=== PATIENT | female | born 1985 | race Caucasian/White ===

== ENCOUNTER 2022-03-12 09:47 | Outpatient (CLI) | payer BC, SELFPAY ==
[2022-03-12 13:24] LABS: Hemoglobin A1C 5.3 % (<5.7)
[2022-03-12 13:25] LABS: Calculated LDL 113 mg/dL (<100); Cholesterol 195 mg/dL (<200); HDL Cholesterol 71 mg/dL (40-60); Triglyceride 57 mg/dL (<150)
== END 2022-03-12 09:48 | disposition home or self-care (01) ==
LOC: LOS 09:47
PROVIDERS: PCP Nurse Practitioner Family; Referring Provider Nurse Practitioner Family; Visit Provider Nurse Practitioner Family
DX: Z13.220 Encounter for screening for lipoid disorders (principal); Z13.1 Encounter for screening for diabetes mellitus
CPT/HCPCS: 36415; 80061; 83036

== ENCOUNTER 2024-04-18 00:08 | Outpatient (CLI) | payer BC, SELFPAY ==
--- OUTSIDE RECORDS SUMMARY | 2024-04-16 14:07 | XMS_ITS | Encounter Summary ---
Author Organization [facility] [place] [address] Care Team Providers Care Event Operations Manager Name Role Phone None Primary Care Provider Unavailabl e Encounter Details Date Type Department Care Team (Latest Contact Info) Description 06/08/2013 5:13 PM EDT - 06/21/2013 1:30 PM EDT [place] [address] Marlen Saleh MD [facility] [address] OBST[place] [address] Narcisa Carcamo MD [facility] [address] OBSTET[place] [address] Dichorionic diamniotic twin gestation (Primary Dx); High-risk supervision, third trimester; Gestational HTN, third trimester; Premature cervical dilation, third trimester Discharge Disposition: Home Social History Tobacco Use Types Packs/Day Years Used Date Smoking Tobacco: Never Smokeless Tobacco: Never Alcohol Use Standard Drinks/Week Comments No 0 (1 standard drink = 0.6 oz pur e alcohol) Sex and Gender Information Value Date Recorded Sex Assigned at Not on file Gender Identity Not on file Sexual Orientation Not on file documented as of this encounter Last Filed Vital Signs Vital Sign Reading Time Taken Comments Blood Pressure 126/61 06/21/2013 7:51 AM EDT Pulse 81 06/21/2013 7:51 AM EDT Temperature 36.6 ??C (97.9 ??F) 06/21/2013 7:51 AM ED T Respiratory Rate 18 06/21/2013 7:51 AM EDT Oxygen Saturation 99% 06/20/2013 9:30 PM EDT Inhaled Oxygen Concentration - - Weight 82.3 kg (181 lb 7 oz) 06/18/2013 12:16 PM EDT Height 162.6 cm (5' 4) 06/08/2013 5:29 PM EDT Body Mass Index 31.14 06/08/2013 5:29 PM EDT documented in this encounter Discharge Instructions * Discharge Instructions* Nicho Childers - 06/21/2013 11:06 AM EDT .Nurse Inpatient Note - Vaginal Delivery Follow-ups: Immunizations Received: [ ] MMR [ ] Tdap [ ] Inactivated Influenza Vaccine [ ] Other: Medications Received: [ ] Rhogam Given: (time/date) [ ] Depoprovera Given: (time/date) [ ] Other: Additional Instructions: Maternal Discharge Instructions Rest: Although it may seem impossible to get enough rest, simple planning will help. Try to get at least one four hour block of uninterrupted sleep in 24 hours; then plan to rest, and/or sleep when your baby does. Limiting visitors also helps. Fathers and other family members can help by doing housework, caring for other children and/or helping limit visitors. Nutrition: Your diet following the of your baby is as important as it was before the baby wasborn. Drink a minimum of 6-8 glasses a day. Do not attempt to lose weight during the first six weeks. Continue taking your vitamins until they are gone. Lochia: (Flow) Your flow should be no heavier than a normal period. It will be bright red for 2-3 days and then pinkish and finally colorless. If your flow becomes bright red again, decrease your activity. Do not use tampons until your care provider advises you it is OK. Perineum: For about a week continue to rinse yourself with warm water when you use the toilet. A sitz bath with Epsom salts taken 3-4 times a day may help relieve soreness. Kegel exercise, done regularly throughout the day, will help tighten the perineal muscles and speed recovery. Breast Care for Formula feeding mothers: Wear a well fitting bra to support your breasts. Ice packsto your breasts and Tylenol or Ibuprofen may be used to relieve discomfort from engorgement. Avoid stimulating your breasts: Do not let warm water from the shower fall on them; avoid holding your baby near your breasts until your milk begins to decrease and engorgement is relieved. Breast feeding mothers: Practice careful positioning and frequent feeding as demonstrated in the hospital. The printed information in your packet covers this in detail. Call your doctor or certified professional midwife for: Fever more than 100.5 Heavy bleeding that saturates a pad an hour Clots larger than a plum Increased abdominal pain, nausea, shaking chills Breast with hot, hard, tender areas on the breast plus flu-like symptoms depression occurs in a large percentage of women. We encourage you to contact your provider or a member of the nursing staff if you are feeling so overwhelmed that you are unable to care for yourself or your baby. Keep your follow up appointment. You may call the [facility] at any time for guidance or for answers to questions that come up prior to you follow up appointment. Your [facility] Provider can be reached during office hours at [facility] Follow-up [facility] AFTER OFFICE HOURS for the sheet metal assembler or certified professional midwife outside residential sales professional Provider electronic signature confirms that discharge instructions were reviewed with the patient. A copy was printed and given to the patient. documented in this encounter Medications at Time of Discharge Medication Sig Dispensed Refills Start Date End Date norethindrone (ORTHO MICRONOR) 0.35 mg tablet Take 1 tablet by mouth daily. 28 tablet 12 06/21/2013 multivitamin (THERAGRAN) tablet Take 1 tablet by mouth daily. ibuprofen (ADVIL;MOTRIN) 600 mg tablet Take 1 tablet by mouth every 6 hours as needed for Pain (mild to moderate pain). 60 tablet 2 06/21/2013 08/02/2013 lansoprazole (PREVACID) 15 mg capsule Take 1 capsule by mouth daily. 30 capsule 12 04/25/2013 08/02/2013 documented as of this encounter Progress Notes * Guerline Schilling RN - 06/21/2013 11:59 AM EDT Care Management Assessment (Clinical English As A Second Language Instructor) Patient Information has been reviewed in multi-disciplinary rounds with OB and pediatric providers,in medical record, and through patient interview. Introduced self and CRC role to patient and services accepted. Living Situation: Clement is a 28 y.o delivered vaginally at 34 0/7 wks gestation on 06/19/13 Her was complicated by: Gestational hypertension, di-di twins (IVF ) With Whom: Aydin Where: [place], [place] Approx time in community: Year(s) Social Resources: Intact couple with first babies. Much desired . Both parents areemployed. 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 They are currently on his employer's [employer], but likely changing now to her [employer] plan to add the babies. Extended family in area for support: Yes, lots Cognitive Resources: Intact Childbirth Education: Yes/No Educational Level: College Functional Status: Ambulatory, Independent, Without limitations. Complications requiring follow-up: Financial Resources: Adequate Health Insurance Coverage: [facility] Commercial Announcer Chosen: Fernando Corey MD Baby's Names: Twin Boys Parish and Que Eubanks Anticipated Continuing Care Needs: Physical: Recovery from vaginal . Initiation of . Emotional: Adjustment to period Psychological: No known hx of anxiety/depression. Educational: Parenting twins/ ICN care- Continuing Care Plan Development: At home resources/Discharge supports suggested. Printed materials and suggested community resourcesprovided to patient: Visiting Nurse visits: Offered services of VNA post discharge. Patient accepted for when babies aredischarged home. Does not desire for herself as she will be commuting to [facility] daily from [facility].Does not desire to stay at [facility] at this time (have dog/home to resume care of) but has info if she changes her mind. Does not desire VNA for herself, but will accept if recommended when the t wins are discharged. Does not think she will want to consider having the babies returned to Home Hospital ([facility]) as she is pleased with the care they are getting here. [facility] (not available) 4th Trimester New mom support/[facility] [place] [facility]: [facility] DME ordered : Hospital Grade Double Electric Breast Pump x 3 months Breast Pump: Paying out of pocket, rented through [facility] as insurance covers only a single sided [employer] pump. Other: Have infant car seats, Own transportation, and adequate family support. No direct referrals made at this time. ICN FISCAL ACCOUNTING CLERK will follow through babies' discharges. CRC: Crystal GATES/ Mundo Blount. Beeper [phone] * Isaiah Clement RN - 06/21/2013 8:08 AM EDT Patient Name: Clement Eubanks Patient Age: 28 y.o. Birthdate: 1985 Admit date: 06/08/2013 Attending Physician: Narcisa Carcamo MD Office of Care Management (OCM) / Clinical English As A Second Language Instructor (CRC)/ Initial Assessment Discussed patient with Provider Team and in multidisciplinary discharge-planning rounds. Reviewed record and interviewed parents. Introduced/reviewed CRC role and services accepted. REASON for HOSPITALIZATION: Delivery of 34 week premature twins PMH/PSH: Past Medical History Diagnosis Date ??? Infertility IVF ??? Varicella ??? 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 Hydrosalpinx 07/28/2011 ??? Gestational HTN 06/12/2013 SOCIAL / FAMILY SUPPORTS: Hai are a couple who live in [facility] and these twins are their first children. They have good family support near them. CURRENT FUNCTIONAL STATUS:Parents are ambulatory, independent, without limitations. INSURANCE COVERAGE / FINANCIAL ISSUES: Aydin works for a [employer] [facility] [employer] medical insurance, which the twins will be added to. 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 PRIMARY CARE PHYSICIAN: none POTENTIAL DISCHARGE NEEDS:Insurance pays for a manual pump only, so parents will rent a symphony pump form the [facility]. Pump will be delivered to them today. PATIENT/FAMILY EDUCATION NEEDS: All aspects of care. Discussed transfer to [facility] when twins are stable, will readdress next week when twins are on full feedings. ANTICIPATED BARRIERS TO DISCHARGE: None identified TRANSPORTATION @ D/C: No issues identified PLAN: Will continue to monitor progress, follow for continuity of care and assist with discharge planning while hospitalized ISAIAH CLEMENT RN Pager [phone] * Fela Stephens MD - 06/21/2013 6:15 AM EDT Vaginal Delivery Note Information for the patient's : Lindsey Eubanks Twa [[id number]] Delivery Date and Time:06/19/2013 8:41 PM Delivery Type: Vaginal, Spontaneous Delivery Information for the patient's : Lindsey Eubanks Twb [[id number]] Delivery Date and Time:06/19/2013 9:04 PM Delivery Type: Vaginal, Vacuum (Extractor) Subjective: Clement has no complaints this morning. Her pain is well controlled. She denies sob, cp,n/v, leg pain. Denies ROTHMAN, vision changes, scotomas, RUQ/epigastric pain. Ambulating and walking well. Babies are doing well in the [facility]. Planning on commuting to the [facility]. Unsure of contraceptive choice, declines an IUD. Interested in using progesterone only pills. Review of Systems as above Last Set of Vitals: Filed Vitals: 06/20/13 2130 BP: 123/70 Pulse: 83 Temp: 36.5 ??C (97.7 ??F) Resp: 18 Weight - Scale: 82.3 kg (181 lb 7 oz) Physical Exam Gen: NAD, conversant, ambulating in the hallway CVS: RRR, no m/r/g Resp: cta b/l, no wheezing/rales/rhonchi Abd: soft, ndnt, fundus firm and 1 cm below umbilicus : moderate lochia Ext: +1 edema to knee, no calf tenderness Assessment & Plan Clement Eubanks is a 28 y.o. s/p an uncomplicated vaginal delivery of di-di twins at 34wks. Admitted for cervical insufficiency in setting of gHTN, though has been normotensive and asymptomatic. PPD#2. Doing well, d/c to home today. 1. care - Patient is doing well without problems. - Infant nutrition: and pumping - Contraception: progestin only pills - care: routine 6 week visit This patient was seen and discussed on rounds. GIA ESPARZA MD PGY1 06/21/2013 The patient is day 2 s/p of twin gestation. I personally saw and evaluated the patient during morning report and rounds with the resident physicians and nursing staff. The patient is making good progress. I agree with Dr. Esparza's assessment and plan as documented above. We anticipate discharge on day #2. Fela STEPHENS MD * Fela Stephens MD - 06/20/2013 6:45 AM EDT Vaginal Delivery Note Information for the patient's : Lindsey Eubanks Twa [[id number]] Delivery Date and Time:06/19/2013 8:41 PM Delivery Type: Vaginal, Spontaneous Delivery Information for the patient's : Lindsey Eubanks Twb [[id number]] Delivery Date and Time:06/19/2013 9:04 PM Delivery Type: Vaginal, Vacuum (Extractor) Subjective: Clement has no complaints this morning. Her pain is well controlled. She denies sob, cp,n/v, leg pain. Denies ROTHMAN, vision changes, scotomas, RUQ/epigastric pain. She had an epidural for delivery, but has been moving her legs better. Knott is still in place. Review of Systems as above Last Set of Vitals: Filed Vitals: 06/20/13 0447 BP: 121/68 Pulse: 73 Temp: 36.6 ??C (97.9 ??F) Resp: 18 Weight - Scale: 82.3 kg (181 lb 7 oz) Physical Exam Gen: NAD, conversant, appears fatigued CVS: RRR, no m/r/g Resp: cta b/l, no wheezing/rales/rhonchi Abd: soft, ndnt, fundus firm and below umbilicus : moderate lochia, knott in place draining clear yellow urine Ext: +1 edema to knee, no calf tenderness Assessment & Plan Clement Eubanks is a 28 y.o. s/p an uncomplicated vaginal delivery of di-di twins at 34wks. Admitted for cervical insufficiency in setting of gHTN, though has been normotensive and asymptomatic. PPD#1. Doing well. 1. care - Patient is doing well without problems. - Infant nutrition: and pumping - Contraception: undecided - care: routine 6 week visit - dc knott this am This patient was seen and discussed on rounds. MELLISSA ATWOOD MD PGY3 06/20/2013 The patient is day 1 s/p of twin gestation. I personally saw and evaluated the patient during morning report and rounds with the resident physicians and nursing staff. The patient is making good progress. I agree with Dr. Atwood's assessment and plan as documented above. Weanticipate discharge on day #2. Fela STEPHENS MD * Yessi Galvez RN - 06/19/2013 7:32 PM EDT 1919-Patient moved back to OR 2 in preparation for vaginal delivery. 2001-Complete dilation. 2018-Knott removed. 2020-O2 placed on patient between contractions. 2052-AROM for baby B clear fluid. 2101-Vacuum applied 2102-First pull started, lasting 20 sec before removal 2104-Pitocin bolus initiated * Марина Vela MD - 06/19/2013 7:17 PM EDT Patient Name: Clement Eubanks Patient Age: 28 y.o. Birthdate: 1985 Admit date: 06/08/2013 Attending Physician: Narcisa Carcamo MD Labor Progress Note Subjective: The patient is tolerating labor well. The patient is using epidural.for pain management. She is very comfortable and was able to take a nap. Objective: Temp: 36.9 ??C (98.4 ??F) 24 hr Temp: [36.8 ??C (98.2 ??F)-37 ??C (98.6 ??F)] Heart Rate: 88 24 hr Heart Rate: [75-105] BP: 140/83 mmHg 24 hr BP: (128-146)/(52-85) Cervix Exam: Dilation: 8 (06/19/13 1917) Effacement: 100 Station: 0 Position: Anterior Consistency: Soft Rodriguez Score: 12 OB Examiner: Farhana Heart Rate Interpretation: Mode: continuous external (06/19/13 1845) HR (beats/min): 145 Variability: moderate (amplitude range 6 to 25 bpm) Accelerations: present Decelerations: none Contraction Frequency (min): 2-4 min Nonstress Test Interpretation: Reactive, >32 weeks: two 15 bpm accelerations lasting 15 seconds Overall Impression: Reassuring for gestational age Nonstress Test, Fetus B HR B (beats/min): 150 Variability B: moderate (amplitude range 6 to 25 bpm) Accelerations B: present Decelerations B: absent Nonstress Test Interpretation B: Reactive, >32 weeks: two 15 bpm accelerations lasting 15 seconds Overall Impression B: Reassuring for gestational age GBS Lab Results Component Value Date GBSSCREEN Neg 06/08/2013 Assessment & Plan This is Clement Eubanks who is at 34w0d. Labor Assessment: Active phase labor., making cervical change ?? Labor Plans: AROM for clear fluid. Pitocin at 6. ?? GBS Management:: None Required ?? FHT: Category I x2 ?? Di/di twins. Will plan to move to the OR in anticipation of delivery now. LITTLE DELCID MD 06/19/2013 I have personally reviewed this patients progress in labor and agree with the documentation above. МАРИНА VELA MD * Marlen Saleh MD - 06/19/2013 4:36 PM EDT Labor Progress Note Subjective: Clement is feeling much more comfortable with the epidural in place. She reports her pain is now a 2/10. Objective: Temp: 37 ??C (98.6 ??F) 24 hr Temp: [36.8 ??C (98.2 ??F)-37 ??C (98.6 ??F)] Heart Rate: 86 24 hr Heart Rate: [76-105] BP: 130/69 mmHg 24 hr BP: (129-135)/(69-78) Cervix Exam: Dilation: 6 (06/19/13 1559) Effacement: 100 Station: 0 Position: Anterior Consistency: Soft Rodriguez Score: 12 OB Examiner: Pacis Heart Rate Interpretation: Twin A: Baseline 140, moderate variability, accelerations present to 160 Twin B: Baseline 150, moderate variability, accelerations present to 170 Tocometer: Contractions every 3-5 minutes Bedside Ultrasound: confirmed vertex/vertex, Twin A to maternal right, presenting twin, Twin B to maternal left Lab Results Component Value Date GBSSCREEN Neg 06/08/2013 Assessment & Plan Clement Eubanks is a 28 y.o. at 34w0d admitted for cervical insufficiency in the setting of di-di twin gestation and gestational HTN. Though Clement's cervical exam has remained unchanged, she is experiencing more pain with her ctx. She is much more comfortable with epidural in place. Planis to augment with pitocin and possible AROM after epidural. Anticipate vaginal delivery. She is GBS negative and no ppx is required at this time. DW Dr. Therese ESPARZA MD PGY1 06/19/2013 Attending note I have personally reviewed the patient's progress in labor and agree with Dr. Esparza's assessment and plan as documented. Marlen Saleh MD * Marlen Saleh MD - 06/19/2013 3:58 PM EDT Labor Progress Note Subjective: Clement is feeling more uncomfortable with contractions. She reports a 9/10 intensity during contractions and 7/10 at baseline. She is requesting pain management at this time. Objective: Temp: 37 ??C (98.6 ??F) 24 hr Temp: [36.8 ??C (98.2 ??F)-37 ??C (98.6 ??F)] Heart Rate: 86 24 hr Heart Rate: [76-105] BP: 130/69 mmHg 24 hr BP: (129-135)/(69-78) Cervix Exam: Dilation: 6 (06/19/13 1559) Effacement: 100 Station: 0 Position: Anterior Consistency: Soft Rodriguez Score: 12 OB Examiner: Batool Heart Rate Interpretation: Mode: continuous external (06/19/13 1500) HR (beats/min): 145 Variability: moderate (amplitude range 6 to 25 bpm) Accelerations: present Decelerations: none Contraction Frequency (min): 1-4 Nonstress Test Interpretation: Reactive, >32 weeks: two 15 bpm accelerations lasting 15 seconds Overall Impression: Reassuring for gestational age GBS Lab Results Component Value Date GBSSCREEN Neg 06/08/2013 Assessment & Plan Clement Eubanks is a 28 y.o. at 34w0d admitted for cervical insufficiency in the setting of di-di twin gestation and gestational HTN. Though Clement's cervical exam has remained unchanged, she is experiencing more pain with her ctx. She is requesting an epidural, and we will place one at this time. Plan is to augment with pitocin and possible AROM after epidural. Anticipate vaginal delivery. She is GBS negative and no ppx is required at this time. DW Dr. Saleh. MELLISSA ATWOOD MD PGY3 06/19/2013 She is entering active phase of labor. Will provide epidural analgesia, check position and give oxytocin. Marlen Saleh MD * Ophelia Mathews RN - 06/19/2013 2:44 PM EDT 1440-Pt reports contraction more intense and more frequent. Appears to be in greater discomfort andis breathing well through contractions.. EFM placed. No c/o of LOF. 1600-Pt reports pain 10/10. PE unchanged. Pt requesting epidural. Anesthesia notified. 1640-Epidural placed, pt tolerated procedure well, sitting at side of bed. Test dose given. Pt positioned in bed. Pain level reduced to 2-3. Sono done vtx/vtx. * Marlen Saleh MD - 06/19/2013 12:11 PM EDT NST Nonstress Test, Fetus A NST Start Time: 1035 (06/19/13 1208) HR (beats/min): 145 (06/19/13 1208) Variability: moderate (amplitude range 6 to 25 bpm) (06/19/13 1208) Accelerations: present (06/19/13 1208) Decelerations: none (06/19/13 120) Contraction Frequency (min): q5-8min (06/19/13 1208) Nonstress Test Interpretation: Reactive, >32 weeks: two 15 bpm accelerations lasting 15 seconds (06/19/13 1208) Overall Impression: Reassuring for gestational age (06/19/13 1208) Nonstress Test, Fetus B HR B (beats/min): 140 Variability B: moderate (amplitude range 6 to 25 bpm) Accelerations B: present Decelerations B: absent Nonstress Test Interpretation B: Reactive, >32 weeks: two 15 bpm accelerations lasting 15 seconds Overall Impression B: Reassuring for gestational age MELLISSA ATWOOD MD PGY3 06/19/2013 I personally reviewed the FHR Tracing and agree with the Resident???s interpretation. * Marlen Saleh MD - 06/19/2013 7:22 AM EDT ANTEPARTUM PROGRESS NOTE ID: Clement Eubanks is a 28 y.o. female at 34w0d, HD#13 with di/di twin gestation with continued dilation to 6 cm and bulging membranes without painful contractions. She has been admitted for continued monitoring, and is s/p tocolysis and betamethasone administration. Interval Events: - CTX requiring nifedipine for tocolysis - Has made cervical change from 4-6cm, s/p fentanyl and morphine/phenergan Subjective: Patient feels comfortable after receiving morphine/phenergan, though she still feels ctx. Denies lof and vb. +FM. Denies sob, cp, n/v, leg pain. Denies ROTHMAN, vision changes, scotomas, RUQ/epigastric pain. Voiding and moving her bowels well. Objective: Last value Range last 24 hrs Temperature Temp: 36.8 ??C (98.2 ??F) Temp: [36.3 ??C (97.3 ??F)-36.8 ??C (98.2 ??F)] Heart Rate Heart Rate: 98 Heart Rate: [85-105] Blood Pressure BP: 132/74 mmHg BP: (129-133)/(62-78) Respiratory Rate Resp: 18 Resp: [16-18] SpO2 SpO2: 98 % SpO2: [98 %] Art BP BP (Arterial Line): -- General: NAD, appears comfortable CVS: RRR, no m/r/g Resp: cta b/l, no wheezing/rales/rhonchi Abdomen: Soft, not tender, gravid : 6/90/0 Ext: non-tender Monitor Evaluation NST: reactive yesterday, pending today Last ultrasound: 32w6d Fetus A: cephalic, anterior placenta, normal VISHAL, EFW 2310g 85% Fetus B: cephalic, anterior placenta, normal VISHAL, EFW 2211g 80% Vtx/vtx presentation confirmed on bedside u/s 06/18/13 Assessment: Clement Eubanks is a 28 y.o. at 34w0d, HD#13 with di/di twin gestation with progressive cervical dilation to 4cm without painful contractions, now to 6cm with uncomfortable ctx since yesterday. She was admitted for continued monitoring, now s/p tocolysis, and betamethasone admi nistration. Developed gestational hypertension in this hospitalization with concern for developing preeclampsia given 24 hour urine protein of 270mg. Asymptomatic other then mild ROTHMAN controlled with acetaminophen HD8, none since. No severe range blood pressures. PIH labs significant for mild thrombocytopenia and anemia which have both been stable on last check HD7. Obstetrics: Progressing cervical dilation with bulging membranes. Bedside u/s demonstrates vtx/vtx on 06/18/13. Will reexamine for cervical change once pt is more awake from morphine/phenergan therapeutic rest. - s/p 48 hour course of Nifedipine for tocolysis during betamethasone administration. - Delivery indications: progressive labor, non-reassuring status, severe preeclampsia - NST daily - GBS negative, no ppx required - pt desires vaginal delivery - Beta complete (06/09) Gestational HTN: as in assessment above - IV antihypertensives to treat severe-range BPs and symptoms - continue to monitor BPs as for signs of preeclampsia PSHx includes laparoscopic adhesiolysis of omental adhesions, dense periadnexal adhesions and thin tubal adhesions with right salpingectomy and left tuboplasty. This is an IVF . Disposition: Requires continued admission for monitoring for advanced cervical dilation, bulging membranes in the setting of painless contractions. Will reexamine for cervical change. MELLISSA ATWOOD MD PGY3 06/19/2013 MFM attending note I saw and evaluated the patient. I agree with the findings and the plan of care as documented in Dr. Atwood' note. The patient reports having gotten some sleep and feels better. She is still having intermittent contractions but no leaking of fluid or bleeding. She reports good activity. My physical exam confirms and/or revises Dr. Atwood' exam. Temp: [36.8 ??C (98.2 ??F)-37 ??C (98.6 ??F)] Heart Rate: [76-105] Resp: [16-18] BP: (129-135)/(69-78) SpO2: [97 %-98 %] Nonstress test: Documented elsewhere Abdomen: gravid, soft, nontender Ext: no edema Impression: Dichorionic twin gestation, concordant weight, vrx/vtx Arrested premature labor with advanced cervical dilation Gestational hypertension, no evidence for severe preeclampsia The testing has been reassuring Plan: Continue expectant management until she develops regular painful contractions requiring analgesia then will consider augmenting the contractions. Marlen Saleh MD * Марина Vela MD - 06/19/2013 4:23 AM EDT Patient Name: Clement Eubanks Patient Age: 28 y.o. Birthdate: 1985 Admit date: 06/08/2013 Attending Physician: Narcisa Carcamo MD Labor Progress Note Subjective: The patient is tolerating labor well. The patient is using fentanyl.for pain management. She feels the contractions have been consistent overnight. She was able to get 45 minutes of sleep with fentanyl. Objective: Temp: 36.8 ??C (98.2 ??F) 24 hr Temp: [36.3 ??C (97.3 ??F)-36.8 ??C (98.2 ??F)] Heart Rate: 98 24 hr Heart Rate: [85-105] BP: 132/74 mmHg 24 hr BP: (129-133)/(62-78) Cervix Exam: Dilation: 6 (06/19/13 0422) Effacement: 100 Station: -1 Position: Mid-Position Consistency: Soft Rodriguez Score: 8 OB Examiner: Farhana Heart Rate Interpretation: Mode: continuous external (06/19/13 0300) HR (beats/min): 145 Variability: moderate (amplitude range 6 to 25 bpm) Accelerations: present Decelerations: none Contraction Frequency (min): 2-6 Nonstress Test Interpretation: Reactive, >32 weeks: two 15 bpm accelerations lasting 15 seconds Overall Impression: Reassuring for gestational age Nonstress Test, Fetus B HR B (beats/min): 155 Variability B: moderate (amplitude range 6 to 25 bpm) Accelerations B: present Decelerations B: absent Nonstress Test Interpretation B: Reactive, >32 weeks: two 15 bpm accelerations lasting 15 seconds Overall Impression B: Reassuring for gestational age GBS Lab Results Component Value Date GBSSCREEN Neg 06/08/2013 Assessment & Plan This is Clement Eubanks who is at 34w0d. Labor Assessment: Prolonged latent labor. ?? Labor Plans: Expectant management. Morphine and phenergan for pain relief and sleep. ?? GBS Management:: None Required ?? FHT: Category 1 LITTLE DELCID MD 06/19/2013 I have personally reviewed this patients progress in labor and agree with the documentation above. МАРИНА VELA MD * Маирна Vela MD - 06/19/2013 12:15 AM EDT Patient Name: Clement Eubanks Patient Age: 28 y.o. Birthdate: 1985 Admit date: 06/08/2013 Attending Physician: Narcisa Carcamo MD Labor Progress Note Subjective: The patient is tolerating labor well. The patient is using nothing for pain management. She is feeling more intense contractions over the course of tonight. Objective: Temp: 36.8 ??C (98.2 ??F) 24 hr Temp: [36.3 ??C (97.3 ??F)-36.8 ??C (98.2 ??F)] Heart Rate: 105 24 hr Heart Rate: [85-105] BP: 129/78 mmHg 24 hr BP: (129-133)/(62-78) Cervix Exam: Dilation: 6 (06/19/13 0012) Effacement: 100 Station: -3 Position: Mid-Position Consistency: Soft Rodriguez Score: 8 OB Examiner: Farhana Heart Rate Interpretation: Mode: continuous external (06/18/13 2100) HR (beats/min): 145 Variability: moderate (amplitude range 6 to 25 bpm) Accelerations: present Decelerations: none Contraction Frequency (min): q3-5min Nonstress Test Interpretation: Reactive, >32 weeks: two 15 bpm accelerations lasting 15 seconds Overall Impression: Reassuring for gestational age GBS Lab Results Component Value Date GBSSCREEN Neg 06/08/2013 Assessment & Plan This is Clement Eubanks who is at 34w0d. Labor Assessment: Active phase labor., making cervical change. ?? Labor Plans: Expectant management. ?? GBS Management:: None Required ?? FHT: Category I Additional Issues ?? Di/di twins: Plan to deliver in the OR. LITTLE DELCID MD 06/19/2013 Twins in labor at 34 weeks, vertex/vertex presentation would like to attempt vaginal delivery. Planis to allow to labor and deliver in the OR. МАРИНА VELA MD * Scotty Tovar RN - 06/18/2013 10:06 PM EDT States continues to have contractions, but decreased since Nifedipine dose. * Scotty Tovar RN - 06/18/2013 7:30 PM EDT Called to room with c/o increased intensity contractions. [place] vaginal discharge. No bright red bleeding. Contractions palpate mod with soft nontender resting tone. EFM and TOCO placed, Dr. Manning,Dr. Vela made aware. Order for Nifediphine received and given. Pt planning an epidural, but deniesneed for pain medication at this time. POC discussed. Pt refused the Nifedipine 20mg, but took Nifedipine 10mg PO, Dr. Delcid notified. at side and supportive. 2049: Dr. Delcid to bedside. Order received for Tylenol for lower back discomfort. VO Dr. Bravo DC monitoring. 0: Medicated with Tylenol. 0005: Called to room by patient. Dr. Delcid to bedside, SVE. EFM and TOCO placed. Requesting pain med. 0020: Medicated with Fentanyl. Enc to call for assistance OOB. 0130: States mild-mod relief with previous med. Denies need for med at this time. 0230: Resting well between contractions. 0300: Up to void, requesting pain med. VO: Dr. Delcid, Fentanyl 50mcg IV given. 0430: Pt states slept x45 minutes, requesting meds. States contractions not as strong as earlier. Dr. Delcid notified and to bedside, SVE. Orders received, medication given. 0530: Sleeping. Easily aroused. States still feels contractions but is able to rest. * Raymond Rainey MD - 06/18/2013 12:21 PM EDT NST Nonstress Test, Fetus A NST Start Time: 0924 (06/18/131215) HR (beats/min): 140 (06/18/131215) Variability: moderate (amplitude range 6 to 25 bpm) (06/18/131215) Accelerations: present (06/18/131215) Decelerations: none (06/18/131215) Contraction Frequency (min): q3-5min (06/18/131215) Nonstress Test Interpretation: Reactive, >32 weeks: two 15 bpm accelerations lasting 15 seconds (06/18/131215) Overall Impression: Reassuring for gestational age (06/18/131215) Nonstress Test, Fetus B HR B (beats/min): 150 Variability B: moderate (amplitude range 6 to 25 bpm) Accelerations B: present Decelerations B: absent Nonstress Test Interpretation B: Reactive, >32 weeks: two 15 bpm accelerations lasting 15 seconds Overall Impression B: Reassuring for gestational age MELLISSA ATWOOD MD PGY3 06/18/2013 I personally reviewed and interpreted this NST. RAYMOND RAINEY MD * Marlen Saleh MD - 06/18/2013 7:45 AM EDT ANTEPARTUM PROGRESS NOTE ID: Clement Eubanks is a 28 y.o. female at 33w6d, HD#12 with di/di twin gestation with continued dilation to 4 cm and bulging membranes without painful contractions. She has been admitted for continued monitoring, and is s/p tocolysis and betamethasone administration. Interval Events: - CTX requiring nifedipine for tocolysis - cervix unchanged and bedside u/s confirmed vtx/vtx Subjective: Patient reports stronger ctx since yesterday despite nifedipine. Denies LOF and vaginalbleeding, though reports passing her mucous plug. Good FM. Denies sob, cp, n/v, leg pain. No headache, vision changes, scotomas, RUQ/epigastric pain. Pt is eating, voiding, and having bowel movementswithout issue. Objective: Last value Range last 24 hrs Temperature Temp: 36.6 ??C (97.9 ??F) Temp: [36.6 ??C (97.9 ??F)-36.8 ??C (98.2 ??F)] Heart Rate Heart Rate: 72 Heart Rate: [72-83] Blood Pressure BP: 117/73 mmHg BP: (117-127)/(70-79) Respiratory Rate Resp: 19 Resp: [18-20] SpO2 SpO2: 99 % SpO2: [97 %-99 %] Art BP BP (Arterial Line): -- General: NAD Abdomen: Soft, not tender, gravid Ext: non-tender Cervical exam (06/18/13): 4/100/-3, continued bulging membranes Monitor Evaluation NST: reactive yesterday, pending today Last ultrasound: 32w6d Fetus A: cephalic, anterior placenta, normal VISHAL, EFW 2310g 85% Fetus B: cephalic, anterior placenta, normal VISHAL, EFW 2211g 80% Assessment: Clement Eubanks is a 28 y.o. at 33w6d, HD#12 with di/di twin gestation with progressive cervical dilation to 4 cm (HD5) without painful contractions. She was admitted for continued monitoring, now s/p tocolysis, and betamethasone administration. Developed gestational hypertension in this hospitalization with concern for developing preeclampsia given 24 hour urine protein of 270mg. Asymptomatic other then mild ROTHMAN controlled with acetaminophen HD8, none since. No severe range blood pressures. PIH labs significant for mild thrombocytopenia and anemia which have both been stable on last check HD7. Obstetrics: Advanced cervical dilation with bulging membranes. Will limit exams to prevent infection due to exposure of membranes. Pt reexamined today as she clinically feels more ctx. Cervix remainsunchanged. Bedside u/s demonstrates vtx/vtx. - s/p 48 hour course of Nifedipine for tocolysis during betamethasone administration. Pt feels moreuncomfortable this morning. Will give nifedipine for tocolysis now. - Delivery indications: progressive labor, non-reassuring status, severe preeclampsia - NST daily - GBS negative, no ppx required - Vertex/vertex presentation (06/11) - pt desires vaginal delivery - Beta complete (06/09) Gestational HTN: as in assessment above - IV antihypertensives to treat severe-range BPs and symptoms - continue to monitor BPs as for signs of preeclampsia PSHx includes laparoscopic adhesiolysis of omental adhesions, dense periadnexal adhesions and thin tubal adhesions with right salpingectomy and left tuboplasty. This is an IVF . Disposition: Requires continued admission for monitoring for advanced cervical dilation, bulging membranes in the setting of painless contractions. Will re- scan if the patient begins to contract uncomfortably - the preference for vaginal delivery of cephalic twins has been discussed with the patient. MELLISSA ATWOOD MD PGY3 06/18/2013 MFM attending note I saw and evaluated the patient. I agree with the findings and the plan of care as documented in Dr. Atwood' note. The patient reports feeling uncomfortable. She has regular contractions but denies leaking of fluid or bleeding. She reports good activity. My physical exam confirms and/or revises Dr. Atwood' exam. afebrile, vital signs stable. Nonstress test: Documented elsewhere Abdomen: gravid, soft, nontender Ext: no edema Impression: Dichorionic twins at 33 6/7 weeks with advanced cervical dilation. No current evidence for labor or PROM. Gestational hypertension No evidence for preeclampsia Plan: Continue hospitalization for and maternal safety and ongoing assessment regarding need for delivery. Try nifedipine for symptomatic relief. Nonstress test Marlen Saleh MD * Марина Vela MD - 06/18/2013 6:28 AM EDT Progress Note Subjective: The patient is feeling stronger contractions that she is unable to sleep through. She has been up pacing her room for the last several hours and feeling more back pain. Objective: Temp: 36.6 ??C (97.9 ??F) 24 hr Temp: [36.6 ??C (97.9 ??F)-36.8 ??C (98.2 ??F)] Heart Rate: 72 24 hr Heart Rate: [72-83] BP: 117/73 mmHg 24 hr BP: (117-127)/(70-79) Cervix Exam: Dilation: 4.5 (06/18/13 0627) Effacement: 100 Station: -3 Position: Mid-Position Consistency: Soft Rodriguez Score: 8 OB Examiner: Farhana MONDRAGON Heart Rate Interpretation: Mode: continuous external (06/18/13 0555) HR (beats/min): 135 Variability: moderate (amplitude range 6 to 25 bpm) Accelerations: present Decelerations: none Contraction Frequency (min): 2-4 Nonstress Test Interpretation: Reactive, >32 weeks: two 15 bpm accelerations lasting 15 seconds Overall Impression: Reassuring for gestational age Nonstress Test, Fetus B HR B (beats/min): 140 Variability B: moderate (amplitude range 6 to 25 bpm) Accelerations B: present Decelerations B: absent Nonstress Test Interpretation B: Reactive, >32 weeks: two 15 bpm accelerations lasting 15 seconds Overall Impression B: Reassuring for gestational age GBS Lab Results Component Value Date GBSSCREEN Neg 06/08/2013 Assessment & Plan This is Clement Eubanks who is at 33w6d. Labor Assessment: Not in labor., similar cervical exam to 1 week ago. Expectant management. LITTLE DELCID MD 06/18/2013 I have personally reviewed this patients progress in labor and agree with the documentation above. МАРИНА VELA MD * Kit Carrillo RN - 06/18/2013 6:16 AM EDT Okay to take pt off monitor per MD Maria Elena * Fela Stephens MD - 06/17/2013 10:59 AM EDT Nonstress Test, Fetus A NST Start Time: 0839 (06/17/13 1055) HR (beats/min): 145 (06/17/13 1055) Variability: moderate (amplitude range 6 to 25 bpm) (06/17/13 1055) Accelerations: present (06/17/13 105) Decelerations: none (06/17/13 1055) Contraction Frequency (min): q5m (06/17/13 1055) Nonstress Test Interpretation: Reactive, >32 weeks: two 15 bpm accelerations lasting 15 seconds (06/17/13 1055) Overall Impression: Reassuring for gestational age (06/17/13 1055) Nonstress Test, Fetus B HR B (beats/min): 150 Variability B: moderate (amplitude range 6 to 25 bpm) Accelerations B: present Decelerations B: absent Nonstress Test Interpretation B: Reactive, >32 weeks: two 15 bpm accelerations lasting 15 seconds Overall Impression B: Reassuring for gestational age I personally reviewed and interpreted this NST. Fela STEPHENS MD * Scar Arredondo - 06/17/2013 10:47 AM EDT S: Patient feeling her CTX this morning. They are not 'taking her breath away.' Nurse states they palpate mild. O: Appears comfortable with contractions Uterus non-tender FHT A 145/moderate/(+)accels/(-)decels B 150/moderate/(+)accels/(-)decels TOCO CTX q5m A/P Di-di twins @33w5d ceph/ceph last scan now urszula status reassuring with reactive NST for both fetuses this morning (and category 1 continuous tracing) Will trial tocolysis with nifedipine now Cervical exam and confirm presentation with ultrasound if starts to appear more uncomfortable and/or contractions progress SCAR ARREDONDO MD PGY4 * Fela Stephens MD - 06/17/2013 6:51 AM EDT ANTEPARTUM PROGRESS NOTE ID: Clement Eubanks is a 28 y.o. female at 33w5d, HD#11 with di/di twin gestation with continued dilation to 4 cm and bulging membranes without painful contractions. She has been admitted for continued monitoring, and is s/p tocolysis and betamethasone administration. Interval Events: - None Subjective: Patient denies contractions. Denies LOF and vaginal bleeding. Good FM. Denies sob, cp, n/v, leg pain. No headache, vision changes, scotomas, RUQ/epigastric pain. Pt is eating, voiding, and having bowel movements without issue. Objective: Last value Range last 24 hrs Temperature Temp: 36.7 ??C (98.1 ??F) Temp: [36.5 ??C (97.7 ??F)-36.9 ??C (98.4 ??F)] Heart Rate Heart Rate: 77 Heart Rate: [72-88] Blood Pressure BP: 130/71 mmHg BP: (129-137)/(71-76) Respiratory Rate Resp: 18 Resp: [18] SpO2 SpO2: 97 % SpO2: [97 %-98 %] Art BP BP (Arterial Line): -- General: NAD Abdomen: Soft, not tender, gravid Ext: non-tender Cervical exam (06/12/13): 4/100/-3, continued bulging membranes Significant labs: Recent Labs Basename 06/14/13 0545 06/13/13 1125 WBC 7.8 8.1 HGB 9.1* 9.0* HCT 27.9* 27.7* PLATELET 120* 115* Recent Labs Basename 06/14/13 0545 06/13/13 1125 CREATININE 0.59* 0.57* Recent Labs Basename 06/14/13 0545 06/13/13 1125 AST 20 26 Monitor Evaluation NST: reactive yesterday, pending today Last ultrasound: 32w6d Fetus A: cephalic, anterior placenta, normal VISHAL, EFW 2310g 85% Fetus B: cephalic, anterior placenta, normal VISHAL, EFW 2211g 80% Assessment: Clement Eubanks is a 28 y.o. at 33w5d, HD#11 with di/di twin gestation with progressive cervical dilation to 4 cm (HD5) without painful contractions. She was admitted for continued monitoring, now s/p tocolysis, and betamethasone administration. Developed gestational hypertension in this hospitalization with concern for developing preeclampsia given 24 hour urine protein of 270mg. Asymptomatic other then mild ROTHMAN controlled with acetaminophen HD8, none since. No severe range blood pressures. PIH labs significant for mild thrombocytopenia and anemia which have both been stable on last check HD7. Obstetrics: Advanced cervical dilation with bulging membranes. Will limit exams to prevent infection due to exposure of membranes. - s/p 48 hour course of Nifedipine for tocolysis during betamethasone administration. - Delivery indications: progressive labor, non-reassuring status, severe preeclampsia - NST daily - GBS negative, no ppx required - Vertex/vertex presentation (06/11) - pt desires vaginal delivery - Beta complete (06/09) Gestational HTN: as in assessment above - IV antihypertensives to treat severe-range BPs and symptoms - continue to monitor BPs as for signs of preeclampsia PSHx includes laparoscopic adhesiolysis of omental adhesions, dense periadnexal adhesions and thin tubal adhesions with right salpingectomy and left tuboplasty. This is an IVF . Disposition: Requires continued admission for monitoring for advanced cervical dilation, bulging membranes in the setting of painless contractions. Will re- scan if the patient begins to contract uncomfortably - the preference for vaginal delivery of cephalic twins has been discussed with the patient. SCAR ARREDONDO MD PGY4 06/17/2013 Maternal- Medicine Attending Note Patient: Clement Eubanks Date: @t@ I performed a history and physical exam of the patient and discussed her management with Dr. Arredondo. I reviewed Dr. Arredondo's note and agree with the documented findings and plan of care. My evaluation is as below: 33w5d EGA; twins, contractions/advanced cervical dilation; hospital day: LOS: 9 days Subjective: No complaints. Good movement. No contractions. *Vitals: AVSS *Abdomen: Soft, non-tender, not distended *Uterus: Soft, Non-tender *Extremities: Non-tender; no edema NST: See separate report. Impression: Twin gestation, complicated by labor at 33w5d EGA. Steroids complete. GBS negative. Plan: Continued hospitalization for monitoring, for maternal and well being. Deliver for nonreassuring maternal or status. Romeo Stephens MD Maternal- Medicine * Ashley Lal - 06/16/2013 4:10 PM EDT Nutrition Services - Initial Note Clement Eubanks : 1985 AGE: 28 y.o. Patient Active Problem List Diagnosis Date Noted ??? Hospital-Gestational HTN 06/12/2013 ??? Hospital-Premature cervical dilation 06/11/2013 ??? Svybfxdr-Cizt-jgfs supervision 03/28/2013 ??? Hospital-Dichorionic diamniotic twin gestation 12/04/2012 ??? Ovarian endometriosis 07/17/2012 ??? Hydrosalpinx 07/28/2011 ??? Ovarian cystic mass 07/28/2011 Reason for Nutrition Intervention: Hospital Day 9 Diet Order: Gestational Appetite: good Food allergies: NKFA Height: 162.6 cm Patient Vitals for the past 168 hrs: Weight 06/16/13 0800 81.8 kg (180 lb 5.4 oz) 06/14/13 1117 82.5 kg (181 lb 14.1 oz) Vitamins/Minerals: vitamin noted Assessment: Patient denies need for scheduled snacks at this time, she knows she can call or get snacks from the kitchen. Offered patient cafeteria menu for additional options, patient appreciative. No further questions or concerns at this time. Nutrition Plan: Gestational diet. Cafeteria menu for additional choices Monitor weight. Encourage good po intake. Support and encouragement provided. Nutrition services to follow weekly thru hospital course unless consulted in the interim. ASHLEY LAL, DT * Fela Stephens MD - 06/16/2013 6:28 AM EDT ANTEPARTUM PROGRESS NOTE ID: Clement Eubanks is a 28 y.o. female at 33w4d, HD#10 with di/di twin gestation with continued dilation to 4 cm and bulging membranes without painful contractions. She has been admitted for continued monitoring, and is s/p tocolysis and betamethasone administration. Interval Events: - None Subjective: Patient reports intermittent ctx yesterday morning have resolved. None overnight and she slept well. Denies LOF and vaginal bleeding. Good FM. Denies sob, cp, n/v, leg pain. Had a mild ROTHMAN last relieved by acetaminophen. None at this time. Denies vision changes, scotomas, RUQ/epigastric pain. Pt is eating, voiding, and having bowel movements without issue. Objective: Last value Range last 24 hrs Temperature Temp: 36.9 ??C (98.4 ??F) Temp: [36.5 ??C (97.7 ??F)-37.1 ??C (98.8 ??F)] Heart Rate Heart Rate: 79 Heart Rate: [72-80] Blood Pressure BP: 130/72 mmHg BP: (104-133)/(55-78) Respiratory Rate Resp: 18 Resp: [18] SpO2 SpO2: 97 % SpO2: -- Art BP BP (Arterial Line): -- General: NAD Abdomen: Soft, not tender, gravid Ext: non-tender Cervical exam (06/12/13): 4/100/-3, continued bulging membranes Significant labs: Recent Labs Basename 06/14/13 0545 06/13/13 1125 WBC 7.8 8.1 HGB 9.1* 9.0* HCT 27.9* 27.7* PLATELET 120* 115* Recent Labs Basename 06/14/13 0545 06/13/13 1125 CREATININE 0.59* 0.57* Recent Labs Basename 06/14/13 0545 06/13/13 1125 AST 20 26 Monitor Evaluation NST: reactive yesterday, pending today Last ultrasound: 32w6d Fetus A: cephalic, anterior placenta, normal VISHAL, EFW 2310g 85% Fetus B: cephalic, anterior placenta, normal VISHAL, EFW 2211g 80% Assessment: Clement Eubanks is a 28 y.o. at 33w4d, HD#9 with di/di twin gestation with progressive cervical dilation to 4 cm (HD5) without painful contractions. She was admitted for continued monitoring, now s/p tocolysis, and betamethasone administration. Developed gestational hypertension in this hospitalization with concern for developing preeclampsia given 24 hour urine protein of 270mg. Asymptomatic other then mild ROTHMAN controlled with acetaminophen HD8. No severe range blood pressures. PIH labs significant for mild thrombocytopenia and anemia which have both been stable on last check HD7. Obstetrics: Advanced cervical dilation with bulging membranes. Will limit exams to prevent infection due to exposure of membranes. - s/p 48 hour course of Nifedipine for tocolysis during betamethasone administration. - Delivery indications: progressive labor, non-reassuring status, severe preeclampsia - NST daily - GBS negative, no ppx required - Vertex/vertex presentation (06/11) - pt desires vaginal delivery - Beta complete (06/09) Gestational HTN: as in assessment above - IV antihypertensives to treat severe-range BPs and symptoms - continue to monitor BPs as for signs of preeclampsia PSHx includes laparoscopic adhesiolysis of omental adhesions, dense periadnexal adhesions and thin tubal adhesions with right salpingectomy and left tuboplasty. This is an IVF . Disposition: Requires continued admission for monitoring for advanced cervical dilation, bulging membranes in the setting of painless contractions. Will re- scan if the patient begins to contract uncomfortably - the preference for vaginal delivery of cephalic twins has been discussed with the patient. SCAR ARREDONDO MD PGY4 06/16/2013 Maternal- Medicine Attending Note Patient: Clement Eubanks Date: @t@ I performed a history and physical exam of the patient and discussed her management with Dr. Arredondo. I reviewed Dr. Arredondo's note and agree with the documented findings and plan of care. My evaluation is as below: 33w4d EGA; twins, arrested labor; hospital day: LOS: 8 days Subjective: No complaints. Good movement. No contractions. *Vitals: AVSS *Abdomen: Soft, non-tender, not distended *Uterus: Soft, Non-tender *Extremities: Non-tender; no edema NST: See separate report. Impression: Twin gestation, complicated by arrested labor and advanced cervical dilation [id number] EGA. Steroids complete. GBS negative. Plan: Continued hospitalization for monitoring, for maternal and well being. Deliver for nonreassuring maternal or status. Romeo Stephens MD Maternal- Medicine * Oksana Chaudhary MD - 06/15/2013 12:19 PM EDT NST Nonstress Test, Fetus A NST Start Time: 0904 (06/15/131216) Baseline Rate: 145 bpm (06/15/131216) Variability: Moderate (06/15/131216) Accelerations: Present (06/15/131216) Decelerations: None (06/15/131216) Contraction Frequency: q1-2 min w/ irritability (06/15/131216) Nonstress Test Interpretation: Reactive, >32 weeks: two 15 bpm accelerations lasting 15 seconds (06/15/13 121) Overall Impression: Reassuring for gestational age (06/15/131216) Nonstress Test, Fetus B Baseline Rate: 135 BPM Variability: Moderate Accelerations: Present Decelerations: None Contraction Frequency: q1-2 min w/ irritability Nonstress Test Interpretation B: Reactive, >32 weeks: two 15 bpm accelerations lasting 15 seconds Overall Impression B: Reassuring for gestational age MELLISSA ATWOOD MD PGY3 06/15/2013 Addendum: I personally reviewed the FHR Tracing and agree with the Resident???s interpretation. Oksana Chaudhary MD * Fela Stephens MD - 06/15/2013 8:55 AM EDT ANTEPARTUM PROGRESS NOTE ID: Clement Eubanks is a 28 y.o. female at 33w3d, HD#8 with di/di twin gestation with continued dilation to 4 cm and bulging membranes without painful contractions. She has been admitted for continued monitoring, and is s/p tocolysis and betamethasone administration. Interval Events: - None Subjective: Patient reports intermittent ctx this morning, similar to what she has been experiencing over the past several days. Denies lof and vaginal bleeding. Good FM. Denies sob, cp, n/v, leg pain. Denies ROTHMAN, vision changes, scotomas, RUQ/epigastric pain. Pt is eating, voiding, and moving her bowels well. Objective: Filed Vitals: 06/15/13 0750 BP: 134/81 Pulse: 83 Temp: 36.5 ??C (97.7 ??F) Resp: 18 General: Well developed, well nourished gravid female Abdomen: Soft, not tender, gravid Ext: b/l 1+ foot/ankle edema, no clonus, +2 DTRs b/l Repeat exam (06/12/13): 4/100/-3, continued bulging membranes Significant labs: Recent Labs Basename 06/14/13 0545 06/13/13 1125 06/08/13 2108 WBC 7.8 8.1 8.4 HGB 9.1* 9.0* 9.5* HCT 27.9* 27.7* 29.4* PLATELET 120* 115* 132* Lab Results Component Value Date AST 20 06/14/2013 Lab Results Component Value Date CREATININE 0.59* 06/14/2013 Monitor Evaluation NST: reactive yesterday, pending today Assessment: Clement Eubanks is a 28 y.o. at 33w3d, HD#8 with di/di twin gestation with cervical dilation 4 cm without painful contractions. She also had bulging membranes on exam. She was admitted for continued monitoring, now s/p tocolysis, and betamethasone administration. We will continue to monitor her as her cervix has changed. Also has antepartum history significant for gHTN. Obstetrics: Advanced cervical dilation with bulging membranes. Will limit exams to prevent infection due to exposure of membranes. - s/p 48 hour course of Nifedipine for tocolysis during betamethasone administration. - Delivery indications: progressive labor and non-reassuring status - NST daily - GBS negative, no ppx required - Vertex/vertex presentation (06/11) - pt prefers vaginal delivery at this time - Beta complete (06/09) Gestational HTN: BPs mostly controlled during this hospitalization and pt asymptomatic. 24h urine protein 06/11/13 270mg - IV antihypertensives to treat severe-range BPs and symptoms - continue to monitor BPs as for signs of preeclampsia Disposition: Requires continued admission for monitoring for cervical dilation, bulging membranes in the setting of painless contractions. Will re-scan if the patient begins to contract uncomfortably- the preference for vaginal delivery of cephalic twins has been discussed with the patient. MELLISSA ATWOOD MD PGY3 06/15/2013 I performed a history and physical exam of the patient and discussed her management with Dr. Atwood.I reviewed Dr. Atwood's note and agree with the documented findings and plan of care. My evaluation is as below: 33w3d EGA; arrested labor; twin gestation; presentation vtx/vtx Subjective: No complaints. Good movement. No regular contractions. No leaking fluid. Vitals: Last value Range last 8 hrs Temperature Temp: 37.1 ??C (98.8 ??F) Temp: [37.1 ??C (98.8 ??F)] Heart Rate Heart Rate: 80 Heart Rate: [80] Blood Pressure BP: 129/78 mmHg BP: (129)/(78) Respiratory Rate Resp: 18 Resp: [18] SpO2 SpO2: 97 % SpO2: -- Abdomen: Soft, non-tender, not distended Uterus: Soft, Non-tender Extremities: Non-tender; no edema NST: See separate report. Impression: PTL at 33w3d with concordantly grown di/di twin gestation. Steroid complete GBS negative Presentation vtx/vtx Plan: Continue expectant management with close observation for labor. Close observation for signs/symptoms preeclampsia. Stable blood pressure, with proteinuria or othersigns of preeclampsia at this time. Romeo Stephens MD Maternal- Medicine * Susan Wade RN - 06/14/2013 11:38 PM EDT 2229 - pt. Complained of ctx change, more uncomfortable, placed on monitor and notified Dr. Delcid, pt. Also complained of fluid in underwear, pad placed 23:30 - Dr. Delcid in to speak with pt., pt. States ctx about the same duration and distance apartas previously noted, plan is to reassess pad the next time she goes to the rest room, okay to come off monitor per Dr. Delcid * Allison Gomez MD - 06/14/2013 1:06 PM EDT 06/14/13 1305 Nonstress Test, Fetus A Baseline Rate 140 bpm Variability 6-25 BPM Accelerations Present Decelerations None Contraction Frequency irregular Nonstress Test Interpretation Reactive, >32 weeks: two 15 bpm accelerations lasting 15 seconds Overall Impression Reassuring for gestational age Nonstress Test, Fetus B Baseline Rate 140 BPM Variability 6-25 BPM Accelerations Present Decelerations None Overall Impression B Reassuring for gestational age Nonstress Test Interpretation B Reactive, >32 weeks: two 15 bpm accelerations lasting 15 seconds NST Times NST Start Time 0857 * Viral Tran MD - 06/14/2013 7:19 AM EDT ANTEPARTUM PROGRESS NOTE ID: Clement Eubanks is a 28 y.o. female at 33w2d, HD#7 with di/di twin gestation with continued dilation to 4 cm and bulging membranes without painful contractions. She has been admitted for continued monitoring, and is s/p tocolysis and betamethasone administration. Interval Events: - None Subjective: Patient reports intermittent ctx this morning, similar to what she has been experiencing over the past several days. Denies lof and vaginal bleeding. Good FM. Denies sob, cp, n/v, leg pain. Denies ROTHMAN, vision changes, scotomas, RUQ/epigastric pain. Pt is eating, voiding, and moving her bowels well. Objective: Filed Vitals: 06/14/13 0539 BP: 132/87 Pulse: 69 Temp: Resp: 18 General: Well developed, well nourished gravid female Abdomen: Soft, not tender, gravid Ext: b/l 1+ foot/ankle edema, no clonus, +2 DTRs b/l Repeat exam (06/12/13): 4/100/-3, continued bulging membranes Significant labs: Recent Labs Basename 06/14/13 0545 06/13/13 1125 06/08/13 2108 WBC 7.8 8.1 8.4 HGB 9.1* 9.0* 9.5* HCT 27.9* 27.7* 29.4* PLATELET 120* 115* 132* Lab Results Component Value Date AST 20 06/14/2013 Lab Results Component Value Date CREATININE 0.59* 06/14/2013 Results for CLEMENT EUBANKS ( ) as of 06/14/2013 07:27 Ref. Range 06/12/2013 10:20 U24 Prot Calc Latest Range: <=0.15 gm/24hr 0.27 (H) Monitor Evaluation NST: reactive yesterday, pending today Assessment: Clement Eubanks is a 28 y.o. at 33w2d, HD#7 with di/di twin gestation with cervical dilation 4 cm without painful contractions. She also had bulging membranes on exam. She was admitted for continued monitoring, now s/p tocolysis, and betamethasone administration. We will continue to monitor her as her cervix has changed. Also has antepartum history significant for gHTN. Obstetrics: Advanced cervical dilation with bulging membranes. Will limit exams to prevent infection due to exposure of membranes. - s/p 48 hour course of Nifedipine for tocolysis during betamethasone administration. - Delivery indications: progressive labor and non-reassuring status - NST daily - GBS negative, no ppx required - Vertex/vertex presentation (06/11) - pt prefers vaginal delivery at this time - Beta complete (06/09) Gestational HTN: BPs mostly controlled during this hospitalization and pt asymptomatic. 24h urine protein 06/11/13 270mg - IV antihypertensives to treat severe-range BPs and symptoms - continue to monitor BPs as for signs of preeclampsia Disposition: Requires continued admission for monitoring for cervical dilation, bulging membranes in the setting of painless contractions. Will re-scan if the patient begins to contract uncomfortably- the preference for vaginal delivery of cephalic twins has been discussed with the patient. MELLISSA ATWOOD MD PGY3 06/14/2013 Attending Progress Note VIRAL TRAN MD I reviewed the above note and discussed the patient at rounds with the team. I agree with the documented findings and plan of care. My evaluation is as below: Subjective: No complaints, no contractions or ROTHMAN or RUQ pain, good FM. Objective: Temp: [36.6 ??C (97.9 ??F)-36.8 ??C (98.2 ??F)] Heart Rate: [64-81] Resp: [16-18] BP: (132-147)/(71-93) SpO2: [95 %-97 %] Abdomen: Soft, non-tender, not distended Uterus: Soft, Non-tender Extremities: trace edema NST: In process for today, please see separate documentation. Impression & Plan 33w2d IUP with an SHERRIE of 07/31/2013, Alternate SHERRIE Entry, admitted with cervical dilation that has progresed. She has now developed elevated BP but does not have urine protein, however she is at high risk for preeclampsia. She is currently stable. We again discussed limiting pelvic exams given her exposed membranes. We will continue to monitor closely. Delivery Indications: progressive labor, non reassuring status and maternal deterioration. VIRAL TRAN MD 06/14/2013 * So Castrejon RN - 06/14/2013 5:56 AM EDT Patient requesting not to be disturbed for rounding throughout the night and that she would use call sheppard if she needed something. * Shae Garcia RN - 06/13/2013 5:[address] Delcid notified of results * Narcisa Carcamo MD - 06/13/2013 2:20 PM EDT Nonstress Test, Fetus A NST Start Time: 0812 (06/13/13 1406) Baseline Rate: 140 bpm (06/13/13 1406) Variability: Moderate (06/13/13 1406) Accelerations: Present (06/13/13 1406) Decelerations: None (06/13/13 1406) Contraction Frequency: every 1.5 to 5 minutes (06/13/13 1406) Nonstress Test Interpretation: Reactive, >32 weeks: two 15 bpm accelerations lasting 15 seconds (06/13/13 1406) Overall Impression: Reassuring for gestational age (06/13/13 1406) Nonstress Test, Fetus B Baseline Rate: 145 BPM Variability: Moderate Accelerations: Present Decelerations: None Contraction Frequency: every 1.5 to 5 minutes Nonstress Test Interpretation B: Reactive, >32 weeks: two 15 bpm accelerations lasting 15 seconds Overall Impression B: Reassuring for gestational age I personally reviewed and interpreted this NST. * Viral Tran MD - 06/13/2013 9:37 AM EDT ANTEPARTUM PROGRESS NOTE ID: Clement Eubanks is a 28 y.o. female at 33w1d, HD#6 with di/di twin gestation with continued dilation to 4 cm without painful contractions. She also had bulging membranes on exam. She has been admitted for continued monitoring, and is s/p tocolysis and betamethasone administration. Interval Events: - stable, but continued ctx overnight Subjective: Patient reports intermittent ctx this morning, similar to what she was experiencing yesterday. Denies lof and vaginal bleeding. Good FM. Denies sob, cp, n/v, leg pain. Pt is eating, voiding, and moving her bowels well. Objective: Filed Vitals: 06/13/13 0815 BP: 131/86 Pulse: 64 Temp: 36.9 ??C (98.4 ??F) Resp: 16 General: Well developed, well nourished gravid female Abdomen: Soft, not tender, gravid Ext: b/l 1+ foot/ankle edema Repeat exam (06/12/13): 4/100/-3, continued bulging membranes Significant labs: Recent Labs Basename 06/08/13 2108 WBC 8.4 HGB 9.5* HCT 29.4* PLATELET 132* Monitor Evaluation NST: reactive yesterday, pending today Assessment: Clement Eubanks is a 28 y.o. at 33w1d, HD#6 with di/di twin gestation with cervical dilation 4 cm without painful contractions. She also had bulging membranes on exam. She was admitted for continued monitoring, now s/p tocolysis, and betamethasone administration. We will continue to monitor her as her cervix has changed. Also has antepartum history significant for gHTN. Obstetrics: Advanced cervical dilation with bulging membranes. - s/p 48 hour course of Nifedipine for tocolysis during betamethasone administration. - Delivery indications: progressive labor and non-reassuring status - NST daily - GBS negative, no ppx required - Vertex/vertex presentation (06/11) - pt prefers vaginal delivery at this time - Beta complete (06/09) Gestational HTN: BPs mostly controlled during this hospitalization and pt asymptomatic. 24h urine protein 06/11/13 270mg - IV antihypertensives to treat severe-range BPs and symptoms - continue to monitor BPs Disposition: Requires continued admission for monitoring for cervical dilation, bulging membranes in the setting of painless contractions. Will re-scan if the patient begins to contract uncomfortably- the preference for vaginal delivery of cephalic twins has been discussed with the patient. MELLISSA ATWOOD MD PGY3 06/13/2013 Attending Progress Note VIRLA TRAN MD I reviewed the above note and discussed the patient at rounds with the team. I agree with the documented findings and plan of care. My evaluation is as below: Subjective: No complaints, still not feeling contractions that are painful, good FM, no leaking or bleeding. Denies ROTHMAN or visual changes, no RUQ pain. Objective: Temp: [36.8 ??C (98.2 ??F)-36.9 ??C (98.4 ??F)] Heart Rate: [64-80] Resp: [16-18] BP: (131-147)/(75-93) SpO2: [97 %-98 %] Abdomen: Soft, non-tender, not distended Uterus: Soft, Non-tender Extremities: trace edema NST: Pending for today, but with regular contractions, please see separate documentation. Impression & Plan 33w1d IUP with an SHERRIE of 07/31/2013, Alternate SHERRIE Entry, admitted with cervical dilation that has progresed. She has now developed elevated BP but does not have urine protein, however she is at high risk for preeclampsia. She is currently stable. We discussed limiting pelvic exams given herexposed membranes. We will continue to monitor closely. Delivery Indications: progressive labor, non reassuring status and maternal deterioration VIRAL TRAN MD 06/13/2013 * Yaquelin Elmore MD - 06/12/2013 12:20 PM EDT NST Nonstress Test, Fetus A NST Start Time: 0805 (06/12/13 1010) Baseline Rate: 145 bpm (06/12/13 1010) Variability: Moderate (06/12/13 1010) Accelerations: Present (06/12/13 1010) Decelerations: None (06/12/13 1010) Contraction Frequency: 1.5-7 (06/12/13 1010) Nonstress Test Interpretation: Reactive, >32 weeks: two 15 bpm accelerations lasting 15 seconds (06/12/13 1010) Overall Impression: Reassuring for gestational age (06/12/13 1010) MELLISSA ATWOOD MD PGY3 06/12/2013 I personally reviewed and interpreted this NST. YAQUELIN ELMORE MD * Guerline Schilling RN - 06/12/2013 10:59 AM EDT Office of Care Management (OCM) / Clinical English As A Second Language Instructor (CRC)/ Initial Assessment Discussed patient with Provider Team and in multidisciplinary discharge-planning rounds. Reviewed record and interviewed patient. Introduced/reviewed CRC role and services accepted. REASON for HOSPITALIZATION: Clement is a 28 y.o currently at 33 0/7 weeks gestation with di-di twins admitted with advanced cervical dilitation (3 cms, bulging membranes) and gestational hypertension. PMH : History of infertility, hydrosalpinx, IVF and gestational hypertension. 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 CURRENT FUNCTIONAL STATUS: Hospitalized, bedrest BRP's with advanced cervical dilitation. Now Betamethasone complete. SOCIAL / FAMILY SUPPORTS: Aydin and Her parents primary supports. They live in [place], [place] and have [employer] [facility] insurance in place. Have local support group. First , so no other children at home. Have own vehicles/transportation. ADVANCE DIRECTIVES: None in place. HEALTH /PRESCRIPTION COVERAGE: [employer] [facility] CURRENT HOME/COMMUNITY SERVICES/EQUIPMENT: DME: None Home Health Agency: None Other: N/A FISCAL ACCOUNTING CLERK REFERRAL: Notified FISCAL ACCOUNTING CLERK (Kerry Goldman) - for Support/Financial/Medication Assistance; See FISCAL ACCOUNTING CLERK notes for furtherneeds. PRIMARY CARE PHYSICIAN: None None None POTENTIAL DISCHARGE NEEDS: VNA, referrals to local resources, twin support, -local lodging, Car seats for twins (family will get) PATIENT/FAMILY EDUCATION NEEDS: Care of twins, ICN care ANTICIPATED BARRIERS TO DISCHARGE: None TRANSPORTATION @ D/C: PLAN: CRC will continue to monitor progress, follow for continuity of care and assist with discharge planning while hospitalized. Social work following through 's stays as well. . * Mellissa Atwood MD - 06/12/2013 9:24 AM EDT ANTEPARTUM PROGRESS NOTE ID: Clement Eubanks is a 28 y.o. female at 33w0d, HD#5 with di/di twin gestation with continued dilation to 4 cm without painful contractions. She also had bulging membranes on exam. She has been admitted for continued monitoring, and is s/p tocolysis and betamethasone administration. Interval Events: - advanced cervical dilation to 4cm Subjective: Patient reports intermittent ctx this morning occuring every 10 minutes. Denies lof andvaginal bleeding. Good FM. Denies sob, cp, n/v, leg pain. Pt is eating, voiding, and moving her bowels well. Objective: Filed Vitals: 06/12/13 0808 BP: 156/93 Pulse: 62 Temp: 36.9 ??C (98.4 ??F) Resp: 16 General: Well developed, well nourished gravid female Abdomen: Soft, not tender, gravid Ext: b/l 1+ foot/ankle edema Repeat exam (06/12/13): 4/100/-3, continued bulging membranes Significant labs: Recent Labs Basename 06/08/13 2108 WBC 8.4 HGB 9.5* HCT 29.4* PLATELET 132* Monitor Evaluation NST: reactive yesterday, pending today Most Recent Ultrasound Date: 06/11/2013 GA at US: 33 weeks Twin A: EFW: 2310g, 85% Growth appropriate for gestational age Amniotic fluid volume normal Placenta anterior Presentation cephalic Twin B: EFW: 2211g, 80% Growth appropriate for gestational age Amniotic fluid volume: normal Placenta: anterior Presentation: cephalic Assessment: Clement Eubanks is a 28 y.o. female at 33w0d, HD#5 with di/di twin gestation with cervical dilation 4 cm without painful contractions. She also had bulging membranes on exam. Ronaldo admitted her for continued monitoring, now s/p tocolysis, and betamethasone administration. Ever continue to monitor her as her cervix has changed. -Advanced cervical dilation with bulging membranes: She is not having painful contractions but has changed over her admission, now at 4cm dilated and appears to have continued contractions on tocometry. She received a 48 hour course of Nifedipine for tocolysis during betamethasone administration. There is no role for further tocolysis as she is already steroid complete. -Delivery indications: progressive labor and non-reassuring status - Heart Rate Assessment: Reactive NSTs upon yesterday. surveillance: NST once daily -GBS Management: GBS negative. PCN discontinued due to stability but needs to be restarted if she begins feeling uncomfortable. -Vertex/vertex presentation (06/11) -Steroid status & Plan: Beta complete (06/09) Dispo: Requires continued admission for monitoring for cervical dilation, bulging membranes in the setting of painless contractions. Will re-scan if the patient begins to contract uncomfortably - thepreference for vaginal delivery of cephalic twins has been discussed with the patient. MELLISSA ATWOOD MD PGY3 06/12/2013 * Marlen Saleh MD - 06/12/2013 9:15 AM EDT Antepartum Progress Note Patient ID: Clement Eubanks is a 28 y.o. at 33w0d whose has been complicated bydi/di twin gestation, advanced cervical dilation, and now gestational hypertension who was admittedfor advanced cervical dilation. Subjective: The patient reports that she is feeling contractions more strongly now, but only feels them every 15 minutes or so. Objective: Patient Vitals for the past 24 hrs: BP Temp Temp src Pulse Resp 06/12/13 0808 156/93 mmHg 36.9 ??C (98.4 ??F) Oral 62 16 06/12/13 0415 126/74 mmHg 36.8 ??C (98.2 ??F) Oral 65 18 06/11/13 2130 138/66 mmHg 37 ??C (98.6 ??F) Oral 67 18 06/11/13 1621 147/87 mmHg - - 63 16 06/11/13 1044 140/80 mmHg - - 63 - Cervix Exam: Dilation: 4 (06/12/13 0912) Effacement: 100 Station: -3 Position: Mid-Position Consistency: Soft Rodriguez Score: 8 OB Examiner: Eliazar Monitor Evaluation: Twin A: Baseline 140, moderate variability, accelerations present to 155, no decelerations Twin B: Baseline 150, moderate variability, accelerations present to 170, no deceleraitons Lab Results Component Value Date GBSSCREEN Neg 06/08/2013 Assessment & Plan Clement Eubanks is a 28 y.o. at 33w0d whose has been complicated by di/di twin gestation, advanced cervical dilation, and now gestational hypertension who was admitted for advanced cervical dilation. Patient is feeling more painful contractions now so it is likely that she is in latent phase of labor. Since she has already received steroids we will no longer tocolyze her. heart tracings are category 1, reassuring NSTs at this time. Will continue with intermittent monitoring. ?? Labor Plans: Expectant management. ?? GBS Management:: None Required Additional Issues ?? Gestational Htn: continue to monitor BP, 24 hr urine protein pending GIA ESPARZA MD PGY1 06/12/2013 MFM attending note I saw and evaluated the patient. I agree with the findings and the plan of care as documented in Dr. Esparza's note. The patient reports feeling well. She reports sharp contractions 4/ hour. No leaking of fluid or bleeding. She reports good activity. My physical exam confirms and/or revises Dr. Esparza's exam. 24 hour Temp: [36.8 ??C (98.2 ??F)-37 ??C (98.6 ??F)] Heart Rate: [62-67] Resp: [16-18] BP: (126-156)/(66-93) SpO2: -- Nonstress test: Documented elsewhere Appears very comfortable Abdomen: gravid, soft, nontender Ext: no edema Impression: 33.0 weeks with dichorionic twins Admitted without active labor and with dilation Last examination was 3 cm/100%. She has progressed to 4/100 with very mild contractions. Possible latent labor Reassuring testing to date Gestational hypertension, urine pending Plan: Continue with hospitalization given high risk for delivery Follow up 24 hour urine May ambulate to kitchen Marlen Saleh MD * Marlen Saleh MD - 06/11/2013 7:10 AM EDT ANTEPARTUM PROGRESS NOTE ID: Clement Eubanks is a 28 y.o. female at 32w6d, HD#4 with di/di twin gestation with continued dilation to 3 cm without painful contractions. She also had bulging membranes on exam. She has been admitted her for continued monitoring, and is s/p tocolysis and betamethasone administration. Interval Events: -Bedside ultrasound confirmed cephalic/cephalic Subjective: Patient has no complaints today, overall feeling well . Denies contractions/vaginal bleeding. Has not noticed any further leakage. Good FM. She noticed some tightening contractions that are not painful, but noticeable during the night. Objective: Filed Vitals: 06/11/13 0238 BP: 123/73 Pulse: 76 Temp: 36.5 ??C (97.7 ??F) Resp: 16 General: Well developed, well nourished gravid female Abdomen: Soft, not tender, gravid Ext: b/l 1+ foot/ankle edema Sterile Speculum/Cervical Exam: not repeated upon admission. Clinic exam (per Dr. Tran's note): SSE: Bulging bag of water appears to be 2-3 cm dilated, normalvaginal discharge, nitrazine negative VE: 2-3 cm dilated, 100% efface, high, membranes prlopase about 1 cm past the internal cervical os. Repeat exam (06/10): 3/100/high, continued bulging membranes Presentation: cephalic/cephalic (06/10) Significant labs: Recent Labs Basename 06/08/13 2108 WBC 8.4 HGB 9.5* HCT 29.4* PLATELET 132* Monitor Evaluation NST: reactive yesterday, pending today Most Recent Ultrasound Date: 05/25/2013 GA at US: 30w3d Twin A: EFW: 1755g, 87%ile Growth appropriate for gestational age Amniotic fluid volumenormal Placenta anterior Presentation cephalic Twin B: EFW: 1803g, 90%ile Growth appropriate for gestational age Amniotic fluid volume: normal Placenta: anterior Presentation: breech Discordance: 3% Assessment: Clement Eubanks is a 28 y.o. female at 32w6d, HD#4 with di/di twin gestation with cervical dilation 3 cm without painful contractions. She also had bulging membranes on exam. Weve admitted her for continued monitoring, now s/p tocolysis, and betamethasone administration. She is doing well this morning. -Advanced cervical dilation with bulging membranes: She is not having painful contractions but has changed over her admission, now at 3cm dilated and appears to have continued contractions on tocometry. She received a 48 hour course of Nifedipine for tocolysis during betamethasone administration. -Delivery indications: progressive labor and non-reassuring status - Heart Rate Assessment: Reactive NSTs upon yesterday. surveillance: NST once daily -GBS Management: GBS pending here. PCN discontinued due to stability but needs to be restarted if she begins feeling uncomfortable. -Vertex/vertex presentation (06/10). Formal growth ultrasound ordered for today. -Steroid status & Plan: Beta complete (06/09) Dispo: Requires continued admission for monitoring for cervical dilation, bulging membranes in the setting of painless contractions. Will re-scan if the patient begins to contract uncomfortably - thepreference for vaginal delivery of cephalic twins has been discussed with the patient. YAQUELIN PURCELL MD 06/11/2013 M attending note I saw and evaluated the patient. I agree with the findings and the plan of care as documented in Dr. Purcell's note. The patient reports feeling well. She denies contractions, leaking of fluid or bleeding. She does have a head mclean intermittently. She denies headache, epigastric pain, RUQ pain, scotomata or change in edema. She reports good activity. My physical exam confirms and/or revises Dr. Purcell's exam. Filed Vitals: 06/11/13 1044 BP: 140/80 Pulse: 63 Temp: Resp: Nonstress test: Documented elsewhere Abdomen: gravid, soft, nontender Ext: no edema Impression: Dichorionic twins at 32 6/7 weeks admitted with advanced cervical dilation and likely asymptomatic labor Successful tocolysis. The cervical exam is too advanced to permit discharge Reassuring testing to date Given elevated blood pressure will evaluate for preeclampsia and persistence of hypertension Plan: Nonstress test 24 hour urine and spot urine p/c ratio Assess for cervical change for report of contractions. Marlen Saleh MD * Yaquelin Elmore MD - 06/10/2013 4:20 PM EDT 06/10/13 1619 Nonstress Test, Fetus A Baseline Rate 130 bpm Variability 6-25 BPM Accelerations Present Decelerations None Nonstress Test Interpretation Reactive, >32 weeks: two 15 bpm accelerations lasting 15 seconds Overall Impression Reassuring for gestational age Nonstress Test, Fetus B Baseline Rate 135 BPM Variability 6-25 BPM Accelerations Present Decelerations None Overall Impression B Reassuring for gestational age Nonstress Test Interpretation B Reactive, >32 weeks: two 15 bpm accelerations lasting 15 seconds NST Times NST Start Time 0808 I personally reviewed and interpreted this NST. YAQUELIN ELMORE MD * Viral Tran MD - 06/10/2013 7:02 AM EDT ANTEPARTUM PROGRESS NOTE ID: Clement Eubanks is a 28 y.o. female at 32w5d, HD#3 with di/di twin gestation with cervical dilation to 2-3 cm without painful contractions. She also had bulging membranes on exam. We have admitted her for continued monitoring, tocolysis, and betamethasone administration. Interval Events: -Betamethasone complete Subjective: Patient has no complaints today, overall feeling well . Denies contractions/vaginal bleeding. Has not noticed any further leakage. Good FM. She was on the monitor yesterday for her NST and noticed continued contractions - she notices tightening of her abdomen when she sees contractions on the tocometer but reports they are not painful. Objective: Filed Vitals: 06/10/13 0630 BP: 113/55 Pulse: 76 Temp: 37.1 ??C (98.8 ??F) Resp: 20 General: Well developed, well nourished gravid female Abdomen: Soft, not tender, gravid Ext: b/l 1+ foot/ankle edema Sterile Speculum/Cervical Exam: not repeated upon admission. Clinic exam (per Dr. Tran's note): SSE: Bulging bag of water appears to be 2-3 cm dilated, normalvaginal discharge, nitrazine negative VE: 2-3 cm dilated, 100% efface, high, membranes prlopase about 1 cm past the internal cervical os. Presentation: cephalic/cephalic (06/09) Significant labs: Recent Labs Basename 06/08/13 2108 WBC 8.4 HGB 9.5* HCT 29.4* PLATELET 132* Monitor Evaluation NST: reactive yesterday, pending today Most Recent Ultrasound Date: 05/25/2013 GA at US: 30w3d Twin A: EFW: 1755g, 87%ile Growth appropriate for gestational age Amniotic fluid volumenormal Placenta anterior Presentation cephalic Twin B: EFW: 1803g, 90%ile Growth appropriate for gestational age Amniotic fluid volume: normal Placenta: anterior Presentation: breech Discordance: 3% Assessment: Clement Eubanks is a 28 y.o. female at 32w5d, HD#3 with di/di twin gestation with cervical dilation to 2-3 cm without painful contractions. She also had bulging membranes on exam. We have admitted her for continued monitoring, tocolysis, and betamethasone administration. She is doing well this morning. -Advanced cervical dilation with bulging membranes: She is not having painful contractions but has been found to be 2-3cm dilated and appears to be urszula on tocometry. She will continue on a 48hour course of Nifedipine for tocolysis, which will finish today. Will continue to monitor today and repeat cervical examination. -Delivery indications: progressive labor and non-reassuring status - Heart Rate Assessment: Reactive NSTs upon yesterday. surveillance: NST once daily -GBS Management: GBS pending here. PCN running due to presence of contractions upon admission. Consider discontinuation if contractions have stopped today. -Vertex/vertex presentation (06/09). Formal ultrasound ordered for Tuesday. -Steroid status & Plan: Beta complete (06/09) Dispo: Requires continued admission for monitoring for cervical dilation, bulging membranes in the setting of painless contractions. Will repeat cervical exam today. YAQUELIN PURCELL MD 06/10/2013 Attending Progress Note VIRAL TRAN MD I reviewed the above note and discussed the patient at rounds with the team. I agree with the documented findings and plan of care. My evaluation is as below: Subjective: No complaints, can sometimes feel uterine tightening but denies painful contractions, good FM, no leaking or bleeding. Objective: 1. Temp: [36.6 ??C (97.9 ??F)-37.1 ??C (98.8 ??F)] 2. Heart Rate: [64-90] 3. Resp: [16-20] 4. BP: (109-130)/(55-84) 5. SpO2: [96 %-97 %] 6. Abdomen: Soft, non-tender, not distended 7. Uterus: Soft, Non-tender 8. Extremities: trace edema 9. NST: reactive for today, please see separate documentation. Cervical Exam: Dilation: 3 (06/10/13 0946) Effacement: 100 Station: Floating -5 Position: Mid-Position Consistency: Soft Rodriguez Score: 8 OB Examiner: Rich Impression & Plan 32w5d IUP with an SHERRIE of 07/31/2013, Alternate SHERRIE Entry, admitted with labor. She is now steroid complete and will have her nifedipine stopped this pm. She has made some subtle cervical change and continues to have bulging membranes. She remains at high risk for delivery, which willmost likely present as PPROM given the exposed membranes. Now that she is steroid complete, I wouldnot tocolyse again. I discussed this with the patient. We discussed delivery route, that there is a5-10% chance of a c/s after a vaginal delivery of the first twin, that large population studies show a very small but significant improvement in outcomes of second twins when the whole is delivered by c/s, but that it is small, and our philosopy of care is pro-vaginal delivery. Delivery Indications: progressive labor and non reassuring status VIRAL TRAN MD 06/10/2013 * Allison Gomez MD - 06/09/2013 7:13 PM EDT 06/09/13 1857 Nonstress Test, Fetus A Baseline Rate 130 bpm Variability 6-25 BPM Accelerations Present Decelerations None Contraction Frequency irregular Nonstress Test Interpretation Reactive, >32 weeks: two 15 bpm accelerations lasting 15 seconds Overall Impression Reassuring for gestational age Nonstress Test, Fetus B Baseline Rate 140 BPM Variability 6-25 BPM Accelerations Present Overall Impression B Reassuring for gestational age Nonstress Test Interpretation B Reactive, >32 weeks: two 15 bpm accelerations lasting 15 seconds NST Times NST Start Time 1133 NST Stop Time 1212 * Gia Esparza MD - 06/09/2013 8:23 AM EDT Antepartum Progress Note Patient ID: Clement Eubanks is a 28 y.o. at 32w4d whose has been complicated bydi/di twins with advanced cervical dilation. Subjective: The patient reports that she isn't feeling contractions Objective: Temp: 36.6 ??C (97.9 ??F) 24 hr Temp: [36.6 ??C (97.9 ??F)-37 ??C (98.6 ??F)] Heart Rate: 84 24 hr Heart Rate: [66-93] BP: 110/64 mmHg 24 hr BP: (110-137)/(63-82) Bedside Ultrasound: Fetus A: Cephalic to maternal right anterior placenta Fetus B: Cephalic to maternal left anterior placenta Assessment & Plan Clement Eubanks is a 28 y.o. at 32w4d whose has been complicated by di/di twinswith advanced cervical dilation. ?? contractions: Nifedipine Q6H ?? Advanced Cervical Dilation: Steroids, tocolysis ?? GBS Management: GBS unknown, pending Additional Issues ?? none GIA ESPARZA MD PGY1 06/09/2013 * Viral Tran MD - 06/09/2013 6:59 AM EDT ANTEPARTUM PROGRESS NOTE ID: Clement Eubanks is a 28 y.o. female at 32w4d with di/di twin gestation admitted with cervical dilation to 2-3 cm without painful contractions. She also had bulging membranes on exam. HD#2, we have admitted her for continued monitoring, tocolysis, and betamethasone administration. Subjective: Patient has no complaints today, overall feeling well . Denies contractions/vaginal bleeding. Has not noticed any further leakage. Good FM. Objective: Last value Range last 24 hrs Temperature Temp: 36.6 ??C (97.9 ??F) Temp: [36.6 ??C (97.9 ??F)-37 ??C (98.6 ??F)] Heart Rate Heart Rate: 84 Heart Rate: [66-93] Blood Pressure BP: 110/64 mmHg BP: (110-137)/(63-82) Respiratory Rate Resp: 18 Resp: [18-20] SpO2 SpO2: 95 % SpO2: [94 %-99 %] Art BP BP (Arterial Line): -- General: Well developed, well nourished gravid female Heart: RRR, no R/M/G Lungs: CTAB, no wheezes/crackles Abdomen: Soft, not tender, gravid Ext: no edema Sterile Speculum/Cervical Exam: not repeated upon admission. Clinic exam (per Dr. Tran's note): SSE: Bulging bag of water appears to be 2-3 cm dilated, normalvaginal discharge, nitrazine negative VE: 2-3 cm dilated, 100% efface, high, membranes prlopase about 1 cm past the internal cervical os. Presentation: will verify with bedside ultrasound today Significant labs: Recent Labs Basename 06/08/13 2108 WBC 8.4 HGB 9.5* HCT 29.4* PLATELET 132* Monitor Evaluation NST: reactive yesterday, pending today Most Recent Ultrasound Date: 05/25/2013 GA at US: 30w3d Twin A: EFW: 1755g, 87%ile Growth appropriate for gestational age Amniotic fluid volumenormal Placenta anterior Presentation cephalic Twin B: EFW: 1803g, 90%ile Growth appropriate for gestational age Amniotic fluid volume: normal Placenta: anterior Presentation: breech Discordance: 3% Assessment: She is doing well this morning. -Advanced cervical dilation with bulging membranes: She is not having painful contractions but has been found to be 2-3cm dilated. She was written for tocolysis with nifedipine. Will continue to monitor today and consider discontinuing nifedipine if not urszula -Delivery indications: progressive labor and non-reassuring status - Heart Rate Assessment: Reactive NSTs upon admission. surveillance: NST once daily -GBS Management: GBS pending here. PCN running due to presence of contractions upon admission. Consider discontinuation if contractions have stopped today. -Vertex/breech on 05/25 ultrasound. Confirm presentation via bedside ultrasound today -Steroid status & Plan: Beta #1 dose given at 2130. Second dose due tonight. Dispo: Requires continued admission for betamethasone and monitoring for advanced cervical dilation. YAQUELIN PURCELL MD, PGY-3 06/09/2013 Attending Progress Note VIRAL TRAN MD I reviewed the above note and discussed the patient at rounds with the team. I agree with the documented findings and plan of care. My evaluation is as below: Subjective: No complaints ,previous contreactions have improved, no leaking or bleeding Objective: Temp: [36.6 ??C (97.9 ??F)-37 ??C (98.6 ??F)] Heart Rate: [66-93] Resp: [18-20] BP: (110-137)/(63-82) SpO2: [94 %-99 %] Abdomen: Soft, non-tender, not distended Uterus: Soft, Non-tender Extremities: trace edema NST: pending for today, please see separate documentation. Impression & Plan 32w4d IUP with an SHERRIE of 07/31/2013, Alternate SHRERIE Entry, admitted with twins and labor, notyet steroid complete, understands contractions better. We will complete steroids, keep nifedipine for 48 hours, and then consider a repeat cervical check. 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 Delivery Indications: progressive labor and non reassuring status VIRAL TRAN MD 06/09/2013 * Yessi Tovar RN - 06/08/2013 6:16 PM EDT 1803- Patient sitting comfortable in bed. Significant other supportive at bedside. Patient denies feeling contractions. EFM explained to patient and placed. 1810- Dr Elmore at bedside. 1830- IV placed # 18 placed left hand. Patient ordering dinner prior to 1900 but educated not to eat until stable. documented in this encounter H&P Notes * Yaquelin Elmore MD - 06/09/2013 12:13 AM EDT Obstetrical Admission Note Care Provider (if early referral or co-managed by [facility]): [facility] [facility] Chief Complaint: Clement Eubanks was admitted today secondary to cervical dilation, bulging membranes. Clement Eubanks is a 28 y.o. female with an SHERRIE of 07/31/2013, Alternate SHERRIE Entry with di/di twin gestation who is at 32w4d weeks gestation. Her course was uncomplicated until shepresented to [facility] clinic today, reporting leakage of fluid. Since 5 days ago, she noticed leakage ofclear fluid that trickles 2-3 times per day. She denies gushes of fluid. On exam, she was found to have bulging membranes with cervical dilation 2-3cm/100%/high, with negative nitrazine. She reports excellent movement, and denies any bleeding or contractions. Review of Systems General: denies fevers/chills/ROTHMAN CV: denies CP or palpitations Pulm: denies SOB or wheezing GI: reports normal appetite, denies nausea/vomiting, reports regular bowel movements : denies dysuria or hematuria Ext: denies UE/LE swelling or calf tenderness Obstetric Review of Systems Total Weight Gain this 24.177 kg (53 lb 4.8 oz) Movement: normal Contractions: none Leakin-3 times per day, trickling clear fluid Bleeding; none now Preeclampsia signs and symptoms: None Active Hospital Problems Diagnosis ??? High-risk supervision ??? Dichorionic diamniotic twin gestation Resolved Hospital Problems Diagnosis Date Resolved No resolved problems to display. Active Non-Hospital Problems Diagnosis ??? Ovarian endometriosis ??? Hydrosalpinx ??? Ovarian cystic mass Past Medical History Diagnosis Date ??? Infertility IVF ??? Varicella ??? 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 Hydrosalpinx 07/28/2011 Past Surgical History Procedure Date ??? Dilation and curettage of uterus ??? Lap, fulgurate/excise lesions 10/26/2011 LAPAROSCOPY W/FULGURATION OR EXC LESION, OVARY, VISCERA OR PERITONEAL SURFACE performed by ORLANDO RODNEY at [facility] OR ??? Reopen fallopian tube, chromotubation 10/26/2011 CHROMOTUBATION, INCLUDING MATERIALS performed by ORLANDO RODNEY at [facility] OR ??? Lap, lysis of adhesions 10/26/2011 LAPAROSCOPY, LYSIS OF ADHESIONS, PELVIS performed by ORLANDO RODNEY at [facility] OR ??? Lap, oviduct/ovary, unlist proc 10/26/2011 HYSTEROSCOPY, GUIDEWIRE, FALLOPIAN,TUBAL CANNULATION performed by ORLANDO RODNEY at [facility] OR ??? Biopsy of ovary(s) 10/26/2011 BIOPSY OF OVARY, UNILATERAL OR BILATERAL performed by ORLANDO RODNEY at [facility] OR ??? Lap, fimbrioplasty 10/26/2011 LAPAROSCOPY W/ FIMBRIOPLASTY performed by ORLANDO RODNEY at [facility] OR ??? Follicle punc, retrieval of oocyte 08/26/2012 OOCYTE RETRIEVAL performed by Blayne Quiles MD at [facility] OB History Grav Para Term Abortions TAB SAB Ect Mult Living 2 1 1 # Outc Date GA Lbr Dada/2nd Wgt Sex Del Anes PTL Lv 1 TAB 2004 2 CUR Prior to Admission Medications Prescriptions prior to admission Medication Sig Dispense Refill ??? lansoprazole (PREVACID) 15 mg capsule Take 1 capsule by mouth daily. 30 capsule 12 ??? multivitamin (THERAGRAN) tablet Take 1 tablet by mouth daily. Allergies No Known Allergies Family History Problem Relation Age of Onset ??? Breast Cancer Mother ??? Substance Abuse Father ??? Mental Illness Father ??? Mental Illness Maternal Grandmother ??? Heart Disease Maternal Grandfather ??? Cancer Paternal Grandmother stomach cancer ??? Diabetes Paternal Grandmother Type II ??? Alcohol Abuse Paternal Grandfather ??? Asthma Neg Hx ??? Thrombophilia Neg Hx ??? Blood Disorder Neg Hx ??? Kidney Disease Neg Hx ??? Migraines Neg Hx ??? Osteoarthritis Neg Hx ??? Ovarian Cancer Neg Hx ??? Rheumatoid Arthritis Neg Hx ??? Seizure Disorder Neg Hx ??? Thyroid Disease Neg Hx ??? Loss Neg Hx ??? Neg Hx ??? Cystic Fibrosis Neg Hx ??? Intellectual Disability Neg Hx ??? Hypertension Neg Hx Social History Occupational History ??? Not on file. Social History Main Topics ??? Smoking status: Never Smoker ??? Smokeless tobacco: Never Used ??? Alcohol Use: No ??? Drug Use: No ??? Sexually Active: Yes -- Male partner(s) Immunization History Immunization History Administered Date(s) Administered ??? Influenza PF, Split 01/24/2013 ??? Rho (D) Immune Globulin, IV or IM 09/12/2012, 05/10/2013 Last Set of Vitals: Filed Vitals: 06/08/132009 BP: 118/63 Pulse: 93 Temp: 36.6 ??C (97.9 ??F) Resp: 18 Weight - Scale: 83.598 kg (184 lb 4.8 oz) Physical Exam General: well-developed, well-nourished, in no acute distress CV: RRR, normal S1 S2, no murmurs/rubs/gallops Pulm: CTAB, good aeration throughout, no wheezes/crackles Abd: soft, gravid, no tenderness to palpation throughout Ext: no UE/LE swelling Uterine Size: consistent with twins Sterile Speculum/Cervical Exam: not repeated upon admission. Clinic exam (per Dr. Tran's note): SSE: Bulging bag of water appears to be 2-3 cm dilated, normalvaginal discharge, nitrazine negative VE: 2-3 cm dilated, 100% efface, high, membranes prlopase about 1 cm past the internal cervical os. Presentations: Unsure, will perform bedside ultrasound Heart Rate Interpretation: FHR Fetus A: Baseline Rate: 145 bpm (06/08/13 1900) Variability: Moderate Accelerations: Present Mode: External US;Continuous Decelerations: None Contraction Frequency: 3-4 FHR Fetus B: Nonstress Test, Fetus B Baseline Rate: 150 BPM Variability: Moderate Accelerations: Present Decelerations: None Contraction Frequency: 3-4 Record Review Labs Lab Results Component Value Date ABORH O Neg 06/08/2013 HCT 29.4* 06/08/2013 HGB 9.5* 06/08/2013 MCV 85.0 06/08/2013 HEPBSAG Negative 12/22/2012 RUBLIGG Positive 12/22/2012 HIV12 Negative 12/22/2012 GCAMP Negative 12/22/2012 CHLMGENE Negative 12/22/2012 Lab Results Component Value Date GLUCDOSE 100 gm 06/01/2013 GLUCBASELINE 77 06/01/2013 ZMSWLBC1GL 179 06/01/2013 LABGLUC2 162 06/01/2013 LABGLUC3 138 06/01/2013 No results found for this basename: gbsscreen, Most Recent Ultrasound Date: 05/25/2013 GA at US: 30w3d Twin A: EFW: 1755g, 87%ile Growth appropriate for gestational age Amniotic fluid volumenormal Placenta anterior Presentation cephalic Twin B: EFW: 1803g, 90%ile Growth appropriate for gestational age Amniotic fluid volume: normal Placenta: anterior Presentation: breech Discordance: 3% Assessment & Plan Clement A Brittell is a 28 y.o. female with an SHERRIE of 07/31/2013, Alternate SHERRIE Entry with di/di twin gestation who is at 32w4d weeks gestation with cervical dilation to 2-3 cm without painful contractions. She also had bulging membranes on exam. We will admit her for continued monitoring, solange olysis, and betamethasone administration. ?? Labor State: She is not having painful contractions but has been found to be 2-3cm dilated. Given contractions on the monitor, will administer nifedipine for tocolysis. ?? Delivery indications: progressive labor and non-reassuring status ?? Heart Rate Assessment: Category 1 ?? surveillance: NST once daily ?? GBS/RH/HIV Management: ?? GBS Management: GBS unknown. Will collect GBS specimen, but then will start Penicillin now sincethe patient is urszula ?? Confirm presentation via bedside ultrasound tomorrow ?? Steroid status & Plan: Beta #1 dose given at 2130 YAQUELIN PURCELL MD 06/09/2013 I have seen the patient and reviewed the resident's above history and I agree with the details as written. The assessment and plan were formulated in discussion with me and I agree with them as documented. Pertinent History: 33+4 wks di-di twin gestation who was seen in clinic today. She complained of some watery discharge and was found to be dilated to 3 cm with bulging membranes. She denies painful contractions but has felt a lot of tightening this past week. History otherwise uncomplicated. Pertinent Exam: Reactive NST x 2, vitals reviewed Bedside ultrasound confirms vertex presentation Uterus nontender SROM negative in clinic Bedside ultrasound confirms vtx/breech presentation Major issues addressed: labor at 32+4 weeks, no evidence of chorioamnionitis Reassuring status Plan: Admit to for in-house surveillance Complete betamethasone ICN, anesthesiology consults documented in this encounter Procedure Notes * Provider, Scanning - 06/26/2013 9:16 AM EDTAssociated Order(s): SCAN DOC: LAB documented in this encounter Miscellaneous Notes * Brief Op Note - Provider, Carla - 06/22/2013 9:23 AM EDT * Miscellaneous - Provider, Carla - 06/22/2013 9:23 AM EDT * Plan of Care - iNcho Childers - 06/21/2013 11:15 AM EDT Problem: Following Vaginal Delivery (Adult, Obstetrics) Goal: Signs and symptoms of listed potential problems will be absent or manageable (reference ( Following Vaginal Delivery (Adult, Obstetrics)) CPG) Pt doing well and ready for discharge. Rhogam and tdap vaccine given to mom. Reviewed discharge instructions including sxs of infection, fever precautions, changes in bleeding, call for dizziness, headache, epigastric pain, visual changes. Reviewed care, pumping, IBCLC resources, PPD. F/u appt reviewed. Asked questions appropriately, verbalized understanding of answers. Mom discharged home. * Discharge Summary - Mellissa Atwood MD - 06/21/2013 2:44 AM EDT Discharge Summary Patient Name: Clement Eubanks Patient Age: 28 y.o. Language: [place] Race: White Ethnicity: Not nor Admit date: 06/08/2013 Discharge date and time: 06/22/2013 Attending Physician: Narcisa Carcamo MD Discharge Physician: Beatrice Stephens Follow-up Recommendations for Providers: None Inpatient Provider Contact Information: [facility] [place] [facility] Care Provider: [facility] Discharge Diagnoses (Hospital Problems) and Secondary Diagnoses (Chronic Problems): Active Hospital Problems Diagnosis ??? Gestational HTN ??? Premature cervical dilation ??? High-risk supervision ??? Dichorionic diamniotic twin gestation Resolved Hospital Problems Diagnosis Date Resolved No resolved problems to display. Active Non-Hospital Problems Diagnosis ??? Gestational HTN ??? Premature cervical dilation ??? High-risk supervision ??? Dichorionic diamniotic twin gestation ??? Ovarian endometriosis ??? Hydrosalpinx ??? Ovarian cystic mass Operations/Major Procedures: None Admission History: (per admit note cut and paste) Clement Eubanks was admitted today secondary tocervical dilation, bulging membranes. Clement Eubanks is a 28 y.o. female with an SHERRIE of 07/31/2013, Alternate SHERRIE Entry with di/di twin gestation who is at 32w4d weeks gestation. Her course was uncomplicated until shepresented to [facility] clinic today, reporting leakage of fluid. Since 5 days ago, she noticed leakage ofclear fluid that trickles 2-3 times per day. She denies gushes of fluid. On exam, she was found to have bulging membranes with cervical dilation 2-3cm/100%/high, with negative nitrazine. She reports excellent movement, and denies any bleeding or contractions. Hospital Course: The patient was admitted for management of advanced cervical dilation in the setting of di/di twin . On tocometer she was found to be urszula regularly, though the patient reported only feeling light uterine tightening. She completed a course of betamethasone for lung maturity. She was also given a 48 hour course of nifedipine for tocolysis. She had daily reactive NSTs during her admission. PCN was started due to GBS unknown, but was stopped on HD#3 due to lack of painful contractions. She was rechecked on HD#3 and was found to have progressed to 3cm/100%/high with continued bulging membranes. The decision was made to continue inpatient surveillance. On HD#6, Clement began feeling more contractions that had been stronger than previously felt. She was reexamined and found to have changed to 4cm/100%/high with bulging membranes. Her contractions haddiminished thereafter. On HD#11, she developed stronger contractions that were every 5 minutes on the tocometer. She was given a single dose of nifedipine, which resulted in the contractions spacing out. She was reexaminedand found to have made minimal change. She was again given nifedipine, which improved her pain. From HD#12-13, Clement reported more painful contractions. She was examined and found to have progressedto 6/100/-3 with bulging membranes. She was given fentanyl x2 for pain without relief. She was given morphine and phenergan for therapeutic rest after being reexamined without cervical change. Her contraction pain diminished. On HD#13, Clement again felt more intense contractions. She was reexaminedwithout cervical change. She was given an epidural for pain relief and pitocin was administered forlabor induction. No GBS prophylaxis was initiated as her GBS culture was negative. She continued tohave a category 1 tracing for both fetuses. She had an artifical rupture of membranes at 1913 for clear fluid. She was found to be complete at 2001 with the presenting part at +2 station. She pushed for 39 minutes and spontaneously delivered Baby A at 2041 hrs. There was a nuchal cord x1. A viable male infantwas placed on maternal chest and had APGARS of 9 and 9 at 1 and 5 minutes and had a weight of 2290g. The cord was clamped in 2 places and transected. Cord blood was taken. The was then evaluated by the ICN staff. A bedside ultrasound was used to confirm position of Baby B in the cephalic position. The membraneswere ruptured for Baby B with good decent of the head. Over several contractions FHT showed bradycardia. The decision was made to proceed with vacuum assisted delivery to expedite delivery. Thefetal head position was found to be +3. With one pull progressive descent was noted and the handle of the vacuum device was gradually elevated when the perineum began to bulge. There were no pop-offs. There was no nuchal cord. A viable male was placed on maternal chest and had APGARS of 3 and 8 at 1 and 5 minutes and had a weight of 2290g. The was evaluated by the ICN staff. Cord blood was taken. The fundus became firm with massage and pitocin. The placenta delivered spontaneously after 27 minutes and it was a 3-vessel cord. Inspection of the vagina and perineum revealed a first degree laceration which was repaired with a single figure of eight 3-0 vicryl suture. No complications. Blood loss estimated at <500ccs. She was in stable condition after delivery. The infants were taken to [facility] for prematurity. Throughout her hospitalization, Clement had normotensive blood pressures, with occasional elevationsto the 140s/90s. She remained asymptomatic. A 24 hour urine protein was collected and returned 270mg. She did not require antihypertensive medications during her stay. Her course was uneventful. By the time of discharge on post day number 2, her pain was well controlled with oral pain medications, she was tolerating a regular diet, ambulating, andvoiding without difficulty. Her fundal exam was as expected and her lochia was within normal limits. She is establishing and will be followed up in clinic in 6 weeks post . She isplanning on using Progestin only pills for contraception. Tocolytics Received if applicable: Nifedipine Date Steroid Complete: 06/09 GBS status: Lab Results Component Value Date GBSSCREEN Neg 06/08/2013 Vital signs at Discharge: BP: 126/61 mmHg, Heart Rate: 81 , Temp: 36.6 ??C (97.9 ??F), Resp: 18 , BMI (Calculated): 31.7 Height: 162.6 cm (5' 4) (06/08/13 1729) Weight - Scale: 82.3 kg (181 lb 7 oz) (06/18/13 1216) Functional and Cognitive status: Appropriate and intact Important Studies and Lab Data: Results for CLEMENT EUBANKS ( ) as of 06/12/2013 10:30 Ref. Range 06/11/2013 10:36 U Creatinine No range found 38 Prot/Cre Ratio No range found 0.2 U Protein Ran Latest Range: 0-12 mg/dL 9 Pending Studies and Lab Data: Final placenta pathology pending Discharge Conditions/Prognosis: Stable Discharge to: Home Updated Allergies/ADRs: No Known Allergies Immunizations Given this Hospitalization: Immunization History Administered Date(s) Administered ??? Influenza PF, Split 01/24/2013 ??? Rho (D) Immune Globulin, IV or IM 09/12/2012, 05/10/2013 ??? Tdap Vaccine 06/21/2013 Discharge Medications: Your Medications As of 06/22/2013 1:17 PM New Medications Dose Details ibuprofen 600 mg tablet Commonly known as: ADVIL;MOTRIN Take 1 tablet by mouth every 6 hours as needed for Pain (mild to moderate pain). 600 mg Quantity: 60 tablet Refills: 2 norethindrone 0.35 mg tablet Commonly known as: MICRONOR Take 1 tablet by mouth daily. 1 tablet Quantity: 28 tablet Refills: 12 Continued medications, unchanged Dose Details lansoprazole 15 mg capsule Commonly known as: PREVACID Take 1 capsule by mouth daily. 15 mg Quantity: 30 capsule Refills: 12 multivitamin tablet Commonly known as: THERAGRAN Take 1 tablet by mouth daily. 1 tablet Refills: 0 Smoking Status at Discharge: History Smoking status ??? Never Smoker Smokeless tobacco ??? Never Used Instructions Given to Patient at Discharge: Provider Instructions None General Instructions .Nurse Inpatient Note - Vaginal Delivery Follow-ups: Immunizations Received: [ ] MMR [ ] Tdap [ ] Inactivated Influenza Vaccine [ ] Other: Medications Received: [ ] Rhogam Given: (time/date) [ ] Depoprovera Given: (time/date) [ ] Other: Additional Instructions: Maternal Discharge Instructions Rest: Although it may seem impossible to get enough rest, simple planning will help. Try to get at least one four hour block of uninterrupted sleep in 24 hours; then plan to rest, and/or sleep when your baby does. Limiting visitors also helps. Fathers and other family members can help by doing housework, caring for other children and/or helping limit visitors. Nutrition: Your diet following the of your baby is as important as it was before the baby wasborn. Drink a minimum of 6-8 glasses a day. Do not attempt to lose weight during the first six weeks. Continue taking your vitamins until they are gone. Lochia: (Flow) Your flow should be no heavier than a normal period. It will be bright red for 2-3 days and then pinkish and finally colorless. If your flow becomes bright red again, decrease your activity. Do not use tampons until your care provider advises you it is OK. Perineum: For about a week continue to rinse yourself with warm water when you use the toilet. A sitz bath with Epsom salts taken 3-4 times a day may help relieve soreness. Kegel exercise, done regularly throughout the day, will help tighten the perineal muscles and speed recovery. Breast Care for Formula feeding mothers: Wear a well fitting bra to support your breasts. Ice packsto your breasts and Tylenol or Ibuprofen may be used to relieve discomfort from engorgement. Avoid stimulating your breasts: Do not let warm water from the shower fall on them; avoid holding your baby near your breasts until your milk begins to decrease and engorgement is relieved. Breast feeding mothers: Practice careful positioning and frequent feeding as demonstrated in the hospital. The printed information in your packet covers this in detail. Call your doctor or certified professional midwife for: Fever more than 100.5 Heavy bleeding that saturates a pad an hour Clots larger than a plum Increased abdominal pain, nausea, shaking chills Breast with hot, hard, tender areas on the breast plus flu-like symptoms depression occurs in a large percentage of women. We encourage you to contact your provider or a member of the nursing staff if you are feeling so overwhelmed that you are unable to care for yourself or your baby. Keep your follow up appointment. [facility] any time for guidance or for answers to questions that come up prior to you follow up appointment. Your [facility] Provider can be reached during office hours at [facility] AFTER OFFICE HOURS for the sheet metal assembler or certified professional midwife outside residential sales professional Provider electronic signature confirms that discharge instructions were reviewed with the patient. A copy was printed and given to the patient. Discharge References/Attachments None Cc: Narcisa Carcamo * Plan of Care - Shae Garcia RN - 06/20/2013 7:20 AM EDT Problem: Following Vaginal Delivery (Adult, Obstetrics) Goal: Signs and symptoms of listed potential problems will be absent or manageable (reference ( Following Vaginal Delivery (Adult, Obstetrics)) CPG) Plan of care for today reviewed with patient, including vital signs, medications, pain control, diet and activity. Patient verbalized understanding of plan of care. * L&D Delivery Note - Марина Vela MD - 06/20/2013 12:14 AM EDT Delivery Note Clement Eubanks is a 28 y.o. year old woman at 34w1d weeks gestational age with spontaneous labor, augmented with pitocin and AROM, epidural for analgesia. She was found to be complete at 2001 with the presenting part at +2 station. She pushed for 39 minutes and spontaneously delivered Baby A at 1 hrs. The infant's head was delivered in a controlled fashion. There was a nuchal cord x1. The body was delivered without incident over an intact perineum. A viable male was placed on maternal chest and had APGARS of 9 and 9 at 1 and 5 minutes andhad a weight of 2290g. The cord was clamped in 2 places and transected. Cord blood was taken. The infant was then evaluated by the ICN staff. A bedside ultrasound was used to confirm position of Baby B in the cephalic position. The membraneswere ruptured for Baby B with good decent of the head. Over several contractions FHT showed bradycardia. The decision was made to proceed with vacuum assisted delivery to expedite delivery. Thefetal head position was found to be +3. The Kiwi suction cup was applied over the sagittal suture about 3cm in front of the posterior fontenelle toward the face. Vacuum pressure was created with handpump and established at 500mm Hg. The edge of the vacuum cup was carefully examined, and no maternal tissue was entrapped under the cup. With the left hand applying counter pressure on the vacuum cupto prevent pop-off, right hand applied gentle downward traction in coordination with uterine contraction and maternal pushing. Progressive descent was noted and the handle of the vacuum device was gradually elevated when the perineum began to bulge. There were no pop-offs and one pull. The cup was removed after the head delivery. There was no nuchal cord. The body was delivered without incident over an intact perineum. A viable male infant was placed on maternal chest and had APGARS of 3 and 8 at 1 and 5 minutes and had a weight of 2290g. The cord was clamped in 2 places and transected. The infant was evaluated by the ICN staff. Cord blood was taken. The fundus became firm with massage and pitocin. The placenta delivered spontaneously after 27 minutes and it was a 3-vessel cord. Inspection of the vagina and perineum revealed a first degree laceration which was repaired with a single figure of eight 3-0 vicryl suture. The sulci were examined andfound to be intact. No complications. Blood loss estimated at <500ccs. She was in stable condition after delivery. The infants were taken to the ICN for prematurity. LITTLE DELCID MD Information for the patient's : Lindsey Eubanks [[id number]] DELIVERY SUMMARY FOR Lindsey Eubanks (please note there is a separate summary for each fetus) LABOR EVENTS Lindsey Eubanks Labor Onset Type: spontaneous onset of labor Labor Onset Date: 06/18/2013 Induction: Indications for Induction of Labor: Induction Methods: Augmentation: AROM;Oxytocin Complications: Rupture Date: 06/19/2013 Rupture Time: 7:13 PM Rupture Type: Fluid Color: clear DELIVERY EVENTS Lindsey Eubanks Delivery Type: Vaginal Delivery Type (Specific):Vaginal, Spontaneous Delivery [250] Presentation/Position Lindsey Eubanks : Vertex Failed Operative Delivery: Anesthesia Method :Epidural [254] Analgesic: Episiotomy: None Lacerations: 1st Comments: Repair Suture: Synthetic Delayed Absorbable Repair # of Packets: Blood Loss (ml): 450 Placenta: Delivered: 06/19/2013 9:31 PM Removal: Spontaneous Appearance: Intact Comment: Maternal Procedures with Delivery: Attempted ?: no INFORMATION Lindsey Eubanks 06/19/2013 8:41 PM by Vaginal, Spontaneous Delivery Sex: male Gestational Age: 34w0d Measurements: Weight: 5 lb 0.8 oz (2290 g) Height: 18.11 Head Circumference: 33.5 cm ChestCircumference: Observed Anomalies: none Delivery Clinician: Little Delcid Other Providers: Engagement Director Delivery Nurse Delivery Assist Manager Access Resident Medical Student León Villar ICN Staff Present: yes Delivery Location: OR Living?: Yes APGARS One Minute Five Minutes Ten Minutes Skin Color: 1 1 Heart Rate: 2 2 Grimace: 2 2 Muscle Tone: 2 2 Breathin 2 Totals: 9 9 INTERVENTIONS Lindsey Eubanks Resuscitation:None Suctioning Method: None [1] Vocal Cords Visualized: Meconium: Resuscitation Comment: [place] Medications: [place] Meds Given: vitamin K erythromycin Naloxone Given?: no Amount (mg): Injection Site: Cord Information: 3 Vessels Disposition of Cord Blood: Lab Blood Gases Sent? No Cord Insertion: normal Cord Complications: Nuchal x 1 [2] Cord Comment: Compound presentation (Right arm) LABOR LENGTH 1st Stage (hrs/min): 25.00 2.00 2nd Stage (hrs/min): 0.00 39.00 3rd Stage (hrs/min);0.00 50.00 ADDITIONAL DELIVERY DETAILS DELIVERY Major Indications-: Contributing Factors-: Delivery Comment: Uterine Scar Status if Prior Section: ADDITIONAL DELIVERY DETAILS VAGINAL DELIVERY Major Indications-Operative Delivery: Contributing Factors-Operative Vaginal: Rotation: Total Number of Pulls: Total Time Forceps Applied: Forceps: Forceps Type: Total Time Vacuum Applied: Number of Popoffs: Vacuum: Breech: Nuchal Arm: Information for the patient's : Lindsey Eubanks [[id number]] DELIVERY SUMMARY FOR Lindsey Eubanks (please note there is a separate summary for each fetus) LABOR EVENTS Lindsey Eubanks Labor Onset Type: spontaneous onset of labor Labor Onset Date: 06/18/2013 Induction: Indications for Induction of Labor: Induction Methods: Augmentation: Oxytocin;AROM Complications: Rupture Date: 06/19/2013 Rupture Time: 7:13 PM Rupture Type: Fluid Color: clear DELIVERY EVENTS Lindsey Eubansk Delivery Type: Operative Vaginal Delivery Type (Specific):Vaginal, Vacuum (Extractor) [254] Presentation/Position Lindsey Eubanks : Vertex Failed Operative Delivery: Anesthesia Method :Epidural [254] Analgesic: Episiotomy: None Lacerations: 1st Comments: Repair Suture: Synthetic Delayed Absorbable Repair # of Packets: Blood Loss (ml): 450 Placenta: Delivered: 06/19/2013 9:31 PM Removal: Spontaneous Appearance: Intact Comment: Maternal Procedures with Delivery: Attempted ?: no INFORMATION Lindsey Eubanks 06/19/2013 9:04 PM by Vaginal, Vacuum (Extractor) Sex: male Gestational Age: 34w0d Measurements: Weight: 5 lb 0.8 oz (2290 g) Height: 18.9 Head Circumference: 32.5 cm Chest Circumference: Observed Anomalies: Delivery Clinician: Little Delcid Other Providers: Delivery Assist Delivery Nurse Manager Access Resident Delivery Assist Medical Student León Villar ICN Staff Present: yes Delivery Location: OR Living?: Yes APGARS One Minute Five Minutes Ten Minutes Skin Color: 0 1 Heart Rate: 1 2 Grimace: 1 1 Muscle Tone: 0 2 Breathin 2 Totals: 3 8 INTERVENTIONS Baby Boy Twb Brittell Resuscitation:PPV Suctioning Suctioning Method: PPV [4];Suctioning [2] Vocal Cords Visualized: Meconium: Resuscitation Comment: Medications: Meds Given: vitamin K erythromycin Naloxone Given?: no Amount (mg): Injection Site: Cord Information: 3 Vessels Disposition of Cord Blood: Blood Gases Sent? No Cord Insertion: normal Cord Complications: None [1] Cord Comment: LABOR LENGTH 1st Stage (hrs/min): 25.00 2.00 2nd Stage (hrs/min): 1.00 2.00 3rd Stage (hrs/min);0.00 27.00 ADDITIONAL DELIVERY DETAILS DELIVERY Major Indications-: Contributing Factors-: Delivery Comment: Uterine Scar Status if Prior Section: ADDITIONAL DELIVERY DETAILS VAGINAL DELIVERY Major Indications-Operative Delivery: non-reassuring state Contributing Factors-Operative Vaginal: Rotation: Total Number of Pulls: 1 Total Time Forceps Applied: Forceps: Forceps Type: Total Time Vacuum Applied: 20 seconds Number of Popoffs: 0 Vacuum:Outlet Breech: Nuchal Arm: RUPTURE OF MEMBRANES FETUS B-E Rupture Date Fetus B: 06/19/13 Rupture Time Fetus B: 2052 Membranes Status Fetus B: Artificial Amniotic Fluid Color Fetus B: Clear I was present for the entire delivery and agree with documentation above. МАРИНА VELA MD * Plan of Care - Sofía Abdul RN - 06/19/2013 6:00 PM EDT Problem: Labor (Obstetric) Goal: Prevent/Manage Potential Problems Based on my scope of practice, I assessed for signs and symptoms of potential problems that could be present as documented. Outcome: Present (see interventions, notes) 1722: Oxytocin started at 2 ml/hr. Pt resting comfortably in bed with eyes closed, and at bedside holding pt's hand. * Plan of Care - Sofía Abdul RN - 06/19/2013 8:34 AM EDT Problem: Labor (Obstetric) Goal: Prevent/Manage Potential Problems Based on my scope of practice, I assessed for signs and symptoms of potential problems that could be present as documented. Outcome: Present (see interventions, notes) Discussed plan of care for the day pt with pt and SO. Education provided on laboring process- pushing, surveillance, pain management, positioning, etc. Pt/SO verbalize understanding. Questions addressed- specially regarding STS and BF of newborns, and pt/SO are in agreement with plan of care.Will continue to provide education and support. * Plan of Care - Estrella Hope RN - 06/18/2013 4:16 PM EDT Problem: Labor (Obstetric) Goal: Prevent/Manage Potential Problems Based on my scope of practice, I assessed for signs and symptoms of potential problems that could be present as documented. Pt is being monitored for advanced cervical dilatation (4-5/100/-3), 33 6/7 wks gestation, Di-Di twins, both vertex. She reported feeling her contractions more painful but tolerable, occurring every 2-5 min, mild to palpation. NST was reactive on both babies, although Baby A took a longer time to be reactive than Baby B. Pt was medicated with Nifedipine 20 mg po this morning x 1 dose & if this will not slow down or stop her contractions, then she can go into labor. VS has been stable. Pt's legs still swollen, the right one more so than the left. Pt claims she noted some bloody mucous whenshe wiped herself after voiding. Will continue to monitor maternal & well being. * Plan of Care - Chelsie Patricia RN - 06/17/2013 3:22 PM EDT Problem: Labor (Obstetric) Goal: Prevent/Manage Potential Problems Based on my scope of practice, I assessed for signs and symptoms of potential problems that could be present as documented. Outcome: Present (see interventions, notes) 0838-Patient reports feeling contractions during NST, contractions moderate to firm on palpation. Describes contractions as crampy, tight and pressure on lower abdomen 6/[address] Merrick Esparza aware. Patient encouraged to increase fluid intake. 1000- Nifedepine given.Dr. Esparza @ bedside, plan of care discussed.Patient and agree with treatment. .Patient drinking well. @ bedside supportive. 1040- Dr. Esparza @ bedside.Patient reports less crampy 4-5/10. 1111- Patient reports less uncomfortable 1/10, no more pressure with contractions but still feels crampy on lower abdomen. 1430- Patient reports feeling crampy again on lower abdomen 6/10 but describes as less intense compare this morning since she is not feeling pressure this time. Patient placed on toco. Dr. Eliazar Arredondo notified. 1536-Reports feeling more intense 6-7 still feeling crampy, denies vaginal or rectal pressure. But patient also reports needing to void. Patient instructed to report more pain and vaginal/rectal pressure. Dr. Esparza aware. 1600-Contractions 4-5/10. 1700- Crampy 2-3 on lower abdomen and feels spaced out. Mild to palpation. 1735- Noted 2 ctx in the last 30 minutes, still feels 2-3/10. Appears comfortable. Patient off monitor. Patient instructed to call if contractions feels more frequent and intense. Dr. Rubi aware. * Plan of Care - Jazmyne Mims RN - 06/16/2013 11:18 PM EDT Problem: Labor (Obstetric) Intervention: Restricted Activity Management (Obstetric) Clement states that she is doing well. She describes frustration with being stuck at the hospital,but is doing well tonight as her partner is here and she has found the kit of activities. She reports that these have helped her. We discussed other strategies for management of boredom. * Plan of Care - Yaneli Kessler RN - 06/16/2013 5:34 PM EDT Problem: Labor (Obstetric) Goal: Prevent/Manage Potential Problems Based on my scope of practice, I assessed for signs and symptoms of potential problems that could be present as documented. Outcome: Absent and monitoring Pt continues to have irreg mild contractions, abd remains soft and non tender, pt reports good movement with reactive NST this am, pt drinking plenty of fluids and voiding qs, blood pressures remain stable with systolic in 130's and diastolic in 70's, continue strict I&O, family at [facility] supportive, continue plan of care * Plan of Care - Mouna Pizarro RN - 06/16/2013 1:41 AM EDT Problem: High-Risk/Critically Ill OB (Adult, Obstetric) Goal: Prevent/Manage Potential Problems Based on my scope of practice, I assessed for signs and symptoms of potential problems that could be present as documented. Outcome: Absent and monitoring Doing well with hospitalization for advanced cervical dilation. She has a headache this evening that she rates a 5/10, but is relieved by Tylenol, denies visual changes or epigastric pain. * Plan of Care - Mandi Keller RN - 06/15/2013 7:54 PM EDT Problem: High-Risk/Critically Ill OB (Adult, Obstetric) Goal: Prevent/Manage Potential Problems Based on my scope of practice, I assessed for signs and symptoms of potential problems that could be present as documented. Outcome: Therapy, goal partially met Pt denies ROTHMAN, visual change, epigastric pain, change in edema, LOF, or bleeding. Pt reports ctx with range from 2-6/10 and noted in lower abd. Daily NST completed and ctx noted. MD aware. Pt to notify RN of any change. +FM. Assessment and VS per flowsheet. Problem: Labor (Obstetric) Goal: Prevent/Manage Potential Problems Based on my scope of practice, I assessed for signs and symptoms of potential problems that could be present as documented. Outcome: Therapy, goal partially met Pt reports ctx to be intermittent and noted on EFM. MDs aware. Pt will notify RN of any change. * Plan of Care - Mandi Keller RN - 06/14/2013 12:03 PM EDT Problem: High-Risk/Critically Ill OB (Adult, Obstetric) Goal: Prevent/Manage Potential Problems Based on my scope of practice, I assessed for signs and symptoms of potential problems that could be present as documented. Outcome: Therapy, goal partially met Pt resting in room. No complaints. Assessment and VS per flowsheet. Pt denies ROTHMAN, visual change, epigastric pain, edema, LOF, or bleeding. +FM. Reports some mild ctx with no change from pt's baseline. MD's aware. Daily NST completed. Problem: Labor (Obstetric) Goal: Prevent/Manage Potential Problems Based on my scope of practice, I assessed for signs and symptoms of potential problems that could be present as documented. Outcome: Therapy, goal partially met Pt reports no change in ctx. Visible on EFM. MD's aware. Pt to notify RN of change. * Plan of Care - So Castrejon RN - 06/13/2013 10:35 PM EDT Problem: High-Risk/Critically Ill OB (Adult, Obstetric) Goal: Prevent/Manage Potential Problems Based on my scope of practice, I assessed for signs and symptoms of potential problems that could be present as documented. Denies vaginal bleeding or leaking of fluid. Resting in bed. * Plan of Care - Shae Garcia RN - 06/13/2013 7:19 AM EDT Problem: Labor (Obstetric) Goal: Prevent/Manage Potential Problems Based on my scope of practice, I assessed for signs and symptoms of potential problems that could be present as documented. Plan of care for today reviewed with patient, including vital signs, medications, monitoring,diet, activity, and indications for delivery. Patient verbalized understanding of plan of care. Pt reports this morning that she does not feel any change in her contractions since yesterday; she does not feel any painful contractions but is aware that her abdomen is tightening sometimes. She denies LOF, bleeding, headache, visual changes, or epigastric pain, and no increased edema noted. * Plan of Care - Estrella Hope RN - 06/13/2013 4:44 AM EDT Problem: High-Risk/Critically Ill OB (Adult, Obstetric) Goal: Prevent/Manage Potential Problems Based on my scope of practice, I assessed for signs and symptoms of potential problems that could be present as documented. Pt is being closely monitored for any signs of progress in labor because of her advanced cervical dilatation (4/100/-3) at 33 1/7 wks gestation with Di-Di twins, both in vertex position from the lastultrasound. Pt denies vaginal bleeding, LOF, headache, visual changes, epigastric pain. Pt claimed movements felt as usual. VS have been stable with systolic BP in the 130s & diastolic in the 70s to 80s. Bilateral 1+ to 2+ pedal edema still noted. Pt is aware of when to call for any signsof increased uterine contractions, pain, vaginal bleeding, loss of fluid. Will continue to monitor maternal & well being. * Plan of Care - Shae Garcia RN - 06/12/2013 7:22 AM EDT Problem: High-Risk/Critically Ill OB (Adult, Obstetric) Goal: Prevent/Manage Potential Problems Based on my scope of practice, I assessed for signs and symptoms of potential problems that could be present as documented. Plan of care for today reviewed with patient, including vital signs, medications, monitoring,diet, activity, and indications for delivery. Patient verbalized understanding of plan of care. Pt reports that her contractions feel unchanged from yesterday, and she denies back pain. No increased edema from yesterday seen or reported by patient. She denies LOF, bleeding, headache, visual changes, epigastric pain, or decreased movement. Contractions are irregular and palpate mild. Pt does report feeling as though her abdomen looks like it has dropped but denies feeling vaginal or rectal pressure. Pt instructed to notify staff if any signs of increasing labor are present. * Plan of Care - Aga Daly RN - 06/11/2013 10:50 PM EDT Problem: High-Risk/Critically Ill OB (Adult, Obstetric) Intervention: Hemodynamic Stabilization (Obstetric) Pt expressing no c/o headache, blurred vision, nausea/vomiting, epigastric pain, visual disturbances. Denies vaginal bleeding or loss of fluid. BP WNL. Encouraged to rest/sleep on left side to betterperfuse uterus. Problem: Labor (Obstetric) Intervention: Venous Thromboembolism Prevention Pt really does not like having SCDs on. Educated on the rationale for use. Reports that they make her legs more edematous. When they were on the other day, her thighs were swollen, once removed, theyfelt much better and the swelling improved. Pt frequently gets up to use the bathroom and was encouraged to perform leg exercises when in bed. Intervention: Restricted Activity Management (Obstetric) Pt resting in bed, in room with her. Had requested earlier in shift to meet with physician who could explain what is the plan for this hospitalization/. Not upset but would just liketo have a better idea of the plan of care. Dr Lakisha Lugo in to talk with pt and . Questions ans wered. Thorough explanation of labor, hospitalization, level of activity, pre-eclampsia, and sonogram discussed. Couple feels better and have a better understanding. Will discuss things further with the [facility] doctor tomorrow. Pt reports having irregular, mild contractions which are not painful. Babies are active. * Plan of Care - Shae Garcia RN - 06/11/2013 7:48 AM EDT Problem: Labor (Obstetric) Goal: Prevent/Manage Potential Problems Based on my scope of practice, I assessed for signs and symptoms of potential problems that could be present as documented. Plan of care for today reviewed with patient, including vital signs, medications, monitoring,diet, activity, and indications for delivery. Patient verbalized understanding of plan of care. 24 hour urine started at 1045. * Plan of Care - Shae Garcia RN - 06/10/2013 7:38 AM EDT Problem: High-Risk/Critically Ill OB (Adult, Obstetric) Goal: Prevent/Manage Potential Problems Based on my scope of practice, I assessed for signs and symptoms of potential problems that could be present as documented. Plan of care for today reviewed with patient, including vital signs, medications, monitoring, diet, activity, and indications for delivery. Patient verbalized understanding of plan of care. * Plan of Care - So Valencia RN - 06/10/2013 2:59 AM EDT Problem: High-Risk/Critically Ill OB (Adult, Obstetric) Goal: Prevent/Manage Potential Problems Based on my scope of practice, I assessed for signs and symptoms of potential problems that could be present as documented. Vital signs stable,afebrile. Denies contractions, leaking of fluid or bleeding 0330 Scheduled Nifedipine given, patient states rare contraction, no bleeding ,no leaking of fluid * Consult Note - Ryan Yost MD - 06/09/2013 3:30 PM EDT Neonatology Attending Consult Note I was asked by the obstetrical service, Dr. Carcamo to provide consultation on Clement Eubanks , a 28 y.o. old patient on the birthing pavilion with the following problems: Dichorionic, diamniotic twin gestation at 32 4/7 weeks Risk of labor History: IVF conceived twin gestation followed for care at [facility]. has generally been uncomplicated. Received RhoGam for O neg blood type. SHERRIE 07/31/13. She was seen in clinic 06/08/13 for question of ROM. This was unconfirmed, but she was 2-3 cm dilated and 100% effaced with bulging membranes. She was admitted for risk of labor. Inpatient Course: She is receiving tocolysis with nifedipine, and receiving betamethasone for fetallung maturity. Also given Uziel. Recommendations and advice discussed: We discussed general issues of intensive care, including team composition, philosophy of parents as collaborators and active participants in care as well as policies regarding rounds, visitation by family members and friends. Babies' names will be Parish and Que. We discussed specific management likely for the anticipated problems of 32 week premature infants. We discussed transition from in utero to ex utero life with risk of respiratory distress. At this gestation and with betamethasone, unlikely to have serious lung immaturity (surfactant deficiency), but still at risk for retained lung fluid, apnea. We discussed temperature control, feeding issues and need to pump and gavage feed initially. Survival in the absence of unanticipated complications is > 98% for this gestation, and risk for major complications (ICH, NEC, BPD, ROP) is quite low. Time in consultation: 40 minutes were spent in consultation, with 30 minutes spent directly counseling patient. Aydin was present for the consult as well. Thank you for requesting consultation by the neonatology service. We will continue to follow coursealong with you. * Plan of Care - So Valencia RN - 06/09/2013 6:59 AM EDT Problem: High-Risk/Critically Ill OB (Adult, Obstetric) Goal: Prevent/Manage Potential Problems Based on my scope of practice, I assessed for signs and symptoms of potential problems that could be present as documented. Vital signs stable ,denies contractions, denies bleeding * Miscellaneous - Provider, Scanning - 06/08/2013 8:22 PM EDT documented in this encounter Plan of Treatment Not on file documented as of this encounter Procedures Procedure Name Priority Date/Time Associated Diagnosis Comments LAB SCAN 06/26/2013 9:16 AM EDT PREPARE RH IMMUNE GLOBULIN Routine 06/21/2013 11:00 AM EDT CELL SCREEN Routine 06/21/2013 8:3 0 AM EDT SPECIMEN TO PATHOLOGY (NON-OR) Routine 06/19/2013 9:53 PM EDT SURGICAL PATHOLOGY REPORT Routine 06/19/2013 9:53 PM EDT ABORH TYPE MANUAL STAT 06/18/2013 7:5 0 PM EDT SELECTED CELL SCREEN STAT 06/18/2013 7:50 PM EDT ABORH TYPE MANUAL Routine 06/15/2013 10: 30 AM EDT SELECTED CELL SCREEN Routine 06/15/2013 10:30 AM EDT DIFFERENTIAL, AUTOMATED Routine 06/15/19 5:45 AM EDT CREATININE Routine 06/14/2013 5:45 AM EDT CBC (WITH DIFF) Routine 06/14/2013 5:45 AM EDT ASPARTATE AMINOTRANSFERASE Routine 06/14/2013 5:45 AM EDT DIFFERENTIAL, AUTOMATED Routine 06/14/19 14 11:25 AM EDT CREATININE Routine 06/13/2013 11:25 AM EDT CBC (WITH DIFF) Routine 06/13/2013 11:25 AM EDT ASPARTATE AMINOTRANSFERASE Routine 06/13/2013 11:25 AM EDT POCT URINE DIPSTICK Routine 06/13/2013 9 :00 AM EDT U24 HRS AND VOLUME Routine 06/12/2013 10 :20 AM EDT PROTEIN, URINE, 24 HOUR Routine 06/13/19 14 10:20 AM EDT US OB FOLLOW UP MULTIPLE Routine 014 11:36 AM EDT PROTEIN/CREATININE RATIO, URINE Routine 06/11/2013 10:36 AM EDT POCT URINE DIPSTICK Routine 06/11/2013 9 :45 AM EDT GROUP B STREPTOCOCCUS SCREEN Routine 06/08/2013 9:28 PM EDT GROUP B STREP CULTURE SCREEN Routine 06/08/2013 9:28 PM EDT AB COMMENT Routine 06/08/2013 9:08 PM EDT SCAN, PERIPHERAL BLOOD Routine 4 9:08 PM EDT DIFFERENTIAL, AUTOMATED Routine 06/09/19 14 9:08 PM EDT ANTIBODY IDENTIFICATION Routine 06/09/19 14 9:08 PM EDT ABO/RH TYPING Routine 06/08/2013 9:08 PM EDT CBC (WITH DIFF) Routine 06/08/2013 9:08 PM EDT ANTIBODY SCREEN Routine 06/08/2013 9:08 PM EDT TYPE AND SCREEN ([facility]/CGP/TOBI) Routine 06/08/2013 9:08 PM EDT documented in this encounter Results * SCAN DOC: LAB (06/26/2013 9:16 AM EDT) Narrative 06/26/2013 9:16 AM EDT Procedure Note Provider, Scanning - 06/26/2013 9:16 AM EDT Scanning Provider MEDIA MGR SCAN EXT O RDR/RSLT * Prepare Rh Immune Globulin (06/21/2013 11:00 AM EDT) Dispensed? Yes [facility] Blood specimen (specimen) 06/21/2013 11:00 AM EDT 06/21/2013 10:59 AM EDT Allison Terrell MD BLOOD BANK PRODUCT ORDERABLES Performing Organization Address City/[facility] Co de Phone Number [facility] * Cell Screen (06/21/2013 8:30 AM EDT) Hgb Screen Negative [facility] Blood specimen (specimen) 06/21/2013 8:30 AM EDT 06/21/2013 8:30 AM EDT Narrative Resulting Agency Comment Spec In Lab Kamille Mckeon MD BLOOD BANK LAB ORDER RUPA [facility] * Surgical Pathology Report (06/19/2013 9:53 PM EDT) Final Diagnosis ? [facility] ? Provider: ?? LITTLE DELCID Pt. Name: ?? CLEMENT EUBANKS ? Acc #: ?[id number] ?Pt. ? Col Date: ?? 06/19/2013 ?/Sex: ?1985,(28 years),Female ? Rec Date: ?? 06/20/2013 ?LOC: ?BP ? SURGICAL PATHOLOGY ? ---Pathologic Diagnosis--- ? Third trimester twin placenta, cords and membranes: ? Positive for early chorioamnionitis (twin A). Negative for funisitis. ? Diamnionic-dichorio oneal membranes. ? CR-0 ? 06/22/13 ? KO ? 06/22/13 Verified by: ? Rhonda Van MD ? Pathologist ? (Electronic Signature) ? The attending pathologist whose signature appears on this report has ? reviewed all diagnostic slides and has edited the gross and/or ? microscopic portion of the report in rendering the final pathologic ? diagnosis. ? ---Gross Description--- ? A - Labeled/Fixative: Placenta, fresh. ? Qty/Size/Weight: Single, 24.0 x 20.0 x 1.3 cm, 536 grams. ? Specimen Description: Two fused discs connected by membranes, baby A ? represents 40 percent of the surface and baby B represents 60 percent of ? the surface. ? BABY A: ? Membranes: Circummarginate, clear. ? Cord: 77.0 x 1.0 cm, eccentric insertion, three vessels. ? Surface: Blue dense larios, clear, no evidence of surface anastomoses. ? Maternal Surface: Intact, with adherent clot. ? Parenchyma: Red, spongy, no gross lesions. ? BABY B: ? Membranes: Circummarginate, clear. ? Cord: 51.0 x 1.2 cm, eccentric insertion, three vessels. ? Surface: Blue dense larios, clear, no evidence of surface anastomosis. ? Maternal Surface: Intact, with adherent clot. ? Parenchyma: Red, spongy, no gross lesions. ? Intervening Membranes: Midline insertion, clear. ? SECTIONS/PROCESSING : Sections are submitted as follows: (1) baby A ? membrane roll; (2) baby A proximal and distal cord; (3) ? [facility] ? Provider: ?? LITTLE DELCID Pt. Name: ?? CLEMENT EUBANKS ? Acc #: ?[id number] ?Pt. ? Col Date: ?? 06/19/2013 ?/Sex: ?1985,(28 years),Female ? Rec Date: ?? 06/20/2013 ?LOC: ?BP ? SURGICAL PATHOLOGY ? baby A surface; (4) baby A maternal surface; (5) baby B membrane ? roll; (6) baby B proximal and distal cord; (7) baby B surface; (8) ? baby B maternal surface; (9) intervening membrane roll. (R 9) ??rr ? ---Clinical Information--- ? Specimen Submitted: ? A - Placenta ? Clinical History: ? 34 week dichorionic diamniotic twins, advanced cervical dilation. ? Clinical Diagnosis: ? Status post spontaneous vaginal delivery x2. 06/22/2013 1:32 PM EDT [facility] PLACENTAL STRUCTURE / Unknown 06/19/2013 9:53 PM EDT 06/19/2013 9:53 PM EDT Little Chen MD PATHOLOGY/CYTOLO GY ORDERABLES Performing Organization Address [facility]/ZIP Co de Phone Number [facility] [address] * Specimen to Pathology (NON-OR) (06/19/2013 9:53 PM EDT) AP Specimen 06/19/2013 9:53 PM EDT 06/19/2013 9:53 PM EDT Narrative [facility] - 06/19/2013 9:53 PM EDT Specimen requisition ordered. ??Separate Pathology report to follow Narcisa Carcamo MD PATHOLOGY/CYTOLOGY O RDERABLES Performing Organization Address [facility] Co de Phone Number [facility] * Selected Cell Screen (06/18/2013 7:50 PM EDT) Ab Screen Interp Previously identified Anti-D (PASSIVE). No additional alloantibodies detected.* See initial antibody identification report for additional information. BENI NUNESS[facility]A [facility] Blood specimen (specimen) 06/18/2013 7:50 PM EDT 06/18/2013 7:53 PM EDT Narrative Resulting Agency Comment Spec In Lab Марина Vela MD BLOOD BANK LAB ORDER RUPA Performing Organization Address City/[facility] Co de Phone Number [facility] * ABORh Type Manual (06/18/2013 7:50 PM EDT) Expires at [id number] on: [id number] [facility] ABORH Type O Neg [facility] Blood specimen (specimen) 06/18/2013 7:50 PM EDT 06/18/2013 7:53 PM EDT Narrative Resulting Agency Comment Spec In Lab Марина Vela MD BLOOD BANK LAB ORDER RUPA Performing Organization Address [facility] Co de Phone Number [facility] * Selected Cell Screen (06/15/2013 10:30 AM EDT) Ab Screen Interp Previously identified [id number]. No additional alloantibodies detected.* *Due to the presence of alloantibody(ies) additional time is required for preparation of Red Cell Products. See initial antibody identification report for additional information. BENI NUNESENNIUM Blood specimen (specimen) 06/15/2013 10:30 AM EDT 06/15/2013 10:42 AM EDT Narrative Resulting Agency Comment Spec In Lab Oksana Chaudhary MD BLOOD BANK LAB ORDER RUPA Performing Organization Address [facility] Co de Phone Number [facility] * ABORh Type Manual (06/15/2013 10:30 AM EDT) Pathologist [facility] Expires at [id number] on: [id number] [facility] NUNESENNIUM ABORH Type O Neg [facility] VALDIVIAIUM Blood specimen (specimen) 06/15/2013 10:30 AM EDT 06/15/2013 10:42 AM EDT Narrative Resulting Agency Comment Spec In Lab Oksana Chaudhary MD BLOOD BANK LAB ORDER RUPA Performing Organization Address [facility] Co de Phone Number [facility] VALDIVIAI[facility] * (ABNORMAL) Differential, Automated (06/14/2013 5:45 AM EDT) Pathologist [facility] Neutrophil % 75.3(H) 34.0 - 71.0 % CERNER MILLENNIUM Neutrophil Absolute 5.86 1.50 - 6.30 x10(3)/mc L [facility]ERNER MILLENNIUM Lymph % 14.5(L) 19.0 - 53.0 % CERNER MILLENNIUM Lymphocytes Abs 1.1 1.0 - 3.6 x10(3)/mc L CERNER MILLENNIUM Monocyte % 7.6 4.0 - 13.0 % CERNER MILLENNIUM Monocyte Abs 0.6 0.2 - 1.0 x10(3)/mc L CERNER MILLENNIUM Eos % 0.4 0.0 - 7.0 % CERNER MILLENNIUM Eosinophils Abs 0.0 0.0 - 0.5 x10(3)/mc L CERNER MILLENNIUM Basophil % 0.3 0.0 - 2.0 % CERNER MILLENNIUM Baso Absolute 0.0 0.0 - 0.2 x10(3)/mc L CERNER MILLENNIUM Immature Gran % 1.90(H) 0.00 - 0.66 % CERNER MILLENNIUM Comment: Immature granulocytes(IG's)percentage and absolute count will include metamyelocytes, myelocytes, and promyelocytes. Blood smears from CBCs yielding IG's will be scanned manually for concordance. If this scan disagrees with the automated IG or if promyelocytes are noted, a manual differential will be performed. Immature Gran Absolute 0.15(H) 0.00 - 0.05 x10(3)/mc L [facility]ERN[facility] MILLENNIUM Blood specimen (specimen) 06/14/2013 5:45 AM EDT 06/14/2013 5:55 AM EDT Narcisa Carcamo MD HEMATOLOGY ORDERABLE S Performing Organization Address [facility] Co de Phone Number [facility] * Aspartate Aminotransferase (06/14/2013 5:45 AM EDT) Aspartate Aminotransferase 20 0 - 30 unit/L [facility] Blood specimen (specimen) 06/14/2013 5:45 AM EDT 06/14/2013 5:55 AM EDT Narrative Resulting Agency Comment Spec In Lab Narcisa Carcamo MD CHEMISTRY ORDERABLES Performing Organization Address [facility] Co de Phone Number [facility] * (ABNORMAL) Creatinine (06/14/2013 5:45 AM EDT) Creatinine 0.59(L) 0.70 - 1.20 mg/dL [facility]ERNER MILLENNIUM Comment: Please note that the pediatric reference intervals supplied above were not validated at [facility]. Results from pediatric patients should be interpreted in conjunction to the patient's age, height and muscle mass. Est Glomerular Filtration Rate >60 >=60 [facility]ERN[facility] MILLENNIUM Comment: This estimated GFR (eGFR) value was calculated using the MDRD equation which has been validated on patients between the ages of 18 and 70. The MDRD should not be used to assess kidney function in patients < 18 years of age or in patients with extremes of body mass, or in patients with acute kidney failure. This value should be multiplied by 1.2 for patients. For further information please copy and paste the following links into your internet browser. http://www.nkdep.nih.gov/lab-evaluation.shtml http://www.kidney.org/professionals/ Blood specimen (specimen) 06/14/2013 5:45 AM EDT 06/14/2013 5:55 AM EDT Narrative Resulting Agency Comment Spec In Lab Narcisa Carcamo MD CHEMISTRY ORDERABLES [facility] * (ABNORMAL) CBC (with Diff) (06/14/2013 5:45 AM EDT) White Blood Cell 7.8 4.0 - 10.0 x10(3)/mc L CERNER MILLENNIUM Red Blood Cell 3.33(L) 3.93 - 5.22 x10(6)/mc L CERNER MILLENNIUM Hemoglobin 9.1(L) 11.2 - 15.7 gm/dL CERNER MILLENNIUM Hematocrit 27.9(L) 34.0 - 45.0 % CERNER MILLENNIUM Mean Cell Volume 83.8 79.0 - 94.0 fL CERNER MILLENNIUM Mean Cell Hemoglobin 27.3 26.6 - 32.2 pg CERNER MILLENNIUM Mean Cell Hemoglobin Concentration 32.6 32.0 - 36.5 gm/dL CERNER MILLENNIUM Platelet 120(L) 145 - 370 x10(3)/mc L CERNER MILLENNIUM RDW Standard Deviation 41.8 35.0 - 46.0 fL CERNER MILLENNIUM RDW coefficient of variation 13.7 10.9 - 14.4 % CERNER MILLENNIUM Mean Platelet Volume 12.4(H) 9.0 - 12.0 fL CERNER MILLENNIUM Blood specimen (specimen) 06/14/2013 5:45 AM EDT 06/14/2013 5:55 AM EDT Narrative Resulting Agency Comment Spec In Lab Narcisa Carcamo MD HEMATOLOGY ORDERABLE S [facility] * (ABNORMAL) Differential, Automated (06/13/2013 11:25 AM EDT) Neutrophil % 78.6(H) 34.0 - 71.0 % CERNER MILLENNIUM Neutrophil Absolute 6.36(H) 1.50 - 6.30 x10(3)/mc L CERNER MILLENNIUM Lymph % 12.3(L) 19.0 - 53.0 % CERNER MILLENNIUM Lymphocytes Abs 1.0 1.0 - 3.6 x10(3)/mc L CERNER MILLENNIUM Monocyte % 6.9 4.0 - 13.0 % CERNER MILLENNIUM Monocyte Abs 0.6 0.2 - 1.0 x10(3)/mc L CERNER MILLENNIUM Eos % 0.4 0.0 - 7.0 % CERNER MILLENNIUM Eosinophils Abs 0.0 0.0 - 0.5 x10(3)/mc L CERNER MILLENNIUM Basophil % 0.1 0.0 - 2.0 % CERNER MILLENNIUM Baso Absolute 0.0 0.0 - 0.2 x10(3)/mc L CERNER MILLENNIUM Immature Gran % 1.70(H) 0.00 - 0.66 % CERNER MILLENNIUM Comment: Immature granulocytes(IG's)percentage and absolute count will include metamyelocytes, myelocytes, and promyelocytes. Blood smears from CBCs yielding IG's will be scanned manually for concordance. If this scan disagrees with the automated IG or if promyelocytes are noted, a manual differential will be performed. Immature Gran Absolute 0.14(H) 0.00 - 0.05 x10(3)/mc L [facility] MILLENNIUM Blood specimen (specimen) 06/13/2013 11:25 AM EDT 06/13/2013 11:30 AM EDT Narcisa Carcamo MD HEMATOLOGY ORDERABLE S Performing Organization Address [facility] Co de Phone Number [facility] * Aspartate Aminotransferase (06/13/2013 11:25 AM EDT) Aspartate Aminotransferase 26 0 - 30 unit/L [facility] Blood specimen (specimen) 06/13/2013 11:25 AM EDT 06/13/2013 11:30 AM EDT Narrative Resulting Agency Comment Spec In Lab Narcisa Carcamo MD CHEMISTRY ORDERABLES Performing Organization Address [facility] Phone Number [facility] PAUL[facility] * (ABNORMAL) Creatinine (06/13/2013 11:25 AM EDT) Creatinine 0.57(L) 0.70 - 1.20 mg/dL [facility] Comment: Please note that the pediatric reference intervals supplied above were not validated at [facility]. Results from pediatric patients should be interpreted in conjunction to the patient's age, height and muscle mass. Est Glomerular Filtration Rate >60 >=60 [facility] Comment: This estimated GFR (eGFR) value was calculated using the MDRD equation which has been validated on patients between the ages of 18 and 70. The MDRD should not be used to assess kidney function in patients < 18 years of age or in patients with extremes of body mass, or in patients with acute kidney failure. This value should be multiplied by 1.2 for patients. For further information please copy and paste the following links into your internet browser. http://www.nkdep.nih.gov/lab-evaluation.shtml http://www.kidney.org/professionals/ Blood specimen (specimen) 06/13/2013 11:25 AM EDT 06/13/2013 11:30 AM EDT Narrative Resulting Agency Comment Spec In Lab Narcisa Carcamo MD CHEMISTRY ORDERABLES Performing Organization Address [facility] [facility] Co de Phone Number BENI PAULINO * (ABNORMAL) CBC (with Diff) (06/13/2013 11:25 AM EDT) [facility] White Blood Cell 8.1 4.0 - 10.0 x10(3)/mc L [facility] Red Blood Cell 3.30(L) 3.93 - 5.22 x10(6)/mc L [facility] MILLENNIUM Hemoglobin 9.0(L) 11.2 - 15.7 gm/dL CERNER MILLENNIUM Hematocrit 27.7(L) 34.0 - 45.0 % CERNER MILLENNIUM Mean Cell Volume 83.9 79.0 - 94.0 fL CERNER MILLENNIUM Mean Cell Hemoglobin 27.3 26.6 - 32.2 pg [facility] M[facility] Mean Cell Hemoglobin Concentration 32.5 32.0 - 36.5 gm/dL [facility] MILL[facility]UM Platelet 115(L) 145 - 370 x10(3)/mc L CERNER MILLENNIUM RDW Standard Deviation 41.3 35.0 - 46.0 fL CERNER MILLENNIUM RDW coefficient of variation 13.6 10.9 - 14.4 % CERNER MILLENNIUM Mean Platelet Volume 12.5(H) 9.0 - 12.0 fL CERNER MILLENNIUM Blood specimen (specimen) 06/13/2013 11:25 AM EDT 06/13/2013 11:30 AM EDT Narrative Resulting Agency Comment Spec In Lab Narcisa Carcamo MD HEMATOLOGY ORDERABLE S [facility] * POCT urine dipstick (06/13/2013 9:00 AM EDT) Pathologist [facility] POC Sp [place] 1.01 1.002 - 1.030 POC pH, UA 6 5.0 - 8.5 POC Leuk, UA neg Negative - Negative POC Nitrite, UA neg Negative - Negative POC Protein, UA trace Negative - Negative mg/dL POC Glucose, UA normal Normal - Normal mg/dL POC Ketone, UA neg Negative - Negative POC Urobil, UA 0.2 0.2 - 1.0 mg/dL POC Bili, UA neg Negative - Negative POC Blood, UA neg Negative - Negative vamsi/uL 06/13/2013 9:00 AM EDT Narcisa Carcamo MD POINT OF CARE TEST O RDERABLES * U24 Hrs and Volume (06/12/2013 10:20 AM EDT) Hours Collected 24 hour(s) CERNER MILLENNIUM Total Volume 3900 mL CERNER MILLENNIUM Urine specimen (specimen) 06/12/2013 10:20 AM EDT 06/12/2013 12:04 PM EDT Narrative Resulting Agency Comment Spec In Lab Narcisa Carcamo MD CHEMISTRY ORDERABLES [facility] * (ABNORMAL) Protein, urine, 24 hour (06/12/2013 10:20 AM EDT) Protein Concentration, U24 7 <=80 mg/dL CERNER MILLENNIUM Protein, 24 Hour Urine 0.27(H) <=0.15 gm/24hr CERNER MILLENNIUM Urine specimen (specimen) 06/12/2013 10:20 AM EDT 06/12/2013 12:04 PM EDT Narrative Resulting Agency Comment Spec In Lab Narcisa Carcamo MD URINE ORDERABLES Performing Organization Address City/[facility]/ZIP Co de Phone Number BENI PAULINO * US OB follow up multiple (06/11/2013 11:36 AM EDT) Anatomical Region Laterality Modality Pelvis, Abdomen Ultrasound 06/11/2013 11:3 6 AM EDT Narrative 06/11/2013 12:20 PM EDT ?OBSTETRICS REPORT ? (Signed Final 06/11/2013 12:19 pm) Patient Info ID: ? [id number] ? : ??[birth year] (28 yrs) Name: ? CLEMENT EUBANKS ? Visit Date: 06/11/2013 11:23 am Performed By Performed By: ?Beulah Rbuio RDMS Attending: ? Therese DAVID, Marlen Medel Referred By: ? YAQUELIN PURCELL MD Service(s) Provided UOBFOLMULT - Efw - Growth - Multiple Gestation - ?[id number], [id number] Indications 28yo at 32w5d with di/di twin admitted for cervical dilation, bulging membranes Evaluation (Fetus A) Num Of Fetuses: ?2 Heart Rate: ??149 ?bpm Cardiac Activity: ??Observed, normal rhythm Lie: ? Right Presenting Twin Presentation: ?Cephalic Placenta: ?Anterior Membrane Desc: ?Dichoronic, Diamniotic Membrane Size: ?Normal Amniotic Fluid VISHAL FV: ?MVP - Within Normal Limits ? Dimas Balbuenakt: ? 4.5 ??cm Biometry (Fetus A) BPD: ?88.3 ??mm ?G. Age: ?? 35w 5d ? > 97 ??% HC: ? 319 ?? mm ?G. Age: ?? 35w 6d ? 87 ??% AC: ? 283 ?? mm ?G. Age: ?? 32w 2d ? 35 ??% FL: ? 69.1 ??mm ?G. Age: ?? 35w 3d ? 93 ??% HUM: ?60.5 ??mm ?G. Age: ?? 35w 1d ? > 95 ??% CI: ? 76.86 ??% ? 70 - 86 FL/HC: ? 21.7 ??% ? 19.9 - 21.5 HC/AC: ? 1.13 ?0.96 - 1.11 FL/BPD: ?78.3 ??% ? 71 - 87 FL/AC: ? 24.4 ??% ? 20 - 24 Est. FW: ?2310 ?? gm ? 5 lb 1 oz ? 85 ??% FW Discordancy: ?0 \ 4 ?? % Gestational Age (Fetus A) U/S Today: ? 34w 6d ?SHERRIE: ?? 07/17/13 Best: ?32w 6d ?? Det. By: ??Embryo ? SHERRIE: ?? 07/31/13 ? Transfer ? (11/10/12) Anatomy (Fetus A) Cranium: ?Limited Views Cavum: ?Visualized Ventricles: ? Not visualized due to late gestational age Choroid Plexus: ? Not visualized due to late gestational age Cerebellum: ? Not visualized due to late gestational age Posterior Fossa: ?Not visualized due to late gestational age Nuchal Fold: ?Not evaluated at this gestational age Face: ? Limited Views Heart: ?4 -chamber view appears normal RVOT: ? Not visualized due to late gestational age LVOT: ? Not visualized due to late gestational age Diaphragm: ?Visualized Stomach: ?Visualized Abdomen: ?Limited Views Abdominal Wall: ? Not visualized due to late gestational age Cord Vessels: ? 3- vessels- WNL Kidneys: ?Visualized Bladder: ?Visualized Spine: ?Limited views Lower ? Limited views Extremities: Upper ? Limited views Extremities: Evaluation (Fetus B) Num Of Fetuses: ?2 Heart Rate: ??160 ?bpm Cardiac Activity: ??Observed, normal rhythm Lie: ? Left Upper Twin Presentation: ?Cephalic Placenta: ?Anterior Membrane Desc: ?Dichoronic, Diamniotic Membrane Size: ?Normal Amniotic Fluid VISHAL FV: ?MVP - Within Normal Limits ? Dimas Larkin: ? 6.6 ??cm Biometry (Fetus B) BPD: ?82.7 ??mm ?G. Age: ?? 33w 2d ? 55 ??% HC: ? 300 ?? mm ?G. Age: ?? 33w 2d ? 23 ??% AC: ? 298 ?? mm ?G. Age: ?? 33w 6d ? 76 ??% FL: ? 64.3 ??mm ?G. Age: ?? 33w 2d ? 47 ??% HUM: ?56.5 ??mm ?G. Age: ?? 32w 6d ? 57 ??% CI: ?76.3 ??% ? 70 - 86 FL/HC: ? 21.4 ??% ? 19.9 - 21.5 HC/AC: ? 1.01 ?0.96 - 1.11 FL/BPD: ?77.8 ??% ? 71 - 87 FL/AC: ? 21.6 ??% ? 20 - 24 Est. FW: ?2211 ?? gm ?? 4 lb 14 oz ?80 ??% FW Discordancy: ?4 ? % Gestational Age (Fetus B) U/S Today: ? 33w 3d ?SHERRIE: ?? 07/27/13 Best: ?32w 6d ?? Det. By: ??Embryo ? SHERRIE: ?? 07/31/13 ? Transfer ? (11/10/12) Anatomy (Fetus B) Cranium: ?Limited Views Cavum: ?Visualized Ventricles: ? Not visualized due to late gestational age Choroid Plexus: ? Not visualized due to late gestational age Cerebellum: ? Not visualized due to late gestational age Posterior Fossa: ?Not visualized due to late gestational age Nuchal Fold: ?Not evaluated at this gestational age Face: ? Limited Views Heart: ?Not visualized due to late gestational age RVOT: ? Not visualized due to late gestational age LVOT: ? Not visualized due to late gestational age Diaphragm: ?Visualized Stomach: ?Visualized Abdomen: ?Limited Views Abdominal Wall: ? Not visualized due to late gestational age Cord Vessels: ? 3- vessels- WNL Kidneys: ?Visualized Bladder: ?Visualized Spine: ?Limited views Lower ? Limited views Extremities: Upper ? Limited views Extremities: Cervix Uterus Adnexa Left Ovary: ?Not visualized Right Ovary: ?? Not visualized Impression 3rd Trimester Twins Summary Twin intrauterine with a gestational age of 32w 6d based on embryo transfer. Composite age based on the current ultrasound alone is A: 34w 6d, B: 33w 3d. Estimated weight corresponds to the A: 85, B: 80th percentile for 32w 6d. Current growth parameters are consistent indicating normal growth for each fetus. Amniotic fluid volume is A: MVP - Within Normal Limits, B: MVP - Within Normal Limits Largest pocket = A: 4.5, B: 6.6 cm Anatomical survey is limited due to the late gestational age. I ??viewed the images and agree with the above interpretation. Thank you for allowing us to participate in the care of CLEMENT EUBANKS. Please do not hesitate to call if you have any questions. ? Marlen Saleh MD Electronically Signed Final Report ?? 06/11/2013 12:19 pm Procedure Note Marlen Saleh MD - 06/11/2013 OBSTETRICS REPORT (Signed Final 06/11/2013 12:19 pm) Patient Info ID: [id number] : [birth year] (28 yrs) Name: CLEMENT EUBANKS Visit Date: 06/11/2013 11:23 am Performed By Performed By: Beulah Rubio RDMS Attending: Marlen Saleh MD Referred By: YAQUELIN PURCELL MD Service(s) Provided [facility] - Growth - Multiple Gestation - [id number] Indications 28yo at 32w5d with di/di twin admitted for cervical dilation, bulging membranes Evaluation (Fetus A) Num Of Fetuses: 2 Heart Rate: 149 bpm Cardiac Activity: Observed, normal rhythm Lie: Right Presenting Twin Presentation: Cephalic Placenta: Anterior Membrane Desc: Dichoronic, Diamniotic Membrane Size: Normal Amniotic Fluid VISHAL FV: MVP - Within Normal Limits Larg Pckt: 4.5 cm Biometry (Fetus A) BPD: 88.3 mm G. Age: 35w 5d > 97 % HC: 319 mm G. Age: 35w 6d 87 % AC: 283 mm G. Age: 32w 2d 35 % FL: 69.1 mm G. Age: 35w 3d 93 % HUM: 60.5 mm G. Age: 35w 1d > 95 % CI: 76.86 % 70 - 86 FL/HC: 21.7 % 19.9 - 21.5 HC/AC: 1.13 0.96 - 1.11 FL/BPD: 78.3 % 71 - 87 FL/AC: 24.4 % 20 - 24 Est. FW: 2310 gm 5 lb 1 oz 85 % FW Discordancy: 0 \ 4 % Gestational Age (Fetus A) U/S Today: 34w 6d SHERRIE: 07/17/13 Best: 32w 6d Det. By: Embryo SHERRIE: 07/31/13 Transfer (11/10/12) Anatomy (Fetus A) Cranium: Limited Views Cavum: Visualized Ventricles: Not visualized due to late gestational age Choroid Plexus: Not visualized due to late gestational age Cerebellum: Not visualized due to late gestational age Posterior Fossa: Not visualized due to late gestational age Nuchal Fold: Not evaluated at this gestational age Face: Limited Views Heart: 4 -chamber view appears normal RVOT: Not visualized due to late gestational age LVOT: Not visualized due to late gestational age Diaphragm: Visualized Stomach: Visualized Abdomen: Limited Views Abdominal Wall: Not visualized due to late gestational age Cord Vessels: 3- vessels- WNL Kidneys: Visualized Bladder: Visualized Spine: Limited views Lower Limited views Extremities: Upper Limited views Extremities: Evaluation (Fetus B) Num Of Fetuses: 2 Heart Rate: 160 bpm Cardiac Activity: Observed, normal rhythm Lie: Left Upper Twin Presentation: Cephalic Placenta: Anterior Membrane Desc: Dichoronic, Diamniotic Membrane Size: Normal Amniotic Fluid VISHAL FV: MVP - Within Normal Limits Larg Pckt: 6.6 cm Biometry (Fetus B) BPD: 82.7 mm G. Age: 33w 2d 55 % HC: 300 mm G. Age: 33w 2d 23 % AC: 298 mm G. Age: 33w 6d 76 % FL: 64.3 mm G. Age: 33w 2d 47 % HUM: 56.5 mm G. Age: 32w 6d 57 % CI: 76.3 % 70 - 86 FL/HC: 21.4 % 19.9 - 21.5 HC/AC: 1.01 0.96 - 1.11 FL/BPD: 77.8 % 71 - 87 FL/AC: 21.6 % 20 - 24 Est. FW: 2211 gm 4 lb 14 oz 80 % FW Discordancy: 4 % Gestational Age (Fetus B) U/S Today: 33w 3d SHERRIE: 07/27/13 Best: 32w 6d Det. By: Embryo SHERRIE: 07/31/13 Transfer (11/10/12) Anatomy (Fetus B) Cranium: Limited Views Cavum: Visualized Ventricles: Not visualized due to late gestational age Choroid Plexus: Not visualized due to late gestational age Cerebellum: Not visualized due to late gestational age Posterior Fossa: Not visualized due to late gestational age Nuchal Fold: Not evaluated at this gestational age Face: Limited Views Heart: Not visualized due to late gestational age RVOT: Not visualized due to late gestational age LVOT: Not visualized due to late gestational age Diaphragm: Visualized Stomach: Visualized Abdomen: Limited Views Abdominal Wall: Not visualized due to late gestational age Cord Vessels: 3- vessels- WNL Kidneys: Visualized Bladder: Visualized Spine: Limited views Lower Limited views Extremities: Upper Limited views Extremities: Cervix Uterus Adnexa Left Ovary: Not visualized Right Ovary: Not visualized Impression 3rd Trimester Twins Summary Twin intrauterine with a gestational age of 32w 6d based on embryo transfer. Composite age based on the current ultrasound alone is A: 34w 6d, B: 33w 3d. Estimated weight corresponds to the A: 85, B: 80th percentile for 32w 6d. Current growth parameters are consistent indicating normal growth for each fetus. Amniotic fluid volume is A: MVP - Within Normal Limits, B: MVP - Within Normal Limits Largest pocket = A: 4.5, B: 6.6 cm Anatomical survey is limited due to the late gestational age. I viewed the images and agree with the above interpretation. Thank you for allowing us to participate in the care of CLEMENT EUBANKS. Please do not hesitate to call if you have any questions. Marlen Saleh MD Electronically Signed Final Report 06/11/2013 12:19 pm Narcisa Carcamo MD [facility] * Protein/Creatinine Ratio, urine (06/11/2013 10:36 AM EDT) Creatinine, Urine 38 mg/dL CERNER MILLENNIUM Protein, Urine 9 0 - 12 mg/dL CERNER MILLENNIUM Protein / Creatinine Ratio, Urine 0.2 ratio CERNER MILLENNIUM Urine specimen (specimen) 06/11/2013 10:36 AM EDT 06/11/2013 10:58 AM EDT Narrative Resulting Agency Comment Spec In Lab Narcisa Carcamo MD URINE ORDERABLES [employer] * POCT urine dipstick (06/11/2013 9:45 AM EDT) POC Sp [place] 1.01 1.002 - 1.030 POC pH, UA 6 5.0 - 8.5 POC Leuk, UA neg Negative - Negative POC Nitrite, UA neg Negative - Negative POC Protein, UA trace Negative - Negative mg/dL POC Glucose, UA normal Normal - Normal mg/dL POC Ketone, UA neg Negative - Negative POC Urobil, UA 0.2 0.2 - 1.0 mg/dL POC Bili, UA neg Negative - Negative POC Blood, UA neg Negative - Negative vamsi/uL 06/11/2013 9:45 AM EDT Marlen Saleh MD POINT OF CARE TEST O RDERABLES * Group B Streptococcus Screen (06/08/2013 9:28 PM EDT) GBS Screen Neg [facility] MANJUENCOM[facility] HOSPITALIUM Pooled specimen from vaginal introitus and rectal swab (specimen) 06/08/2013 9:28 PM EDT 06/08/2013 10:41 PM EDT Comment:Penicillin Allergy?- >No Narrative Resulting Agency Comment Spec In Lab Narcisa Carcamo MD MICROBIOLOGY - GENER AL ORDERABLES [facility] * Group B Strep Culture Screen (06/08/2013 9:28 PM EDT) Pathologist [facility] Group B Streptococcus Culture ? Patient Name: CLEMENT EUBANKS ? Ordered By: NARCISA CARCAMO ? MR#: [id number] ?LOC: ??BP ? /Sex: ??1985 (28 years), ? Female ? PROCEDURE: Group B Streptococcus Culture ?SOURCE: Vag/Rectal ? COLLECTED: 06/08/2013 21:28 ?FREE TEXT SOURCE: Penicillin Allergy?->No ? STARTED: 06/08/2013 22:41 ? FINAL REPORT ? Final Report ? Verified: 11:33 ? No Group B Streptococci isolated ? PRELIMINARY REPORT ? Preliminary Report ? Verified: 10:16 ? Culture in progress ? [facility] Pooled specimen from vaginal introitus and rectal swab (specimen) 06/08/2013 9:28 PM EDT 06/08/2013 10:41 PM EDT Comment:PENICILLIN ALLERGY?- >NO Narrative Resulting Agency Comment Spec In Lab Narcisa Carcamo MD MICROBIOLOGY - GENER AL ORDERABLES Performing Organization Address City/State/[facility] Co de Phone Number [facility] * Ab Comment (06/08/2013 9:08 PM EDT) Ab Information INTERPRETATION : The patient's specimen shows the presence of the antibody anti-D. ??The patient is negative for the RhD antigen. The patient recently received RhIg; the reactivity in the specimen almost certainly represents passive anti-D. ??Unit selection is per routine. Ronald Mir MD, PhD Transfusion Medicine Service 06/18/13 17:33 [facility] Comment: Ronald Mir, Transfusion ??Medicine Verified:06/18/13 Blood specimen (specimen) 06/08/2013 9:08 PM EDT 06/08/2013 9:39 PM EDT Narrative Resulting Agency Comment Spec In Lab Narcisa Carcamo MD BLOOD BANK LAB ORDER RUPA BENI VALDIVIAIUM * Antibody identification (06/08/2013 9:08 PM EDT) Ab Identified Anti-D passive CERNER MILLENNIUM Blood specimen (specimen) 06/08/2013 9:08 PM EDT 06/08/2013 9:39 PM EDT Narrative Resulting Agency Comment Spec In Lab Narcisa Carcamo MD BLOOD BANK LAB ORDER RUPA BENI NUNESENNIUM * (ABNORMAL) Differential, Automated (06/08/2013 9:08 PM EDT) Neutrophil % 74.9(H) 34.0 - 71.0 % CERNER MILLENNIUM Neutrophil Absolute 6.31(H) 1.50 - 6.30 x10(3)/mc L CERNER MILLENNIUM Lymph % 14.3(L) 19.0 - 53.0 % CERNER MILLENNIUM Lymphocytes Abs 1.2 1.0 - 3.6 x10(3)/mc L CERNER MILLENNIUM Monocyte % 9.6 4.0 - 13.0 % CERNER MILLENNIUM Monocyte Abs 0.8 0.2 - 1.0 x10(3)/mc L CERNER MILLENNIUM Eos % 0.4 0.0 - 7.0 % CERNER MILLENNIUM Eosinophils Abs 0.0 0.0 - 0.5 x10(3)/mc L CERNER MILLENNIUM Basophil % 0.2 0.0 - 2.0 % CERNER MILLENNIUM Baso Absolute 0.0 0.0 - 0.2 x10(3)/mc L CERNER MILLENNIUM Immature Gran % 0.60 0.00 - 0.66 % CERNER MILLENNIUM Comment: Immature granulocytes(IG's)percentage and absolute count will include metamyelocytes, myelocytes, and promyelocytes. Blood smears from CBCs yielding IG's will be scanned manually for concordance. If this scan disagrees with the automated IG or if promyelocytes are noted, a manual differential will be performed. Immature Gran Absolute 0.05 0.00 - 0.05 x10(3)/mc L BENI NUNESENNIUM Blood specimen (specimen) 06/08/2013 9:08 PM EDT 06/08/2013 9:41 PM EDT Narcisa Carcamo MD HEMATOLOGY ORDERABLE S BENI VALDIVIAIUM * Scan, Peripheral Blood (06/08/2013 9:08 PM EDT) Plat estimate Decreased CERAMANDA NUNESENNIUM RBC Morphology Abnormal CERNE R MILLENNIUM Tear Cell 1-5 /HPF CERNER MILLENNIUM [place] Cells 1-5 /HPF CERNER MILLENNIUM Plat, Giant Greater than 1 /HPF BENI NUNESENNIUM Blood specimen (specimen) 06/08/2013 9:08 PM EDT 06/08/2013 9:41 PM EDT Narrative Resulting Agency Comment Spec In Lab Narcisa Carcamo MD HEMATOLOGY ORDERABLE S Performing Organization Address [facility]/ZIP Co de Phone Number BENI VALDIVIAIUM * Antibody screen (06/08/2013 9:08 PM EDT) Ab Screen Interp Positive BENI VALDIVIAIUM Expires at [id number] on: [id number] BENI VALDIVIAIUM Blood specimen (specimen) 06/08/2013 9:08 PM EDT 06/08/2013 9:39 PM EDT Narrative Resulting Agency Comment Spec In Lab Narcisa Carcamo MD BLOOD BANK LAB ORDER RUPA BENI VALDIVIAIUM * ABO/Rh Typing (06/08/2013 9:08 PM EDT) ABORH Type O Neg BENI NUNESENNIUM Blood specimen (specimen) 06/08/2013 9:08 PM EDT 06/08/2013 9:39 PM EDT Narrative Resulting Agency Comment Spec In Lab Narcisa Carcamo MD BLOOD BANK LAB ORDER RUPA Performing Organization Address City/State/[facility] [[email or web address]] de Phone Number BENI PAULINO * (ABNORMAL) CBC (with Diff) (06/08/2013 9:08 PM EDT) White Blood Cell 8.4 4.0 - 10.0 x10(3)/mc L CERNER MILLENNIUM Red Blood Cell 3.46(L) 3.93 - 5.22 x10(6)/mc L CERNER MILLENNIUM Hemoglobin 9.5(L) 11.2 - 15.7 gm/dL CERNER MILLENNIUM Hematocrit 29.4(L) 34.0 - 45.0 % CERNER MILLENNIUM Mean Cell Volume 85.0 79.0 - 94.0 fL CERNER MILLENNIUM Mean Cell Hemoglobin 27.5 26.6 - 32.2 pg CERNER MILLENNIUM Mean Cell Hemoglobin Concentration 32.3 32.0 - 36.5 gm/dL CERNER MILLENNIUM Platelet 132(L) 145 - 370 x10(3)/mc L CERNER MILLENNIUM RDW Standard Deviation 42.3 35.0 - 46.0 fL CERNER MILLENNIUM RDW coefficient of variation 13.6 10.9 - 14.4 % CERNER MILLENNIUM Mean Platelet Volume 13.0(H) 9.0 - 12.0 fL CERNER MILLENNIUM Blood specimen (specimen) 06/08/2013 9:08 PM EDT 06/08/2013 9:41 PM EDT Narrative Resulting Agency Comment Spec In Lab Narcisa Carcamo MD HEMATOLOGY ORDERABLE S Performing Organization Address [facility] [[email or web address]] de Phone Number BENI PAULINO documented in this encounter Visit Diagnoses Diagnosis Dichorionic diamniotic twin gestation- Primary Twin gestation, dichorionic/diamniotic (two placentae, two amniotic sacs) Dichorionic diamniotic twin gestation Twin gestation, dichorionic/diamniotic (two placentae, two amniotic sacs) High-risk supervision, third trimester Gestational HTN, third trimester Premature cervical dilation, third trimester High-risk supervision Unspecified high-risk Premature cervical dilation Cervical incompetence, antepartum condition or complication Gestational HTN Unspecified hypertension complicating , childbirth, or the puerperium, unspecified as to episode of care documented in this encounter Administered Medications Inactive Administered Medications - up to 3 most recent administrations Medication Order MAR Action Action Date Dose Rate Site acetaminophen (TYLENOL) tablet 650 mg 650 mg, Oral, ONCE, 1 dose, On Tue06/15/13 at 2030, Maximum dose of acetaminophen is 4000 mg from all sources in 24 hours., Routine Given 06/15/2013 8:18 PM EDT 650 mg acetaminophen (TYLENOL) tablet 650 mg 650 mg, Oral, ONCE, 1 dose, On Tue06/18/13 at 2115, Maximum dose of acetaminophen is 4000 mg from all sources in 24 hours., Routine Given 06/18/2013 10:00 PM EDT 650 mg acetaminophen (TYLENOL) tablet 650 mg 650 mg, Oral, EVERY 4 HOURS PRN, Starting on Tue06/19/13 at 2153, Until Tue06/21/13 at 1530, Pain, mild pain, Maximum dose of acetaminophen is 4000 mg from all sources in 24 hours., Routine Given 06/21/2013 9:00 AM EDT 650 mg Given 06/20/2013 9:30 PM EDT 650 mg Given 06/20/2013 2:35 PM EDT 650 mg betamethasone acetate-betamethasone sodium phosphate (CELESTONE) injection 12 mg 12 mg, Intramuscular, EVERY 24 HOURS, 2 doses, First dose on Tue06/08/13 at 2130, Last dose on Tue06/09/13 at 2130, Routine Given 06/09/2013 9:30 PM EDT 12 mg Given 06/08/2013 9:30 PM EDT 12 mg calcium carbonate (TUMS) chewable tablet 1,000 mg 1,000 mg, Oral, EVERY 6 HOURS PRN, Starting on Tue06/19/13 at 2006, Until Tue06/21/13 at 1530, Heartburn, Routine Given 06/19/2013 8:14 PM EDT 1,000 mg docusate sodium (COLACE) capsule 100 mg 100 mg, Oral, 2 TIMES DAILY, First dose on Tue06/20/13 at 2100, Until Discontinued, Routine Given 06/21/2013 9:00 AM EDT 100 mg Given 06/20/2013 9:30 PM EDT 100 mg fentaNYL 2 mcg/mL with BUpivacaine 0.125% (1.25 mg/mL) (1/8%) in NS(PF) 2-0.125 mcg/mL-% neuraxial OPHELIA MATHEWS: cabinet override fentaNYL 2 mcg/mL, BUpivacaine (MARCAINE) 0.125% (1.25 mg/mL)(1/8%) in sodium chloride 0.9% 250 mL epidural Epidural, Maximum rate for continuous infusion 14 mL per hour Patient Controlled Epidural Analgesia (PCEA):5 Maintain continuous infusion plus: PCEA bolus volume of 5 mL Maximum total epidural rate (continuous and PCEA bolus) is 25 mL per hour Bolus lockout of 20 minutes, Recovery (Recovery-Hospital Unit) New Bag 06/19/2013 4:15 PM EDT 10 mL/h r 10 mL/hr fentaNYL 50mcg/mL injection 50 mcg, Intravenous, ONCE, 1 dose, On Tue06/19/13 at 0030, Routine Given 06/19/2013 12:20 AM EDT 50 mcg fentaNYL 50mcg/mL injection 50 mcg, Intravenous, ONCE, 1 dose, On Tue06/19/13 at 0330, Routine Given 06/19/2013 3:00 AM EDT 50 mcg ibuprofen (ADVIL;MOTRIN) tablet 600 mg 600 mg, Oral, EVERY 6 HOURS PRN, Starting on Tue06/19/13 at 2153, Until Harriet 06/21/13 at 1530, Pain, mild to moderate pain, Do not give if receiving ketorolac. Maximum dose of 3,200 mg from all sources in 24 hours., Routine Given 06/21/2013 9:00 AM EDT 600 mg Given 06/20/2013 11:00 PM EDT 600 mg Given 06/20/2013 5:01 PM EDT 600 mg morphine 10 mg/mL carpuject 10 mg 10 mg, Intramuscular, ONCE, 1 dose, On Tue06/19/13 at 0445, Routine Given 06/19/2013 4:30 AM EDT 10 mg morphine 10 mg/mL carpuject 5 mg 5 mg, Intravenous, ONCE, 1 dose, On Tue06/19/13 at 0445, Routine Given 06/19/2013 4:30 AM EDT 5 mg morphine 10 mg/mL carpuject 1 dose, Starting on Tue06/19/13 at 0420, Until Tue06/19/13 at 0430, SCOTTY DIDOMINIC: cabinet override NIFEdipine (PROCARDIA) capsule 20 mg 20 mg, Oral, EVERY 8 HOURS SCHEDULED, 6 doses, First dose (after last modification) on Tue06/08/13 at 1915, Last dose on Tue06/10/13 at 1130, Routine Given 06/10/2013 11:30 AM EDT 20 mg Given 06/10/2013 3:30 AM EDT 20 mg Given 06/09/2013 7:30 PM EDT 20 mg NIFEdipine (PROCARDIA) capsule 20 mg 20 mg, Oral, ONCE, 1 dose, On Tue06/17/13 at 1000, May repeat in 30 minutes if still urszula, Routine Given 06/17/2013 10:01 AM EDT 20 mg NIFEdipine (PROCARDIA) capsule 20 mg 20 mg, Oral, ONCE, 1 dose, On Tue06/18/13 at 0830, May repeat in 30 minutes if still urszula, STAT Given 06/18/2013 9:15 AM EDT 20 mg NIFEdipine (PROCARDIA) capsule 20 mg 20 mg, Oral, ONCE, 1 dose, On Tue06/18/13 at 1800, May repeat in 30 minutes if still urszula, Routine Given 06/18/2013 7:35 PM EDT 10 mg oxytocin (PITOCIN) 30 units in sodium chloride 0.9% 500 mL infusion 1-40 alf-units/min (rounded to 1-40 mL/hr), Intravenous, CONTINUOUS, Starting on Tue06/19/13 at 1700, Until Tue06/19/13 at 2153, Piggyback into Lactated Ringers; Start at 1-2 milliunits/minute and increase by 1-2 milliunits/minutes every 30 minutes to achieve contractions that are every 2-3 minutes, lasting 60-90 seconds with 1 minute resting tone between contractions palpating strong. Oxytocin may not be initiated until: - 1 hour after Cervidil is removed - 4 hours after last minute misoprostol dose is given , Routine Rate/Dose Change 06/19/2013 7:00 PM EDT 6 alf-units/min 6 mL/hr Rate/Dose Change 06/19/2013 6:00 PM EDT 4 alf-units/min 4 mL/hr New Bag 06/19/2013 5:22 PM EDT 2 alf-units/min 2 mL/h r oxytocin (PITOCIN) 30 units in sodium chloride 0.9% 500 mL infusion 30 Units (500 mL), Intravenous, at 500 mL/hr, Administer over 1 Hours, ONCE, 1 dose, On Tue06/19/13 at 2215, ., Routine New Bag 06/19/2013 9:05 PM EDT 30 Units 500 mL/hr penicillin G potassium 3 million units in dextrose 5% 50 mL 3 Million Units, Intravenous, EVERY 4 HOURS, First dose on Tue06/09/13 at 0115, Until Discontinued, Administer over 60 Minutes, Until delivery for GBS prophylaxis, Indication for (Active or Suspected): Prophylaxis New Bag 06/10/2013 5:15 AM EDT 3 Million Units 50 mL/hr New Bag 06/10/2013 1:15 AM EDT 3 Million Units 50 mL/hr New Bag 06/09/2013 9:15 PM EDT 3 Million Units 50 mL/hr penicillin G potassium 5 million unit vial attach to sodium chloride 0.9% 100 mL Mini-Bag Plus 5 Million Units, Intravenous, ONCE, 1 dose, On Tue06/08/13 at 2130, Administer over 60 Minutes, Attach to 100 mL sodium chloride 0.9% Mini-Bag Plus, Indication for (Active or Suspected): Prophylaxis Given 06/08/2013 9:30 PM EDT 5 Million Units 110 mL/hr vitamin 27 & fowyffi-totf-PN 60 mg iron-1 mg tablet Tab 1 tablet 1 tablet, Oral, DAILY, First dose on Tue06/12/13 at 0900, Until Discontinued, Routine Given 06/18/2013 9:15 AM EDT 1 tablet Given 06/17/2013 2:56 PM EDT 1 tablet Given 06/16/2013 9:00 AM EDT 1 tablet promethazine (PHENERGAN) injection 25 mg 25 mg, Intramuscular, ONCE, On Tue06/19/13 at 0500, 1 dose, PETRICE DIDOMINIC: cabinet override Given 06/19/2013 4:30 AM EDT 25 mg rho D Immune Globulin (HYPERHO S/D) injection 300 mcg 300 mcg, Intramuscular, ONCE, 1 dose, On Tue06/21/13 at 1115, Routine Given 06/21/2013 12:26 PM EDT 300 mcg Righ t Gluteal sodium chloride 0.9 % flush 5 mL 5 mL, Intravenous, 2 TIMES DAILY, First dose on Tue06/08/13 at 2130, Until Discontinued, Routine Given 06/19/2013 10:05 PM EDT 5 mLs Given 06/19/2013 9:37 AM EDT 5 mLs Given 06/18/2013 9:00 PM EDT 5 mLs documented in this encounter Active and Recently Administered Medications Times are shown in EDT. Scheduled Medication Order 06/19/2013 06/20/2013 06/21/2013 docusate sodium (COLACE) capsule 100 mg (CANCELED) 100 mg, Oral, 2 TIMES DAILY, First dose on Tue06/20/13 at 2100, Until Discontinued, Routine 213 (Given - Provider: Viral Streeter, RN) 0900 (Given - Provider: Nicho Childers) fentaNYL 50mcg/mL injection (COMPLETED) 50 mcg, Intravenous, ONCE, 1 dose, On Tue06/19/13 at 0030, Routine 0020 (Given - Provider: Scotty Tovar RN)0030 (Due) fentaNYL 50mcg/mL injection (COMPLETED) 50 mcg, Intravenous, ONCE, 1 dose, On Tue06/19/13 at 0330, Routine 0300 (Given - Provider: Scotty Tovar, EUGENE) morphine 10 mg/mL carpuject 10 mg (COMPLETED) 10 mg, Intramuscular, ONCE, 1 dose, On Tue06/19/13 at 0445, Routine 0430 (Given - Provider: Scotty Tovar, EUGENE) morphine 10 mg/mL carpuject 5 mg (COMPLETED) 5 mg, Intravenous, ONCE, 1 dose, On Tue06/19/13 at 0445, Routine 0430 (Given - Provider: Scotty Tovar RN) oxytocin (PITOCIN) 30 units in sodium chloride 0.9% 500 mL infusion (COMPLETED) 30 Units (500 mL), Intravenous, at 500 mL/hr, Administer over 1 Hours, ONCE, 1 dose, On Tue06/19/13 at 2215, ., Routine 2105 (New Bag - Provider: Yessi Galvez RN) promethazine (PHENERGAN) injection 25 mg (COMPLETED) 25 mg, Intramuscular, ONCE, On Tue06/19/13 at 0500, 1 dose, SCOTTY TOVAR: davidinet override 0430 (Given - Provider: Scotty Tovar RN) rho D Immune Globulin (HYPERHO S/D) injection 300 mcg (COMPLETED) 300 mcg, Intramuscular, ONCE, 1 dose, On Ahrriet 06/21/13 at 1115, Routine 1226 (Given - Provider: Nicho Childers) sodium chloride 0.9 % flush 5 mL (CANCELED) 5 mL, Intravenous, 2 TIMES DAILY, First dose on Tue06/08/13 at 2130, Until Discontinued, Routine 0937 (Given - Provider: Sofía Abdul, EUGENE)2205 (Given - Provider: Yessi Galvez RN) Continuous Medication Order 06/19/2013 06/20/2013 06/21/2013 fentaNYL 2 mcg/mL, BUpivacaine (MARCAINE) 0.125% (1.25 mg/mL)(1/8%) in sodium chloride 0.9% 250 mL epidural (CANCELED) Epidural, Maximum rate for continuous infusion 14 mL per hour Patient Controlled Epidural Analgesia (PCEA):5 Maintain continuous infusion plus: PCEA bolus volume of 5 mL Maximum total epidural rate (continuous and PCEA bolus) is 25 mL per hour Bolus lockout of 20 minutes, Recovery (Recovery-Hospital Unit) 1615 (New Bag - Provider: Ophelia Mathews RN)1635 (Canceled Entry - Provider: Ophelia Mathews RN) oxytocin (PITOCIN) 30 units in sodium chloride 0.9% 500 mL infusion (CANCELED) 1-40 alf-units/min (rounded to 1-40 mL/hr), Intravenous, CONTINUOUS, Starting on Tue06/19/13 at 1700, Until Tue06/19/13 at 2153, Piggyback into Lactated Ringers; Start at 1-2 milliunits/minute and increase by 1-2 milliunits/minutes every 30 minutes to achieve contractions that are every 2-3 minutes, lasting 60-90 seconds with 1 minute resting tone between contractions palpating strong. Oxytocin may not be initiated until: - 1 hour after Cervidil is removed - 4 hours after last minute misoprostol dose is given , Routine 1722 (New Bag - Provider: Ophelia Mathews RN)1800 (Rate/Dose Change - Provider: Sofía Abdul RN)1900 (Rate/Dose Change - Provider: Sofía Abdul RN) PRN Medication Order 06/19/2013 06/20/2013 06/21/2013 acetaminophen (TYLENOL) tablet 650 mg (CANCELED)(Linked Group 1) 650 mg, Oral, EVERY 4 HOURS PRN, Starting on Tue06/19/13 at 2153, Until Harriet 06/21/13 at 1530, Pain, mild pain, Maximum dose of acetaminophen is 4000 mg from all sources in 24 hours., Routine 0902 (Given - Provider: Rama Sampson RN)1435 (Given - Provider: Rama Sampson RN)2130 (Given - Provider: Viral Streeter RN) 0900 (Given - Provider: Nicho Childers) calcium carbonate (TUMS) chewable tablet 1,000 mg (CANCELED) 1,000 mg, Oral, EVERY 6 HOURS PRN, Starting on Tue06/19/13 at 2006, Until Harriet 06/21/13 at 1530, Heartburn, Routine 2013 (Given - Provider: Yessi Galvez RN) ibuprofen (ADVIL;MOTRIN) tablet 600 mg(Linked Group 2) 600 mg, Oral, EVERY 6 HOURS PRN, Starting on Tue06/19/13 at 2153, Until Harriet 06/21/13 at 1530, Pain, mild to moderate pain, Do not give if receiving ketorolac. Maximum dose of 3,200 mg from all sources in 24 hours., Routine 2350 (Given - Provider: Yessi Galvez RN) 0902 (Given - Provider: Rama Sampson RN)1701 (Given - Provider: Rama Sampson RN)2300 (Given - Provider: Viral Streeter RN) 0900 (Given - Provider: Nicho Childers) Linked Groups Order Group 1: acetaminophen (TYLENOL) tablet 650 mg (CANCELED)Jump to med 650 mg, Oral, EVERY 4 HOURS PRN, Starting on Tue06/19/13 at 2153, Until Harriet 06/21/13 at 1530, Pain, mild pain, Maximum dose of acetaminophen is 4000 mg from all sources in 24 hours., Routine Or acetaminophen (TYLENOL) tablet 1,000 mg (CANCELED) 1,000 mg, Oral, EVERY 6 HOURS PRN, Starting on Tue06/19/13 at 2153, Until Harriet 06/21/13 at 1530, Pain, moderate pain, Maximum dose of acetaminophen is 4000 mg from all sources in 24 hours., Routine Group 2: ibuprofen (ADVIL;MOTRIN) tablet 600 mgJump to med 600 mg, Oral, EVERY 6 HOURS PRN, Starting on e 06/19/13 at 2153, Until Harriet 06/21/13 at 1530, Pain, mild to moderate pain, Do not give if receiving ketorolac. Maximum dose of 3,200 mg from all sources in 24 hours., Routine Or ibuprofen (ADVIL;MOTRIN) tablet 800 mg (CANCELED) 800 mg, Oral, EVERY 8 HOURS PRN, Starting on Tue06/19/13 at 2153, Until Harriet 06/21/13 at 1530, Pain, severe pain, Do not give if receiving ketorolac. Maximum dose of 3,200 mg from all sources in 24 hours., Routine documented in this encounter Care Teams Event Operations Manager Relationship Specialty Start Date End Date None None PCP - General 07/23/11 documented as of this encounter
--- OUTSIDE RECORDS SUMMARY | 2024-04-16 14:07 | XMS_ITS | Encounter Summary ---
Author Organization [facility] [place] [address] Care Team Providers Care Beer Maker Name Role Phone None Primary Care Provider Unavailabl e Reason for Visit * Reason Comments Routine Visit Encounter Details Date Type Department Care Team (Latest Contact Info) Description 05/25/2013 3:30 PM EDT Routine Obstetrics [place] [phone] CLINIC, Viral Purvis MD Discharge Disposition: Home Social History Tobacco Use Types Packs/Day Years Used Date Smoking Tobacco: Never Smokeless Tobacco: Never Alcohol Use Standard Drinks/Week Comments No 0 (1 standard drink = 0.6 oz pur e alcohol) Comments Yes Sex and Gender Information Value Date Recorded Sex Assigned at Not on file Gender Identity Not on file Sexual Orientation Not on file documented as of this encounter Last Filed Vital Signs Vital Sign Reading Time Taken Comments Blood Pressure 136/78 05/25/2013 3:49 PM EDT Pulse - - Temperature - - Respiratory Rate - - Oxygen Saturation - - Inhaled Oxygen Concentration - - Weight 78.8 kg (173 lb 12.8 oz) 05/25/2013 3:49 PM EDT Height - - Body Mass Index 29.83 12/22/2012 2:07 PM EDT documented in this encounter Progress Notes * Yessi Virgen LPN - 05/25/2013 4:51 PM EDT 50 glucose in urine * Viral Villanueva MD - 05/25/2013 4:17 PM EDT Good FM, B moves more than A. US shows normal interval gorwth that is concordant. Prevacid is working well. She c/o swelling in her right ankle area, but no swelling in the left. We discussed delivery planning and delivery in the OR. We also discussed an epidural for delivery. WE discussed c/s vs vaginal delivery. RTC 2 and 4 weeks. documented in this encounter Plan of Treatment Not on file documented as of this encounter Visit Diagnoses Diagnosis High-risk supervision, third trimester Dichorionic diamniotic twin gestation Twin gestation, dichorionic/diamniotic (two placentae, two amniotic sacs) documented in this encounter Care Teams Beer Maker Relationship Specialty Start Date End Date None None PCP - General 07/23/11 documented as of this encounter
--- OUTSIDE RECORDS SUMMARY | 2024-04-16 14:07 | XMS_ITS | Encounter Summary ---
Author Organization [facility] [place] [address] Care Team Providers Care Milled Rice Broker Name Role Phone None Primary Care Provider Unavailabl e Reason for Visit * Reason Onset Date Comments Results 06/07/2013 Encounter Details Date Type Department Care Team (Late st Contact Info) Description 06/07/2013 Telephone Obstetrics [place] [phone] Jazmyne Mims, RN Results Social History Tobacco Use Types Packs/Day Years Used Date Smoking Tobacco: Never Smokeless Tobacco: Never Alcohol Use Standard Drinks/Week Comments No 0 (1 standard drink = 0.6 oz pur e alcohol) Comments Yes Sex and Gender Information Value Date Recorded Sex Assigned at Not on file Gender Identity Not on file Sexual Orientation Not on file documented as of this encounter Miscellaneous Notes * Telephone Encounter - Jazmyne Mims RN - 06/07/2013 1:43 PM EDT I have called Clement to discuss the results of her three hour glucose. Results for CLEMENT EUBANKS ( ) as of 06/07/2013 13:43 Ref. Range 06/01/2013 07:29 06/01/2013 08:24 06/01/2013 09:26 06/01/2013 10:24 Oral Glucose Dose No range found 100 gm Gluc Baseline No range found 77 Glucose 1 hour No range found 179 Glucose 2 hour No range found 162 Glucose 3 hour No range found 138 Clement is aware this puts her in the glucose intolerant category, and will speak to Marlen Gandhi RD, regarding making changes to her diet. documented in this encounter Plan of Treatment Not on file documented as of this encounter Visit Diagnoses Not on filedocumented in this encounter Care Teams Milled Rice Broker Relationship Specialty Start Date End Date None None PCP - General 07/23/11 documented as of this encounter
--- OUTSIDE RECORDS SUMMARY | 2024-04-16 14:07 | XMS_ITS | Encounter Summary ---
Author Organization [facility] [place] [address] Care Team Providers Care Porcelain Buildup Assistant Name Role Phone None Primary Care Provider Unavailabl e Reason for Visit * Reason Onset Date Comments Fall 05/30/2013 Encounter Details Date Type Department Care Team (Late st Contact Info) Description 05/30/2013 Telephone Obstetrics [place] [phone] Valarie Mims RN Fall Social History Tobacco Use Types Packs/Day Years [...] encounter Miscellaneous Notes * Telephone Encounter - Valarie Mims RN - 05/30/2013 12:14 PM EDT Flaca calls today because she fell flat on her back at about 6PM yesterday. She states that she has had good movement of both fetuses since. She also denies leaking, bleeding, and contractions. She states that she did not call earlier because she felt fine and did not fall on her stomach, and has called at her 's insistence. She will come for an NST today at 2:45. She is encouraged in the future to call at the time of the incident for prompt care. * Telephone Encounter - Valarie Mims RN - 05/30/2013 12:13 PM EDT Message copied by VALARIE MIMS on TueMay 30, 2013 12:13 PM ------ Message from: LUIS MARTINS Created: TueMay 30, 2013 10:58 AM Please call [phone], she is 31 week and took a fall last night, she did not fall on her belly documented in this encounter Plan of Treatment Not on file documented as of this encounter Visit Diagnoses Not on filedocumented in this encounter Care Teams Porcelain Buildup Assistant Relationship Specialty Start Date End Date None None PCP - General 07/23/11 documented as of this encounter
--- OUTSIDE RECORDS SUMMARY | 2024-04-16 14:07 | XMS_ITS | Encounter Summary ---
Author Organization [facility] [place] [address] Care Team Providers Care Retail Office Manager Name Role Phone None Primary Care Provider Unavailabl e Reason for Visit * Reason Comments Routine Visit Encounter Details Date Type Department Care Team (Latest Contact Info) Description 06/08/2013 3:30 PM EDT Routine Obstetrics [place] [phone] Viral Villanueva MD Discharge Disposition: Home Social History Tobacco [...] Sign Reading Time Taken Comments Blood Pressure 114/72 06/08/2013 3:26 PM EDT Pulse - - Temperature - - Respiratory Rate - - Oxygen Saturation - - Inhaled Oxygen Concentration - - Weight 83.6 kg (184 lb 4.8 oz) 06/08/2013 3:26 P M EDT Height - - Body Mass Index 31.64 12/22/2012 2:07 PM EDT documented in this encounter Progress Notes * Viral Villanueva MD - 06/08/2013 4:33 PM EDT Has been feeling wet since 05/30, no water runs down her leg, but her underclothes are wet. This Mostly started on Tuesday. It is clear, and it soaks everything. They are bothmoving well, no contractons or bleeding. SSE: Bulging bag of water appears to be 2-3 cm dilated, normal vaginal discharge, nitrazene negative VE: 2-3 cm dilated, 100% efface, high, membranes prlopase about 1 cm past the internal cervical os. documented in this encounter Plan of Treatment Not on file documented as of this encounter Visit Diagnoses Diagnosis High-risk supervision, third trimester Dichorionic diamniotic twin gestation Twin gestation, dichorionic/diamniotic (two placentae, two amniotic sacs) documented in this encounter Care Teams Retail Office Manager Relationship Specialty Start Date End Date None None PCP - General 07/23/11 documented as of this encounter
--- OUTSIDE RECORDS SUMMARY | 2024-04-16 14:07 | XMS_ITS | Encounter Summary ---
Author Organization [facility] [place] [address] Care Team Providers Care Director Educational Radio Name Role Phone None Primary Care Provider Unavailabl e Reason for Visit * Reason Comments Routine Visit Encounter Details Date Type Department Care Team (Late st Contact Info) Description 04/25/2013 2:45 PM EST Routine Obstetrics [place] [phone] CLINIC, Dayana Sun MD [facility] [address] OBSTETRICS [place] [address] Discharge Disposition: Home Social History Tobacco Use [...] Sign Reading Time Taken Comments Blood Pressure 108/72 04/25/2013 1:45 PM EST Pulse - - Temperature - - Respiratory Rate - - Oxygen Saturation - - Inhaled Oxygen Concentration - - Weight 73.8 kg (162 lb 9.6 oz) 04/25/2013 1:45 P M EST Height - - Body Mass Index 27.91 12/22/2012 2:07 PM EDT documented in this encounter Progress Notes * Dayana Ann MD - 04/25/2013 2:33 PM EST FM felt, no LOF, no bleeding or urszula. C/o persistent heart burn. US today EFW >95% A, 94%ile B cephalic, cephalic. Plan GCT, T+S, CBC, Rhogam next visit. * Yessi Virgen LPN - 04/25/2013 1:45 PM EST The OB identification card, Glucose screening directions (if applicable) along with the Guide to [place] was given to the patient. documented in this encounter Miscellaneous Notes * Miscellaneous - Provider, Scanning - 05/09/2013 9:42 AM EST documented in this encounter Plan of Treatment Not on file documented as of this encounter Results * (ABNORMAL) CBC (with Diff) (05/10/2013 7:59 AM EST) White Blood Cell 7.9 4.0 - 10.0 x10(3)/mc L CERNER MILLENNIUM Red Blood Cell 3.69(L) 3.93 - 5.22 x10(6)/mc L CERNER MILLENNIUM Hemoglobin 11.0(L) 11.2 - 15.7 gm/dL CERNER MILLENNIUM Hematocrit 32.9(L) 34.0 - 45.0 % CERNER MILLENNIUM Mean Cell Volume 89.2 79.0 - 94.0 fL CERNER MILLENNIUM Mean Cell Hemoglobin 29.8 26.6 - 32.2 pg CERNER MILLENNIUM Mean Cell Hemoglobin Concentration 33.4 32.0 - 36.5 gm/dL CERNER MILLENNIUM Platelet 158 145 - 370 x10(3)/mc L CERNER MILLENNIUM RDW Standard Deviation 43.0 35.0 - 46.0 fL CERNER MILLENNIUM RDW coefficient of variation 13.3 10.9 - 14.4 % CERNER MILLENNIUM Mean Platelet Volume 11.6 9.0 - 12.0 fL CERNER MILLENNIUM Blood specimen (specimen) 05/10/2013 7:59 AM EST 05/10/2013 8:12 AM EST Narrative Resulting Agency Comment Spec In Lab Dayana Ann MD HEMATOLOGY ORDERAB LES Performing Organization Address [facility] Phone Number [facility] * Glucose 1 Hour Post Prandial (05/10/2013 7:59 AM EST) Glucose Post Prandial, 1 Hour 137 mg/dL [facility] Blood specimen (specimen) 05/10/2013 7:59 AM EST 05/10/2013 8:11 AM EST Narrative Resulting Agency Comment Spec In Lab Dayana Ann MD CHEMISTRY ORDERABL ES Performing Organization Address [facility] Phone Number [facility] documented in this encounter Visit Diagnoses Diagnosis Twin gestation, dichorionic diamniotic- Primary Twin gestation, dichorionic/diamniotic (two placentae, two amniotic sacs) documented in this encounter Care Teams Director Educational Radio Relationship Specialty Start Date End Date None None PCP - General 07/23/11 documented as of this encounter
--- OUTSIDE RECORDS SUMMARY | 2024-04-16 14:07 | XMS_ITS | Encounter Summary ---
Author Organization [facility] [place] [address] Care Team Providers Care Hunting Sales Associate Name Role Phone None Primary Care Provider Unavailabl e Reason for Visit * Reason Comments Routine Visit Encounter Details Date Type Department Care Team (Late st Contact Info) Description 05/10/2013 8:15 AM EST Routine Obstetrics [place] [address] Mellissa Pulido MD [facility] [address] [place] [address] Discharge Disposition: Home Social History Tobacco Use [...] Sign Reading Time Taken Comments Blood Pressure 132/72 05/10/2013 8:05 AM EST Pulse - - Temperature - - Respiratory Rate - - Oxygen Saturation - - Inhaled Oxygen Concentration - - Weight 74.7 kg (164 lb 11.2 oz) 05/10/2013 8:05 AM EST Height - - Body Mass Index 28.27 12/22/2012 2:07 PM EDT documented in this encounter Progress Notes * Mellissa Pulido MD - 05/10/2013 8:28 AM EST FM felt, no LOF, no bleeding or urszula. Rhogan today. Hgb normal. C/o ROTHMAN's. Dip urine. Heart burn better. US in 2 weeks growth. documented in this encounter Procedure Notes * Provider, Scanning - 05/17/2013 1:35 PM ESTAssociated Order(s): SCAN DOC: LAB documented in this encounter Plan of Treatment Not on file documented as of this encounter Procedures Procedure Name Priority Date/Time Associated Diagnosis Comments LAB SCAN 05/17/2013 1:35 PM EST DIFFERENTIAL, AUTOMATED Routine 05/10/2013 7:59 AM EST GLUCOSE 1 HOUR POST PRANDIAL Routine 05/10/2013 7:59 AM EST Twin gestation, dichorionic diamniotic ABO/RH TYPING Routine 05/10/2013 7:59 AM EST Twin gestation, dichorionic diamniotic CBC (WITH DIFF) Routine 05/10/2013 7:59 AM EST Twin gestation, dichorionic diamniotic ANTIBODY SCREEN Routine 05/10/2013 7:59 AM EST Twin gestation, dichorionic diamniotic TYPE AND SCREEN ([facility]/CGP/TOBI) Routine 05/10/2013 7:59 AM EST Twin gestation, dichorionic diamniotic PREPARE RH IMMUNE GLOBULIN Routine 05/10/2013 12:00 AM EST Twin gestation, dichorionic diamniotic documented in this encounter Results * US OB follow up multiple (05/25/2013 3:14 PM EDT) Anatomical Region Laterality Modality Pelvis, Abdomen Ultrasound 05/25/2013 3:14 PM EDT Narrative 05/25/2013 3:42 PM EDT ?OBSTETRICS REPORT ? (Signed Final 05/25/2013 03:41 pm) Patient Info ID: ? [id number] ? : ??[birth year] (28 yrs) Name: ? CLEMENT SANDOVALRAFAEL ? Visit Date: 05/25/2013 03:06 pm Performed By Performed By: ?Mayuri Domingo RDMS Attending: ? Rich DAVID, Viral Medel Referred By: ? MELLISSA PULIDO MD Service(s) [facility]ided [facility] - Growth - Multiple Gestation - ?[id number], [id number] Indications Growth twins Evaluation (Fetus A) Num Of Fetuses: ?2 Heart Rate: ??152 ?bpm Cardiac Activity: ??Observed, normal rhythm Lie: ? Right Presenting Twin Presentation: ?Cephalic Placenta: ?Anterior Membrane Desc: ?Dichoronic, Diamniotic Membrane Size: ?Normal Amniotic Fluid VISHAL FV: ?MVP - Within Normal Limits ? Dimas Larkin: ? 7.7 ??cm Biometry (Fetus A) BPD: ?83.5 ??mm ?G. Age: ?? 33w 4d ? > 97 ??% OFD: ? 104.2 ??mm HC: ?304.9 ??mm ?G. Age: ?? 33w 6d ? 95 ??% AC: ?260.5 ??mm ?G. Age: ?? 30w 1d ? 39 ??% FL: ? 61.6 ??mm ?G. Age: ?? 32w 0d ? 77 ??% HUM: ?56.3 ??mm ?G. Age: ?? 32w 5d ? 94 ??% CI: ?80.1 ??% ? 70 - 86 FL/HC: ? 20.2 ??% ? 19.2 - 21.4 HC/AC: ? 1.17 ?0.99 - 1.21 FL/BPD: ?73.8 ??% ? 71 - 87 FL/AC: ? 23.6 ??% ? 20 - 24 Est. FW: ?1755 ?? gm ?? 3 lb 14 oz ?87 ??% FW Discordancy: ?3 ? % Gestational Age (Fetus A) U/S Today: ? 32w 3d ?SHERRIE: ?? 07/17/13 Best: ?30w 3d ?? Det. By: ??Embryo ? SHERRIE: ?? [...] ?4 -chamber view appears normal RVOT: ? Visualized LVOT: ? Visualized Diaphragm: ?Visualized Stomach: ?Visualized Abdomen: ?Limited Views Abdominal Wall: ? Not visualized due to late gestational age Cord Vessels: ? 3- vessels- WNL Kidneys: ?Visualized Bladder: ?Visualized Spine: ?Limited views Lower ? Limited views Extremities: Upper ? Limited views Extremities: Evaluation (Fetus B) Num Of Fetuses: ?2 Heart Rate: ??146 ?bpm Cardiac Activity: ??Observed, normal rhythm Lie: ? Left Upper Twin Presentation: ?Breech Placenta: ?Anterior Membrane Desc: ?Dichoronic, Diamniotic Membrane Size: ?Normal Amniotic Fluid VISHAL FV: ?MVP - Within Normal Limits ? Dimas Larkin: ? 4.6 ??cm Biometry (Fetus B) BPD: ?79.1 ??mm ?G. Age: ?? 31w 5d ? 77 ??% OFD: ? 106.7 ??mm HC: ?296.6 ??mm ?G. Age: ?? 32w 6d ? 80 ??% AC: ?274.2 ??mm ?G. Age: ?? 31w 4d ? 76 ??% FL: ? 60.4 ??mm ?G. Age: ?? 31w 3d ? 63 ??% HUM: ?53.2 ??mm ?G. Age: ?? 31w 0d ? 63 ??% CI: ?74.1 ??% ? 70 - 86 FL/HC: ? 20.4 ??% ? 19.2 - 21.4 HC/AC: ? 1.08 ?0.99 - 1.21 FL/BPD: ?76.4 ??% ? 71 - 87 FL/AC: ? 22.0 ??% ? - 24 Est. FW: ?1803 ?? gm ?4 lb ? 90 ??% FW Discordancy: ?0 \ 3 ?? % Gestational Age (Fetus B) U/S Today: ? 31w 6d ?SHERRIE: ?? 07/21/13 Best: ?30w 3d ?? Det. By: ??Embryo ? SHERRIE: ?? [...] ?4 -chamber view appears normal RVOT: ? Visualized LVOT: ? Visualized Diaphragm: ?Visualized Stomach: ?Visualized Abdomen: ?Limited Views [...] Twin intrauterine with a gestational age of 30w 3d based on embryo transfer. Composite age based on the current ultrasound alone is A: 32w 3d, B: 31w 6d. Estimated weight corresponds to the A: 87, B: 90th percentile for 30w 3d. Current growth parameters are consistent indicating normal growth for each fetus. Amniotic fluid volume is A: MVP - Within Normal Limits, B: MVP - Within Normal Limits Largest pocket = A: 7.7, B: 4.6 cm Anatomical survey is limited due to the late gestational age, however no structural abnormalities are noted. I ??viewed the images and agree with the above interpretation. Thank you for allowing us to participate in the care of CLEMENT EUBANKS. Please do not hesitate to call if you have any questions. ? Viral Villanueva MD Electronically Signed Final Report ?? 05/25/2013 03:41 pm Procedure Note Viral Villanueva MD - 05/25/2013 OBSTETRICS REPORT (Signed Final 05/25/2013 03:41 pm) Patient Info ID: [id number] : [birth year] (28 yrs) Name: CLEMENT EUBANKS Visit Date: 05/25/2013 03:06 pm Performed By Performed By: Mayuri Domingo RDMS Attending: Viral Villanueva MD Referred By: MELLISSA PULIDO MD Service(s) [facility]ided [facility] - Growth - Multiple Gestation - [id number] [phone], [id number] Indications Growth twins Evaluation (Fetus A) Num Of Fetuses: 2 Heart Rate: 152 bpm Cardiac Activity: Observed, normal rhythm Lie: Right Presenting Twin Presentation: Cephalic Placenta: Anterior Membrane Desc: Dichoronic, Diamniotic Membrane Size: Normal Amniotic Fluid VISHAL FV: MVP - Within Normal Limits Larg Pckt: 7.7 cm Biometry (Fetus A) BPD: 83.5 mm G. Age: 33w 4d > 97 % OFD: 104.2 mm HC: 304.9 mm G. Age: 33w 6d 95 % AC: 260.5 mm G. Age: 30w 1d 39 % FL: 61.6 mm G. Age: 32w 0d 77 % HUM: 56.3 mm G. Age: 32w 5d 94 % CI: 80.1 % 70 - 86 FL/HC: 20.2 % 19.2 - 21.4 HC/AC: 1.17 0.99 - 1.21 FL/BPD: 73.8 % 71 - 87 FL/AC: 23.6 % 20 - 24 Est. FW: 1755 gm 3 lb 14 oz 87 % FW Discordancy: 3 % Gestational Age (Fetus A) U/S Today: 32w 3d SHERRIE: 07/17/13 Best: 30w 3d Det. By: Embryo SHERRIE: 07/31/13 Transfer (11/10/12) [...] Heart: 4 -chamber view appears normal RVOT: Visualized LVOT: Visualized Diaphragm: Visualized Stomach: Visualized Abdomen: Limited Views Abdominal Wall: Not visualized due to late gestational age Cord Vessels: 3- vessels- WNL Kidneys: Visualized Bladder: Visualized Spine: Limited views Lower Limited views Extremities: Upper Limited views Extremities: Evaluation (Fetus B) Num Of Fetuses: 2 Heart Rate: 146 bpm Cardiac Activity: Observed, normal rhythm Lie: Left Upper Twin Presentation: Breech Placenta: Anterior Membrane Desc: Dichoronic, Diamniotic Membrane Size: Normal Amniotic Fluid VISHAL FV: MVP - Within Normal Limits Larg Pckt: 4.6 cm Biometry (Fetus B) BPD: 79.1 mm G. Age: 31w 5d 77 % OFD: 106.7 mm HC: 296.6 mm G. Age: 32w 6d 80 % AC: 274.2 mm G. Age: 31w 4d 76 % FL: 60.4 mm G. Age: 31w 3d 63 % HUM: 53.2 mm G. Age: 31w 0d 63 % CI: 74.1 % 70 - 86 FL/HC: 20.4 % 19.2 - 21.4 HC/AC: 1.08 0.99 - 1.21 FL/BPD: 76.4 % 71 - 87 FL/AC: 22.0 % 20 - 24 Est. FW: 1803 gm 4 lb 90 % FW Discordancy: 0 \ 3 % Gestational Age (Fetus B) U/S Today: 31w 6d SHERRIE: 07/21/13 Best: 30w 3d Det. By: Embryo SHERRIE: 07/31/13 Transfer (11/10/12) [...] Heart: 4 -chamber view appears normal RVOT: Visualized LVOT: Visualized Diaphragm: Visualized Stomach: Visualized Abdomen: Limited Views Abdominal Wall: Not visualized due to late gestational age Cord Vessels: 3- vessels- WNL Kidneys: Visualized Bladder: Visualized Spine: Limited views Lower Limited views Extremities: Upper Limited views Extremities: Cervix Uterus Adnexa Left Ovary: Not visualized Right Ovary: Not visualized Impression 3rd Trimester Twins Summary Twin intrauterine with a gestational age of 30w 3d based on embryo transfer. Composite age based on the current ultrasound alone is A: 32w 3d, B: 31w 6d. Estimated weight corresponds to the A: 87, B: 90th percentile for 30w 3d. Current growth parameters are consistent indicating normal growth for each fetus. Amniotic fluid volume is A: MVP - Within Normal Limits, B: MVP - Within Normal Limits Largest pocket = A: 7.7, B: 4.6 cm Anatomical survey is limited due to the late gestational age, however no structural abnormalities are noted. I viewed the images and agree with the above interpretation. Thank you for allowing us to participate in the care of CLEMENT EUBANKS. Please do not hesitate to call if you have any questions. Viral Villanueva MD Electronically Signed Final Report 05/25/2013 03:41 pm Mellissa Pulido MD IM US OB ORDERABL ES * SCAN DOC: LAB (05/17/2013 1:35 PM EST) Narrative 05/17/2013 1:35 PM EST Procedure Note Provider, Scanning - 05/17/2013 1:35 PM EST Scanning Provider MEDIA MGR SCAN EXT O RDR/RSLT * (ABNORMAL) Differential, Automated (05/10/2013 7:59 AM EST) Neutrophil % 77.7(H) 34.0 - 71.0 % CERNER MILLENNIUM Neutrophil Absolute 6.14 1.50 - 6.30 x10(3)/mc L CERNER MILLENNIUM Lymph % 13.3(L) 19.0 - 53.0 % CERNER MILLENNIUM Lymphocytes Abs 1.0 1.0 - 3.6 x10(3)/mc L CERNER MILLENNIUM Monocyte % 6.5 4.0 - 13.0 % CERNER MILLENNIUM Monocyte Abs 0.5 0.2 - 1.0 x10(3)/mc L CERNER MILLENNIUM Eos % 1.3 0.0 - 7.0 % CERNER MILLENNIUM Eosinophils Abs 0.1 0.0 - 0.5 x10(3)/mc L CERNER MILLENNIUM Basophil % 0.3 0.0 - 2.0 % CERNER MILLENNIUM Baso Absolute 0.0 0.0 - 0.2 x10(3)/mc L CERNER MILLENNIUM Immature Gran % 0.90(H) 0.00 - 0.66 % CERNER MILLENNIUM Comment: Immature granulocytes(IG's)percentage and absolute count will include metamyelocytes, myelocytes, and promyelocytes. Blood smears from CBCs yielding IG's will be scanned manually for concordance. If this scan disagrees with the automated IG or if promyelocytes are noted, a manual differential will be performed. Immature Gran Absolute 0.07(H) 0.00 - 0.05 x10(3)/mc L BENI VALDIVIAIUM Blood specimen (specimen) 05/10/2013 7:59 AM EST 05/10/2013 8:12 AM EST Mellissa Pulido MD HEMATOLOGY ORDERAB LES BENI VALDIVIAIUM * Antibody screen (05/10/2013 7:59 AM EST) Ab Screen Interp Negative BENI NUNESENNIUM Expires at [id number] on: [id number] BENI NUNESENNIUM Blood specimen (specimen) 05/10/2013 7:59 AM EST 05/10/2013 8:04 AM EST Narrative Resulting Agency Comment Spec In Lab Mellissa Pulido MD BLOOD BANK LAB ORD ERABLES Performing Organization Address City/[facility]/ZIP Co de Phone Number CERNER MILLENNIUM * ABO/Rh Typing (05/10/2013 7:59 AM EST) ABORH Type O Neg CERNER MILLENNIUM Blood specimen (specimen) 05/10/2013 7:59 AM EST 05/10/2013 8:04 AM EST Narrative Resulting Agency Comment Spec In Lab Mellissa Pulido MD BLOOD BANK LAB ORD ERABLES Performing Organization Address [facility] Co de Phone Number CERNER MILLENNIUM * (ABNORMAL) CBC (with Diff) (05/10/2013 7:59 [...] Narrative Resulting Agency Comment Spec In Lab Mellissa Pulido MD HEMATOLOGY ORDERAB LES CERNER MILLENNIUM * Glucose 1 Hour Post Prandial (05/10/2013 7:59 AM EST) Glucose Post Prandial, 1 Hour 137 mg/dL BENI PAULINO Blood specimen (specimen) 05/10/2013 7:59 AM EST 05/10/2013 8:11 AM EST Narrative Resulting Agency Comment Spec In Lab Mellissa Pulido MD CHEMISTRY ORDERABL ES Performing Organization Address [facility] de Phone Number BENI PAULINO * Prepare Rh Immune Globulin (05/10/2013 12:00 AM EST) Dispensed? Yes BENI PAULINO Blood specimen (specimen) 05/10/2013 05/10/2013 8:05 AM EST Narrative Resulting Agency Comment Spec In Lab Mellissa Pulido MD BLOOD BANK PRODUCT ORDERABLES Performing Organization Address [facility] de Phone Number BENI PAULINO documented in this encounter Visit Diagnoses Diagnosis Twin gestation, dichorionic diamniotic- Primary Twin gestation, dichorionic/diamniotic (two placentae, two amniotic sacs) Twin gestation, dichorionic diamniotic Twin gestation, dichorionic/diamniotic (two placentae, two amniotic sacs) documented in this encounter Care Teams Hunting Sales Associate Relationship Specialty Start Date End Date None None PCP - General 07/23/11 documented as of this encounter
--- OUTSIDE RECORDS SUMMARY | 2024-04-16 14:07 | XMS_ITS | Clinical Summary ---
Author Organization [facility] Address [facility] [place] [address] Care Team Providers Care Death Surveys Coder Name Role Phone None Primary Care Provider Unavailabl e Allergies No known active allergies Medications Medication Sig Dispensed Refills Start Date End Date Status multivitamin (THERAGRAN) tablet Take 1 tablet by mouth daily. Active norethindrone (ORTHO MICRONOR) 0.35 mg tablet Take 1 tablet by mouth daily. 28 tablet 12 06/21/2013 Active DOCOSAHEXANOIC ACID/EPA (FISH OIL ORAL) Take 1 capsule by mouth daily. Active Active Problems Problem Noted Date Diagnosed Date Gestational HTN 06/12/2013 Premature cervical dilation 06/11/2013 High-risk supervision 03/28/2013 Overview (05/25/2013): Team MFM Delivery plan IOL at 38 weeks GBS date & Result Cystic fibrosis choice Aneuploidy choice Others screening tests nutrition breast Childbirth education Doing CBE next tuesday preferences Contraception plan Ped/circ plans [facility] Immunizations: Influenza vaccine Accepted Declined Contraindicated Other vaccines Indicated Not indicated Given during Tdap Pneumovax MMR Varicella Other Dichorionic diamniotic twin gestation 12/04/2012 Overview (12/22/2012): Team MFM Delivery plan GBS date & Result Cystic fibrosis choice declines Aneuploidy choice Will probably decline Others screening tests nutrition Childbirth education preferences Contraception plan Ped/circ plans Immunizations: Influenza vaccine Accepted Declined Contraindicated Other vaccines Indicated Not indicated Given during Tdap Pneumovax MMR Varicella Other Ovarian endometriosis 07/17/2012 Hydrosalpinx 07/28/2011 Ovarian cystic mass 07/28/2011 Resolved Problems Problem Noted Date Diagnosed Date Resolved Date with history of infertility 12/04/2012 03/28/2013 Female 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/10/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, 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 Immunizations Name Administration Dates Next Due Influenza Trivalent, Preservative Free 3 Rho(D) Immune Globulin (RhoGAM),IM 05/10/2013, Tdap (Adacel, Boostrix) 06/21/2013 Family History Medical History Relation Comments Mental Illness Father Substance Use Disorder Father Heart Disease Maternal Grandfather Mental Illness Maternal Grandmother Breast Cancer Mother Alcohol Use Disorder Paternal Grandfather Cancer Paternal Grandmother stomach can cer Diabetes Paternal Grandmother Type II Asthma Neg Hx Blood Disorder Neg Hx Cystic Fibrosis Neg Hx Hypertension Neg Hx Neg Hx Intellectual Disability Neg Hx Kidney Disease Neg Hx Migraines Neg Hx Osteoarthritis Neg Hx Ovarian Cancer Neg Hx Loss Neg Hx Rheumatoid Arthritis Neg Hx Seizure Disorder Neg Hx Thrombophilia Neg Hx Thyroid Disease Neg Hx Relation Status Comments Father Maternal Grandfather Maternal Grandmother Mother Paternal Grandfather Paternal Grandmother Social History Tobacco Use Types Packs/Day Years Used Date Smoking Tobacco: Never Smokeless Tobacco: Never Alcohol Use Standard Drinks/Week Comments No 0 (1 standard drink = 0.6 oz pur e alcohol) Sex and Gender Information Value Date Recorded Sex Assigned at Not on file Gender Identity Not on file Sexual Orientation Not on file Last Filed Vital Signs Vital Sign Reading Time Taken Comments Blood Pressure 134/86 08/02/2013 1:18 PM EDT Pulse 81 06/21/2013 7:51 AM EDT Temperature 36.6 ??C (97.9 ??F) 06/21/2013 7:51 AM ED T Respiratory Rate 18 06/21/2013 7:51 AM EDT Oxygen Saturation 99% 06/20/2013 9:30 PM EDT Inhaled Oxygen Concentration - - Weight 65 kg (143 lb 6.4 oz) 08/02/2013 1:18 PM EDT Height 162.6 cm (5' 4) 06/08/2013 5:29 PM EDT Body Mass Index 24.61 06/08/2013 5:29 PM EDT Plan of Treatment Health Maintenance Due Date Last Done Comments Hepatitis B vaccine (0-59 yrs) (1) 2003 PAP Smear 08/02/2016 08/02/2013 Tetanus/Diphtheria/Pertussis Vaccines (2 - Td or Tdap) 06/22/2023 06/21/2013 Covid-19 Vaccine ( - season) 2023 Influenza (Flu) vaccine (1 o f 1 - Influenza standard series) 11/13/2023 01/24/2013 Breast Cancer Share Decision Needed 2024 Breast Cancer screening 2024 Hepatitis C Screening Completed 06/12/2012 HIV screen Completed 12/22/2012, 06/12/2012 Medical Devices Implanted Type Area Assistant Community Director Device Identifier Shelf Expiration Date Model / Serial / Lot Mesh,Pelvic,Ab sbl,4x3in,Str ([id number]) - [id number] Implanted:Qty: 1 on 10/26/2011 at [facility] IMPLANTS [employer] S - [id number] 09/10/2014 [id number] / / [id number] Procedures Procedure Name Priority Date/Time Associated Diagnosis Comments HEAVY LIFT RIGGER CYTOLOGY FINAL REPORT Routine 08/02/2013 1:52 PM EDT HIV SCREEN, 4TH GENERATION ([facility]/CGP/APD/NLH)PE RFORMABLE Routine 12/22/2012 4:18 PM EDT HEPATITIS C ANTIBODY Routine 06/12/2012 11:58 AM EDT Screening from Last 3 Months or Most Recently Relevant to Health Maintenance Results * Scraper Tender Cytology Final Report (08/02/2013 1:52 PM EDT) Scraper Tender Cytology Final Report ? [facility] ? Provider: ?? GIA ESPARZA Pt. Name: ?? CLEMENT EUBANKS ? Acc #: ?[id number] ?Pt. ? Col Date: ?? 08/02/2013 ? /Sex: ?1985,(28 years),Female ? Rec Date: ?? 08/02/2013 ? LOC: ?5L ? CYTOPATHOLOGY: ??HEAVY LIFT RIGGER ? ---Adequacy--- ? Specimen submitted is satisfactory. ? Endocervical component present. ? ---Cytopathologic Diagnosis--- ? NORMAL ? Negative for Intraepithelial Lesion or Malignancy (NILM). ? 08/13/13 ?? Screened by: ??LMY ??SLA ? 08/13/13 ?? Verified by: ??ANASTASIIA Núñez(ASCP), Carleen Bennett - ? Legal Executive ? ---Clinical Information--- ? HPV Option: ? Reflex HPV ? Preparation: ?Liquid Based Pap ? Specimen Source: ?Cervical Endocervical LBP ? LMP: ?Post ? Hormones?: ?No ? Hysterectomy?: ?No ?: ?Yes ?: ?No ? I.U.D.?: ?No ? Pelvic Radiation: ? No ? Prior HEAVY LIFT RIGGER Therapy?: ? No ? Hist Abnl Pap/Biopsy?: ??No ? Hist of HPV Vaccine?: ?? No ? Hist of Smoking?: ? No ? Hist of KEENAN exposure?: ??No ? Clinical Data, Significant Therapy and Clinical Impression: ? This Pap Test has been evaluated with the assistance of the ThinPrep Pap ? Test Imaging System. ? Note: ? The Pap test is a screening test for cervical cancer with an inherent ? false-negative rate dependent upon several variables. ??For further ? information please contact the [facility] Laboratory. ? Reference: ??Abendroth CS. ??Lifestyle Consultant of Pap Smear Results. ??In: ? Dieter BS, Lionel HH, ed. ??The Pap Smear. ??[place]: ??Alec, 2002: ? 71-77. BENI PAULINO 08/02/2013 1:52 PM EDT Gia Esparza MD PATHOLOGY/CYTOLOGY ORDERABLES Performing Organization Address [facility] de Phone Number [facility] * HIV (12/22/2012 4:18 PM EDT) HIV 1/2 Ab Negative Negative [facility] Blood specimen (specimen) 12/22/2012 4:18 PM EDT 12/22/2012 4:25 PM EDT Narrative Resulting Agency Comment Spec In Lab Viral Villanueva MD CHEMISTRY ORDERABLES Performing Organization Address [facility] de Phone Number [facility] * Hepatitis C Antibody (06/12/2012 11:58 AM EDT) Hepatitis C Antibody Negative Negative [facility] Blood specimen (specimen) 06/12/2012 11:58 AM EDT 06/12/2012 12:04 PM EDT Narrative Resulting Agency Comment Spec In Lab Preeti Cruz MD CHEMISTRY O RDERABLES Performing Organization Address [facility] de Phone Number [facility] from Last 3 Months or Most Recently Relevant to Health Maintenance Advance Directives * Full Code (Latest Code Status on File) Date Activated Date Inactivated Comments 06/08/2013 9:07 PM 06/21/2013 3:30 PM Question Answer Comments Order Status: Initial Order Does patient have decision m aking capacity? Yes, Order is based on Patients wishes. * Full Code Date Activated Date Inactivated Comments 10/26/2011 4:12 PM 10/26/2011 10:46 PM * Full Code Date Activated Date Inactivated Comments 10/26/2011 12:22 PM 10/26/2011 4:12 PM Question Answer Comments Order Status: Initial Order Does patient have decision m aking capacity? Yes, Order is based on Patients wishes. Care Teams Death Surveys Coder Relationship Specialty Start Date End Date None None PCP - General 07/23/11
--- OUTSIDE RECORDS SUMMARY | 2024-04-16 14:07 | XMS_ITS | Encounter Summary ---
Author Organization [facility] [place] [address] Care Team Providers Care Solutions Architect Name Role Phone None Primary Care Provider Unavailabl e Reason for Visit * Reason Comments Care Encounter Details Date Type Department Care Team (Late st Contact Info) Description 08/02/2013 1:15 PM EDT Office Visit Obstetrics [place] [phone] Gia Esparza MD Preventative health care (Primary Dx) Discharge Disposition: Home Social History Tobacco Use [...] Pressure 134/86 08/02/2013 1:18 PM EDT Pulse - - Temperature - - Respiratory Rate - - Oxygen Saturation - - Inhaled Oxygen Concentration - - Weight 65 kg (143 lb 6.4 oz) 08/02/2013 1:18 PM EDT Height - - Body Mass Index 24.61 06/08/2013 5:29 PM EDT documented in this encounter Progress Notes * Narcisa Carcamo MD - 08/03/2013 9:07 AM EDT The case was discussed at the time of the visit or immediately after the visit. The assessment and plan were formulated in discussion with me and I agree with them as documented. I have reviewed the history, physical exam, assessment and plan with the resident. * Gia Esparza MD - 08/02/2013 1:27 PM EDT Visit Note Clement Eubanks is a 28 y.o. woman here for her 6 week post- checkup after spontaneous vaginal delivery and vacuum assisted vaginal delivery with second twin on 06/20/2013 in the setting of a prolonged antepartum admission for labor, advanced cervical dilation, and preeclampsia. Her delivery was complicated by vacuum delivery of the second twin and a mild first degree laceration. Her initial post- course was uncomplicated. Twins were discharged after two weeks of life. Physical recovery after delivery: She is feeling well, lochia flow stopped after three weeks, and she has no pain. , baby, self-care, depression: She is her babies without too much difficulty. She has had a lot of clogged ducts, has been pumping as well since she is planning on going back to work in early September. 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 She is very attached to her sherrie, Parish and Que, who are thriving, and is confident in her ability to care for herself and her children. Her mood is good. She denies any symptoms of depression. She has support from her Aydin (does nights), mother, and neighbors. Long Neck and control: She has had no intercourse yet. She has had one salpingectomy and her other tube was demonstrated to be patent with chromopertubation. Patient was then unable to conceive so per Dr. Cruz, likely isno longer patent. She is ok with taking progestin only pills, has a history of dysmennorhea, but last period was very remote. Patient Active Problem List Diagnosis Code ??? Hydrosalpinx 614.1 ??? Ovarian cystic mass 620.2 ??? Ovarian endometriosis 617.1 ??? Dichorionic diamniotic twin gestation V91.03 ??? High-risk supervision V23.9 ??? Premature cervical dilation 654.53 ??? Gestational HTN 642.30 PHYSICAL EXAM VITAL SIGNS Filed Vitals: 08/02/13 1318 BP: 134/86 Weight: 65.046 kg (143 lb 6.4 oz) BP 134/86 Wt 65.046 kg (143 lb 6.4 oz) LMP 10/05/2012 ? Yes General: alert, appears stated age and cooperative Skin: normal Lungs: clear to auscultation bilaterally Heart: regular rate and rhythm, S1, S2 normal, no murmur, click, rub or gallop Breasts: Enlarged lactating breasts. [id number] area of induration on left breast at the 10 o'clock position. Mildly tender Abdomen: soft, non-tender; bowel sounds normal; no masses, no organomegaly Pelvis: External genitalia: normal general appearance, well healed 1st degree laceration Urinary system: urethral meatus normal Vaginal: normal mucosa without prolapse or lesions, hyperemic, consistent with hypoestrogenic post state Cervix: normal appearance and thin prep PAP obtained Adnexa: normal bimanual exam Uterus: normal single, nontender and anteverted Extremities: No lower extremity edema A/P 28 y.o. whose was complicated by vacuum assisted vaginal delivery of second twin, preeclampsia, delivery, and labor for 6 week post visit whose recovery is progressing well. She is feeling confident and happy with her role as a mother. Will continue to pump, breast feed, and use warm compresses for clogged ducts. Will call if it becomes more painful orshe develops a fever. Plans on using POPs for birthcontrol, declines longer acting more invasive method in setting of infertility. Will be called to notify of pap results. -Infant Nutrition: She will continue for the next several months at least. -Contraception: oral progesterone-only contraceptive -Pap taken; a letter will be sent with results. -Return For Well Women Exam in one year. GIA ESPARZA MD PGY1 08/02/2013 Pt was discussed with Dr. Narcisa Carcamo MD documented in this encounter Miscellaneous Notes * Miscellaneous - Provider, Scanning - 08/09/2013 9:25 AM EDT documented in this encounter Plan of Treatment Not on file documented as of this encounter Procedures Procedure Name Priority Date/Time Associated Diagnosis Comments SENIOR PARTNER CYTOLOGY FINAL REPORT Routine 08/02/2013 1:52 PM EDT CYTOPATHOLOGY GYNECOLOGICAL Routine 08/02/2013 1:52 PM EDT Preventative health care documented in this encounter Results * Credit Administrator Cytology Final Report (08/02/2013 1:52 PM EDT) Credit Administrator Cytology Final Report ? [facility] ? Provider: ?? GIA ESPARZA Pt. Name: ?? CLEMENT EUBANKS ? Acc #: ?[id number] ?Pt. ? Col Date: ?? 08/02/2013 ? /Sex: ?1985,(28 years),Female ? Rec Date: ?? 08/02/2013 ? LOC: ?5L ? CYTOPATHOLOGY: ??SENIOR PARTNER ? ---Adequacy--- ? Specimen submitted is satisfactory. ? Endocervical component present. ? ---Cytopathologic Diagnosis--- ? NORMAL ? Negative for Intraepithelial Lesion or Malignancy (NILM). ? 08/13/13 ?? Screened by: ??LMY ??SLA ? 08/13/13 ?? Verified by: ??ANASTASIIA Núñez(ASCP), Carleen Bennett - ? Business Programmer ? ---Clinical Information--- ? HPV Option: ? Reflex HPV ? Preparation: ?Liquid Based Pap ? Specimen Source: ?Cervical Endocervical LBP ? LMP: ?Post ? Hormones?: ?No ? Hysterectomy?: ?No ?: ?Yes ?: ?No ? I.U.D.?: ?No ? Pelvic Radiation: ? No ? Prior SENIOR PARTNER Therapy?: ? No ? Hist Abnl Pap/Biopsy?: [...] ??For further ? information please contact the [facility] Laboratory. ? Reference: ??Rick CS. ??Blending Machine Operator of Pap Smear Results. ??In: ? Dieter BS, Lionel HH, ed. ??The Pap Smear. ??[place]: ??Alec, 2002: ? 71-77. BENI PAULINO 08/02/2013 1:52 PM EDT Gia Esparza MD PATHOLOGY/CYTOLOGY ORDERABLES BENI PAULINO * Cytopathology Gynecological (08/02/2013 1:52 PM EDT) AP Specimen 08/02/2013 1:52 PM EDT 08/02/2013 1:52 PM EDT Narrative BENI PAULINO - 08/02/2013 1:52 PM EDT Specimen requisition ordered. ??Separate Pathology report to follow Narcisa Carcamo MD PATHOLOGY/CYTOLOGY O RDERAGANESH BENI PAULINO documented in this encounter Visit Diagnoses Diagnosis Preventative health care- Primary Routine general medical examination at a health care facility documented in this encounter Care Teams Solutions Architect Relationship Specialty Start Date End Date None None PCP - General 07/23/11 documented as of this encounter
--- OUTSIDE RECORDS SUMMARY | 2024-04-16 14:07 | XMS_ITS | Encounter Summary ---
Author Organization [facility] [place] [address] Care Team Providers Care Senior Treasury Consultant Name Role Phone None Primary Care Provider Unavailabl e Reason for Visit * Reason Comments Non-stress Test Encounter Details Date Type Department Care Team (Latest Contact Info) Description 05/30/2013 2:45 PM EDT Routine Obstetrics [place] [phone] Viral Colon RN Dalpra, Kathryn A, RN Discharge Disposition: Home Social History Tobacco Use [...] Sign Reading Time Taken Comments Blood Pressure 118/74 05/30/2013 3:01 PM EDT Pulse - - Temperature - - Respiratory Rate - - Oxygen Saturation - - Inhaled Oxygen Concentration - - Weight 79.7 kg (175 lb 9.6 oz) 05/30/2013 3:01 P M EDT Height - - Body Mass Index 30.14 12/22/2012 2:07 PM EDT documented in this encounter Progress Notes * Viral Villanueva MD - 06/07/2013 8:31 PM EDT I personally reviewed and interpreted this NST. * Jazmyne Mims RN - 05/30/2013 3:01 PM EDT Flaca comes to 5[facility] today for an NST following a fall yesterday evening at 6PM. She states that she is doing well. She denies contractions, leaking, and bleeding. She endorses good movement. A few contractions are noted, however, Flaca denies feeling them. I have reviewed Flaca's tracing with Dr. Villanueva, who states that Flaca is cleared to leave. documented in this encounter Plan of Treatment Not on file documented as of this encounter Visit Diagnoses Diagnosis High-risk supervision, third trimester Dichorionic diamniotic twin gestation Twin gestation, dichorionic/diamniotic (two placentae, two amniotic sacs) documented in this encounter Care Teams Senior Treasury Consultant Relationship Specialty Start Date End Date None None PCP - General 07/23/11 documented as of this encounter
--- OUTSIDE RECORDS SUMMARY | 2024-04-16 14:07 | XMS_ITS | Encounter Summary ---
Author Organization [facility] [place] [address] Care Team Providers Care Occupational Therapist Per Diem Name Role Phone None Primary Care Provider Unavailabl e Encounter Details Date Type Department Care Team (Latest Contact Info) Description 06/01/2013 7:16 AM EDT - 06/01/2013 11:59 PM EDT Hospital Encounter [place] [phone] Viral Villanueva MD High-risk supervision, third trimester; Dichorionic diamniotic twin gestation Discharge Disposition: Home Social History Tobacco Use [...] on file documented as of this encounter Medications at Time of Discharge [...] 04/25/2013 08/02/2013 documented as of this encounter Plan of Treatment Not on file documented as of this encounter Procedures Procedure Name Priority Date/Time Associated Diagnosis Comments GLUC 3 HR Timed 06/01/2013 10:24 AM EDT High-risk supervision, third trimester Dichorionic diamniotic twin gestation GLUCOSE TOLERANCE, 3 HOURS Routine 06/01/2013 10:24 AM EDT High-risk supervision, third trimester Dichorionic diamniotic twin gestation GLUC 2 HR Timed 06/01/2013 9:26 AM EDT High-risk supervision, third trimester Dichorionic diamniotic twin gestation GLUC 1 HR Timed 06/01/2013 8:24 AM EDT High-risk supervision, third trimester Dichorionic diamniotic twin gestation GLUCOSE DOSE Timed 06/01/2013 7:29 AM EDT High-risk supervision, third trimester Dichorionic diamniotic twin gestation GLUC BASE Timed 06/01/2013 7:29 AM EDT High-risk supervision, third trimester Dichorionic diamniotic twin gestation documented in this encounter Results * Gluc 3 Hr (06/01/2013 10:24 AM EDT) Glucose 3 hour 138 mg/dL CERNE R MILLENNIUM Blood specimen (specimen) 06/01/2013 10:24 AM EDT 06/01/2013 10:27 AM EDT Narrative Resulting Agency Comment Spec In Lab Viral Villanueva MD CHEMISTRY ORDERABLES Performing Organization Address [facility] Co de Phone Number BENI VALDIVIAIUM * Gluc 2 Hr (06/01/2013 9:26 AM EDT) Glucose 2 hour 162 mg/dL CERNE R MILLENNIUM Blood specimen (specimen) 06/01/2013 9:26 AM EDT 06/01/2013 9:32 AM EDT Narrative Resulting Agency Comment Spec In Lab Viral Villanueva MD CHEMISTRY ORDERABLES BENI VALDIVIAIUM * Gluc 1 Hr (06/01/2013 8:24 AM EDT) Glucose 1 hour 179 mg/dL RYAN R MANJUENNIUM Blood specimen (specimen) 06/01/2013 8:24 AM EDT 06/01/2013 8:28 AM EDT Narrative Resulting Agency Comment Spec In Lab Viral Villanueva MD CHEMISTRY ORDERABLES Performing Organization Address City/[facility]/ZIP Co de Phone Number BENI VALDIVIAIUM * Glucose dose (06/01/2013 7:29 AM EDT) Oral Glucose Dose 100 gm BENI VALDIVIAIUM Blood specimen (specimen) 06/01/2013 7:29 AM EDT 06/01/2013 7:29 AM EDT Viral Villanueva MD CHEMISTRY ORDERABLES Performing Organization Address [facility] Co de Phone Number BENI VALDIVIAIUM * Gluc Base (06/01/2013 7:29 AM EDT) Gluc Baseline 77 mg/dL BENI VALDIVIAIUM Blood specimen (specimen) 06/01/2013 7:29 AM EDT 06/01/2013 7:33 AM EDT Narrative Resulting Agency Comment Spec In Lab Viral Villanueva MD CHEMISTRY ORDERABLES Performing Organization Address [facility] Co de Phone Number BENI PAULINO documented in this encounter Visit Diagnoses Diagnosis High-risk supervision, third trimester Dichorionic diamniotic twin gestation Twin gestation, dichorionic/diamniotic (two placentae, two amniotic sacs) documented in this encounter Care Teams Occupational Therapist Per Diem Relationship Specialty Start Date End Date None None PCP - General 07/23/11 documented as of this encounter
--- OUTSIDE RECORDS SUMMARY | 2024-04-16 14:07 | XMS_ITS | Encounter Summary ---
Author Organization [facility] [place] [address] Care Team Providers Care Psychiatric Specialist Name Role Phone None Primary Care Provider Unavailabl e Encounter Details Date Type Department Care Team (Latest Contact Info) Description 05/25/2013 2:05 PM EDT - 05/25/2013 11:59 PM EDT Hospital [place] [phone] Twin gestation, dichorionic diamniotic Social History Tobacco Use Types Packs/Day Years [...] Procedure Name Priority Date/Time Associated Diagnosis Comments US OB FOLLOW UP MULTIPLE Routine 05/25/2013 3:14 PM EDT Twin gestation, dichorionic diamniotic documented in this encounter Results * US OB follow up multiple (05/25/2013 3:14 PM EDT) Anatomical Region Laterality Modality Pelvis, Abdomen Ultrasound 05/25/2013 3:14 PM EDT Narrative 05/25/2013 3:42 PM EDT ?OBSTETRICS REPORT ? (Signed Final 05/25/2013 03:41 pm) Patient Info ID: ? [id number] ? : ??[birth year] (28 yrs) Name: ? CLEMENT EUBANKS ? Visit Date: 05/25/2013 03:06 pm Performed By Performed By: ?Mayuri Dmoingo RDMS Attending: ? Rich DAVID, Viral Medel Referred By: ? DAYANA PULIDO MD Service(s) Provided UOBFOLMULT - Efw - Growth - Multiple Gestation - ?[id number], [id number] Indications Growth twins Evaluation (Fetus A) Num Of Fetuses: ?2 Heart Rate: ??152 ?bpm Cardiac Activity: ??Observed, normal rhythm Lie: ? Right Presenting Twin Presentation: ?Cephalic Placenta: ?Anterior Membrane Desc: ?Dichoronic, Diamniotic Membrane Size: ?Normal Amniotic Fluid VISHAL FV: ?MVP - Within Normal Limits ? Dimas Balbuenakt: ? 7.7 ??cm Biometry (Fetus A) BPD: [...] FL/AC: ? 23.6 ??% ? 20 - Est. FW: ?1755 ?? gm ?? 3 [...] ?MVP - Within Normal Limits ? Dimas Lrakin: ? 4.6 ??cm Biometry (Fetus B) BPD: [...] - 87 FL/AC: ? 22.0 ??% ? 20 - 24 Est. FW: ?1803 ?? gm ?4 lb ? 90 ??% FW Discordancy: ?0 \ 3 ?? % Gestational Age (Fetus B) U/S Today: ? 31w 6d ?SHERRIE: ?? 07/21/13 Best: ?30w 3d ?? Det. By: ??Embryo ? SHERRIE: ?? 05/20/14 ? Transfer ? (11/10/12) Anatomy (Fetus B) [...] Final 05/25/2013 03:41 pm) Patient Info ID: [id number] : [birth year] (28 yrs) Name: CLEMENT EUBANKS Visit Date: 05/25/2013 03:06 pm Performed By Performed By: Mayuri Domingo RDMS Attending: Viral Villanueva MD Referred By: DAYANA PULIDO MD Service(s) [facility]ided [facility] - w - Growth - Multiple Gestation - [id number], [id number] Indications Growth twins Evaluation (Fetus A) Num [...] Electronically Signed Final Report 05/25/2013 03:41 pm Dayana Pulido MD IMG US OB ORDERABL ES documented in this encounter Visit Diagnoses Diagnosis Twin gestation, dichorionic diamniotic Twin gestation, dichorionic/diamniotic (two placentae, two amniotic sacs) documented in this encounter Care Teams Psychiatric Specialist Relationship Specialty Start Date End Date None None PCP - General 07/23/11 documented as of this encounter
--- OUTSIDE RECORDS SUMMARY | 2024-04-16 14:07 | XMS_ITS | Encounter Summary ---
Author Organization [facility] [place] [address] Care Team Providers Care Wallpaperer Name Role Phone None Primary Care Provider Unavailabl e Encounter Details Date Type Department Care Team (Late st Contact Info) Description 06/19/2013 4:33 PM EDT Anesthesia Event Birthing [facility] [place] [phone] Chalo Fowler MD Anesthesia Record Procedure Summary Procedure Name Responsible Anesthesiologist Anesthesia Start Time Anesthesia Stop Time labor and delivery a+a Events No events on file. Meds * Agents No agents on file. * Blood No blood administrations on file. Lines, Drains, and Airways No LDAs on file. documented in this encounter Social History Tobacco Use Types Packs/Day Years Used Date Smoking Tobacco: Never Smokeless Tobacco: Never Alcohol Use Standard Drinks/Week Comments No 0 (1 standard drink = 0.6 oz pur e alcohol) Comments Yes Sex and Gender Information Value Date Recorded Sex Assigned at Not on file Gender Identity Not on file Sexual Orientation Not on file documented as of this encounter OR Notes * Anesthesia Postprocedure Evaluation - Sandra Kelly - 06/20/2013 9:08 AM EDT Patient: Flaca Eubanks Procedure(s) Performed: * No procedures listed * Actual Anesthetic: No value filed. Patient location: Labor and Delivery Post-op pain: Adequate analgesia Post-op nausea: no nausea or vomiting Last Vitals: Filed Vitals: 06/20/13 0857 BP: 116/73 Pulse: 92 Temp: 36.5 ??C (97.7 ??F) Resp: 17 Post-op cardiovascular and respiratory status: is stable Level of consciousness: awake, alert and oriented Complications: no apparent complications and tolerated the procedure well Fluid Status: normal The patient has no headache, no leg numbness/tingling/weakness, and is able to ambulate since her epidural wore off. No other complaints. Please page cmo & president ([phone]) with questions or concerns. * Anesthesia Procedure Notes - Sandra Kelly - 06/19/2013 4:34 PM EDT Associated Order(s): ANE NEURAXIAL UPDATED Procedure: Neuraxial Block Labor Analgesia Type: Epidural The patient was greeted; the risks and benefits were reviewed. The anesthetic consent was obtained.The medical history and chart were reviewed. The timeout was performed. Start time: 06/19/2013 4:05 PM End time: 06/19/2013 4:20 PM Patient Location: [facility] Patient Prep Position: Sitting Prep: Hand Hygiene, Chlorhexidine, Hat, Mask, Patient Draped and Sterile Gloves Injection technique: continuous Skin Anesthetic Lidocaine 1% 3 ml Procedure Technique Level of needle insertion: L3-4 Needle approach: midline Needle Type: Tuohy Needle insertion depth when JERAMY achieved: 7 cm Technique for Loss of Resistance: JERAMY air and JERAMY saline A 20 guage epidural catheter introduced Catheter at skin depth: 13 cm Dressing/Secured with: Chlorhexidine Tegaderm, Tegaderm and Tape Number of attempts: 1 Test dose A test dose of 3 mL was administered. Events/Notes Events: None Performed by: Sandra Kelly MD Supervising Attending/Fellow: Aldair Chavis MD ~~~~~~~~~~~~~~~~~~~~~~~~~~~~~~~~~~~~~~~~~~~~~~~~~~~~~~~~~~~~ * Anesthesia Preprocedure Evaluation - Chalo Fowler MD - 06/08/2013 7:28 PM EDT Pre-Anesthesia Evaluation for: Flaca hull 28 y.o. female. Patient Active Problem List Diagnosis ??? High-risk supervision Team [facility] Delivery plan IOL at 38 weeks GBS date & Result Cystic fibrosis choice Aneuploidy choice Others screening tests Infant nutrition breast Childbirth education Doing CBE next tuesday preferences Contraception plan Ped/circ plans [facility] Immunizations: Influenza vaccine Accepted Declined Contraindicated Other vaccines Indicated Not indicated Given during Tdap Pneumovax MMR Varicella Other ??? Dichorionic diamniotic twin gestation Team [facility] Delivery plan GBS date & Result Cystic fibrosis choice declines Aneuploidy choice Will probably decline Others screening tests nutrition Childbirth education preferences Contraception plan Ped/circ plans Immunizations: Influenza vaccine Accepted Declined Contraindicated Other vaccines Indicated Not indicated Given during Tdap Pneumovax MMR Varicella Other ??? Ovarian endometriosis ??? Hydrosalpinx ??? Ovarian cystic mass Past Medical History Diagnosis Date ??? Infertility IVF ??? Varicella ??? 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 Hydrosalpinx 07/28/2011 Past Surgical History Procedure Date ??? Dilation and curettage of uterus ??? Lap, fulgurate/excise lesions 10/26/2011 LAPAROSCOPY W/FULGURATION OR EXC LESION, OVARY, VISCERA OR PERITONEAL SURFACE performed by ORLANDO RODNEY at [facility] OR ??? Reopen fallopian tube, chromotubation 10/26/2011 CHROMOTUBATION, INCLUDING MATERIALS performed by ORLANDO RODNEY at [facility] OR ??? Lap, lysis of adhesions 10/26/2011 LAPAROSCOPY, LYSIS OF ADHESIONS, PELVIS performed by ORLANDO RODNEY at [facility] OR ??? Lap, oviduct/ovary, unlist proc 10/26/2011 HYSTEROSCOPY, GUIDEWIRE, FALLOPIAN,TUBAL CANNULATION performed by ORLANDO RODNEY at [facility] OR ??? Biopsy of ovary(s) 10/26/2011 BIOPSY OF OVARY, UNILATERAL OR BILATERAL performed by ORLANDO RODNEY at [facility] OR ??? Lap, fimbrioplasty 10/26/2011 LAPAROSCOPY W/ FIMBRIOPLASTY performed by ORLANDO RODNEY at [facility] OR ??? Follicle pun, retrieval of oocyte 08/26/2012 OOCYTE RETRIEVAL performed by Blayne Quiles MD at [facility] History Substance Use Topics ??? Smoking status: Never Smoker ??? Smokeless tobacco: Never Used ??? Alcohol Use: No History Drug Use No No Known Allergies Medications: MAR and/or home medications have been reviewed. Physical Exam: There were no vitals filed for this visit. There is no height or weight on file to calculate BMI. Airway Assessment: Mallampati: II TM distance: >3 FB Neck ROM: full Cardiovascular Assessment: Pulmonary Assessment: Dental Assessment: - normal exam [facility] Assessment: IV access: Peripheral line Anesthesia Plan: ASA 2 The patient was consented for general anesthesia after the risks and benefits of anesthesia were discussed, and all questions answered. Consent paperwork was placed in the patient's chart. Informed Consent: Anesthetic plan and risks discussed with patient and spouse. [facility]. Assessment: 28 y.o. woman at 32w gestation admitted for cervical change and contractions in setting of twin . Currently one of the twins is breech and will likely require C/S. OB is currently trying tocolysis. This will be her first delivery. Weight: Estimated Body mass index is 31.62 kg/(m^2) as calculated from the following: Height as of an earlier encounter on 06/08/13: 5' 4(1.626 m). Weight as of an earlier encounter on 06/08/13: 184 lb 4.8 oz(83.598 kg). Baseline BP: 110-130 systolic on the floor. Previous Anesthesia: Previous anesthetic on file for laparoscopic [employer]ET[employer] SERVICES MANAGER surgery without event. Easy mask and grade 1 with robledo 2. PMH notable for: #glucose intolerance #Di-di twin . #GERD during ROS otherwise negative for cardiac, pulmonary, renal, hepatic, thyroid, diabetic, nor bleeding issues. She does not have any chronic back pain, no extremity paresthesias, no previous back surgeries or injections, no scoliosis. Social History: non smoker non drinker Allergies: none Labs: CBC: pending T+S pending. Previous Cardiac Workup: none documented in this encounter Plan of Treatment Not on file documented as of this encounter Procedures Procedure Name Priority Date/Time Associated Diagnosis Comments ANE NEURAXIAL UPDATED Routine 06/19/2013 4:34 PM EDT documented in this encounter Results * ANE NEURAXIAL UPDATED (06/19/2013 4:34 PM EDT) Narrative Sandra Kelly - 06/19/2013 4:34 PM EDT Sandra Kelly MD ? 06/19/2013 ??4:34 PM Procedure: ?? Neuraxial Block Labor Analgesia Type: Epidural The patient was greeted; the risks and benefits were reviewed. ?? The anesthetic consent was obtained. ??The medical history and chart were reviewed. ??The timeout was performed. Start time: 06/19/2013 4:05 PM End time: 06/19/2013 4:20 PM Patient Location: [facility] Patient Prep Position: Sitting Prep: Hand Hygiene, Chlorhexidine, Hat, Mask, Patient Draped and Sterile Gloves Injection technique: continuous Skin Anesthetic Lidocaine 1% ??3 ml Procedure Technique Level of needle insertion: L3-4 Needle approach: midline Needle Type: Tuohy Needle insertion depth when JERAMY achieved: 7 cm Technique for Loss of Resistance: JERAMY air and JERAMY saline A 20 guage epidural catheter introduced Catheter at skin depth: 13 cm Dressing/Secured with: Chlorhexidine Tegaderm, Tegaderm and Tape Number of attempts: 1 Test dose A test dose of 3 mL was administered. Events/Notes Events: ??None Performed by: ??Sandra Kelly MD Supervising Attending/Fellow: ??Aldair Chavis MD ~~~~~~~~~~~~~~~~~~~~~~~~~~~~~~~~~~~~~~~~~~~~~~~~~~~~~~~~~~~~ Procedure Note Sandra Kelly - 06/19/2013 4:34 PM EDT Procedure: Neuraxial Block Labor Analgesia Type: Epidural The patient was greeted; the risks and benefits were reviewed. Theanesthetic consent was obtained. The medical history and chart werereviewed. The timeout was performed. Start time: 06/19/2013 4:05 PM End time: 06/19/2013 4:20 PM [facility] Patient Prep Position: Sitting Prep: Hand Hygiene, Chlorhexidine, Hat, Mask, Patient Draped and SterileGloves Injection technique: continuous Skin Anesthetic Lidocaine 1% 3 ml Procedure Technique Level of needle insertion: L3-4 Needle approach: midline Needle Type: Tuohy Needle insertion depth when JERAMY achieved: 7 cm Technique for Loss of Resistance: JERAMY air and JERAMY saline A 20 guage epidural catheter introduced Catheter at skin depth: 13 cm Dressing/Secured with: Chlorhexidine Tegaderm, Tegaderm and Tape Number of attempts: 1 Test dose A test dose of 3 mL was administered. Events/Notes Events: None Performed by: Sandra Kelly MD Supervising Attending/Fellow: Aldair Chavis MD ~~~~~~~~~~~~~~~~~~~~~~~~~~~~~~~~~~~~~~~~~~~~~~~~~~~~~~~~~~~~ Sandra Kelly MD [facility] documented in this encounter Visit Diagnoses Not on filedocumented in this encounter Care Teams Wallpaperer Relationship Specialty Start Date End Date None None PCP - General 07/23/11 documented as of this encounter
--- OUTSIDE RECORDS SUMMARY | 2024-04-16 14:08 | XMS_ITS | Encounter Summary ---
Author Organization [facility] [place] [address] Care Team Providers Care Cosmetics Counter Manager Name Role Phone None Primary Care Provider Unavailabl e Reason for Visit * Reason Comments Initial Visit Encounter Details Date Type Department Care Team (Latest Contact Info) Description 12/22/2012 2:45 PM EDT Initial Obstetrics [place] [phone] Daquan Tran MD Discharge Disposition: Home Social History Tobacco [...] Sign Reading Time Taken Comments Blood Pressure 122/78 12/22/2012 2:07 PM EDT Pulse - - Temperature - - Respiratory Rate - - Oxygen Saturation - - Inhaled Oxygen Concentration - - Weight 61.6 kg (135 lb 12.8 oz) 12/22/2012 2:07 PM EDT Height 162.6 cm (5' 4) 12/22/2012 2:07 PM EDT Body Mass Index 23.31 12/22/2012 2:07 PM EDT documented in this encounter Progress Notes * Jazmyne Mims, RN - 12/22/2012 4:12 PM EDT Clement is to 5L for her initial OB visit. She is feeling well, and comes with her , Aydin. She states that she is not sure if she her babies are di- di. She states that she has had some pink and brown spotting, smaller than a quarter. She is inquiring about another ultrasound. VS and assessment as documented. Pt. Oriented to [facility] [place]. Reviewed Your Journey binder, Genetic Screening DVD, and DVD. [facility] services offered, and pt. Educated how to contact. Questions answered as applicable. Medical history reviewed. * Daquan Tran MD - 12/22/2012 3:38 PM EDT I discussed the organization of our service, integration into the general call pool for delivery, the presence of both medical students and residents. I explained that we routinely perform HIV and other STI testing. We discussed the types of aneuploidy screening available. WE also discussed CF screening. She will probably decline, I encouraged her to watch the video. Had some spotting followed by brown discharge. Her last US was a week ago . Has had continued brown discharge. Will do an US next week to evaluate the . We discussed the increased risks of labor and delivery, preeclampsia, and gestational diabetes associated with twins. We discussed the mean gestational age of delivery is 35 weeks for twins versus 40 weeks for singletons. Twins are also at increased risk of growth disorders due to placentalinsufficiency or imbalance of communicating vessels when there is a shared placenta. RTC 1 week for US, encouraged to call for bright red Bleeding. Pelvic rest for now, until no bleeding for several weeks. * Jazmyne Mims RN - 12/22/2012 2:08 PM EDT Brown spotting between a dime and a quarter, improves with rest and hydration, no red or pink spotting documented in this encounter Miscellaneous Notes * Addendum Note - Yg Cruz - 12/22/2012 4:08 PM EDTAddended by: YG CRUZ on: 12/22/2012 04:08 PM Modules accepted: Orders documented in this encounter Plan of Treatment Not on file documented as of this encounter Procedures Procedure Name Priority Date/Time Associated Diagnosis Comments GC/CHLAMYDIA Routine 12/22/2012 5:41 PM EDT Dichorionic diamniotic twin gestation GC/CHLAM Routine 12/22/2012 5:41 PM EDT Dichorionic diamniotic twin gestation URINE CULTURE Routine 12/22/2012 5:38 PM EDT SCREEN Routine 12/22/2012 4:18 PM EDT DIFFERENTIAL, AUTOMATED Routine 12/22/2012 4:18 PM EDT SYPHILIS ANTIBODY SCREEN WITH REFLEX Routine 12/22/2012 4:18 PM EDT ABO/RH TYPING Routine 12/22/2012 4:18 PM EDT RUBELLA ANTIBODY, IGG Routine 12/22/2012 4:18 PM EDT HIV SCREEN, 4TH GENERATION ([facility]CGP/APD/NLH)PE RFORMABLE Routine 12/22/2012 4:18 PM EDT HEPATITIS B SURFACE ANTIGEN Routine 12/22/2012 4:18 PM EDT CBC (WITH DIFF) Routine 12/22/2012 4:18 PM EDT ANTIBODY SCREEN Routine 12/22/2012 4:18 PM EDT VARICELLA ZOSTER ANTIBODY, IGG Routine 12/22/2012 4:18 PM EDT documented in this encounter Results * GC/Chlam (12/22/2012 5:41 PM EDT) Pathologist [facility] Gene Amp Negative Negative [facility] Comment: The only FDA approved specimen types for this assay are cervix, vagina, urethra and urine. ??The sensitivity and specificity of the assay for other specimen types has not been determined. GC Source Urine BENI PAULINO Chlamydia Gene Amp Negative Negative [facility] Comment: The only FDA approved specimen types for this assay are cervix, vagina, urethra and urine. ??The sensitivity and specificity of the assay for other specimen types has not been determined. Chlm Source Urine BENI PAULINO Specimen of unknown material (specimen) 12/22/2012 5:41 PM EDT 12/22/2012 5:41 PM EDT Narrative Resulting Agency Comment Spec In Lab Daquan Tran MD MICROBIOLOGY - GENER AL ORDERABLES BENI PAULINO * Urine culture Clean Catch Urine (12/22/2012 5:38 PM EDT) Urine Culture ? Patient Name: CLEMENT EUBANKS ? Ordered By: DAQUAN TRAN ? MR#: [id number] ?LOC: ??5L ? /Sex: ?? 5 (27 years), ? Female ? PROCEDURE: Urine Culture ?SOURCE: U CC ? COLLECTED: 12/22/2012 17:38 ? STARTED: 12/22/2012 17:39 ? FINAL REPORT ? Final Report ? Verified: 15:04 ? No growth (Less than 1,000 cfu/ml). ? ____ CERNER MILLENNIUM Urine specimen obtained by clean catch procedure (specimen) 12/22/2012 5:38 PM EDT 12/22/2012 5:38 PM EDT Narrative Resulting Agency Comment Spec In Lab Daquan Tran MD MICROBIOLOGY - GENER AL ORDERABLES CERNER MILLENNIUM * Differential, Automated (12/22/2012 4:18 PM EDT) Neutrophil % 66.0 34.0 - 71.0 % CERNER MILLENNIUM Neutrophil Absolute 4.43 1.50 - 6.30 x10(3)/mcL CERNER MILLENNIUM Lymph % 26.4 19.0 - 53.0 % CERNER MILLENNIUM Lymphocytes Abs 1.8 1.0 - 3.6 x10(3)/mcL CERNER MILLENNIUM Monocyte % 6.6 4.0 - 13.0 % CERNER MILLENNIUM Monocyte Abs 0.4 0.2 - 1.0 x10(3)/mcL CERNER MILLENNIUM Eos % 0.9 0.0 - 7.0 % CERNER MILLENNIUM Eosinophils Abs 0.1 0.0 - 0.5 x10(3)/mcL CERNER MILLENNIUM Basophil % 0.1 0.0 - 2.0 % CERNER MILLENNIUM Baso Absolute 0.0 0.0 - 0.2 x10(3)/mcL CERNER MILLENNIUM Immature Gran % 0.00 0.00 - 0.66 % CERNER MILLENNIUM Comment: Immature granulocytes(IG's)percentage and absolute count will include metamyelocytes, myelocytes, and promyelocytes. Blood smears from CBCs yielding IG's will be scanned manually for concordance. If this scan disagrees with the automated IG or if promyelocytes are noted, a manual differential will be performed. Immature Gran Absolute 0.00 0.00 - 0.05 x10(3)/mcL CERNER MILLENNIUM Blood specimen (specimen) 12/22/2012 4:18 PM EDT 12/22/2012 4:25 PM EDT Daquan Tran MD HEMATOLOGY ORDERABLE S [facility] * Syphilis Antibody, IgG (12/22/2012 4:18 PM EDT) Syphilis IgG Neg Neg [facility] Blood specimen (specimen) 12/22/2012 4:18 PM EDT 12/23/2012 11:15 AM EDT Narrative Resulting Agency Comment Spec In Lab Daquan Tran MD CHEMISTRY ORDERABLES Performing Organization Address City/[facility]/ZIP Co de Phone Number [facility] * Antibody screen (12/22/2012 4:18 PM EDT) Ab Screen Interp Negative [facility] Expires at [id number] on: [id number] [facility] Blood specimen (specimen) 12/22/2012 4:18 PM EDT 12/22/2012 4:24 PM EDT Narrative Resulting Agency Comment Spec In Lab Daquan Tran MD BLOOD BANK LAB ORDER RUPA Performing Organization Address [facility] Co de Phone Number [facility] * ABO/Rh Typing (12/22/2012 4:18 PM EDT) ABORH Type O Neg [facility] Blood specimen (specimen) 12/22/2012 4:18 PM EDT 12/22/2012 4:24 PM EDT Narrative Resulting Agency Comment Spec In Lab Daquan Tran MD BLOOD BANK LAB ORDER RUPA Performing Organization Address City/[facility]/ZIP Co de Phone Number [facility] * Rubella Antibody, IgG (12/22/2012 4:18 PM EDT) Pathologist [facility] Rubella Antibody IgG Positive Positive [facility] Comment: Please note that as of 10/17/2012, the testing methodology for this assay has changed. However there is no change in the interpretation of the results. Please note: ??A positive result for this assay indicates that antibody levels are >or= 10.0 IU/mL and is considered to be an indicator of positive immune status. Blood specimen (specimen) 12/22/2012 4:18 PM EDT 12/22/2012 4:25 PM EDT Narrative Resulting Agency Comment Spec In Lab Daquan Tran MD CHEMISTRY ORDERABLES Performing Organization Address [facility] de Phone Number [facility] * Hepatitis B Surface Antigen (12/22/2012 4:18 PM EDT) Pathologist [facility] Hepatitis B Surface Antigen Negative Negative [facility] Comment: Please note that as of 10/17/2012, the testing methodology for this assay has changed. However there is no change in the interpretation of the results. Blood specimen (specimen) 12/22/2012 4:18 PM EDT 12/22/2012 4:25 PM EDT Narrative Resulting Agency Comment Spec In Lab Daquan Tran MD CHEMISTRY ORDERABLES Performing Organization Address [facility] de Phone Number [facility] * CBC (with Diff) (12/22/2012 4:18 PM EDT) Pathologist [facility] White Blood Cell 6.7 4.0 - 10.0 x10(3)/mcL CERNER MILLENNIUM Red Blood Cell 4.20 3.93 - 5.22 x10(6)/mcL CERNER MILLENNIUM Hemoglobin 12.9 11.2 - 15.7 gm/dL CERNER MILLENNIUM Hematocrit 37.8 34.0 - 45.0 % CERNER MILLENNIUM Mean Cell Volume 90.0 79.0 - 94.0 fL CERNER MILLENNIUM Mean Cell Hemoglobin 30.7 26.6 - 32.2 pg CERNER MILLENNIUM Mean Cell Hemoglobin Concentration 34.1 32.0 - 36.5 gm/dL CERNER MILLENNIUM Platelet 169 145 - 370 x10(3)/mcL CERNER MILLENNIUM RDW Standard Deviation 41.1 35.0 - 46.0 fL CERNER MILLENNIUM RDW coefficient of variation 12.6 10.9 - 14.4 % CERNER MILLENNIUM Mean Platelet Volume 11.4 9.0 - 12.0 fL [facility] Blood specimen (specimen) 12/22/2012 4:18 PM EDT 12/22/2012 4:25 PM EDT Narrative Resulting Agency Comment Spec In Lab Daquan Tran MD HEMATOLOGY ORDERABLE S [facility] * HIV (12/22/2012 4:18 PM EDT) HIV 1/2 Ab Negative Negative [facility] Blood specimen (specimen) 12/22/2012 4:18 PM EDT 12/22/2012 4:25 PM EDT Narrative Resulting Agency Comment Spec In Lab Daquan Tran MD CHEMISTRY ORDERABLES Performing Organization Address City/[facility]/ZIP Co de Phone Number [facility] * Varicella zoster Antibody, IgG (12/22/2012 4:18 PM EDT) Varicella Zoster Antibody IgG Pos [facility] Blood specimen (specimen) 12/22/2012 4:18 PM EDT 12/23/2012 11:15 AM EDT Narrative Resulting Agency Comment Spec In Lab Daquan Tran MD IMMUNOLOGY ORDERABLE S BENI PAULINO documented in this encounter Visit Diagnoses Diagnosis Dichorionic diamniotic twin gestation- Primary Twin gestation, dichorionic/diamniotic (two placentae, two amniotic sacs) state, incidental documented in this encounter Care Teams Cosmetics Counter Manager Relationship Specialty Start Date End Date None None PCP - General 07/23/11 documented as of this encounter
--- OUTSIDE RECORDS SUMMARY | 2024-04-16 14:08 | XMS_ITS | Encounter Summary ---
Author Organization [facility] [place] [address] Care Team Providers Care Weather Anchor Name Role Phone None Primary Care Provider Unavailabl e Encounter Details Date Type Department Care Team (Latest Contact Info) Description 02/28/2013 8:00 AM EST - 02/28/2013 11:59 PM EST Hospital En[place] [address] Dichorionic diamniotic twin gestation Social History Tobacco Use Types Packs/Day Years [...] moderate pain). 60 tablet 2 06/21/2013 08/02/2013 documented as of this encounter Plan of Treatment Not on file documented as of this encounter Procedures Procedure Name Priority Date/Time Associated Diagnosis Comments US OB DETAILED MORPHOLOGY MULTIPLE Routine 02/28/2013 8:49 AM EST Dichorionic diamniotic twin gestation documented in this encounter Results * US OB targeted morphology multiple (02/28/2013 8:49 AM EST) Anatomical Region Laterality Modality Pelvis, Abdomen Ultrasound 02/28/2013 8:49 AM EST Narrative 02/28/2013 10:38 AM EST ?OBSTETRICS REPORT ? (Signed Final 02/28/2013 10:37 am) Patient Info ID: ? [id number] ? : ??[birth year] (27 yrs) Name: ? CLEMENT EUBANKS ? Visit Date: 02/28/2013 08:12 am Performed By Performed By: ?Abiodun DAILY, ??Emy Attending: ? Kole DAVID, E ??Beatrice Referred By: ? DAQUAN TRAN MD Service(s) Provided [facility] - Targeted Morphology - Multiple ?[id number], [id number] [facility] - [id number], [id number] Indications di/di twins Evaluation (Fetus A) Num Of Fetuses: ?2 Heart Rate: ??147 ?bpm Cardiac Activity: ??Observed, normal rhythm Lie: ? Presenting Twin Presentation: ?Cephalic Placenta: ?Anterior right lateral P. Cord ?Within Normal Limits Insertion: Membrane Desc: ?Dichoronic, Diamniotic Amniotic Fluid VISHAL FV: ?Normal Biometry (Fetus A) BPD: ?42.4 ??mm ?G. Age: ?? 18w 6d OFD: ?56.9 ??mm HC: ?161.2 ??mm ?G. Age: ?? 18w 6d AC: ?134.6 ??mm ?G. Age: ?? 19w 0d FL: ? 27.3 ??mm ?G. Age: ?? 18w 2d HUM: ?26.8 ??mm ?G. Age: ?? 18w 4d CER: ?19 ??mm ?G. Age: ?? 18w 4d NFT: ? 3.7 ??mm CI: ?74.5 ??% ? 70 - 86 FL/HC: ? 16.9 ??% ? 15.8 - 18 HC/AC: ? 1.20 ?1.07 - 1.29 FL/BPD: ?64.4 ??% FL/AC: ? 20.3 ??% ? - Est. FW: ? 252 ?? gm ? 0 lb 9 oz Gestational Age (Fetus A) U/S Today: ? 18w 5d ?SHERRIE: ?? 07/27/13 Best: ?18w 1d ?? Det. By: ??Embryo ? SHERRIE: ?? 07/31/13 ? Transfer ? (11/10/12) Targeted Anatomy (Fetus A) Central Nervous System Calvarium: ?Within Normal Limits Intracranial: ? Within Normal Limits Lat. Ventricles: ?Visualized Cerebellum: ? Within Normal Limits Choroid Plexus: ? Within Normal Limits Cisterna Magna: ? Visualized Spine Cervical: ? Visualized Thoracic: ? Visualized Lumbar: ? Visualized Sacral: ? Visualized Head/Neck Face: ? Within Normal Limits Nuchal Fold: ?Within Normal Limits Thorax Four Chamber: ? Within Normal Cardiac Motion: ? Normal Rhythm R Outflow Tract: ?Visualized L Outflow Tract: ?Visualized Cardiac [place]: ? Visualized Diaphragm: ?Visualized Abdomen Ventral Wall: ? Visualized Stomach: ?Visualized Liver: ?Visualized Lt Kidney: ?Visualized Rt Kidney: ?Visualized Bladder: ?Visualized Extremities Lt Humerus: ? Within Normal Limits Rt Humerus: ? Within Normal Limits Lt Forearm: ? Within Normal Limits Rt Forearm: ? Within Normal Limits Lt Hand: ?Within Normal Limits Rt Hand: ?Within Normal Limits Lt Femur: ? Within Normal Limits Rt Femur: ? Within Normal Limits Lt Lower Leg: ? Within Normal Limits Rt Lower Leg: ? Within Normal Limits Lt Foot: ?Visualized Rt Foot: ?Visualized Other Umbilical Cord: ? 3 vessel cord Cord Insertion: ? Within Normal Limits Comment: ? Nasal Bone: Visualized Evaluation (Fetus B) Num Of Fetuses: ?2 Heart Rate: ??159 ?bpm Cardiac Activity: ??Observed, normal rhythm Lie: ? Upper Twin Presentation: ?Transverse, head to ?maternal right Placenta: ?Anterior left lateral P. Cord ?Within Normal Limits Insertion: Membrane Desc: ?Dichoronic, Diamniotic Amniotic Fluid VISHAL FV: ?Normal Biometry (Fetus B) BPD: ?42.1 ??mm ?G. Age: ?? 18w 5d OFD: ?53.1 ??mm HC: ?155.4 ??mm ?G. Age: ?? 18w 3d AC: ?133.8 ??mm ?G. Age: ?? 18w 6d FL: ? 27 ??mm ?G. Age: ?? 18w 1d HUM: ?26.7 ??mm ?G. Age: ?? 18w 3d CER: ?19.5 ??mm ?G. Age: ?? 18w 5d NFT: ? 3.2 ??mm CI: ?79.3 ??% ? 70 - 86 FL/HC: ? 17.4 ??% ? 15.8 - 18 HC/AC: ? 1.16 ?1.07 - 1.29 FL/BPD: ?64.1 ??% FL/AC: ? 20.2 ??% ? - Est. FW: ? 246 ?? gm ? 0 lb 9 oz Gestational Age (Fetus B) U/S Today: ? 18w 4d ?SHERRIE: ?? 07/28/13 Best: ?18w 1d ?? Det. By: ??Embryo ? SHERRIE: ?? 07/31/13 ? Transfer ? (11/10/12) Targeted Anatomy (Fetus B) Central Nervous System Calvarium: ?Within Normal Limits Intracranial: ? Within Normal Limits Lat. Ventricles: ?Visualized Cerebellum: ? Within Normal Limits Choroid Plexus: ? Within Normal Limits Cisterna Magna: ? Visualized Spine Cervical: ? Visualized Thoracic: ? Visualized Lumbar: ? Visualized Sacral: ? Visualized Head/Neck Face: ? Within Normal Limits Nuchal Fold: ?Within Normal Limits Thorax Four Chamber: ? Within Normal Cardiac Motion: ? Normal Rhythm R Outflow Tract: ?Visualized L Outflow Tract: ?Visualized Cardiac [place]: ? Visualized Diaphragm: ?Visualized Abdomen Ventral Wall: ? Visualized Stomach: ?Visualized Liver: ?Visualized Lt Kidney: ?Visualized Rt Kidney: ?Visualized Bladder: ?Visualized Extremities Lt Humerus: ? Within Normal Limits Rt Humerus: ? Within Normal Limits Lt Forearm: ? Within Normal Limits Rt Forearm: ? Within Normal Limits Lt Hand: ?Within Normal Limits Rt Hand: ?Within Normal Limits Lt Femur: ? Within Normal Limits Rt Femur: ? Within Normal Limits Lt Lower Leg: ? Within Normal Limits Rt Lower Leg: ? Within Normal Limits Lt Foot: ?Visualized Rt Foot: ?Visualized Other Umbilical Cord: ? 3 vessel cord Cord Insertion: ? Within Normal Limits Comment: ? Nasal Bone: Visualized Cervix Uterus Adnexa Left Ovary: ?Not visualized Right Ovary: ?? Not visualized Impression 2nd Trimester Twins - Targeted Morphology ??- Summary Twin intrauterine with a gestational age of 18w 1d based on embryo transfer. Composite age based on the current ultrasound alone is A: 18w 5d, B: 18w 4d. Estimated weight corresponds to the A: N/Ath percentile for 18w 1d. Current growth parameters are consistent indicating normal growth for each fetus. Amniotic fluid volume is A: Normal, B: Normal. Detailed anatomic evaluation was performed on each fetus, and no structural abnormalities are noted. I ??viewed the images and agree with the above interpretation. Thank you for allowing us to participate in the care of CLEMENT EUBANKS. Please do not hesitate to call if you have any questions. ?Fela Sharif MD Electronically Signed Final Report ?? 02/28/2013 10:37 am Procedure Note Fela Sharif MD - 02/28/2013 OBSTETRICS REPORT (Signed Final 02/28/2013 10:37 am) Patient Info ID: [id number] : [birth year] (27 yrs) Name: CLEMENT EUBANKS Visit Date: 02/28/2013 08:12 am Performed By Performed By: Emy Rascon RDMS Attending: Fela Sharif MD Referred By: DAQUAN TRAN MD Service(s) [facility]ided [facility] - Targeted Morphology - Multiple [id number], [id number] Gestation - [id number], [id number] Indications di/di twins Evaluation (Fetus A) Num Of Fetuses: 2 Heart Rate: 147 bpm Cardiac Activity: Observed, normal rhythm Lie: Presenting Twin Presentation: Cephalic Placenta: Anterior right lateral P. Cord Within Normal Limits Insertion: Membrane Desc: Dichoronic, Diamniotic Amniotic Fluid VISHAL FV: Normal Biometry (Fetus A) BPD: 42.4 mm G. Age: 18w 6d OFD: 56.9 mm HC: 161.2 mm G. Age: 18w 6d AC: 134.6 mm G. Age: 19w 0d FL: 27.3 mm G. Age: 18w 2d HUM: 26.8 mm G. Age: 18w 4d CER: 19 mm G. Age: 18w 4d NFT: 3.7 mm CI: 74.5 % 70 - 86 FL/HC: 16.9 % 15.8 - 18 HC/AC: 1.20 1.07 - 1.29 FL/BPD: 64.4 % FL/AC: 20.3 % 20 - 24 Est. FW: 252 gm 0 lb 9 oz Gestational Age (Fetus A) U/S Today: 18w 5d SHERRIE: 07/27/13 Best: 18w 1d Det. By: Embryo SHERRIE: 07/31/13 Transfer (11/10/12) Targeted Anatomy (Fetus A) Central Nervous System Calvarium: Within Normal Limits Intracranial: Within Normal Limits Lat. Ventricles: Visualized Cerebellum: Within Normal Limits Choroid Plexus: Within Normal Limits Cisterna Magna: Visualized Spine Cervical: Visualized Thoracic: Visualized Lumbar: Visualized Sacral: Visualized Head/Neck Face: Within Normal Limits Nuchal Fold: Within Normal Limits Thorax Four Chamber: Within Normal Cardiac Motion: Normal Rhythm R Outflow Tract: Visualized L Outflow Tract: Visualized Cardiac [place]: Visualized Diaphragm: Visualized Abdomen Ventral Wall: Visualized Stomach: Visualized Liver: Visualized Lt Kidney: Visualized Rt Kidney: Visualized Bladder: Visualized Extremities Lt Humerus: Within Normal Limits Rt Humerus: Within Normal Limits Lt Forearm: Within Normal Limits Rt Forearm: Within Normal Limits Lt Hand: Within Normal Limits Rt Hand: Within Normal Limits Lt Femur: Within Normal Limits Rt Femur: Within Normal Limits Lt Lower Leg: Within Normal Limits Rt Lower Leg: Within Normal Limits Lt Foot: Visualized Rt Foot: Visualized Other Umbilical Cord: 3 vessel cord Cord Insertion: Within Normal Limits Comment: Nasal Bone: Visualized Evaluation (Fetus B) Num Of Fetuses: 2 Heart Rate: 159 bpm Cardiac Activity: Observed, normal rhythm Lie: Upper Twin Presentation: Transverse, head to maternal right Placenta: Anterior left lateral P. Cord Within Normal Limits Insertion: Membrane Desc: Dichoronic, Diamniotic Amniotic Fluid VISHAL FV: Normal Biometry (Fetus B) BPD: 42.1 mm G. Age: 18w 5d OFD: 53.1 mm HC: 155.4 mm G. Age: 18w 3d AC: 133.8 mm G. Age: 18w 6d FL: 27 mm G. Age: 18w 1d HUM: 26.7 mm G. Age: 18w 3d CER: 19.5 mm G. Age: 18w 5d NFT: 3.2 mm CI: 79.3 % 70 - 86 FL/HC: 17.4 % 15.8 - 18 HC/AC: 1.16 1.07 - 1.29 FL/BPD: 64.1 % FL/AC: 20.2 % 20 - 24 Est. FW: 246 gm 0 lb 9 oz Gestational Age (Fetus B) U/S Today: 18w 4d SHERRIE: 07/28/13 Best: 18w 1d Det. By: Embryo SHERRIE: 07/31/13 Transfer (11/10/12) Targeted Anatomy (Fetus B) Central Nervous System Calvarium: Within Normal Limits Intracranial: Within Normal Limits Lat. Ventricles: Visualized Cerebellum: Within Normal Limits Choroid Plexus: Within Normal Limits Cisterna Magna: Visualized Spine Cervical: Visualized Thoracic: Visualized Lumbar: Visualized Sacral: Visualized Head/Neck Face: Within Normal Limits Nuchal Fold: Within Normal Limits Thorax Four Chamber: Within Normal Cardiac Motion: Normal Rhythm R Outflow Tract: Visualized L Outflow Tract: Visualized Cardiac [place]: Visualized Diaphragm: Visualized Abdomen Ventral Wall: Visualized Stomach: Visualized Liver: Visualized Lt Kidney: Visualized Rt Kidney: Visualized Bladder: Visualized Extremities Lt Humerus: Within Normal Limits Rt Humerus: Within Normal Limits Lt Forearm: Within Normal Limits Rt Forearm: Within Normal Limits Lt Hand: Within Normal Limits Rt Hand: Within Normal Limits Lt Femur: Within Normal Limits Rt Femur: Within Normal Limits Lt Lower Leg: Within Normal Limits Rt Lower Leg: Within Normal Limits Lt Foot: Visualized Rt Foot: Visualized Other Umbilical Cord: 3 vessel cord Cord Insertion: Within Normal Limits Comment: Nasal Bone: Visualized Cervix Uterus Adnexa Left Ovary: Not visualized Right Ovary: Not visualized Impression 2nd Trimester Twins - Targeted Morphology - Summary Twin intrauterine with a gestational age of 18w 1d based on embryo transfer. Composite age based on the current ultrasound alone is A: 18w 5d, B: 18w 4d. Estimated weight corresponds to the A: N/Ath percentile for 18w 1d. Current growth parameters are consistent indicating normal growth for each fetus. Amniotic fluid volume is A: Normal, B: Normal. Detailed anatomic evaluation was performed on each fetus, and no structural abnormalities are noted. I viewed the images and agree with the above interpretation. Thank you for allowing us to participate in the care of CLEMENT EUBANKS. Please do not hesitate to call if you have any questions. Fela Sharif MD Electronically Signed Final Report 02/28/2013 10:37 am Daquan Tran MD IMG OB ORDERABLES documented in this encounter Visit Diagnoses Diagnosis Dichorionic diamniotic twin gestation Twin gestation, dichorionic/diamniotic (two placentae, two amniotic sacs) documented in this encounter Care Teams Weather Anchor Relationship Specialty Start Date End Date None None PCP - General 07/23/11 documented as of this encounter
--- OUTSIDE RECORDS SUMMARY | 2024-04-16 14:08 | XMS_ITS | Encounter Summary ---
Author Organization [facility] [place] [address] Care Team Providers Care Encyclopedia Research Worker Name Role Phone None Primary Care Provider Unavailabl e Encounter Details Date Type Department Care Team (Late st Contact Info) Description 02/14/2013 Telephone Obstetrics and Gynecology at [facility] [place] [id number] Jazmyne Mims RN Social History Tobacco Use Types Packs/Day Years [...] Telephone Encounter - Jazmyne Mims RN - 02/14/2013 9:39 AM EST Flaca calls today because she has itchy bumps on her legs. She states that they have been there since yesterday. She took benadryl last night and states that they are improving. She has not been around anyone with varicella, and is immune. She would like to know if it is safe to take another benadryl in should she think she needs it. Reassured. documented in this encounter Plan of Treatment Not on file documented as of this encounter Visit Diagnoses Not on filedocumented in this encounter Care Teams Encyclopedia Research Worker Relationship Specialty Start Date End Date None None PCP - General 07/23/11 documented as of this encounter
--- OUTSIDE RECORDS SUMMARY | 2024-04-16 14:08 | XMS_ITS | Encounter Summary ---
Author Organization [facility] [place] [place] [address] Care Team Providers Care Administration Clerk Name Role Phone None Primary Care Provider Unavailabl e Reason for Visit * Reason Onset Date Comments Vaginal Bleeding 12/19/2012 Encounter Details Date Type Department Care Team (Late st Contact Info) Description 12/19/2012 Telephone Obstetrics and Gynecology at [facility] [place] [address] Annia Trejo RN Vaginal Bleeding Social History Tobacco Use Types Packs/Day Years [...] encounter Miscellaneous Notes * Telephone Encounter - Annia Trejo RN - 12/19/2012 12:05 PM EDT TELEPHONE NOTE Date of call: 12/19/12 Time of call: 12:00 Caller: Flaca Eubanks. Reason for call: Reporting pinkish brown vaginal discharge when voiding. S/P embryo transfer 11/10/12 of two embryo's. Blood type O NEG. US 12/14/12, revealed di di twin @ 7 weeks 4 days. FHRs of 155 and 157 Assessment:bleeding in first trimester, RH NEG. Plan/Instructions: Encouraged to go home rest and hydrate and call me in one hour to report. Reviewed with MFM service as she has an appointment on Tuesday to initiate her OB care. documented in this encounter Plan of Treatment Not on file documented as of this encounter Visit Diagnoses Not on filedocumented in this encounter Care Teams Administration Clerk Relationship Specialty Start Date End Date None None PCP - General 07/23/11 documented as of this encounter
--- OUTSIDE RECORDS SUMMARY | 2024-04-16 14:08 | XMS_ITS | Encounter Summary ---
Author Organization [facility] [place] [address] Care Team Providers Care Color Separation Photographer Name Role Phone None Primary Care Provider Unavailabl e Encounter Details Date Type Department Care Team (Latest Contact Info) Description 03/28/2013 8:30 AM EST Routine Obstetrics [place] [address] CLINIC, Fela Disla MD [facility] [address] OBSTETRICS [place] [address] Discharge Disposition: Home Social History Tobacco Use [...] Sign Reading Time Taken Comments Blood Pressure 122/68 03/28/2013 8:10 AM EST Pulse - - Temperature - - Respiratory Rate - - Oxygen Saturation - - Inhaled Oxygen Concentration - - Weight 70.1 kg (154 lb 9.6 oz) 03/28/2013 8:10 A M EST Height - - Body Mass Index 26.54 12/22/2012 2:07 PM EDT documented in this encounter Progress Notes * Fela Sharif MD - 03/28/2013 12:25 PM EST Appropriate growth. Normal fluid. No OB complaints. RTC 4 weeks with repeat ultrasound. GTT at nextvisit. documented in this encounter Plan of Treatment Not on file documented as of this encounter Results * US OB follow up multiple (04/25/2013 1:29 PM EST) Anatomical Region Laterality Modality Pelvis, Abdomen Ultrasound 04/25/2013 1:29 PM EST Narrative 04/25/2013 1:47 PM EST ?OBSTETRICS REPORT ? (Signed Final 04/25/2013 01:46 pm) Patient Info ID: ? [id number] ? : ??[birth year] (28 yrs) Name: ? CLEMENT EUBANKS ? Visit Date: 04/25/2013 01:24 pm Performed By Performed By: ?Beulah Rubio RDMS Attending: ? Seth DAVID, Dayana Kumar Referred By: ? Fela SHARIF MD Service(s) Provided UOBFOLMULT - Efw - Growth - Multiple Gestation - ?[id number], [id number] Indications f/u growth; di/di twins Evaluation (Fetus A) Num Of Fetuses: ?2 Heart Rate: ??145 ?bpm Cardiac Activity: ??Observed, normal rhythm Lie: ? Presenting Twin Presentation: ?Cephalic Placenta: ?Anterior P. Cord ?Within Normal Limits Insertion: Membrane Desc: ?Dichoronic, Diamniotic Amniotic Fluid VISHAL FV: ?Normal ? Dimas Larkin: ? 4.2 ??cm Biometry (Fetus A) BPD: ?72.5 ??mm ?G. Age: ?? 29w 1d ? > 97 ??% OFD: ?90.1 ??mm HC: ?264.1 ??mm ?G. Age: ?? 28w 5d ? 95 ??% AC: ?223.9 ??mm ?G. Age: ?? 26w 6d ? 62 ??% FL: ? 54.7 ??mm ?G. Age: ?? 28w 6d ? 96 ??% HUM: ?49.1 ??mm ?G. Age: ?? 29w 0d ? > 95 ??% CER: ?34.6 ??mm ?G. Age: ?? 29w 6d ? > 95 ??% CI: ?80.5 ??% ? 70 - 86 FL/HC: ? 20.7 ??% ? 18.6 - 20.4 HC/AC: ? 1.18 ?1.04 - 1.22 FL/BPD: ?75.4 ??% ? 71 - 87 FL/AC: ? 24.4 ??% ? 20 - 24 Est. FW: ?1138 ?? gm ? 2 lb 8 oz ?? > 95 ??% FW Discordancy: ?0 \ 3 ?? % Gestational Age (Fetus A) U/S Today: ? 28w 3d ?SHERRIE: ?? 07/15/13 Best: ?26w 1d ?? Det. By: ??Embryo ? SHERRIE: ?? 07/31/13 ? Transfer ? (11/10/12) Anatomy (Fetus A) Cranium: ?Visualized Cavum: ?Visualized Ventricles: ? Visualized Choroid Plexus: ? Visualized Cerebellum: ? Visualized Posterior Fossa: ?Visualized Nuchal Fold: ?Not evaluated at this gestational age Face: ? Not seen due to position Heart: ?Not seen due to position RVOT: ? Visualized LVOT: ? Visualized Diaphragm: ?Visualized Stomach: ?Visualized Abdomen: ?Visualized Abdominal Wall: ? Cord Insertion - WNL Cord Vessels: ? 3- vessels- WNL Kidneys: ?Visualized Bladder: ?Visualized Spine: ?Limited views Lower ? Limited views Extremities: Upper ? Limited views Extremities: Targeted Anatomy (Fetus A) Central Nervous System Lat. Ventricles: ?7.14 Cisterna Magna: ? 6.67 Evaluation (Fetus B) Num Of Fetuses: ?2 Heart Rate: ??159 ?bpm Cardiac Activity: ??Observed, normal rhythm Lie: ? Upper Twin Presentation: ?Cephalic Placenta: ?Anterior P. Cord ?Within Normal Limits Insertion: Membrane Desc: ?Dichoronic, Diamniotic Amniotic Fluid VISHAL FV: ?Normal ? Larg Pckt: ? 7.5 ??cm Biometry (Fetus B) BPD: ?70.4 ??mm ?G. Age: ?? 28w 2d ? 94 ??% OFD: ?91.8 ??mm HC: ?259.9 ??mm ?G. Age: ?? 28w 2d ? 89 ??% AC: ?233.9 ??mm ?G. Age: ?? 27w 5d ? 85 ??% FL: ? 50.6 ??mm ?G. Age: ?? 27w 1d ? 66 ??% HUM: ?46.3 ??mm ?G. Age: ?? 27w 2d ? 73 ??% CER: ?31.8 ??mm ?G. Age: ?? 27w 6d ? 79 ??% NB: ? 10.4 ??mm CI: ?76.7 ??% ? 70 - 86 FL/HC: ? 19.5 ??% ? 18.6 - 20.4 HC/AC: ? 1.11 ?1.04 - 1.22 FL/BPD: ?71.9 ??% ? 71 - 87 FL/AC: ? 21.6 ??% ? Est. FW: ?1101 ?? gm ? 2 lb 7 oz ? 94 ??% FW Discordancy: ?3 ? % Gestational Age (Fetus B) U/S Today: ? 27w 6d ?SHERRIE: ?? 07/19/13 Best: ?26w 1d ?? Det. By: ??Embryo ? SHERRIE: ?? 07/31/13 ? Transfer ? (11/10/12) Anatomy (Fetus B) Cranium: ?Visualized Cavum: ?Visualized Ventricles: ? Visualized Choroid Plexus: ? Visualized Cerebellum: ? Visualized Posterior Fossa: ?Visualized Nuchal Fold: ?Not evaluated at this gestational age Face: ? Visualized Heart: ?4 -chamber view appears normal RVOT: ? Visualized LVOT: ? Visualized Diaphragm: ?Visualized Stomach: ?Visualized Abdomen: ?Visualized Abdominal Wall: ? Cord Insertion - WNL Cord Vessels: ? 3- vessels- WNL Kidneys: ?Visualized Bladder: ?Visualized Spine: ?Limited views Lower ? Limited views Extremities: Upper ? Limited views Extremities: Cervix Uterus Adnexa Left Ovary: ?Not visualized Right Ovary: ?? Not visualized Impression 3rd Trimester Twins Summary Twin intrauterine with a gestational age of 26w 1d based on embryo transfer. Composite age based on the current ultrasound alone is A: 28w 3d, B: 27w 6d. Estimated weight corresponds to the A: > 95, B: 94th percentile for 26w 1d. LGA fetuses. Amniotic fluid volume is A: Normal, B: Normal Largest pocket = A: 4.2, B: 7.5 cm Anatomical survey is limited due to the late gestational age, however no structural abnormalities are noted. I ??viewed the images and agree with the above interpretation. Thank you for allowing us to participate in the care of CLEMENT EUBANKS. Please do not hesitate to call if you have any questions. ?Dayana Ann MD Electronically Signed Final Report ?? 04/25/2013 01:46 pm Procedure Note Dayana Ann MD - 04/25/2013 OBSTETRICS REPORT (Signed Final 04/25/2013 01:46 pm) Patient Info ID: [id number] : [birth year] (28 yrs) Name: CLEMENT EUBANKS Visit Date: 04/25/2013 01:24 pm Performed By Performed By: Beulah Rubio RDMS Attending: Dayana Ann MD Referred By: Fela SHARIF MD Service(s) Provided UOBFOLMULT - Efw - Growth - Multiple Gestation - [id number], [id number] Indications f/u growth; di/di twins Evaluation (Fetus A) Num Of Fetuses: 2 Heart Rate: 145 bpm Cardiac Activity: Observed, normal rhythm Lie: Presenting Twin Presentation: Cephalic Placenta: Anterior P. Cord Within Normal Limits Insertion: Membrane Desc: Dichoronic, Diamniotic Amniotic Fluid VISHAL FV: Normal Larg Pckt: 4.2 cm Biometry (Fetus A) BPD: 72.5 mm G. Age: 29w 1d > 97 % OFD: 90.1 mm HC: 264.1 mm G. Age: 28w 5d 95 % AC: 223.9 mm G. Age: 26w 6d 62 % FL: 54.7 mm G. Age: 28w 6d 96 % HUM: 49.1 mm G. Age: 29w 0d > 95 % CER: 34.6 mm G. Age: 29w 6d > 95 % CI: 80.5 % 70 - 86 FL/HC: 20.7 % 18.6 - 20.4 HC/AC: 1.18 1.04 - 1.22 FL/BPD: 75.4 % 71 - 87 FL/AC: 24.4 % 20 - 24 Est. FW: 1138 gm 2 lb 8 oz > 95 % FW Discordancy: 0 \ 3 % Gestational Age (Fetus A) U/S Today: 28w 3d SHERRIE: 07/15/13 Best: 26w 1d Det. By: Embryo SHERRIE: 07/31/13 Transfer (11/10/12) Anatomy (Fetus A) Cranium: Visualized Cavum: Visualized Ventricles: Visualized Choroid Plexus: Visualized Cerebellum: Visualized Posterior Fossa: Visualized Nuchal Fold: Not evaluated at this gestational age Face: Not seen due to position Heart: Not seen due to position RVOT: Visualized LVOT: Visualized Diaphragm: Visualized Stomach: Visualized Abdomen: Visualized Abdominal Wall: Cord Insertion - WNL Cord Vessels: 3- vessels- WNL Kidneys: Visualized Bladder: Visualized Spine: Limited views Lower Limited views Extremities: Upper Limited views Extremities: Targeted Anatomy (Fetus A) Central Nervous System Lat. Ventricles: 7.14 Cisterna Magna: 6.67 Evaluation (Fetus B) Num Of Fetuses: 2 Heart Rate: 159 bpm Cardiac Activity: Observed, normal rhythm Lie: Upper Twin Presentation: Cephalic Placenta: Anterior P. Cord Within Normal Limits Insertion: Membrane Desc: Dichoronic, Diamniotic Amniotic Fluid VISHAL FV: Normal Larg Pckt: 7.5 cm Biometry (Fetus B) BPD: 70.4 mm G. Age: 28w 2d 94 % OFD: 91.8 mm HC: 259.9 mm G. Age: 28w 2d 89 % AC: 233.9 mm G. Age: 27w 5d 85 % FL: 50.6 mm G. Age: 27w 1d 66 % HUM: 46.3 mm G. Age: 27w 2d 73 % CER: 31.8 mm G. Age: 27w 6d 79 % NB: 10.4 mm CI: 76.7 % 70 - 86 FL/HC: 19.5 % 18.6 - 20.4 HC/AC: 1.11 1.04 - 1.22 FL/BPD: 71.9 % 71 - 87 FL/AC: 21.6 % 20 - 24 Est. FW: 1101 gm 2 lb 7 oz 94 % FW Discordancy: 3 % Gestational Age (Fetus B) U/S Today: 27w 6d SHERRIE: 07/19/13 Best: 26w 1d Det. By: Embryo SHERRIE: 07/31/13 Transfer (11/10/12) Anatomy (Fetus B) Cranium: Visualized Cavum: Visualized Ventricles: Visualized Choroid Plexus: Visualized Cerebellum: Visualized Posterior Fossa: Visualized Nuchal Fold: Not evaluated at this gestational age Face: Visualized Heart: 4 -chamber view appears normal RVOT: Visualized LVOT: Visualized Diaphragm: Visualized Stomach: Visualized Abdomen: Visualized Abdominal Wall: Cord Insertion - WNL Cord Vessels: 3- vessels- WNL Kidneys: Visualized Bladder: Visualized Spine: Limited views Lower Limited views Extremities: Upper Limited views Extremities: Cervix Uterus Adnexa Left Ovary: Not visualized Right Ovary: Not visualized Impression 3rd Trimester Twins Summary Twin intrauterine with a gestational age of 26w 1d based on embryo transfer. Composite age based on the current ultrasound alone is A: 28w 3d, B: 27w 6d. Estimated weight corresponds to the A: > 95, B: 94th percentile for 26w 1d. LGA fetuses. Amniotic fluid volume is A: Normal, B: Normal Largest pocket = A: 4.2, B: 7.5 cm Anatomical survey is limited due to the late gestational age, however no structural abnormalities are noted. I viewed the images and agree with the above interpretation. Thank you for allowing us to participate in the care of CLEMENT EUBANKS. Please do not hesitate to call if you have any questions. Dayana Ann MD Electronically Signed Final Report 04/25/2013 01:46 pm E Beatrice Sharif MD IMG US OB ORDERAB LES documented in this encounter Visit Diagnoses Diagnosis High-risk supervision, second trimester- Primary High-risk supervision, second trimester documented in this encounter Care Teams Color Separation Photographer Relationship Specialty Start Date End Date None None PCP - General 07/23/11 documented as of this encounter
--- OUTSIDE RECORDS SUMMARY | 2024-04-16 14:08 | XMS_ITS | Encounter Summary ---
Author Organization [facility] [place] [address] Care Team Providers Care Home Energy Auditor Name Role Phone None Primary Care Provider Unavailabl e Encounter Details Date Type Department Care Team (Late st Contact Info) Description 12/28/2012 3:13 PM EDT - 12/28/2012 11:59 PM EDT Hospital En[place] [id number] Social History Tobacco Use Types Packs/Day Years [...] moderate pain). 60 tablet 2 06/21/2013 08/02/2013 progesterone (PROMETRIUM) 100 mg capsule Take 100 mg by mouth 3 times daily. 01/24/2013 documented as of this encounter Plan of Treatment Not on file documented as of this encounter Procedures Procedure Name Priority Date/Time Associated Diagnosis Comments US OB VIABILITY MULTIPLE Routine 12/28/2012 4:20 PM EDT state, incidental documented in this encounter Results * US OB dating viability multiple (12/28/2012 4:20 PM EDT) Anatomical Region Laterality Modality Pelvis Ultrasound 12/28/2012 4:20 PM EDT Narrative 12/28/2012 4:27 PM EDT ?OBSTETRICS REPORT ? (Signed Final 12/28/2012 04:26 pm) Patient Info ID: ? [id number] ? : ??[birth year] (27 yrs) Name: ? CLEMENT EUBANKS ? Visit Date: 12/28/2012 03:59 pm Performed By Performed By: ?Beulah Rubio RDMS Attending: ? Josep DAVID, Joe Angela Referred By: ? DAVI QUILES MD Service(s) Provided UOBVIBMULT -Viability- Transabdominal - Multiple ?[id number], [id number] gestation - [id number], [id number] Indications Follow up OB ultrasound to confirm viablity Evaluation (Fetus A) Num Of Fetuses: ?2 Preg. Location: ?Uterus Gest. Sac: ? Visualized Yolk Sac: ?Visualized Pole: ?Visualized Heart Rate: ??192 ?bpm Cardiac Activity: ??Observed Lie: ? Twin Presentation: ?Variable Placenta: ?Too early to evaluate Membrane Desc: ?Dichoronic, Diamniotic Amniotic Fluid VISHAL FV: ?Too early to evaluate Biometry (Fetus A) CRL: ?27 ??mm ?G. Age: ?? 9w 4d ? SHERRIE: ?? 07/29/13 Gestational Age (Fetus A) Best: ?9w 2d ?Det. By: ??Embryo ? SHERRIE: ?? 07/31/13 ? Transfer ? (11/10/12) Evaluation (Fetus B) Num Of Fetuses: ?2 Preg. Location: ?Uterus Gest. Sac: ? Visualized Yolk Sac: ?Visualized Pole: ?Visualized Heart Rate: ??183 ?bpm Cardiac Activity: ??Observed Lie: ? Twin Presentation: ?Variable Placenta: ?Too early to evaluate Membrane Desc: ?Dichoronic, Diamniotic Amniotic Fluid VISHAL FV: ?Too early to evaluate Biometry (Fetus B) CRL: ?28 ??mm ?G. Age: ?? 9w 4d ? SHERRIE: ?? 07/29/13 Gestational Age (Fetus B) Best: ?9w 2d ?Det. By: ??Embryo ? SHERRIE: ?? 07/31/13 ? Transfer ? (11/10/12) Cervix Uterus Adnexa Left Ovary: ?Not visualized Right Ovary: ?? Cyst measuring 3.8 cm Impression 1st Trimester Twin Summary Twin living intrauterine with dichorionic- diamnotic placentation and a gestational age of 9w 2d weeks based on embyro transfer. The crown rump length corresponds to a gestational age of A: 9w 4d, B: 9w 4d. I ??viewed the images and agree with the above interpretation. Thank you for allowing us to participate in the care of CLEMENT EUBANKS. Please do not hesitate to call if you have any questions. ?Fela Sharif MD Electronically Signed Final Report ?? 12/28/2012 04:26 pm Procedure Note Fela Sharif MD - 12/28/2012 OBSTETRICS REPORT (Signed Final 12/28/2012 04:26 pm) Patient Info ID: [id number] : [birth year] (27 yrs) Name: CLEMENT EUBANKS Visit Date: 12/28/2012 03:59 pm Performed By Performed By: Beulah Rubio RDMS Attending: Joe Car MD Referred By: DAVI QUILES MD Service(s) Provided UOBVIBMULT -Viability- Transabdominal - Multiple [id number], [id number] gestation - [id number], [id number] Indications Follow up OB ultrasound to confirm viablity Evaluation (Fetus A) Num Of Fetuses: 2 Preg. Location: Uterus Gest. Sac: Visualized Yolk Sac: Visualized Pole: Visualized Heart Rate: 192 bpm Cardiac Activity: Observed Lie: Twin Presentation: Variable Placenta: Too early to evaluate Membrane Desc: Dichoronic, Diamniotic Amniotic Fluid VISHAL FV: Too early to evaluate Biometry (Fetus A) CRL: 27 mm G. Age: 9w 4d SHERRIE: 07/29/13 Gestational Age (Fetus A) Best: 9w 2d Det. By: Embryo SHERRIE: 07/31/13 Transfer (11/10/12) Evaluation (Fetus B) Num Of Fetuses: 2 Preg. Location: Uterus Gest. Sac: Visualized Yolk Sac: Visualized Pole: Visualized Heart Rate: 183 bpm Cardiac Activity: Observed Lie: Twin Presentation: Variable Placenta: Too early to evaluate Membrane Desc: Dichoronic, Diamniotic Amniotic Fluid VISHAL FV: Too early to evaluate Biometry (Fetus B) CRL: 28 mm G. Age: 9w 4d SHERRIE: 07/29/13 Gestational Age (Fetus B) Best: 9w 2d Det. By: Embryo SHERRIE: 07/31/13 Transfer (11/10/12) Cervix Uterus Adnexa Left Ovary: Not visualized Right Ovary: Cyst measuring 3.8 cm Impression 1st Trimester Twin Summary Twin living intrauterine with dichorionic- diamnotic placentation and a gestational age of 9w 2d weeks based on embyro transfer. The crown rump length corresponds to a gestational age of A: 9w 4d, B: 9w 4d. I viewed the images and agree with the above interpretation. Thank you for allowing us to participate in the care of CLEMENT EUBANKS. Please do not hesitate to call if you have any questions. Fela Sharif MD Electronically Signed Final Report 12/28/2012 04:26 pm Davi Quiles MD IMG US OB ORDERA BLES documented in this encounter Visit Diagnoses Diagnosis state, incidental documented in this encounter Care Teams Home Energy Auditor Relationship Specialty Start Date End Date None None PCP - General 07/23/11 documented as of this encounter
--- OUTSIDE RECORDS SUMMARY | 2024-04-16 14:08 | XMS_ITS | Encounter Summary ---
Author Organization Formerly [facility] [place] [address] Care Team Providers Care Museum Docent Name Role Phone None Primary Care Provider Unavailabl e Encounter Details Date Type Department Care Team (Latest Contact Info) Description 02/28/2013 8:30 AM EST Routine Obstetrics [place] [address] CLINIC, Fela Disla MD [facility] [place] [address] Discharge Disposition: Home Social History Tobacco Use [...] Sign Reading Time Taken Comments Blood Pressure 126/68 02/28/2013 8:13 AM EST Pulse - - Temperature - - Respiratory Rate - - Oxygen Saturation - - Inhaled Oxygen Concentration - - Weight 66.5 kg (146 lb 8 oz) 02/28/2013 8:13 AM EST Height - - Body Mass Index 25.15 12/22/2012 2:07 PM EDT documented in this encounter Progress Notes * Fela Sharif MD - 02/28/2013 8:58 AM EST Di/di twin male fetuses. Normal appearing anatomy. No OB complaints. Very concerned regarding weight gain; hard to tell if it is concern that she has gained too much or too little weight. I assured her that her weight gain to date has been appropriate. RTC 4 weeks with u/s growth. IF continued normal growth at that time, space growth u/s to 6 weeks. documented in this encounter Plan of Treatment Not on file documented as of this encounter Results * US OB follow up multiple (03/28/2013 8:57 AM EST) Anatomical Region Laterality Modality Pelvis, Abdomen Ultrasound 03/28/2013 8:57 AM EST Narrative 03/28/2013 1:15 PM EST ?OBSTETRICS REPORT ? (Signed Final 03/28/2013 01:14 pm) Patient Info ID: ? [id number] ? : ??[birth year] (28 yrs) Name: ? CLEMENT EUBANKS ? Visit Date: 03/28/2013 08:46 am Performed By Performed By: ?Mayuri Domingo RDMS Attending: ? Fela Sharif MD ??Beatrice Referred By: ? GOLD HALE MD Service(s) Provided UOBFOLMULT - Efw - Growth - Multiple Gestation - ?[id number], [id number] Indications Growth; di/di twins Evaluation (Fetus A) Num Of Fetuses: ?2 Heart Rate: ??157 ?bpm Cardiac Activity: ??Observed, normal rhythm Lie: ? Right Presenting Twin Presentation: ?Breech Placenta: ?Anterior right lateral P. Cord ?Within Normal Limits Insertion: Membrane Desc: ?Dichoronic, Diamniotic Membrane Size: ?Normal Amniotic Fluid VISHAL FV: ?MVP - Within Normal Limits ? Dimas Larkin: ? 6.1 ??cm Biometry (Fetus A) BPD: ?55.5 ??mm ?G. Age: ?? 23w 0d OFD: ?75.3 ??mm HC: ?210.2 ??mm ?G. Age: ?? 23w 1d AC: ?183.4 ??mm ?G. Age: ?? 23w 1d FL: ? 42.9 ??mm ?G. Age: ?? 24w 0d HUM: ?39.7 ??mm ?G. Age: ?? 24w 1d CI: ?73.7 ??% ? 70 - 86 FL/HC: ? 20.4 ??% ? 18.4 - 20.2 HC/AC: ? 1.15 ?1.06 - 1.25 FL/BPD: ?77.3 ??% ? 71 - 87 FL/AC: ? 23.4 ??% ? 20 - 24 Est. FW: ? 598 ?? gm ? 1 lb 5 oz Gestational Age (Fetus A) U/S Today: ? 23w 2d ?SHERRIE: ?? 07/23/13 Best: ?22w 1d ?? Det. By: ??Embryo ? SHERRIE: ?? 07/31/13 ? Transfer ? (11/10/12) Anatomy (Fetus A) Cranium: ?Limited Views Cavum: ?Visualized Cerebellum: ? Limited Views Posterior Fossa: ?Limited Views Nuchal Fold: ?Not evaluated at this gestational age Face: ? Not seen due to position Heart: ?4 -chamber view appears normal RVOT: [...] Left Upper Twin Presentation: ?Breech Placenta: ?Anterior left lateral P. Cord ?Within Normal Limits Insertion: Membrane Desc: ?Dichoronic, Diamniotic Membrane Size: ?Normal Amniotic Fluid VISHAL FV: ?MVP - Within Normal Limits ? Dimas Larkin: ? 7.0 ??cm Biometry (Fetus B) BPD: ?56.9 ??mm ?G. Age: ?? 23w 3d OFD: ?76 ??mm HC: ?212.5 ??mm ?G. Age: ?? 23w 2d AC: ?196.2 ??mm ?G. Age: ?? 24w 2d FL: ? 40.6 ??mm ?G. Age: ?? 23w 1d HUM: ?38.3 ??mm ?G. Age: ?? 23w 4d CER: ?24.8 ??mm ?G. Age: ?? 22w 6d CI: ?74.9 ??% ? 70 - 86 FL/HC: ? 19.1 ??% ? 18.4 - 20.2 HC/AC: ? 1.08 ?1.06 - 1.25 FL/BPD: ?71.4 ??% ? 71 - 87 FL/AC: ? 20.7 ??% ? 20 - 24 Est. FW: ? 623 ?? gm ? 1 lb 6 oz Gestational Age (Fetus B) U/S Today: ? 23w 4d ?SHERRIE: ?? 07/21/13 Best: ?22w 1d ?? Det. By: ??Embryo ? SHERRIE: ?? 07/31/13 ? Transfer ? (11/10/12) Anatomy (Fetus B) Cranium: ?Limited Views Cavum: ?Visualized Cerebellum: ? Limited Views Posterior Fossa: ?Limited Views Nuchal Fold: ?Not evaluated at this gestational age Face: ? Nose/ Lips seen - WNL Heart: ?4 -chamber view appears normal RVOT: [...] ?? Not visualized Impression 2nd Trimester Twins Summary Twin intrauterine with a gestational age of 22w 1d based on embryo transfer. Composite age based on the current ultrasound alone is A: 23w 2d, B: 23w 4d. Current growth parameters are consistent indicating normal growth for each fetus. Amniotic fluid volume is A: MVP - Within Normal Limits, B: MVP - Within Normal Limits Largest pocket = A: 6.1, B: 7.0 cm Anatomical survey is limited due to the late gestational age, however no structural abnormalities are noted. I ??viewed the images and agree with the above interpretation. Thank you for allowing us to participate in the care of CLEMENT EUBANKS. Please do not hesitate to call if you have any questions. ?Fela Sharif MD Electronically Signed Final Report ?? 03/28/2013 01:14 pm Procedure Note Fela Sharif MD - 03/28/2013 OBSTETRICS REPORT (Signed Final 03/28/2013 01:14 pm) Patient Info ID: [id number] : [birth year] (28 yrs) Name: CLEMENT EUBANKS Visit Date: 03/28/2013 08:46 am Performed By Performed By: Mayuri Domingo RDMS Attending: Fela Sharif MD Referred By: GOLD HALE MD Service(s) Provided UOBFOLMULT - Efw - Growth - Multiple Gestation - [id number], [id number] Indications Growth; di/di twins Evaluation (Fetus A) Num Of Fetuses: 2 Heart Rate: 157 bpm Cardiac Activity: Observed, normal rhythm Lie: Right Presenting Twin Presentation: Breech Placenta: Anterior right lateral P. Cord Within Normal Limits Insertion: Membrane Desc: Dichoronic, Diamniotic Membrane Size: Normal Amniotic Fluid VISHAL FV: MVP - Within Normal Limits Larg Pckt: 6.1 cm Biometry (Fetus A) BPD: 55.5 mm G. Age: 23w 0d OFD: 75.3 mm HC: 210.2 mm G. Age: 23w 1d AC: 183.4 mm G. Age: 23w 1d FL: 42.9 mm G. Age: 24w 0d HUM: 39.7 mm G. Age: 24w 1d CI: 73.7 % 70 - 86 FL/HC: 20.4 % 18.4 - 20.2 HC/AC: 1.15 1.06 - 1.25 FL/BPD: 77.3 % 71 - 87 FL/AC: 23.4 % 20 - 24 Est. FW: 598 gm 1 lb 5 oz Gestational Age (Fetus A) U/S Today: 23w 2d SHERRIE: 07/23/13 Best: 22w 1d Det. By: Embryo SHERRIE: 07/31/13 Transfer (11/10/12) Anatomy (Fetus A) Cranium: Limited Views Cavum: Visualized Cerebellum: Limited Views Posterior Fossa: Limited Views Nuchal Fold: Not evaluated at this gestational age Face: Not seen due to position Heart: 4 -chamber view appears normal RVOT: [...] Left Upper Twin Presentation: Breech Placenta: Anterior left lateral P. Cord Within Normal Limits Insertion: Membrane Desc: Dichoronic, Diamniotic Membrane Size: Normal Amniotic Fluid VISHAL FV: MVP - Within Normal Limits Larg Pckt: 7.0 cm Biometry (Fetus B) BPD: 56.9 mm G. Age: 23w 3d OFD: 76 mm HC: 212.5 mm G. Age: 23w 2d AC: 196.2 mm G. Age: 24w 2d FL: 40.6 mm G. Age: 23w 1d HUM: 38.3 mm G. Age: 23w 4d CER: 24.8 mm G. Age: 22w 6d CI: 74.9 % 70 - 86 FL/HC: 19.1 % 18.4 - 20.2 HC/AC: 1.08 1.06 - 1.25 FL/BPD: 71.4 % 71 - 87 FL/AC: 20.7 % 20 - 24 Est. FW: 623 gm 1 lb 6 oz Gestational Age (Fetus B) U/S Today: 23w 4d SHERRIE: 07/21/13 Best: 22w 1d Det. By: Embryo SHERRIE: 07/31/13 Transfer (11/10/12) Anatomy (Fetus B) Cranium: Limited Views Cavum: Visualized Cerebellum: Limited Views Posterior Fossa: Limited Views Nuchal Fold: Not evaluated at this gestational age Face: Nose/ Lips seen - WNL Heart: 4 -chamber view appears normal RVOT: Visualized LVOT: Visualized Diaphragm: Visualized Stomach: Visualized Abdomen: Limited Views Abdominal Wall: Not visualized due to late gestational age Cord Vessels: 3- vessels- WNL Kidneys: Visualized Bladder: Visualized Spine: Limited views Lower Limited views Extremities: Upper Limited views Extremities: Cervix Uterus Adnexa Left Ovary: Not visualized Right Ovary: Not visualized Impression 2nd Trimester Twins Summary Twin intrauterine with a gestational age of 22w 1d based on embryo transfer. Composite age based on the current ultrasound alone is A: 23w 2d, B: 23w 4d. Current growth parameters are consistent indicating normal growth for each fetus. Amniotic fluid volume is A: MVP - Within Normal Limits, B: MVP - Within Normal Limits Largest pocket = A: 6.1, B: 7.0 cm Anatomical survey is limited due to the late gestational age, however no structural abnormalities are noted. I viewed the images and agree with the above interpretation. Thank you for allowing us to participate in the care of CLEMENT EUBANKS. Please do not hesitate to call if you have any questions. Fela Sharif MD Electronically Signed Final Report 03/28/2013 01:14 pm Fela Sharif MD IMG US OB ORDERAB LES documented in this encounter Visit Diagnoses Diagnosis Female infertility Female infertility of unspecified origin Dichorionic diamniotic twin gestation Twin gestation, dichorionic/diamniotic (two placentae, two amniotic sacs) with history of infertility, second trimester Female infertility Female infertility of unspecified origin Dichorionic diamniotic twin gestation Twin gestation, dichorionic/diamniotic (two placentae, two amniotic sacs) with history of infertility, second trimester with history of infertility documented in this encounter Care Teams Museum Docent Relationship Specialty Start Date End Date None None PCP - General 07/23/11 documented as of this encounter
--- OUTSIDE RECORDS SUMMARY | 2024-04-16 14:08 | XMS_ITS | Encounter Summary ---
Author Organization [facility] [place] [address] Care Team Providers Care Car Unloader Helper Name Role Phone None Primary Care Provider Unavailabl e Reason for Visit * Reason Comments Routine Visit Encounter Details Date Type Department Care Team (Latest Contact Info) Description 12/28/2012 4:15 PM EDT Routine Obstetrics [place] [phone] Daquan Tran MD Discharge Disposition: Home Social [...] Sign Reading Time Taken Comments Blood Pressure 128/78 12/28/2012 4:31 PM EDT Pulse - - Temperature - - Respiratory Rate - - Oxygen Saturation - - Inhaled Oxygen Concentration - - Weight 62 kg (136 lb 11.2 oz) 12/28/2012 4:31 PM EDT Height - - Body Mass Index 23.46 12/22/2012 2:07 PM EDT documented in this encounter Progress Notes * Daquan Tran MD - 12/28/2012 4:42 PM EDT US today shows viable twin gestaton. She did not have any bleeding between to Tuesday. The bleeding is dark brown and rather sporadic. We discussed aneuploidy screening, at this point theydecline, they may review the video. Will do flu shot next month. C/o heart burn in am adn pm, will try tums and if that does not work will use pecid RTC 4 weeks and then 4.5 weeks with US. documented in this encounter Miscellaneous Notes * Miscellaneous - Provider, Scanning - 01/08/2013 10:35 AM EDT documented in this encounter Plan of Treatment Not on file documented as of this encounter Results * US OB targeted morphology multiple (02/28/2013 8:49 AM EST) Anatomical Region Laterality Modality Pelvis, Abdomen Ultrasound 02/28/2013 8:49 AM EST Narrative 02/28/2013 10:38 AM EST ?OBSTETRICS REPORT ? (Signed Final 02/28/2013 10:37 am) Patient Info ID: ? [id number] ? : ??[birth year] (27 yrs) Name: ? CLEMENT EUBANKS ? Visit Date: 02/28/2013 08:12 am Performed By Performed By: ?Abiodun DALIY, ??Emy Attending: ? Kole DAVID, E ??Beatrice Referred By: ? DAQUAN TRAN MD Service(s) Provided UMFMMULTI - Targeted Morphology - Multiple ?[id number], [address] [facility] [place] [id number], [id number] Indications di/di twins Evaluation (Fetus A) Num [...] ?64.4 ??% FL/AC: ? 20.3 ??% ? 20 - 24 Est. FW: ? 252 ?? gm ? [...] Tract: ?Visualized L Outflow Tract: ?Visualized Cardiac [place]: ? Visualized Diaphragm: ?Visualized Abdomen Ventral Wall: [...] ?64.1 ??% FL/AC: ? 20.2 ??% ? 20 - Est. FW: ? 246 ?? gm [...] Tract: ?Visualized L Outflow Tract: ?Visualized Cardiac [place]: ? Visualized Diaphragm: ?Visualized Abdomen Ventral Wall: [...] Final 02/28/2013 10:37 am) Patient Info ID: [id number] : [birth year] (27 yrs) Name: CLEMENT EUBANKS Visit Date: 02/28/2013 08:12 am Performed By Performed By: Emy Rascon RDMS Attending: Fela Sharif MD Referred By: DAQUAN TRAN MD Service(s) Provided UMFMMULTI - Targeted Morphology - Multiple 07811, 88680 Gestation - [id number], [id number] Indications di/di twins Evaluation (Fetus A) Num [...] Tract: Visualized L Outflow Tract: Visualized Cardiac [place]: Visualized Diaphragm: Visualized Abdomen Ventral Wall: Visualized [...] Tract: Visualized L Outflow Tract: Visualized Cardiac [place]: Visualized Diaphragm: Visualized Abdomen Ventral Wall: Visualized [...] 02/28/2013 10:37 am Daquan Tran MD IMG US OB ORDERABLES documented in this encounter Visit Diagnoses Diagnosis Dichorionic diamniotic twin gestation- Primary Twin gestation, dichorionic/diamniotic (two placentae, two amniotic sacs) Dichorionic diamniotic twin gestation Twin gestation, dichorionic/diamniotic (two placentae, two amniotic sacs) documented in this encounter Care Teams Car Unloader Helper Relationship Specialty Start Date End Date None None PCP - General 07/23/11 documented as of this encounter
--- OUTSIDE RECORDS SUMMARY | 2024-04-16 14:08 | XMS_ITS | Encounter Summary ---
Author Organization [facility] [place] [address] Care Team Providers Care Hvac Specialist Name Role Phone None Primary Care Provider Unavailabl e Reason for Visit * Reason Onset Date Comments Rash 02/16/2013 Encounter Details Date Type Department Care Team (Late st Contact Info) Description 02/16/2013 Telephone Obstetrics [place] [phone] Valarie Mims RN Rash Social History Tobacco Use Types Packs/Day Years [...] Telephone Encounter - Valarie Mims RN - 02/16/2013 11:43 AM EST Flaca calls with worsening rash on her feet, legs, body, and hands. She states that they are terribly itchy, and that the spots are beginning to fill up with fluid. She is varicella immune. She is referred to her PCP, and states that she will call and make an appointment with them. * Telephone Encounter - Valarie Mims RN - 02/16/2013 11:42 AM EST Message copied by VALARIE MIMS on TueFeb 16, 2013 11:42 AM ------ Message from: LUIS MARTINS Created: TueFeb 16, 2013 10:46 AM Please call [phone]. Her rash has spread documented in this encounter Plan of Treatment Not on file documented as of this encounter Visit Diagnoses Not on filedocumented in this encounter Care Teams Hvac Specialist Relationship Specialty Start Date End Date None None PCP - General 07/23/11 documented as of this encounter
--- OUTSIDE RECORDS SUMMARY | 2024-04-16 14:08 | XMS_ITS | Encounter Summary ---
Author Organization [facility] [place] [address] Care Team Providers Care Boiler Shop Supervisor Name Role Phone None Primary Care Provider Unavailabl e Encounter Details Date Type Department Care Team (Latest Contact Info) Description 04/25/2013 12:53 PM EST - 04/25/2013 11:59 PM EST Hospital Encounter Ultrasound at [facility] [phone] High-risk supervision, second trimester Social History Tobacco Use Types Packs/Day Years [...] Comments US OB FOLLOW UP MULTIPLE Routine 04/25/2013 1:29 PM EST High-risk supervision, second trimester documented in this encounter Results * US OB follow up multiple (04/25/2013 1:29 PM EST) Anatomical Region Laterality Modality Pelvis, Abdomen Ultrasound 04/25/2013 1:29 PM EST Narrative 04/25/2013 1:47 PM EST ?OBSTETRICS REPORT ? (Signed Final 04/25/2013 01:46 pm) Patient Info ID: ? [id number] ? : ??[birth year] (28 yrs) Name: ? CLEMENT EUBANKS ? Visit Date: 04/25/2013 01:24 pm Performed By Performed By: ?Beulah Rubio RDMS Attending: ? Seth DAVID, Dayana Kumar Referred By: ? E BERTO SHARIF MD Service(s) Provided UOBFOLMULT - Efw - Growth - Multiple Gestation - ?[id number], [id number] Indications f/u growth; di/di twins Evaluation (Fetus A) Num Of Fetuses: ?2 Heart Rate: ??145 ?bpm Cardiac Activity: ??Observed, normal rhythm Lie: ? Presenting Twin Presentation: ?Cephalic Placenta: ?Anterior P. Cord ?Within Normal Limits Insertion: Membrane Desc: ?Dichoronic, Diamniotic Amniotic Fluid VISHAL FV: ?Normal ? Larg Pckt: ? 4.2 ??cm Biometry (Fetus A) BPD: [...] - 20.4 HC/AC: ? 1.18 ?1.04 - 04.04 FL/BPD: ?75.4 ??% ? 71 - 87 FL/AC: ? 24.4 ??% ? - Est. FW: ?1138 ?? gm ? 2 [...] ??% ? 20 - 24 Est. FW: ?1101 ?? gm ? 2 [...] Final 04/25/2013 01:46 pm) Patient Info ID: [id number] : [birth year] (28 yrs) Name: CLEMENT EUBANKS Visit Date: 04/25/2013 01:24 pm Performed By Performed By: Beulah Rubio RDMS Attending: Dayana Ann MD Referred By: Fela SHARIF MD Service(s) Provided UOBFOLMULT - Efw - Growth - Multiple Gestation - [id number], [id number] Indications f/u growth; di/di twins Evaluation (Fetus [...] to participate in the care of CLEMENT Guerrero SHANE. Please do not hesitate to call if you have any questions. Dayana Ann MD Electronically Signed Final Report 04/25/2013 01:46 pm E Berto Sharif MD IMG US OB ORDERAB LES documented in this encounter Visit Diagnoses Diagnosis High-risk supervision, second trimester documented in this encounter Care Teams Boiler Shop Supervisor Relationship Specialty Start Date End Date None None PCP - General 07/23/11 documented as of this encounter
--- OUTSIDE RECORDS SUMMARY | 2024-04-16 14:08 | XMS_ITS | Encounter Summary ---
Author Organization [facility] [place] [address] Care Team Providers Care Clamp Forklift Operator Name Role Phone None Primary Care Provider Unavailabl e Reason for Visit * Reason Comments Routine Visit Encounter Details Date Type Department Care Team (Latest Contact Info) Description 01/24/2013 2:00 PM EST Routine Obstetrics [place] [address] Fela Sharif MD [facility] [address] OBSTETRICS [place] [address] Discharge Disposition: Home Social History Tobacco Use [...] Sign Reading Time Taken Comments Blood Pressure 128/72 01/24/2013 1:32 PM EST Pulse - - Temperature - - Respiratory Rate - - Oxygen Saturation - - Inhaled Oxygen Concentration - - Weight 62.6 kg (137 lb 14.4 oz) 01/24/2013 1:32 PM EST Height - - Body Mass Index 23.67 12/22/2012 2:07 PM EDT documented in this encounter Progress Notes * Shanae Mccormick MD - 01/24/2013 1:51 PM EST Denies bleeding since last visit. No vaginal discharge, no cramping. Feeling tired and having a hard time sleeping some nights. No N/V. Concerned that she has not gained much weight yet. Declines aneuploidy screening. Desires flu shot today. Has no other questions or concerns. - Flu shot today - Next visit in 4 weeks. - Advised 35-40 lb weight gain in , reassured patient about weight gain D/w Dr. Kole MCCORMICK MD PGY4 * Yessi Virgen LPN - 01/24/2013 1:32 PM EST Skin to Skin Contact and an Early Start to pamphlet given to patient along with the Depression and Nutrition Screens. documented in this encounter Miscellaneous Notes * Miscellaneous - Provider, Scanning - 05/09/2013 9:42 AM EST documented in this encounter Plan of Treatment Not on file documented as of this encounter Visit Diagnoses Diagnosis Supervision of other normal - Primary Dichorionic diamniotic twin in second trimester Twin , antepartum documented in this encounter Care Teams Clamp Forklift Operator Relationship Specialty Start Date End Date None None PCP - General 07/23/11 documented as of this encounter
--- OUTSIDE RECORDS SUMMARY | 2024-04-16 14:08 | XMS_ITS | Encounter Summary ---
Author Organization [facility] [place] [address] Care Team Providers Care Customer Service Associate Name Role Phone None Primary Care Provider Unavailabl e Encounter Details Date Type Department Care Team (Late st Contact Info) Description 12/22/2012 Orders Only Obstetrics [place] [address] Viral Villanueva MD Social History Tobacco Use Types Packs/Day Years Used Date Smoking Tobacco: Never Smokeless Tobacco: Never Alcohol Use Standard Drinks/Week Comments No 0 (1 standard drink = 0.6 oz pur e alcohol) Comments Yes Sex and Gender Information Value Date Recorded Sex Assigned at Not on file Gender Identity Not on file Sexual Orientation Not on file documented as of this encounter Plan of Treatment Not on file documented as of this encounter Visit Diagnoses Not on filedocumented in this encounter Care Teams Customer Service Associate Relationship Specialty Start Date End Date None None PCP - General 07/23/11 documented as of this encounter
--- OUTSIDE RECORDS SUMMARY | 2024-04-16 14:08 | XMS_ITS | Encounter Summary ---
Author Organization [facility]ly [facility] [place] [address] Care Team Providers Care Junior Software Engineer Name Role Phone None Primary Care Provider Unavailabl e Encounter Details Date Type Department Care Team (Late st Contact Info) Description 12/14/2012 Orders Only Obstetrics [place] [address] Blayne Quiles MD Hypothyroid (Primary Dx) Social History Tobacco Use Types Packs/Day Years [...] documented as of this encounter Results * TSH (12/14/2012 10:59 AM EDT) Thyroid Stimulating Hormone 1.19 0.27 - 4.20 mcIU/mL CERAMANDA MILLENNIUM Blood specimen (specimen) 12/14/2012 10:59 AM EDT 12/14/2012 11:04 AM EDT Narrative Resulting Agency Comment Spec In Lab Blayne Quiles MD CHEMISTRY ORDERA BLES CERNER virocyt documented in this encounter Visit Diagnoses Diagnosis Hypothyroid- Primary Unspecified hypothyroidism documented in this encounter Care Teams Junior Software Engineer Relationship Specialty Start Date End Date None None PCP - General 07/23/11 documented as of this encounter
--- OUTSIDE RECORDS SUMMARY | 2024-04-16 14:08 | XMS_ITS | Encounter Summary ---
Author Organization [facility] [place] [address] Care Team Providers Care Internal Medicine Specialist Name Role Phone None Primary Care Provider Unavailabl e Reason for Visit * Reason Comments Other Encounter Details Date Type Department Care Team (Late st Contact Info) Description 02/16/2013 Telephone Obstetrics [place] [phone] Valarie Mims RN Social History Tobacco Use Types [...] Encounter - Valarie Mims RN - 02/16/2013 2:14 PM EST Flaca calls after seeing her PCP for her rash. They believe it to be poison adamaris vs. Wood mites. Their recommendation is to continue to take benadryl, use excema cream, and oatmeal baths. She is to call on Tuesday if this does not approve. They would like to prescribe a cream, but it a category C and they would like OB to approve this. She will call back on Tuesday with the name of this medication i f it is necessary. * Telephone Encounter - Valarie Mims RN - 02/16/2013 2:14 PM EST Message copied by VALARIE MIMS on TueFeb 16, 2013 2:14 PM ------ Message from: LUIS MARTINS Created: TueFeb 16, 2013 1:49 PM Please call [phone], she went and saw her PCP and is calling you back documented in this encounter Plan of Treatment Not on file documented as of this encounter Visit Diagnoses Not on filedocumented in this encounter Care Teams Internal Medicine Specialist Relationship Specialty Start Date End Date None None PCP - General 07/23/11 documented as of this encounter
--- OUTSIDE RECORDS SUMMARY | 2024-04-16 14:08 | XMS_ITS | Encounter Summary ---
Author Organization [facility] [address] Care Team Providers Care Quarry Extraction Worker Name Role Phone None Primary Care Provider Unavailabl e Encounter Details Date Type Department Care Team (Late st Contact Info) Description 12/22/2012 Orders Only Obstetrics [place] [address] Jazmyne Mims RN (Primary Dx) Social History Tobacco Use Types [...] as of this encounter Plan of Treatment Scheduled Orders Name Type Priority Associated Diagnoses Orde r Schedule POCT urine dipstick Point of Care Testing Routine Ordered: 12/22/2012 Hepatitis B Surface Antigen Lab Routine Expected: 12/22/2012 (Approximate), Expires: 12/22/2013 documented as of this encounter Results * Urine culture Clean Catch Urine (12/22/2012 5:38 PM EDT) Urine Culture ? Patient Name: SHANE CLEMENT Yolanda ? Ordered By: DAQUAN TRAN ? MR#: [id number] ?LOC: ??5L ? /Sex: ?? 5 (27 years), ? Female ? PROCEDURE: Urine Culture ?SOURCE: U CC ? COLLECTED: 12/22/2012 17:38 ? STARTED: 12/22/2012 17:39 ? FINAL REPORT ? Final Report ? Verified: 15:04 ? No growth (Less than 1,000 cfu/ml). ? ____ [facility] Urine specimen obtained by clean catch procedure (specimen) 12/22/2012 5:38 PM EDT 12/22/2012 5:38 PM EDT Narrative Resulting Agency Comment Spec In Lab Daquan Tran MD MICROBIOLOGY - GENER AL ORDERABLES Performing Organization Address [facility] Phone Number [facility] * HIV (12/22/2012 4:18 PM EDT) HIV 1/2 Ab Negative Negative [facility] Blood specimen (specimen) 12/22/2012 4:18 PM EDT 12/22/2012 4:25 PM EDT Narrative Resulting Agency Comment Spec In Lab Daquan Tran MD CHEMISTRY ORDERABLES Performing Organization Address [facility] de Phone Number [facility] * Varicella zoster Antibody, IgG (12/22/2012 4:18 PM EDT) Varicella Zoster Antibody IgG Pos [facility] Blood specimen (specimen) 12/22/2012 4:18 PM EDT 12/23/2012 11:15 AM EDT Narrative Resulting Agency Comment Spec In Lab Daquan Tran MD IMMUNOLOGY ORDERABLE S Performing Organization Address City/State/[facility] Co me Phone Number [facility] documented in this encounter Visit Diagnoses Diagnosis - Primary state, incidental documented in this encounter Care Teams Quarry Extraction Worker Relationship Specialty Start Date End Date None None PCP - General 07/23/11 documented as of this encounter
--- OUTSIDE RECORDS SUMMARY | 2024-04-16 14:08 | XMS_ITS | Encounter Summary ---
Author Organization [facility] [place] [address] Care Team Providers Care Farm Equipment Mechanic Name Role Phone None Primary Care Provider Unavailabl e Encounter Details Date Type Department Care Team (Latest Contact Info) Description 03/28/2013 8:00 AM EST - 03/28/2013 11:59 PM EST Hospital Encounter Ultrasound at [facility] [place] [address] Female infertility; Dichorionic diamniotic twin gestation; with history of infertility, second trimester; with history of infertility Social History Tobacco Use Types Packs/Day Years [...] Comments US OB FOLLOW UP MULTIPLE Routine 03/28/2013 8:57 AM EST Female infertility Dichorionic diamniotic twin gestation with history of infertility, second trimester with history of infertility documented in this encounter Results * US OB follow up multiple (03/28/2013 8:57 AM EST) Anatomical Region Laterality Modality Pelvis, Abdomen Ultrasound 03/28/2013 8:57 AM EST Narrative 03/28/2013 1:15 PM EST ?OBSTETRICS REPORT ? (Signed Final 03/28/2013 01:14 pm) Patient Info ID: ? [id number] ? : ??[birth year] (28 yrs) Name: ? CLEMENT EUBANKS ? Visit Date: 03/28/2013 08:46 am Performed By Performed By: ?Mayuri Domingo RDMS Attending: ? Kole DAVID, E ??Beatrice Referred By: ? GOLD HALE MD Service(s) Provided [facility] - w - Growth - Multiple Gestation - ?[id number], [id number] Indications Growth; di/di twins Evaluation (Fetus A) [...] Final 03/28/2013 01:14 pm) Patient Info ID: [id number] : [birth year] (28 yrs) Name: CLEMENT EUBANKS Visit Date: 03/28/2013 08:46 am Performed By Performed By: Mayuri Domingo RDMS Attending: Fela Sharif MD Referred By: GOLD HALE MD Service(s) Provided UOBFOLMULT - Efw - Growth - Multiple Gestation - [id number], [id number] Indications Growth; di/di twins Evaluation (Fetus A) [...] infertility documented in this encounter Care Teams Farm Equipment Mechanic Relationship Specialty Start Date End Date None None PCP - General 07/23/11 documented as of this encounter
--- OUTSIDE RECORDS SUMMARY | 2024-04-16 14:08 | XMS_ITS | Encounter Summary ---
Author Organization [facility] [place] [address] Care Team Providers Care Arc Cutter Name Role Phone None Primary Care Provider Unavailabl e Reason for Visit * Reason Comments Follow-up pregnacy ultrasound after IVF Encounter Details Date Type Department Care Team (Late st Contact Info) Description 12/14/2012 10:00 AM EDT Office Visit Obstetrics and Gynecology at [facility] [place] [phone] Blayne Quiles MD Hypothyroid; Supervision of with history of infertility Discharge Disposition: Home Social History Tobacco Use [...] on file documented as of this encounter Progress Notes * Blayne Quiles MD - 12/14/2012 10:25 AM EDT 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 She became , had an ultrasound with twin gestation and returns for follow up. She has not had further bleeding, no nausea, but malaise. By retrieval on November 07 (day of conception) she should be 7 weeks 2 days Ultrasound: both gestational CR s compatible with 7 weeks 4 days. FHRs of 155 and 157. No other abnormalities. Impression Viable twin gestation at 7.4 weeks Plan This patient was seen for 15 minutes 10 of which were spent in face to face counseling. I discussedwith her and her the IVF cycle, expected dates by retrieval, US findings, and plans for care. care here MFM TSH documented in this encounter Plan of Treatment Not on file documented as of this encounter Procedures Procedure Name Priority Date/Time Associated Diagnosis Comments TSH Routine 12/14/2012 10:59 AM EDT Hypothyroid documented in this encounter Results * TSH (12/14/2012 10:59 AM EDT) Thyroid Stimulating Hormone 1.19 0.27 - 4.20 mcIU/mL BENI MILLENNIUM Blood specimen (specimen) 12/14/2012 10:59 AM EDT 12/14/2012 11:04 AM EDT Narrative Resulting Agency Comment Spec In Lab Blayne Quiles MD CHEMISTRY [facility]A [facility] [employer] documented in this encounter Visit Diagnoses Diagnosis Hypothyroid Unspecified hypothyroidism Supervision of with history of infertility with history of infertility documented in this encounter Care Teams Arc Cutter Relationship Specialty Start Date End Date None None PCP - General 07/23/11 documented as of this encounter
--- OUTSIDE RECORDS SUMMARY | 2024-04-16 14:08 | XMS_ITS | Encounter Summary ---
Author Organization [facility] [place] [address] Care Team Providers Care Editor News Name Role Phone None Primary Care Provider Unavailabl e Encounter Details Date Type Department Care Team (Late st Contact Info) Description 12/04/2012 Orders Only Obstetrics [place] [address] Blayne Quiles MD (Primary Dx) Social History Tobacco Use Types [...] as of this encounter Visit Diagnoses Diagnosis - Primary state, incidental documented in this encounter Care Teams Editor News Relationship Specialty Start Date End Date None None PCP - General 07/23/11 documented as of this encounter
--- OUTSIDE RECORDS SUMMARY | 2024-04-16 14:08 | XMS_ITS | Encounter Summary ---
Author Organization [facility] [place] [address] Care Team Providers Care Plant Guard Name Role Phone None Primary Care Provider Unavailabl e Encounter Details Date Type Department Care Team (Latest Contact Info) Description 12/14/2012 9:48 AM EDT - 12/14/2012 11:59 PM EDT Hospital En[place] [address] examination or test, unconfirmed Social History Tobacco Use Types Packs/Day Years [...] Sig Dispensed Refills Start Date End Date multivitamin (THERAGRAN) tablet Take 1 tablet by mouth daily. documented as of this encounter Plan of Treatment Not on file documented as of this encounter Procedures Procedure Name Priority Date/Time Associated Diagnosis Comments US OB TRANSVAGINAL Routine 12/14/2012 10 :31 AM EDT examination or test, unconfirmed documented in this encounter Results * US OB transvaginal (12/14/2012 10:31 AM EDT) Anatomical Region Laterality Modality Pelvis, Abdomen Ultrasound 12/14/2012 10:3 1 AM EDT Narrative 12/14/2012 10:36 AM EDT ?OBSTETRICS REPORT ? (Signed Final 12/14/2012 10:35 am) Patient Info ID: ? [id number] ? : ??[birth year] (27 yrs) Name: ? CLEMENT EUBANKS ? Visit Date: 12/14/2012 10:25 am Performed By Performed By: ?Mayuri Domingo RDMS Attending: ? Josep DAVID, Joe Angela Referred By: ? ORLANDO CRUZ MD Service(s) Provided UOBTV - Viability - Cervical Length - Transvaginal - ??[id number] Indications Viability and placement Evaluation (Fetus A) Num Of Fetuses: ?2 Preg. Location: ?Uterus Gest. Sac: ? Visualized Yolk Sac: ?Visualized Pole: ?Visualized Heart Rate: ??155 ?bpm Cardiac Activity: ??Observed, normal rhythm Lie: ? Right Twin Presentation: ?Variable Placenta: ?Too early to evaluate Membrane Desc: ?Dichorionic - Diamniotic Membrane Size: ?Normal Amniotic Fluid VISHAL FV: ?Too early to evaluate Biometry (Fetus A) CRL: ?12.9 ??mm ?G. Age: ?? 7w 3d ? SHERRIE: ?? 07/30/13 Gestational Age (Fetus A) Best: ?7w 2d ?Det. By: ??Embryo ? SHERRIE: ?? 07/31/13 ? Transfer ? (11/10/12) Evaluation (Fetus B) Num Of Fetuses: ?2 Preg. Location: ?Uterus Gest. Sac: ? Visualized Yolk Sac: ?Visualized Pole: ?Visualized Heart Rate: ??157 ?bpm Cardiac Activity: ??Observed, normal rhythm Lie: ? Left Twin Presentation: ?Variable Placenta: ?Too early to evaluate Membrane Desc: ?Dichorionic - Diamniotic Membrane Size: ?Normal Amniotic Fluid VISHAL FV: ?Too early to evaluate Biometry (Fetus B) CRL: ?13 ??mm ?G. Age: ?? 7w 4d ? SHERRIE: ?? 07/29/13 Gestational Age (Fetus B) Best: ?7w 2d ?Det. By: ??Embryo ? SHERRIE: ?? 07/31/13 ? Transfer ? (11/10/12) Cervix Uterus Adnexa Left Ovary: ?Visualized Right Ovary: ?? Visualized; simple cyst visualized, measuring 4.0 ?x 2.5 x 3.3 cm Impression 1st Trimester Twin Summary Twin living intrauterine with dichorionic- diamniotic placentation and a gestational age of 7w 2d weeks based on embryo transfer. The crown rump length corresponds to a gestational age of A: 7w 3d, B: 7w 4d. There is a 4.0 cm simple right ovarian cyst. The adenexa are otherwise normal. I ??viewed the images and agree with the above interpretation. Thank you for allowing us to participate in the care of CLEMENT EUBANKS. Please do not hesitate to call if you have any questions. ? Joe Car MD Electronically Signed Final Report ?? 12/14/2012 10:35 am Procedure Note Joe Car MD - 12/14/2012 OBSTETRICS REPORT (Signed Final 12/14/2012 10:35 am) Patient Info ID: [id number] : [birth year] (27 yrs) Name: CLEMENT EUBANKS Visit Date: 12/14/2012 10:25 am Performed By Performed By: Mayuri Domingo RDMS Attending: Joe Car MD. Referred By: ORLANDO CRUZ MD Service(s) Provided UOBTV - Viability - Cervical Length - Transvaginal - [id number] [phone] Indications Viability and placement Evaluation (Fetus A) Num Of Fetuses: 2 Preg. Location: Uterus Gest. Sac: Visualized Yolk Sac: Visualized Pole: Visualized Heart Rate: 155 bpm Cardiac Activity: Observed, normal rhythm Lie: Right Twin Presentation: Variable Placenta: Too early to evaluate Membrane Desc: Dichorionic - Diamniotic Membrane Size: Normal Amniotic Fluid VISHAL FV: Too early to evaluate Biometry (Fetus A) CRL: 12.9 mm G. Age: 7w 3d SHERRIE: 07/30/13 Gestational Age (Fetus A) Best: 7w 2d Det. By: Embryo SHERRIE: 07/31/13 Transfer (11/10/12) Evaluation (Fetus B) Num Of Fetuses: 2 Preg. Location: Uterus Gest. Sac: Visualized Yolk Sac: Visualized Pole: Visualized Heart Rate: 157 bpm Cardiac Activity: Observed, normal rhythm Lie: Left Twin Presentation: Variable Placenta: Too early to evaluate Membrane Desc: Dichorionic - Diamniotic Membrane Size: Normal Amniotic Fluid VISHAL FV: Too early to evaluate Biometry (Fetus B) CRL: 13 mm G. Age: 7w 4d SHERRIE: 07/29/13 Gestational Age (Fetus B) Best: 7w 2d Det. By: Embryo SHERRIE: 07/31/13 Transfer (11/10/12) Cervix Uterus Adnexa Left Ovary: Visualized Right Ovary: Visualized; simple cyst visualized, measuring 4.0 x 2.5 x 3.3 cm Impression 1st Trimester Twin Summary Twin living intrauterine with dichorionic- diamniotic placentation and a gestational age of 7w 2d weeks based on embryo transfer. The crown rump length corresponds to a gestational age of A: 7w 3d, B: 7w 4d. There is a 4.0 cm simple right ovarian cyst. The adenexa are otherwise normal. I viewed the images and agree with the above interpretation. Thank you for allowing us to participate in the care of CLEMENT EUBANKS. Please do not hesitate to call if you have any questions. Joe Car MD Electronically Signed Final Report 12/14/2012 10:35 am Orlando Cruz MD IMG US OB O RDERABLES documented in this encounter Visit Diagnoses Diagnosis examination or test, unconfirmed documented in this encounter Care Teams Plant Guard Relationship Specialty Start Date End Date None None PCP - General 07/23/11 documented as of this encounter
--- OUTSIDE RECORDS SUMMARY | 2024-04-16 14:09 | XMS_ITS | Encounter Summary ---
Author Organization [place] [address] Care Team Providers Care Subsorter Name Role Phone None Primary Care Provider Unavailabl e Reason for Visit * Reason Comments Ultrasound Encounter Details Date Type Department Care Team (Late st Contact Info) Description 12/04/2012 1:00 PM EDT Office Visit Obstetrics [place] [phone] Preeti Perez MD [facility] DR OBSTETRICS & [place] [address] Twins (Primary Dx); with history of infertility Discharge Disposition: Home [...] as of this encounter Progress Notes * Preeti Perez MD - 12/04/2012 3:55 PM EDT REPRODUCTIVE MEDICINE IVF/ART PROGRAM [facility] FIRST TRIMESTER ULTRASOUND Blayne Quiles MD Professor and Chair Department of SUPPORT TECHNICIAN Preeti Cruz MD IVF/ART Tie Puller MD Gia Tripp ARNP Reason for Visit: First trimester US with hx of infertility Embryo Transfer Date 11/10/2012 Day 3 EGA 5+5 weeks Subjective: Ms. Flaca Eubanks is a 27 y.o. was seen in US for a scheduled visit. She denies vaginal bleeding or spotting and continues to have symptoms. Objective: See US hdgbia-yzkizanvbj-lzymzfprafn twin IUP c/w dates Current outpatient prescriptions:multivitamin (THERAGRAN) tablet, Active, Take 1 tablet by mouth daily., Disp: , Rfl: Review of patient's allergies indicates no known allergies. Assessment: Diamniotic-dichorionic twin IUP consistent with embryo transfer dates I had a 15 minute face to face conversation with the patient and her spouse, 100% in face to face consultation. We reviewed the findings of her US-- location, growth and findings of her ovaries. We also reviewed her SHERRIE and medication recommendations (MVI,OTC and hormonal taper dating). She iscurrently taking MVI 1x/day with folic acid. She has no symptoms of hyperstimulation and notes less pelvic pressure. Recommendations: 1.) Continue folic acid containing multivitamin and add an additional 800 ugm folic acid 2.) Continue progestin medication until 10 weeks estimated gestation, start tapering estrogen to off by decreasing dose in half every other day 3.) Call with bleeding or spotting 4.) Repeat US in two weeks patient to schedule * Madeleine Cline, RN - 12/04/2012 1:20 PM EDT documented in this encounter Plan of Treatment Not on file documented as of this encounter Visit Diagnoses Diagnosis Twins- Primary Twin , unspecified as to episode of care with history of infertility documented in this encounter Care Teams Subsorter Relationship Specialty Start Date End Date None None PCP - General 07/23/11 documented as of this encounter
--- OUTSIDE RECORDS SUMMARY | 2024-04-16 14:09 | XMS_ITS | Encounter Summary ---
Author Organization [facility] [place] [address] Care Team Providers Care Histology Supervisor Name Role Phone None Primary Care Provider Unavailabl e Reason for Visit * Reason Onset Date Comments Test 11/21/2012 Encounter Details Date Type Department Care Team (Late st Contact Info) Description 11/21/2012 Telephone Obstetrics [place] [address] Annia Trejo RN Test Social History Tobacco Use Types Packs/Day Years [...] Telephone Encounter - Annia Trejo RN - 11/21/2012 12:54 PM EDT TELEPHONE NOTE Date of call: 11/20/12 Time of call: 15:30 Caller: Annia Trejo Rn to Flaca. Reason for call: Reporting QBHCG. S/P embryo transfer 11/10/12 of two embryo's. Blood type O NEG. HCG #1 @ 247 on 11/20/12. Assessment: excellent first HCG. Plan/Instructions: Will repeat QBHCG Q 48 hours until >1000. Early OB scan to be scheduled at that time. Will be 6 weeks on 12/05. Addendum: HCG #1 @ 247 on 11/20/12. HCG #2 @ 653 on 11/22/12 documented in this encounter Plan of Treatment Not on file documented as of this encounter Visit Diagnoses Not on filedocumented in this encounter Care Teams Histology Supervisor Relationship Specialty Start Date End Date None None PCP - General 07/23/11 documented as of this encounter
--- OUTSIDE RECORDS SUMMARY | 2024-04-16 14:09 | XMS_ITS | Encounter Summary ---
Author Organization [facility] [place] [address] Care Team Providers Care Car Porter Name Role Phone None Primary Care Provider Unavailabl e Encounter Details Date Type Department Care Team (Late st Contact Info) Description 11/27/2012 External Results Obstetrics [place] [address] Preeti Perez MD [facility] DR OBSTETRICS & [place] [address] Social History Tobacco Use Types Packs/Day Years [...] Priority Date/Time Associated Diagnosis Comments LAB SCAN Routine 11/24/2012 documented in this encounter Results * Scan Doc: Lab (11/24/2012) Preeti Cruz MD MEDIA MGR S CAN EXT ORDR/RSLT documented in this encounter Visit Diagnoses Not on filedocumented in this encounter Care Teams Car Porter Relationship Specialty Start Date End Date None None PCP - General 07/23/11 documented as of this encounter
--- OUTSIDE RECORDS SUMMARY | 2024-04-16 14:09 | XMS_ITS | Encounter Summary ---
Author Organization [facility] [place] [address] Care Team Providers Care Senior Economist Name Role Phone None Primary Care Provider Unavailabl e Encounter Details Date Type Department Care Team (Latest Contact Info) Description 12/04/2012 12:28 PM EDT - 12/04/2012 11:59 PM EDT Hospital Encounter [place] [phone] examination or test, unconfirmed Social History Tobacco [...] Associated Diagnosis Comments US OB TRANSVAGINAL Routine 12/04/2012 1: 25 PM EDT examination or test, unconfirmed documented in this encounter Results * US OB transvaginal (12/04/2012 1:25 PM EDT) Anatomical Region Laterality Modality Pelvis, Abdomen Ultrasound 12/04/2012 1:25 PM EDT Narrative 12/04/2012 2:41 PM EDT ?OBSTETRICS REPORT ? (Signed Final 12/04/2012 02:40 pm) Patient Info ID: ? [id number] ? : [birth year] (27 yrs) Name: ? CLEMENT EUBANKS ? Visit Date: 12/04/2012 12:41 pm Performed By Performed By: ?Abiodun DAILY, ??Emy Attending: ? Fco Cruz MD, Orlando Referred By: ? ORLANDO FCO CRUZ MD Service(s) Provided UOBTV - Viability - Cervical Length - Transvaginal - ??[id number] [id number] Indications follow up viability scan Evaluation (Fetus A) Num Of Fetuses: ?2 Preg. Location: ?Uterus Gest. Sac: ? Visualized Yolk Sac: ?Visualized Pole: ?Visualized Heart Rate: ??115 ?bpm Cardiac Activity: ??Observed, normal rhythm Lie: ? Right Presentation: ?Variable Placenta: ?Too early to evaluate Amniotic Fluid VISHAL FV: ?Too early to evaluate Biometry (Fetus A) GS: ? 14.6 ??mm ?G. Age: ?? 6w 3d ? SHERRIE: ?? 07/27/13 CRL: ? 2.8 ??mm ?G. Age: ?? 5w 6d ? SHERRIE: ?? 07/31/13 Gestational Age (Fetus A) Best: ?5w 6d ?Det. By: ??Embryo ? SHERRIE: ?? 07/31/13 ? Transfer ? (11/10/12) Evaluation (Fetus B) Num Of Fetuses: ?2 Preg. Location: ?Uterus Gest. Sac: ? Visualized Yolk Sac: ?Visualized Pole: ?Visualized Heart Rate: ??99 ? bpm Lie: ? Left Presentation: ?Variable Placenta: ?Too early to evaluate Amniotic Fluid VISHAL FV: ?Too early to evaluate Biometry (Fetus B) GS: ? 14.4 ??mm ?G. Age: ?? 6w 2d ? SHERRIE: ?? 07/28/13 CRL: ? 2.5 ??mm ?G. Age: ?? 5w 6d ? SHERRIE: ?? 07/31/13 Gestational Age (Fetus B) Best: ?5w 6d ?Det. By: ??Embryo ? SHERRIE: ?? 07/31/13 ? Transfer ? (11/10/12) Cervix Uterus Adnexa Left Ovary: ?Visualized Impression 1st Trimester Twin Summary Twin living intrauterine with dichorionic- diamnotic placentation and a gestational age of 5w 6d weeks based on embryo transfer. The crown rump length corresponds to a gestational age of A: 5w 6d, B: 5w 6d. I ??viewed the images and agree with the above interpretation. Thank you for allowing us to participate in the care of CLEMENT EUBANKS. Please do not hesitate to call if you have any questions. ? Orlando Cruz MD Electronically Signed Final Report ?? 12/04/2012 02:40 pm Procedure Note Orlando Perez MD - 12/04/2012 OBSTETRICS REPORT (Signed Final 12/04/2012 02:40 pm) Patient Info ID: [id number] : [birth year] (27 yrs) Name: CLEMENT EUBANKS Visit Date: 12/04/2012 12:41 pm Performed By Performed By: Emy Rascon RDMS Attending: Orlando Perez MD Referred By: ORLANDO CRUZ MD Service(s) Provided UOBTV - Viability - Cervical Length - Transvaginal - [id number] Indications follow up viability scan Evaluation (Fetus A) Num Of Fetuses: 2 Preg. Location: Uterus Gest. Sac: Visualized Yolk Sac: Visualized Pole: Visualized Heart Rate: 115 bpm Cardiac Activity: Observed, normal rhythm Lie: Right Presentation: Variable Placenta: Too early to evaluate Amniotic Fluid VISHAL FV: Too early to evaluate Biometry (Fetus A) GS: 14.6 mm G. Age: 6w 3d SHERRIE: 07/27/13 CRL: 2.8 mm G. Age: 5w 6d SHERRIE: 07/31/13 Gestational Age (Fetus A) Best: 5w 6d Det. By: Embryo SHERRIE: 07/31/13 Transfer (11/10/12) Evaluation (Fetus B) Num Of Fetuses: 2 Preg. Location: Uterus Gest. Sac: Visualized Yolk Sac: Visualized Pole: Visualized Heart Rate: 99 bpm Lie: Left Presentation: Variable Placenta: Too early to evaluate Amniotic Fluid VISHAL FV: Too early to evaluate Biometry (Fetus B) GS: 14.4 mm G. Age: 6w 2d SHERRIE: 07/28/13 CRL: 2.5 mm G. Age: 5w 6d SHERRIE: 07/31/13 Gestational Age (Fetus B) Best: 5w 6d Det. By: Embryo SHERRIE: 07/31/13 Transfer (11/10/12) Cervix Uterus Adnexa Left Ovary: Visualized Impression 1st Trimester Twin Summary Twin living intrauterine with dichorionic- diamnotic placentation and a gestational age of 5w 6d weeks based on embryo transfer. The crown rump length corresponds to a gestational age of A: 5w 6d, B: 5w 6d. I viewed the images and agree with the above interpretation. Thank you for allowing us to participate in the care of CLEMENT EUBANKS. Please do not hesitate to call if you have any questions. Orlando Cruz MD Electronically Signed Final Report 12/04/2012 02:40 pm Orlando Cruz MD IMG US OB O RDERABLES documented in this encounter Visit Diagnoses Diagnosis examination or test, unconfirmed documented in this encounter Care Teams Senior Economist Relationship Specialty Start Date End Date None None PCP - General 07/23/11 documented as of this encounter
--- OUTSIDE RECORDS SUMMARY | 2024-04-16 14:09 | XMS_ITS | Encounter Summary ---
Author Organization [facility] [place] [address] Care Team Providers Care Barrel Filler Name Role Phone None Primary Care Provider Unavailabl e Reason for Visit * Reason Comments Follow-up Encounter Details Date Type Department Care Team (Late st Contact Info) Description 11/03/2012 9:00 AM EDT Office Visit Obstetrics [place] [phone] CLINIC, Gia Ragland, [facility] [place] [address] Infertility management (Primary Dx) Discharge Disposition: Home Social History [...] as of this encounter Progress Notes * Gia Barry APRN - 11/03/2012 9:02 AM EDT Chief Complaint: FET monitoring. SUBJECTIVE: 27 y.o. year old with desire to conceive. She has had a transvaginal ultrasound to evaluate ovarian activity and her estradiol level is pending. OBJECTIVE: Transvaginal US results were reviewed with the patient. Please see her infertility chartfor details of her scan results today. ASSESSMENT: FET monitoring I spent all of this 15 minute visit in face to face counseling with regards her recent treatment plan and the potential ongoing treatment. She was counseled to check her supply of medication and needles and syringes to be certain she has enough and the proper medications to complete the cycle. PLAN: 1.) Medication protocol reviewed with the patient and documented in the chart 2.) Estradiol not needed 3.) Continue folic acid supplementation 4.) Patient to call this afternoon at 2:30 pm to review results and confirm ongoing treatment plan 5.) Plan likely : Start progesterone suppositories on Tuesday per IVF calender. documented in this encounter Plan of Treatment Not on file documented as of this encounter Visit Diagnoses Diagnosis Infertility management- Primary Unspecified procreative management documented in this encounter Care Teams Barrel Filler Relationship Specialty Start Date End Date None None PCP - General 07/23/11 documented as of this encounter
--- OUTSIDE RECORDS SUMMARY | 2024-04-16 14:09 | XMS_ITS | Encounter Summary ---
Author Organization [facility] [place] [address] Care Team Providers Care Bleacher Kraft Pulp Name Role Phone None Primary Care Provider Unavailabl e Reason for Visit * Reason Comments Follow-up Encounter Details Date Type Department Care Team (Late st Contact Info) Description 10/18/2012 9:00 AM EDT Office Visit Obstetrics [place] [address] Gia Barry APRN [facility] [place] [address] Infertility management (Primary Dx) Social History Tobacco Use Types [...] Progress Notes * Gia Barry APRN - 10/18/2012 9:11 AM EDT Chief Complaint: FET monitoring. SUBJECTIVE: 27 y.o. year old with a history of Desire to conceive. She is cycle day baseline. She has had a transvaginal ultrasound to evaluate ovarian activity and endometrium and her estradiol level is pending. OBJECTIVE: Transvaginal US results were reviewed with the patient. Please see her infertility chartfor details of her scan results today. ASSESSMENT: FET monitoring 2 simple cysts right ovary, approximately 2.8cm in size, endometrium 2.3mm I spent all of this 15 minute [...] and documented in the chart 2.) Estradiol pending 3.) Continue folic acid supplementation 4.) Patient to call this afternoon at 2:30 pm to review results and confirm ongoing treatment plan 5.) Plan likely : Start estrace per FET calender documented in this encounter Miscellaneous Notes * Addendum Note - Wilma Correia - 10/18/2012 9:14 AM EDTAddended by: WILMA CORREIA on: 10/18/2012 09:14 AM Modules accepted: Orders documented in this encounter Plan of Treatment Not on file documented as of this encounter Procedures Procedure Name Priority Date/Time Associated Diagnosis Comments ESTRADIOL Routine 10/18/2012 9:18 AM EDT Infertility management documented in this encounter Results * Estradiol (10/18/2012 9:18 AM EDT) [facility] Signature Estradiol <10 pg/mL [facility] Comment: Result rechecked. DA Reference ranges: Males: ?? 1-10 years: <5 to 20 pg/mL ?? Adult: ? 0 to 45 pg/mL Females: ?? 1-10 years ??6 to 27 pg/mL Non- females: ?Follicular: ??0-178 pg/mL ?Ovulation: ??48-388 pg/mL ?Luteal: ??31-247 pg/mL ?Postmenopausal: ??0-46 pg/mL females: ?1st trimester: ??38-3175 pg/mL ?2nd trimester: ??678-52774 pg/mL ?3rd trimester: ??31-32794 pg/mL Blood specimen (specimen) 10/18/2012 9:18 AM EDT 10/18/2012 9:30 AM EDT Narrative Resulting Agency Comment Spec In Lab Preeti Cruz MD CHEMISTRY O RDERABLES Performing Organization Address City/State/[facility] Co mi Phone Number [facility] documented in this encounter Visit Diagnoses Diagnosis Infertility management- Primary Unspecified procreative management documented in this encounter Care Teams Bleacher [employer] Relationship Specialty Start Date End Date None None PCP - General 07/23/11 documented as of this encounter
--- OUTSIDE RECORDS SUMMARY | 2024-04-16 14:09 | XMS_ITS | Encounter Summary ---
Author Organization [facility] [place] [address] Care Team Providers Care Communications Coordinator Name Role Phone None Primary Care Provider Unavailabl e Encounter Details Date Type Department Care Team (Latest Contact Info) Description 11/03/2012 8:11 AM EDT - 11/03/2012 11:59 PM EDT Hospital En[place] [address] Unspecified procreative management Social History Tobacco Use Types Packs/Day Years [...] Name Priority Date/Time Associated Diagnosis Comments US OVULATION INDUCTION Routine 11/03/2012 8:41 AM EDT Unspecified procreative management documented in this encounter Results * US ovulation induction (11/03/2012 8:41 AM EDT) Anatomical Region Laterality Modality Abdomen, Pelvis Ultrasound 11/03/2012 8:41 AM EDT Narrative 11/03/2012 9:39 AM EDT ? Follicles Report ?(Signed Final 11/03/2012 09:38 am) Patient Info ID: ?[id number] ?: ??[birth year] (27 yrs) Name: ?CLEMENT EUBANKS ?Visit Date: 11/03/2012 08:40 am Performed By Performed By: ?Abiodun DAILY, ??Emy Attending: ? Sergey Cruz MD, Orlando Referred By: ? ORLANDO CRUZ MD Service(s) Provided UOI - Ovulation Induction - [id number] ? [id number] Indications endometrial lining ck for FET Right Ovary Follicles Follicle # ?? Length(mm) ? Width(mm) ?Height(mm) ? Avg(mm) 1 ?34.8 ? 26.8 ? 33.6 ? 31.7 2 ?37.5 ? 15.5 ? 25.6 ? 26.2 Follicle # ?? Volume(cc) ? Comments 1 ?16.4 2 ?7.8 Endometrium Thickness (mm): ? 7.73 ------ Uterus ------ Description: ?? No fluid in cul-de-sac Impression Ultrasound - Follicular Monitoring - Summary This transvaginal study was performed for follicular monitoring. The endometrial stripe measures 7.73 mm. The individual ovarian follicles are measured in the images obtained and are recorded above. No fluid in cul-de-sac. I ??viewed the images and agree with the above interpretation. Thank you for allowing us to participate in the care of CLEMENT EUBANKS. Please do not hesitate to call if you have any questions. ? Orlando Cruz MD Electronically Signed Final Report ?? 11/03/2012 09:38 am Procedure Note Orlando Perez MD - 11/03/2012 Follicles Report (Signed Final 11/03/2012 09:38 am) Patient Info ID: [id number] : [birth year] (27 yrs) Name: CLEMENT EUBANKS Visit Date: 11/03/2012 08:40 am Performed By Performed By: Emy Rascon RDMS Attending: Orlando Perez MD Referred By: ORLANDO CRUZ MD Service(s) Provided UOI - Ovulation Induction - [id number] Indications endometrial lining ck for FET Right Ovary Follicles Follicle # Length(mm) Width(mm) Height(mm) Avg(mm) 1 34.8 26.8 33.6 31.7 2 37.5 15.5 25.6 26.2 Follicle # Volume(cc) Comments 1 16.4 2 7.8 Endometrium Thickness (mm): 7.73 ------ Uterus ------ Description: No fluid in cul-de-sac Impression Ultrasound - Follicular Monitoring - Summary This transvaginal study was performed for follicular monitoring. The endometrial stripe measures 7.73 mm. The individual ovarian follicles are measured in the images obtained and are recorded above. No fluid in cul-de-sac. I viewed the images and agree with the above interpretation. Thank you for allowing us to participate in the care of CLEMENT VALENTINOWILLARDRAFAEL. Please do not hesitate to call if you have any questions. Orlando Cruz MD Electronically Signed Final Report 11/03/2012 09:38 am Orlando Cruz MD IMG US PELV IC ORDERABLES documented in this encounter Visit Diagnoses Diagnosis Unspecified procreative management documented in this encounter Care Teams Communications Coordinator Relationship Specialty Start Date End Date None None PCP - General 07/23/11 documented as of this encounter
--- OUTSIDE RECORDS SUMMARY | 2024-04-16 14:09 | XMS_ITS | Encounter Summary ---
Author Organization [facility] [place] [address] Care Team Providers Care Makeup Sales Advisor Name Role Phone None Primary Care Provider Unavailabl e Encounter Details Date Type Department Care Team (Late st Contact Info) Description 11/20/2012 Orders Only Obstetrics [place] [address] Orlando Perez MD [facility] DR OBSTETRICS & [place] [address] examination or test, unconfirmed (Primary Dx) Social History Tobacco Use Types [...] of this encounter Results * US OB transvaginal (12/14/2012 10:31 AM EDT) Anatomical Region Laterality Modality Pelvis, Abdomen Ultrasound 12/14/2012 10:3 1 AM EDT Narrative 12/14/2012 10:36 AM EDT ?OBSTETRICS REPORT ? (Signed Final 12/14/2012 10:35 am) Patient Info ID: ? [id number] ? : ??[birth year] (27 yrs) Name: ? CLEMENT EUBANKS ? Visit Date: 12/14/2012 10:25 am Performed By Performed By: ?Mayuri Domingo RDMS Attending: ? Josep DAVID, Joe Angela Referred By: ? ORLANDO FCO CRUZ MD Service(s) Provided UOBTV - Viability - Cervical Length - Transvaginal - ??[id number] Indications Viability and placement Evaluation (Fetus A) [...] Final 12/14/2012 10:35 am) Patient Info ID: [id number] : [birth year] (27 yrs) Name: CLEMENT EUBANKS Visit Date: 12/14/2012 10:25 am Performed By Performed By: Mayuri Domingo RDMS Attending: Joe Car MD Referred By: ORLANDO CRUZ MD Service(s) Provided UOBTV - Viability - Cervical Length - Transvaginal - [id number] Indications Viability and placement Evaluation (Fetus A) [...] Cruz MD IMG US OB O RDERABLES * US OB transvaginal (12/04/2012 1:25 PM EDT) Anatomical Region Laterality Modality Pelvis, Abdomen Ultrasound 12/04/2012 1:25 PM EDT Narrative 12/04/2012 2:41 PM EDT ?OBSTETRICS REPORT ? (Signed Final 12/04/2012 02:40 pm) Patient Info ID: ? [id number] ? : ??[birth year] (27 yrs) Name: ? CLEMENT EUBANKS ? Visit Date: 12/04/2012 12:41 pm Performed By Performed By: ?Abiodun DAILY, ??Emy Attending: ? Fco Cruz MD, Orlando Referred By: ? ORLANDO CRUZ MD Service(s) Provided UOBTV - Viability - Cervical Length - Transvaginal - ??[id number] Indications follow up viability scan Evaluation (Fetus [...] Final 12/04/2012 02:40 pm) Patient Info ID: [id number] : [birth year] (27 yrs) Name: CLEMENT EUBANKS Visit Date: 12/04/2012 12:41 pm Performed By Performed By: Emy Rascon RDMS Attending: Orlando Perez MD Referred By: ORLANDO CRUZ MD Service(s) Provided UOBTV - Viability - Cervical Length - Transvaginal - [id number] Indications follow up viability scan Evaluation (Fetus [...] Orlando Cruz MD IMG US OB O RDERAGANESH documented in this encounter Visit Diagnoses Diagnosis examination or test, unconfirmed- Primary examination or test, unconfirmed examination or test, unconfirmed documented in this encounter Care Teams Makeup Sales Advisor Relationship Specialty Start Date End Date None None PCP - General 07/23/11 documented as of this encounter
--- OUTSIDE RECORDS SUMMARY | 2024-04-16 14:09 | XMS_ITS | Encounter Summary ---
Author Organization [facility] [place] [address] Care Team Providers Care Shipping Packer Name Role Phone None Primary Care Provider Unavailabl e Reason for Visit * Reason Comments Procedure embryo transfer Encounter Details Date Type Department Care Team (Late st Contact Info) Description 08/29/2012 11:00 AM EDT Office Visit Obstetrics [place] [phone] Davi Quiles MD Unspecified procreative management (Primary Dx); Female infertility of other specified origin Discharge Disposition: Home Social History Tobacco Use [...] as of this encounter Progress Notes * Davi Quiles MD - 08/29/2012 4:14 PM EDT EMBRYO TRANSFER PROCEDURE NOTE REPRODUCTIVE MEDICINE & INFERTILITY TREATMENT [place], [place] Davi Quiles MD Professor and Chair Department of OPERATIONS EXPERT Preeti Cruz MD IVF/ART Housekeeping Manager MD Vivienne Darby MD Elizabeth Todd, ARNP The patient, Flaca Eubanks was brought into the procedure room, and identified by name, medicalrecord number, and date of . An identification bracelet was placed on the patient by the nursing staff. The embryology summary sheet was reviewed with the couple, and the number of embryo(s) to transfer was discussed and agreed upon by myself and the couple. The number of embryo(s) to transfer was also confirmed on their IVF consent. We reviewed the risks of embryo transfer, the potential for multiple gestations, and the couple accepted these riske and agreed on the number of embryo (s) to transfer. Prior to the procedure her identity and number of embryos to be transferred (2) was confirmed by the nursing staff, myself and communicated verbally to the Reproductive Science Lab in a formal time out, or moment of truth, procedure. The disposition of the remaining unfertilized oocytes, and remaining embryos was also reviewed withthe couple and confirmed with the reproductive science lab staff members. The patient was placed in a modified dorsolithotomy position and a speculum was inserted in to the vagina without difficulty. The cervix and vagina was cleansed with sterile embryo culture media. #2 pre-embryo(s) was/were transferred (8 A- and 5 B) with 4 embryos meeting criteria for freezing. A 23 cm soft Campos trial catheter was first utilized and it was determined by ultrasound to pass without difficulty. A 23 cm soft Campos catheter was loaded with the embryo(s). The transfer was performed under ultrasound guidance with full bladder. The tip of catheter was fed to the lower portion of the mid uterine cavity as identified by ultrasound. A single pass with the catheter was utilized. The catheter was then slowly removed, and passed to the embryology team for inspection to ensure the embryo(s) were replaced. Post transfer catheter assessment: No blood in catheter, no mucous within the catheter, no tenaculum was used, no dilator required, and no embryos remaining in the catheter. RECOMMENDATIONS: 1.) Progesterone in oil 100 mg IM x 1 2.) Resume medication protocol as outlined in the IVF cycle plan 3.) HCG levels to be drawn on days indicated on laboratory requisitions DAVI QUILES MD None Self No address on file documented in this encounter Miscellaneous Notes * Miscellaneous - Provider, Scanning - 02/06/2013 10:49 AM EST documented in this encounter Plan of Treatment Not on file documented as of this encounter Visit Diagnoses Diagnosis Unspecified procreative management- Primary Female infertility of other specified origin documented in this encounter Administered Medications Inactive Administered Medications - up to 3 most recent administrations Medication Order MAR Action Action Date Dose Rate Site progesterone injection 100 mg 100 mg, Intramuscular, ONCE, 1 dose, On Tue08/29/12 at 1245, Routine Given 08/29/2012 11:00 AM EDT 100 mg Right Gluteal documented in this encounter Care Teams Shipping Packer Relationship Specialty Start Date End Date None None PCP - General 07/23/11 documented as of this encounter
--- OUTSIDE RECORDS SUMMARY | 2024-04-16 14:09 | XMS_ITS | Encounter Summary ---
Author Organization [facility] [place] [address] Care Team Providers Care Radio Repairer Domestic Name Role Phone None Primary Care Provider Unavailabl e Encounter Details Date Type Department Care Team (Late st Contact Info) Description 08/21/2012 Orders Only Obstetrics [place] [address] Preeti Perez MD [facility] OBSTETRICS & [place] [address] Infertility, female (Primary Dx) Social History Tobacco Use Types [...] as of this encounter Visit Diagnoses Diagnosis Infertility, female- Primary Female infertility of unspecified origin documented in this encounter Care Teams Radio Repairer Domestic Relationship Specialty Start Date End Date None None PCP - General 07/23/11 documented as of this encounter
--- OUTSIDE RECORDS SUMMARY | 2024-04-16 14:09 | XMS_ITS | Encounter Summary ---
Author Organization [facility] [place] [address] Care Team Providers Care Fly Frame Tender Name Role Phone None Primary Care Provider Unavailabl e Reason for Visit * Reason Comments Injections Rhogam Encounter Details Date Type Department Care Team (Late st Contact Info) Description 09/12/2012 9:00 AM EDT Office Visit Obstetrics [place] [phone] NURSE, PHARMACY PICKING TECH Nurse, Obgysultana II, RN Blood type, Rh negative (Primary Dx) Discharge Disposition: Home Social History [...] as of this encounter Progress Notes * Iris Purcell LPN - 09/12/2012 10:09 AM EDT Pt here for Mini Rhogam. Given RUOQ. Pt tolerated inj well. documented in this encounter Procedure Notes * Provider, Scanning - 09/18/2012 6:02 AM EDTAssociated Order(s): SCAN DOC: LAB documented in this encounter Plan of Treatment Not on file documented as of this encounter Procedures Procedure Name Priority Date/Time Associated Diagnosis Comments LAB SCAN 09/18/2012 6:02 AM EDT PREPARE RH IMMUNE GLOBULIN Routine 09/12/2012 12:00 AM EDT Blood type, Rh negative documented in this encounter Results * SCAN DOC: LAB (09/18/2012 6:02 AM EDT) Narrative 09/18/2012 6:02 AM EDT Procedure Note Provider, Scanning - 09/18/2012 6:02 AM EDT Scanning Provider MEDIA MGR SCAN EXT O RDR/RSLT * Prepare Rh Immune Globulin (09/12/2012 12:00 AM EDT) Dispensed? Yes BENI PAULINO Blood specimen (specimen) 09/12/2012 09/12/2012 9:05 AM EDT Narrative Resulting Agency Comment Spec In Lab Preeti Cruz MD BLOOD BANK PRODUCT ORDERABLES [facility] documented in this encounter Visit Diagnoses Diagnosis Blood type, Rh negative- Primary Other specified conditions influencing health status documented in this encounter Care Teams Fly Frame Tender Relationship Specialty Start Date End Date None None PCP - General 07/23/11 documented as of this encounter
--- OUTSIDE RECORDS SUMMARY | 2024-04-16 14:09 | XMS_ITS | Encounter Summary ---
Author Organization [facility] [place] [address] Care Team Providers Care Account Underwriter Name Role Phone None Primary Care Provider Unavailabl e Encounter Details Date Type Department Care Team (Latest Contact Info) Description 10/18/2012 8:30 AM EDT - 10/18/2012 11:59 PM EDT Hospital [place] [address] Unspecified procreative management Social History Tobacco Use [...] Associated Diagnosis Comments US OVULATION INDUCTION Routine 10/18/2012 8:57 AM EDT Unspecified procreative management documented in this encounter Results * US ovulation induction (10/18/2012 8:57 AM EDT) Anatomical Region Laterality Modality Abdomen, Pelvis Ultrasound 10/18/2012 8:57 AM EDT Narrative 10/18/2012 9:08 AM EDT ? Follicles Report ? (Signed Final 10/18/2012 09:07 am) Patient Info ID: ? [id number] ? : ??[birth year] (27 yrs) Name: ? CLEMENT EUBANKS ? Visit Date: 10/18/2012 08:50 am Performed By Performed By: ?KILLIAN Simons ??Yessi Attending: ? Keith DAVID, Sudheer Mendez Referred By: ? ORLANDO CRUZ MD Service(s) Provided UOI - Ovulation Induction - [id number] ? [id number] Indications baseline for frozen embryo transfer Right Ovary Size(cm): ?5.47 ? x ??4.29 ? x ?? 3.57 ? Vol(): ?? 43.9 Comment: ?Two simple cysts, 3.1 cm. Right Ovary Follicles Follicle # ?? Length(mm) ? Width(mm) ?Height(mm) ? Avg(mm) 1 ?39.2 ? 30 ? 25.8 ? 31.7 2 ?44.5 ? 32.3 ? 17.4 ? 31.4 3 ?6.8 ?4.4 ?3.6 ?4.9 Follicle # ?? Volume(cc) ? Comments 1 ?15.9 2 ?13.1 3 ?0.1 Left Ovary Size(cm): ?2.5 ?x ??1.5 ?x ?? 2.1 ?Vol(ml): ?? 4.1 Comment: ?Numerous ovarian follicles less than 1 cm. Endometrium Endometrium: ? Normal appearance Thickness (mm): ?2.38 ------ Uterus ------ Description: ?? No fluid in cul-de-sac Impression Ultrasound - Endometrial Lining Monitoring - Summary This transvaginal study was performed for endometrial lining monitoring. The endometrial stripe measures 2 mm. I ??viewed the images and agree with the above interpretation. Thank you for allowing us to participate in the care of CLEMENT EUBANKS. Please do not hesitate to call if you have any questions. ? Sudheer Parker MD Electronically Signed Final Report ?? 10/18/2012 09:07 am Procedure Note Sudheer Parker MD - 10/18/2012 Follicles Report (Signed Final 10/18/2012 09:07 am) Patient Info ID: [id number] : [birth year] (27 yrs) Name: CLEMENT EUBANKS Visit Date: 10/18/2012 08:50 am Performed By Performed By: KILLIAN Simons Attending: Sudheer Parker MD Referred By: ORLANDO CRUZ MD Service(s) Provided UOI - Ovulation Induction - [id number] Indications baseline for frozen embryo transfer Right Ovary Size(cm): 5.47 x 4.29 x 3.57 Vol(ml): 43.9 Comment: Two simple cysts, 3.1 cm. Right Ovary Follicles Follicle # Length(mm) Width(mm) Height(mm) Avg(mm) 1 39.2 30 25.8 31.7 2 44.5 32.3 17.4 31.4 3 6.8 4.4 3.6 4.9 Follicle # Volume(cc) Comments 1 15.9 2 13.1 3 0.1 Left Ovary Size(cm): 2.5 x 1.5 x 2.1 Vol(ml): 4.1 Comment: Numerous ovarian follicles less than 1 cm. Endometrium Endometrium: Normal appearance Thickness (mm): 2.38 ------ Uterus ------ Description: No fluid in cul-de-sac Impression Ultrasound - Endometrial Lining Monitoring - Summary This transvaginal study was performed for endometrial lining monitoring. The endometrial stripe measures 2 mm. I viewed the images and agree with the above interpretation. Thank you for allowing us to participate in the care of CLEMENT EUBANKS. Please do not hesitate to call if you have any questions. Sudheer Parker MD Electronically Signed Final Report 10/18/2012 09:07 am Orlando Cruz MD IMG US PELV IC ORDERABLES documented in this encounter Visit Diagnoses Diagnosis Unspecified procreative management documented in this encounter Care Teams Account Underwriter Relationship Specialty Start Date End Date None None PCP - General 07/23/11 documented as of this encounter
--- OUTSIDE RECORDS SUMMARY | 2024-04-16 14:09 | XMS_ITS | Encounter Summary ---
[facility] [place] [address] Care Team Providers Care Gear And Spline Grinder Name Role Phone None Primary Care Provider Unavailabl e Encounter Details Date Type Department Care Team (Latest Contact Info) Description 10/06/2012 10:33 AM EDT - 10/06/2012 11:59 PM EDT Hospital Encounter Obstetrics [place] [address] Blayne Quiles MD Discharge Disposition: Home Social History Tobacco [...] on filedocumented in this encounter Care Teams Gear And Spline Grinder Relationship Specialty Start Date End Date None None PCP - General 07/23/11 documented as of this encounter
--- OUTSIDE RECORDS SUMMARY | 2024-04-16 14:09 | XMS_ITS | Encounter Summary ---
Author Organization Formerly [facility] [place] [address] Care Team Providers Care Licensed Acupuncturist Name Role Phone None Primary Care Provider Unavailabl e Reason for Visit * Reason Comments Infertility Encounter Details Date Type Department Care Team (Late st Contact Info) Description 10/18/2012 10:00 AM EDT Follow-Up Obstetric[place] [id number] CLINIC, Preeti More MD [facility] OBSTETRICS & [place] [address] Female infertility (Primary Dx) Discharge Disposition: Home Social History [...] Sign Reading Time Taken Comments Blood Pressure 124/86 10/18/2012 9:58 AM EDT Pulse - - Temperature - - Respiratory Rate - - Oxygen Saturation - - Inhaled Oxygen Concentration - - Weight 60.1 kg (132 lb 9.6 oz) 10/18/2012 9:58 A M EDT Height - - Body Mass Index 22.76 08/10/2012 9:55 AM EDT documented in this encounter Progress Notes * Preeti Perez MD - 10/18/2012 10:09 AM EDT [facility] [place], [place] Blayne Quiles MD Professor and Chair Department of [employer] Preeti Cruz MD IVF/ART Apprenticeship Representative MD Gia Tripp ARNP CRYOPRESERVATION EMBRYO TRANSFER CYCLE CONSULT Problem List: Cryopreserved embryos SUBJECTIVE: The patient is a 27 y.o. G P who presents with her spouse to review the possibility of utilizing their cryopreserved embryos for . OBJECTIVE: BP 124/86 Wt 60.147 kg (132 lb 9.6 oz) LMP 10/05/2012 See IVF chart for IVF history and cryopreservation details. ASSESSMENT: 1.) Infertility-planning FET I had a 15 minute visit with this patient and her spouse, with 100% spent in counseling this couplewith regards to the options for utilization of their cryopreserved embryos, types of cycles (hormone replacement). We reviewed the option of discard or donation for research. They have chosen a hormone replacement cycle for FET. We reviewed the standard medications used, typical course, and events surrounding a frozen embryo transfer cycle. We discussed our current survival rates for cryopreserved embryos, and the rate of on going embryo progression following the thaw of embryos. We reviewed our current and loss rates, and the national and loss rates. We reviewed the potential complications of an FET, to include but not be limited to, cycle cancellation, side effects or reaction to the medications, multiple gestations, ectopic , and failure toconceive. I advised them that no embryos may survive the freeze and thaw process. We reviewed the consent and they signed the consent in my presence today. They have decided to maximize their chance for in each cycle and would like to start by thawing all embryos. They understand that the lab will continue to thaw embryos as survival allows inorder to maximize their chance for . They are planning to transfer up to 2 embryos. They would refreeze. PLAN: 1.) FET per protocol 2.) MVI containing folic acid recommended 3.) Discharge to home per same day protocol documented in this encounter Plan of Treatment Not on file documented as of this encounter Visit Diagnoses Diagnosis Female infertility- Primary Female infertility of unspecified origin documented in this encounter Care Teams Licensed Acupuncturist Relationship Specialty Start Date End Date None None PCP - General 07/23/11 documented as of this encounter
--- OUTSIDE RECORDS SUMMARY | 2024-04-16 14:09 | XMS_ITS | Encounter Summary ---
Author Organization [facility] [place] [address] Care Team Providers Care Warehouse Team Leader Name Role Phone None Primary Care Provider Unavailabl e Encounter Details Date Type Department Care Team (Late st Contact Info) Description 09/11/2012 Orders Only Obstetrics [place] [address] Preeti Perez MD [facility] OBSTETRICS & [place] [address] Screening (Primary Dx) Social History Tobacco Use Types [...] as of this encounter Visit Diagnoses Diagnosis Screening- Primary Screening for unspecified condition documented in this encounter Care Teams Warehouse Team Leader Relationship Specialty Start Date End Date None None PCP - General 07/23/11 documented as of this encounter
--- OUTSIDE RECORDS SUMMARY | 2024-04-16 14:09 | XMS_ITS | Encounter Summary ---
Author Organization [facility] [place] [address] Care Team Providers Care Aviation Neuropsychologist Name Role Phone None Primary Care Provider Unavailabl e Encounter Details Date Type Department Care Team (Late st Contact Info) Description 09/21/2012 Orders Only Obstetrics [place] [address] Orlando Perez MD [facility] [address] OBSTETRICS & [place] [address] Unspecified procreative management (Primary Dx) Social History Tobacco Use [...] Type Priority Associated Diagnoses Orde r Schedule EMBRYO TRANSFER W/ ULTRASOUND OB Routine Unspecified procreative management Expected: 11/10/2012 (Approximate), Expires: 09/21/2013 documented as of this encounter Results * US embryo PLCMT-T abdomen (11/10/2012 11:55 AM EDT) Anatomical Region Laterality Modality Abdomen Ultrasound 11/10/2012 11:5 5 AM EDT Narrative 11/10/2012 2:22 PM EDT ?Gynecological Report ? (Signed Final 11/10/2012 02:22 pm) Patient Info ID: ?[id number] ?: ??[birth year] (27 yrs) Name: ?CLEMENT EUBANKS ?Visit Date: 11/10/2012 12:28 pm Performed By Performed By: ?Mayuri Domingo RDMS Attending: ? Sergey Cruz MD, [place] Referred By: ? ORLANDO CRUZ MD Service(s) Provided UEMBRY - Ultrasound - Embryo Transfer - ? [id number] Indications Frozen embryo transfer ------- History ------- Age: ?? 27 ------ Uterus ------ Uterus: ? Visualized Position: ?? Anteverted Endometrium Endometrium: ?Normal appearance [place] No fluid was visualized. Impression Ultrasound - Embryo Transfer - Summary Real time transabdominal ultrasound of the pelvis was performed during the course of an embryo transfer. Ultrasound guidance was provided for Dr. Vivienne Yoo. ??The loaded embryo transfer catheter was advanced to the mid uterine cavity approximately 1.5 cm from the intrauterine fundus. ??The embryos were injected and the catheter removed. I ??viewed the images and agree with the above interpretation. Thank you for allowing us to participate in the care of CLEMENT EUBANKS. Please do not hesitate to call if you have any questions. ? Orlando Cruz MD Electronically Signed Final Report ?? 11/10/2012 02:22 pm Procedure Note Orlando Perez MD - 11/10/2012 Gynecological Report (Signed Final 11/10/2012 02:22 pm) Patient Info ID: [id number] : [birth year] (27 yrs) Name: CLEMENT EUBANKS Visit Date: 11/10/2012 12:28 pm Performed By Performed By: Mayuri Domingo RDMS Attending: Orlando Perez MD Referred By: ORLANDO CRUZ MD Service(s) Provided UEMBRY - Ultrasound - Embryo Transfer - [id number] Indications Frozen embryo transfer ------- History ------- Age: 27 ------ Uterus ------ Uterus: Visualized Position: Anteverted Endometrium Endometrium: Normal appearance [place] No fluid was visualized. Impression Ultrasound - Embryo Transfer - Summary Real time transabdominal ultrasound of the pelvis was performed during the course of an embryo transfer. Ultrasound guidance was provided for Dr. Vivienne Yoo. The loaded embryo transfer catheter was advanced to the mid uterine cavity approximately 1.5 cm from the intrauterine fundus. The embryos were injected and the catheter removed. I viewed the images and agree with the above interpretation. Thank you for allowing us to participate in the care of CLEMENT EUBANKS. Please do not hesitate to call if you have any questions. Orlando Cruz MD Electronically Signed Final Report 11/10/2012 02:22 pm Orlando Cruz MD IMG US PELV IC ORDERABLES * US ovulation induction (11/03/2012 8:41 AM EDT) Anatomical Region Laterality Modality Abdomen, Pelvis Ultrasound 11/03/2012 8:41 AM EDT Narrative 11/03/2012 9:39 AM EDT ? Follicles Report ?(Signed Final 11/03/2012 09:38 am) Patient Info ID: ?[id number] ?: ??[birth year] (27 yrs) Name: ?CLEMENT EUBANKS ?Visit Date: 11/03/2012 08:40 am Performed By Performed By: ?Abiodun DAILY, ??Emy Attending: ? Sergey Cruz MD Orlando Referred By: ? ORLANDO CURZ MD Service(s) Provided UOI - Ovulation Induction - [id number] ? [id number] Indications endometrial lining ck for FET Right [...] Final 11/03/2012 09:38 am) Patient Info ID: [id number] : [birth year] (27 yrs) Name: CLEMENT EUBANKS Visit Date: 11/03/2012 08:40 am Performed By Performed By: Emy Rascon RDMS Attending: Orlando Perez MD Referred By: ORLANDO CRUZ MD Service(s) Provided UOI - Ovulation Induction - [id number] Indications endometrial lining ck for FET Right [...] Cruz MD IMG US PELV IC ORDERABLES * US ovulation induction (10/18/2012 8:57 AM EDT) Anatomical Region Laterality Modality Abdomen, Pelvis Ultrasound 10/18/2012 8:57 AM EDT Narrative 10/18/2012 9:08 AM EDT ? Follicles Report ? (Signed Final 10/18/2012 09:07 am) Patient Info ID: ? [id number] ? : ??[birth year] (27 yrs) Name: ? CLEMENT EUBANKS ? Visit Date: 10/18/2012 08:50 am Performed By Performed By: ?KILLIAN Simons ??Yessi Attending: ? Keith DAVID, Sudheer Mendez Referred By: ? ORLANDO CRUZ MD Service(s) Provided UOI - Ovulation Induction - [id number] ? [id number] Indications baseline for frozen embryo transfer Right [...] Size(cm): ?2.5 ?x ??1.5 ?x ?? 2.1 ?Vol(): ?? 4.1 Comment: ?Numerous ovarian follicles less [...] Final 10/18/2012 09:07 am) Patient Info ID: [id number] : [birth year] (27 yrs) Name: CLEMENT EUBANKS Visit Date: 10/18/2012 08:50 am Performed By Performed By: KILLIAN Simons Attending: Sudheer Parker MD Referred By: ORLANDO CRUZ MD Service(s) Provided UOI - Ovulation Induction - [phone] Indications baseline for frozen embryo transfer Right [...] Visit Diagnoses Diagnosis Unspecified procreative management- Primary Unspecified procreative management Unspecified procreative management Unspecified procreative management documented in this encounter Care Teams Aviation Neuropsychologist Relationship Specialty Start Date End Date None None PCP - General 07/23/11 documented as of this encounter
--- OUTSIDE RECORDS SUMMARY | 2024-04-16 14:09 | XMS_ITS | Encounter Summary ---
Author Organization [facility] [place] [address] Care Team Providers Care Retail Sales Assistant Name Role Phone None Primary Care Provider Unavailabl e Reason for Visit * Reason Onset Date Comments Results 09/07/2012 Encounter Details Date Type Department Care Team (Late st Contact Info) Description 09/07/2012 Telephone Obstetrics and Gynecology at [facility] [place] [address] Annia Trejo RN Results Social History Tobacco Use Types [...] Telephone Encounter - Annia Trejo RN - 09/07/2012 1:12 PM EDT TELEPHONE NOTE Date of call: 09/07/12 Time of call: 13:10 Caller: Annia Trejo RN to [place]. Reason for call: Reporting HCG #1 @ 19. S/P embryo transfer 08/29/12 of two pre-embryo's. Blood type O NEG. Assessment: Positive . Plan/Instructions: Repeat QBHCG on Tuesday, continue progesterone suppositories BID. Knows to callwith any questions or concerns. documented in this encounter Plan of Treatment Not on file documented as of this encounter Visit Diagnoses Not on filedocumented in this encounter Care Teams Retail Sales Assistant Relationship Specialty Start Date End Date None None PCP - General 07/23/11 documented as of this encounter
--- OUTSIDE RECORDS SUMMARY | 2024-04-16 14:09 | XMS_ITS | Encounter Summary ---
Author Organization [facility] [place] [address] Care Team Providers Care Night Custodian Name Role Phone None Primary Care Provider Unavailabl e Encounter Details Date Type Department Care Team (Latest Contact Info) Description 08/29/2012 10:35 AM EDT - 08/29/2012 11:59 PM EDT Hospital [place] [phone] Unspecified procreative management Social History Tobacco Use [...] Name Priority Date/Time Associated Diagnosis Comments US EMBRYO PLCMTT ABDOMEN Routine 08/29/2012 11:17 AM EDT Unspecified procreative management documented in this encounter Results * US embryo PLCMT-T abdomen (08/29/2012 11:17 AM EDT) Anatomical Region Laterality Modality Abdomen Ultrasound 08/29/2012 11:1 7 AM EDT Narrative 08/29/2012 1:38 PM EDT ?Gynecological Report ? (Signed Final 08/29/2012 01:37 pm) Patient Info ID: ? [id number] ? : ??[birth year] (27 yrs) Name: ? CLEMENT EUBANKS ? Visit Date: 08/29/2012 11:14 am Performed By Performed By: ?Mayuri Domingo [facility] Attending: ? Orlando Perez MD Referred By: ? ORLANDO CRUZ MD Service(s) Provided UEMBRY - Ultrasound - Embryo Transfer - ? [id number] Indications IVF embryo transfer ------- History ------- Age: ?? 27 ------ Uterus ------ Uterus: ? Visualized Position: ?? Anteverted Endometrium Impression Ultrasound - Embryo Transfer - Summary Real time transabdominal ultrasound of the pelvis was performed during the course of an embryo transfer. Ultrasound guidance was provided for Dr. Blayne Quiles. ??The loaded embryo transfer catheter was advanced to the mid uterine cavity approximately 1.5 cm from the intrauterine fundus. ??The embryos were injected and the catheter removed. I ??viewed the images and agree with the above interpretation. Thank you for allowing us to participate in the care of CLEMENT EUBANKS. Please do not hesitate to call if you have any questions. ?Orlando Cruz MD Electronically Signed Final Report ?? 08/29/2012 01:37 pm Procedure Note Orlando Perez MD - 08/29/2012 Gynecological Report (Signed Final 08/29/2012 01:37 pm) Patient Info ID: [id number] : [birth year] (27 yrs) Name: CLEMENT EUBANKS Visit Date: 08/29/2012 11:14 am Performed By Performed By: Mayuri Domingo [facility] Attending: Orlando Perez MD Referred By: ORLANDO CRUZ MD Service(s) Provided UEMBRY - Ultrasound - Embryo Transfer - [id number] Indications IVF embryo transfer ------- History ------- Age: 27 ------ Uterus ------ Uterus: Visualized Position: Anteverted Endometrium Impression Ultrasound - Embryo Transfer - Summary Real time transabdominal ultrasound of the pelvis was performed during the course of an embryo transfer. Ultrasound guidance was provided for Dr. Blayne Quiles. The loaded embryo transfer catheter was advanced [...] Orlando Cruz MD Electronically Signed Final Report 08/29/2012 01:37 pm Orlando Cruz MD IMG US PELV IC ORDERABLES documented in this encounter Visit Diagnoses Diagnosis Unspecified procreative management documented in this encounter Care Teams Night Custodian Relationship Specialty Start Date End Date None None PCP - General 07/23/11 documented as of this encounter
--- OUTSIDE RECORDS SUMMARY | 2024-04-16 14:09 | XMS_ITS | Encounter Summary ---
Author Organization [facility] [place] [address] Care Team Providers Care Interior Paneler Name Role Phone None Primary Care Provider Unavailabl e Encounter Details Date Type Department Care Team (Late st Contact Info) Description 08/24/2012 9:30 AM EDT Office Visit Obstetrics [place] [address] Gia Barry [address]N [facility] [address] Infertility management (Primary Dx) Discharge Disposition: Home [...] Progress Notes * Gia Barry APRN - 08/24/2012 10:02 AM EDT Chief Complaint: Ovulation induction monitoring. SUBJECTIVE: 27 y.o. year old with a history of Desire to conceive. She is cycle day 13. She has hada transvaginal ultrasound to evaluate ovarian activity and her estradiol level is pending. OBJECTIVE: Transvaginal US results were reviewed with the patient. Please see her infertility chartfor details of her scan results today. 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
--- OUTSIDE RECORDS SUMMARY | 2024-04-16 14:09 | XMS_ITS | Encounter Summary ---
Author Organization [facility] Address [facility] [address] Care Team Providers Care Replenishment Associate Name Role Phone None Primary Care Provider Unavailabl e Encounter Details Date Type Department Care Team (Latest Contact Info) Description 09/12/2012 8:09 AM EDT - 09/12/2012 11:59 PM EDT Hospital [place] [address] Preeti Perez MD [facility] OBSTETRICS & [place] [address] Screening Discharge Disposition: Home Social History Tobacco Use [...] Procedure Name Priority Date/Time Associated Diagnosis Comments ABO/RH TYPING Routine 09/12/2012 8:16 AM EDT Screening ANTIBODY SCREEN Routine 09/12/2012 8:16 AM EDT Screening TYPE AND SCREEN ([facility]CGP/TOBI) Routine 09/12/2012 8:16 AM EDT Screening documented in this encounter Results * Antibody screen (09/12/2012 8:16 AM EDT) Ab Screen Interp Negative [facility] Expires at [id number] on: [id number] BENI PAULINO Blood specimen (specimen) 09/12/2012 8:16 AM EDT 09/12/2012 8:23 AM EDT Narrative Resulting Agency Comment Spec In Lab Preeti Cruz MD BLOOD BANK LAB ORDERABLES Performing Organization Address City/[facility] Co de Phone Number BENI PAULINO * ABO/Rh Typing (09/12/2012 8:16 AM EDT) ABORH Type O Neg BENI PAULINO Blood specimen (specimen) 09/12/2012 8:16 AM EDT 09/12/2012 8:23 AM EDT Narrative Resulting Agency Comment Spec In Lab Preeti Cruz MD BLOOD BANK LAB ORDERABLES Performing Organization Address City/[facility] Co de Phone Number BENI PAULINO documented in this encounter Visit Diagnoses Diagnosis Screening Screening for unspecified condition documented in this encounter Care Teams Replenishment Associate Relationship Specialty Start Date End Date None None PCP - General 07/23/11 documented as of this encounter
--- OUTSIDE RECORDS SUMMARY | 2024-04-16 14:09 | XMS_ITS | Encounter Summary ---
Author Organization [facility] [place] [address] Care Team Providers Care Cornice Upholsterer Name Role Phone None Primary Care Provider Unavailabl e Encounter Details Date Type Department Care Team (Latest Contact Info) Description 08/24/2012 8:27 AM EDT - 08/24/2012 11:59 PM EDT Hospital [place] [address] Preeti Perez MD [facility] OBSTETRICS [place] [address] Unspecified procreative management Discharge Disposition: Home Social History Tobacco Use [...] Priority Date/Time Associated Diagnosis Comments ESTRADIOL Routine 08/24/2012 8:35 AM EDT Unspecified procreative management documented in this encounter Results * Estradiol (08/24/2012 8:35 AM EDT) Estradiol 1,417 pg/mL [facility] Comment: Result rechecked. DA Reference ranges: Males: ?? 1-10 years: <5 to 20 pg/mL ?? Adult: ? 0 to 45 pg/mL Females: ?? 1-10 years ??6 to 27 pg/mL Non- females: ?Follicular: ??0-178 pg/mL ?Ovulation: ??48-388 pg/mL ?Luteal: ??31-247 pg/mL ?Postmenopausal: ??0-46 pg/mL females: ?1st trimester: ??38-3175 pg/mL ?2nd trimester: ??678-24678 pg/mL ?3rd trimester: ??43-34723 pg/mL Blood specimen (specimen) 08/24/2012 8:35 AM EDT 08/24/2012 8:39 AM EDT Narrative Resulting Agency Comment Spec In Lab Preeti Cruz MD CHEMISTRY O RDERABLES [facility] documented in this encounter Visit Diagnoses Diagnosis Unspecified procreative management documented in this encounter Care Teams Cornice Upholsterer Relationship Specialty Start Date End Date None None PCP - General 07/23/11 documented as of this encounter
--- OUTSIDE RECORDS SUMMARY | 2024-04-16 14:09 | XMS_ITS | Encounter Summary ---
Author Organization [facility] [place] [address] Care Team Providers Care Field Technician Name Role Phone None Primary Care Provider Unavailabl e Encounter Details Date Type Department Care Team (Latest Contact Info) Description 11/10/2012 11:03 AM EDT - 11/10/2012 11:59 PM EDT Hospital [place] [address] Unspecified procreative management Social History Tobacco Use [...] Diagnosis Comments US EMBRYO PLCMTT ABDOMEN Routine 11/10/2012 11:55 AM EDT Unspecified procreative management documented in this encounter Results * US embryo PLCMT-T abdomen (11/10/2012 11:55 AM EDT) Anatomical Region Laterality Modality Abdomen Ultrasound 11/10/2012 11:5 5 AM EDT Narrative 11/10/2012 2:22 PM EDT ?Gynecological Report ? (Signed Final 11/10/2012 02:22 pm) Patient Info ID: ?[id number] ?: ??[birth year] (27 yrs) Name: ?CLEMENT EUBANKS ?Visit Date: 11/10/2012 12:28 pm Performed By Performed By: ?Mayuri Domingo RDMS Attending: ? Sergey Cruz MD, [place] Referred By: ? ORLANDO CRUZ MD Service(s) Provided UEMBRY - Ultrasound - Embryo Transfer - ? [id number] Indications Frozen embryo transfer ------- History ------- [...] Final 11/10/2012 02:22 pm) Patient Info ID: [id number] : [birth year] (27 yrs) Name: CLEMENT EUBANKS Visit Date: 11/10/2012 12:28 pm Performed By Performed By: Mayuri Domingo RDMS Attending: Orlando Perez MD Referred By: ORLANDO CRUZ MD Service(s) Provided UEMBRY - Ultrasound - Embryo Transfer - [id number] Indications Frozen embryo transfer ------- History ------- [...] management documented in this encounter Care Teams Field Technician Relationship Specialty Start Date End Date None None PCP - General 07/23/11 documented as of this encounter
--- OUTSIDE RECORDS SUMMARY | 2024-04-16 14:09 | XMS_ITS | Encounter Summary ---
Author Organization [facility] [place] [address] Care Team Providers Care Condominium Manager Name Role Phone None Primary Care Provider Unavailabl e Encounter Details Date Type Department Care Team (Latest Contact Info) Description 08/26/2012 7:50 AM EDT - 08/26/2012 11:59 PM EDT Hospital Encounter Ultrasound at [facility] [place] [address] CLINIC, DR HICKS Unspecified procreative management Social History Tobacco Use [...] Name Priority Date/Time Associated Diagnosis Comments US IVF TRANSVAGINAL Routine 08/26/2012 9 :15 AM EDT Unspecified procreative management documented in this encounter Results * US IVF transvaginal (08/26/2012 9:15 AM EDT) Anatomical Region Laterality Modality Abdomen, Pelvis Ultrasound 08/26/2012 9:15 AM EDT Narrative 08/30/2012 11:05 AM EDT ?Gynecological Report ? (Signed Final 08/30/2012 09:18 am) Patient Info ID: ?[id number] ?: ??[birth year] (27 yrs) Name: ?CLEMENT EUBANKS ?Visit Date: 08/26/2012 09:00 am Performed By Performed By: ?Keith Steele Attending: ? Fco Cruz MD, Orlando Referred By: ? ORLANDO FCO CRUZ MD Service(s) Provided UIVFTV - Ultrasound - IVF Transvaginal ?[id number] Procedure - [id number] Indications IVF Retrieval ------- History ------- Age: ?? 27 ------ Uterus ------ Position: ?? Anteverted Endometrium Cul-De-Sac A small amount of fluid was noted. Right Ovary Status: ??Visualized Left Ovary Status: ??Visualized Impression Ultrasound - IVF Procedure - Summary Real time transvaginal ultrasound was performed during the course of an IVF oocyte harvest. The double layer endometrial echo thickness was ??mm. Ammonia Refrigeration Worker images were obtained documenting the appearance of both ovaries, uterus, cervix and cul-de- sac. I ??viewed the images and agree with the above interpretation. Thank you for allowing us to participate in the care of CLEMENT EUBANKS. Please do not hesitate to call if you have any questions. ?Orlando Cruz MD Electronically Signed Final Report ?? 08/30/2012 09:18 am Procedure Note Orlando Perez MD - 08/30/2012 Gynecological Report (Signed Final 08/30/2012 09:18 am) Patient Info ID: [id number] : [birth year] (27 yrs) Name: CLEMENT EUBANKS Visit Date: 08/26/2012 09:00 am Performed By Performed By: Keith Steele Attending: Orlando Perez MD Referred By: ORLANDO CRUZ MD Service(s) Provided UIVFTV - Ultrasound - IVF Transvaginal [id number] Procedure - [id number] Indications IVF Retrieval ------- History ------- Age: 27 ------ Uterus ------ Position: Anteverted Endometrium Cul-De-Sac A small amount of fluid was noted. Right Ovary Status: Visualized Left Ovary Status: Visualized Impression Ultrasound - IVF Procedure - Summary Real time transvaginal ultrasound was performed during the course of an IVF oocyte harvest. The double layer endometrial echo thickness was mm. Ammonia Refrigeration Worker images were obtained documenting the appearance of both ovaries, uterus, cervix and cul-de- sac. I viewed the images and agree with the above interpretation. Thank you for allowing us to participate in the care of CLEMENT EUBANKS. Please do not hesitate to call if you have any questions. Orlando Cruz MD Electronically Signed Final Report 08/30/2012 09:18 am Orlando Cruz MD IMG US PELV IC ORDERABLES documented in this encounter Visit Diagnoses Diagnosis Unspecified procreative management documented in this encounter Care Teams Condominium Manager Relationship Specialty Start Date End Date None None PCP - General 07/23/11 documented as of this encounter
--- OUTSIDE RECORDS SUMMARY | 2024-04-16 14:09 | XMS_ITS | Encounter Summary ---
Author Organization [facility] [place] [address] Care Team Providers Care Stringer Up Soldering Machine Name Role Phone None Primary Care Provider Unavailabl e Encounter Details Date Type Department Care Team (Late st Contact Info) Description 08/26/2012 8:32 [place] [address] Willie Hollis MD [facility] [place] [address] Sandra Kelly MD [facility] [place] [address] Anesthesia Record Procedure Summary Procedure Name Responsible Anesthesiologist Anesthesia Start Time Anesthesia Stop Time OOCYTE RETRIEVAL (WRVU 3.52) (Abdomen) Willie Hollis MD 08/26/12 0832 08/26/12 0925 Events Date Time Event Comment 08/26/2012 0832 Start 0834 AN Verify 0842 0842 An Induction 0845 Anesthesia Ready 0925 Stop Meds Name Total propofol INF 198.33 mg ceFAZolin 1 g * Agents Name O2 Auxiliary Flowmeter 1 * Blood No blood administrations on file. Lines, Drains, and Airways Type Details Placement Removal Incision 10/26/11; 1345; abdo men (port sites); 11/09/21 (LDA cleanup utility RA#[id number]); 1715 (LDA cleanup utility RA#[id number]) 10/26/11 1345 by Eder Wyatt RN 11/09/21 1715 by Angela Castle documented in this encounter Social History Tobacco [...] Anesthesia Postprocedure Evaluation - Sandra Kelly - 08/26/2012 1:01 PM EDT Patient: Flaca Eubanks Procedure(s) Performed: Procedure(s): OOCYTE RETRIEVAL Actual Anesthetic: MAC Patient location: PACU Post-op pain: Adequate analgesia Post-op nausea: no nausea or vomiting Last Vitals: There were no vitals filed for this visit. Post-op cardiovascular and respiratory status: is stable Level of consciousness: awake, alert and oriented Complications: no apparent complications and tolerated the procedure well Fluid Status: normal * Anesthesia Preprocedure Evaluation - Sandra Kelly - 08/26/2012 8:41 AM EDT Pre-Anesthesia Evaluation for: Flaca Eubanks a 27 y.o. female. Procedure(s): OOCYTE RETRIEVAL Patient Active Problem List Diagnoses ??? Female infertility ??? Female infertility of tubal origin ??? Ovarian endometriosis ??? Infertility, tubal origin ??? Hydrosalpinx ??? Ovarian cystic mass No past medical history on file. Past Surgical History Procedure Date ??? Dilation and curettage of uterus ??? Lap, fulgurate/excise lesions 10/26/2011 LAPAROSCOPY W/FULGURATION OR EXC LESION, OVARY, VISCERA OR PERITONEAL SURFACE performed by FCO ORLANDO GARCIA at [facility] MAIN OR ??? Reopen fallopian tube, chromotubation 10/26/2011 CHROMOTUBATION, INCLUDING MATERIALS performed by FCOORLANDO GILL at [facility] MAIN OR ??? Lap, lysis of adhesions 10/26/2011 LAPAROSCOPY, LYSIS OF ADHESIONS, PELVIS performed by FCOORLANDO GILL at [facility] MAIN OR ??? Lap, oviduct/ovary, unlist proc 10/26/2011 HYSTEROSCOPY, GUIDEWIRE, FALLOPIAN,TUBAL CANNULATION performed by ORLANDO RODNEY at [facility] MAIN OR ??? Biopsy of ovary(s) 10/26/2011 BIOPSY OF OVARY, UNILATERAL OR BILATERAL performed by ORLANOD RODNEY at [facility] MAIN OR ??? Lap, fimbrioplasty 10/26/2011 LAPAROSCOPY W/ FIMBRIOPLASTY performed by ORLANDO RODNEY at [facility] MAIN OR History Substance Use Topics ??? Smoking status: Never Smoker ??? Smokeless tobacco: Never Used ??? Alcohol Use: No No Known Allergies Medications: MAR and/or home medications have been reviewed. Physical Exam: There were no vitals filed for this visit. There is no height or weight on file to calculate BMI. Airway Assessment: Mallampati: II TM distance: >3 FB Neck ROM: full Cardiovascular Assessment: Pulmonary Assessment: Dental Assessment: [facility] Assessment: IV access: Peripheral line Anesthesia Plan: ASA 1 MAC, with a(n) intravenous induction 27F here for IVF. Otherwise healthy. Plan propofol gtt. Region - Other Informed Consent: Anesthetic plan and risks discussed with patient and spouse. [facility] Assessment: documented in this encounter Plan of Treatment Not on file documented as of this encounter Visit Diagnoses Not on filedocumented in this encounter Administered Medications Inactive Administered Medications - up to 3 most recent administrations Medication Order MAR Action Action Date Dose Rate Site ceFAZolin (ANCEF) injection PRN, Starting on 08/26/12 at 0915, Until Tue10/18/12 at 0956, Anesthesia Intra-op, Routine Given 08/26/2012 9:15 AM EDT 1 g propofol (DIPRIVAN) infusion CONTINUOUS PRN, Starting on 08/26/12 at 0842, Until Tue10/18/12 at 0956, Anesthesia Intra-op, Routine New Bag 08/26/2012 8:42 AM EDT 150 mcg/kg/min 54.1 mL/hr documented in this encounter Care Teams Stringer Up Soldering Machine Relationship Specialty Start Date End Date None None PCP - General 07/23/11 documented as of this encounter
--- OUTSIDE RECORDS SUMMARY | 2024-04-16 14:09 | XMS_ITS | Encounter Summary ---
Author Organization [facility] [place] [address] Care Team Providers Care Qual Research Manager Name Role Phone None Primary Care Provider Unavailabl e Encounter Details Date Type Department Care Team (Late st Contact Info) Description 09/11/2012 Telephone Obstetrics and Gynecology at [facility] [place] [phone] Annia Trejo, RN Social History Tobacco Use Types Packs/Day [...] Telephone Encounter - Annia Trejo RN - 09/11/2012 9:20 AM EDT TELEPHONE NOTE Date of call: 09/09/12 Time of call: 11:00 Caller: Annia Trejo RN to Flaca Cha. Reason for call: Reporting HCG #2 @ 14 on 09/09/12.. HCG #1 @ 19 on 09/07/12. S/P embryo transfer 08/29/12 of two pre-embryo's. Blood type O NEG. Assessment: Inappropriate rise in HCG, probable chemical . Plan/Instructions: Repeat QBHCG on Tuesday. Will need to review with Dr. Cruz need for mini rhogamdose. HCG #3 @4 on 09/11/12. PER DR. CRUZ MINI RHOGAM TO BE GIVEN. documented in this encounter Plan of Treatment Not on file documented as of this encounter Visit Diagnoses Not on filedocumented in this encounter Care Teams Qual Research Manager Relationship Specialty Start Date End Date None None PCP - General 07/23/11 documented as of this encounter
--- OUTSIDE RECORDS SUMMARY | 2024-04-16 14:09 | XMS_ITS | Encounter Summary ---
Author Organization [facility] [place] [address] Care Team Providers Care Oracle Specialist Name Role Phone None Primary Care Provider Unavailabl e Reason for Visit * Reason Comments Procedure IVF harvest Encounter Details Date Type Department Care Team (Late st Contact Info) Description 08/26/2012 8:30 AM EDT Office Visit Obstetrics [place] [phone] Blayne Quiles MD Female infertility (Primary Dx) Discharge Disposition: Home [...] Progress Notes * Blayne Quiles MD - 08/26/2012 9:39 AM EDT IVF OOCYTE HARVEST PROCEDURE NOTE Indication for procedure: Controlled ovarian hyperstimulation The History and Physical Examination has not changed from preoperative evaluation. PROCEDURE NOTE: The patient was identified by name and date of by the nursing staff and brought to the procedure room. The patient had voided prior to being taken into the IVF procedure room. A hospital identification band was applied by the nursing staff. Her identity was confirmed in a formal time out patient identification procedure for verification by the entire present nursing, anesthesia, physicianand reproductive science lab staff. An IVF oocyte harvest was performed under IV sedation provided by the anesthesia staff in attendance. The patient was placed in a modified dorsal lithotomy position. The procedure completed with standard sterile measures. She underwent a vaginal prep with sterile saline and she was draped in the usual sterile fashion. Photodocumentation of the endometrial echo, posterior cul de sac, and present ovaries was completed. A single lumen IVF needle was utilized under direct, continuous ultrasound guidance. Each follicle was directly entered and aspirated. Follicular aspirates were collected in sterile collection tubes were passed off to the awaiting IVF lab. An estimated # 9 oocytes were obtained. The vagina and cervix were visually inspected at the end ofthe procedure to assure adequate hemostasis. The EBL was minimal. The patient was given prophylactic antibiotics at the end of the procedure. The patient tolerated the procedure well. RECOMMENDATIONS: 1.) Tylenol # 3 one to two Q 4-6 hours prn # 20 2.) Progesterone in oil 100 mg IM x 1 3.) Luteal phase support with PVS 100 mg per vagina BID to start tomorrow am 4.) Anticipate ET in 3 to 5 days as fertilization and embryo development allows documented in this encounter Plan of Treatment Not on file documented as of this encounter Visit Diagnoses Diagnosis Female infertility- Primary Female infertility of unspecified origin documented in this encounter Administered Medications Inactive Administered Medications - up to 3 most recent administrations Medication Order MAR Action Action Date Dose Rate Site progesterone injection 100 mg 100 mg, Intramuscular, ONCE, 1 dose, On 08/26/12 at 0800, Routine Given 08/26/2012 9:15 AM EDT 100 mg Left Gluteal documented in this encounter Care Teams Oracle Specialist Relationship Specialty Start Date End Date None None PCP - General 07/23/11 documented as of this encounter
--- OUTSIDE RECORDS SUMMARY | 2024-04-16 14:09 | XMS_ITS | Encounter Summary ---
Author Organization [facility] [place] [address] Care Team Providers Care Maintenance Carpenter Name Role Phone None Primary Care Provider Unavailabl e Encounter Details Date Type Department Care Team (Latest Contact Info) Description 08/24/2012 8:39 AM EDT - 08/24/2012 11:59 PM EDT Hospital [place] [phone] Unspecified procreative management Social History Tobacco Use [...] Associated Diagnosis Comments US OVULATION INDUCTION Routine 08/24/2012 9:37 AM EDT Unspecified procreative management documented in this encounter Results * US ovulation induction (08/24/2012 9:37 AM EDT) Anatomical Region Laterality Modality Abdomen, Pelvis Ultrasound 08/24/2012 9:37 AM EDT Narrative 08/24/2012 10:24 AM EDT ? Follicles Report ? (Signed Final 08/24/2012 10:23 am) Patient Info ID: ? [id number] ? : ??[birth year] (27 yrs) Name: ? CLEMENT EUBANKS ? Visit Date: 08/24/2012 09:05 am Performed By Performed By: ?Mayuri Domingo RDMS Attending: ? Fco Cruz MD, Orlando Referred By: ? ORLANDO FCO CRUZ MD Service(s) Provided UOI - Ovulation Induction - [id number] ? [id number] Indications OM 13 ------- History ------- Determined by: ?? First Stimulation ?? First Stimul.Day: ??08/12/12 ?Day Of Cycle: ?13 Right Ovary Follicles Follicle # ?? Length(mm) ? Width(mm) ?Height(mm) ? Avg(mm) 1 ?41.1 ? 28.9 ? 22.7 ? 30.9 2 ?44.4 ? 34.4 ? 15.1 ? 31.3 3 ?38.2 ? 20.5 ? 11.7 ? 23.5 4 ?21.9 ? 18.8 ? 14.1 ? 18.3 5 ?25.8 ? 15 ? 12.5 ? 17.8 6 ?23.4 ? 15.7 ? 9.9 ?16.3 7 ?15.2 ? 14.5 ? 9.1 ?12.9 8 ?16.7 ? 11.7 ? 9.4 ?12.6 9 ?13.9 ? 10 ? 8.7 ?10.9 10 ? 9.9 ?9 ?5.4 ?8.1 11 ? 10.1 ? 8.3 ?4.4 ?7.6 12 ? 6.9 ?6.2 ?3.8 ?5.6 Follicle # ?? Length(mm) ? Width(mm) ?Height(mm) ? Avg(mm) 13 ? 3.2 ?2.5 ?1.7 ?2.5 Follicle # ?? Volume(cc) ? Comments 1 ?14.1 2 ?12.1 3 ?4.8 4 ?3 5 ?2.5 6 ?1.9 7 ?1.1 8 ?1 9 ?0.6 10 ? 0.3 11 ? 0.2 12 ? 0.1 13 ? 0 Left Ovary Follicles Follicle # ?? Length(mm) ? Width(mm) ?Height(mm) ? Avg(mm) 1 ?25.7 ? 22.1 ? 14.9 ? 20.9 2 ?18.5 ? 16 ? 13.9 ? 16.1 3 ?19.9 ? 14.2 ? 8 ?14 4 ?11.6 ? 9.2 ?5.1 ?8.6 5 ?9.8 ?7.2 ?6.5 ?7.8 6 ?10.4 ? 5.4 ?4.3 ?6.7 7 ?6.1 ?4.9 ?3.9 ?5 8 ?5.7 ?4.5 ?3.2 ?4.5 9 ?6 ?4 ?3 ?4.3 10 ? 4 ?4 ?2.6 ?3.5 11 ? 5 ?2.6 ?1.9 ?3.2 Follicle # ?? Volume(cc) ? Comments 1 ?4.4 2 ?2.2 3 ?1.2 4 ?0.3 5 ?0.2 6 ?0.1 7 ?0.1 8 ?0 9 ?0 10 ? 0 11 ? 0 Endometrium Endometrium: ? Normal appearance Thickness (mm): ?9.2 ------ Uterus ------ Uterus: ? Visualized Position: ?? Anteverted Description: ?? No fluid in cul-de-sac Impression Ultrasound - Follicular Monitoring - Summary This transvaginal study was performed for follicular monitoring. The endometrial stripe measures 9.2 mm. The individual ovarian follicles are measured in the images obtained and are recorded above. No fluid in cul-de-sac. I ??viewed the images and agree with the above interpretation. Thank you for allowing us to participate in the care of CLEMENT EUBANKS. Please do not hesitate to call if you have any questions. ? Orlando Cruz MD Electronically Signed Final Report ?? 08/24/2012 10:23 am Procedure Note Orlando Perez MD - 08/24/2012 Follicles Report (Signed Final 08/24/2012 10:23 am) Patient Info ID: [id number] : [birth year] (27 yrs) Name: CLEMENT EUBANKS Visit Date: 08/24/2012 09:05 am Performed By Performed By: Mayuri Domingo RDMS Attending: Orlando Perez MD Referred By: ORLANDO CRUZ MD Service(s) Provided UOI - Ovulation Induction - [id number] Indications OM 13 ------- History ------- Determined by: First Stimulation First Stimul.Day: 08/12/12 Day Of Cycle: 13 Right Ovary Follicles Follicle # Length(mm) Width(mm) Height(mm) Avg(mm) 1 41.1 28.9 22.7 30.9 2 44.4 34.4 15.1 31.3 3 38.2 20.5 11.7 23.5 4 21.9 18.8 14.1 18.3 5 25.8 15 12.5 17.8 6 23.4 15.7 9.9 16.3 7 15.2 14.5 9.1 12.9 8 16.7 11.7 9.4 12.6 9 13.9 10 8.7 10.9 10 9.9 9 5.4 8.1 11 10.1 8.3 4.4 7.6 12 6.9 6.2 3.8 5.6 Follicle # Length(mm) Width(mm) Height(mm) Avg(mm) 13 3.2 2.5 1.7 2.5 Follicle # Volume(cc) Comments 1 14.1 2 12.1 3 4.8 4 3 5 2.5 6 1.9 7 1.1 8 1 9 0.6 10 0.3 11 0.2 12 0.1 13 0 Left Ovary Follicles Follicle # Length(mm) Width(mm) Height(mm) Avg(mm) 1 25.7 22.1 14.9 20.9 2 18.5 16 13.9 16.1 3 19.9 14.2 8 14 4 11.6 9.2 5.1 8.6 5 9.8 7.2 6.5 7.8 6 10.4 5.4 4.3 6.7 7 6.1 4.9 3.9 5 8 5.7 4.5 3.2 4.5 9 6 4 3 4.3 10 4 4 2.6 3.5 11 5 2.6 1.9 3.2 Follicle # Volume(cc) Comments 1 4.4 2 2.2 3 1.2 4 0.3 5 0.2 6 0.1 7 0.1 8 0 9 0 10 0 11 0 Endometrium Endometrium: Normal appearance Thickness (mm): 9.2 ------ Uterus ------ Uterus: Visualized Position: Anteverted Description: No fluid in cul-de-sac Impression Ultrasound - Follicular Monitoring - Summary This transvaginal study was performed for follicular monitoring. The endometrial stripe measures 9.2 mm. The individual ovarian follicles are measured in the images obtained and are recorded above. No fluid in cul-de-sac. I viewed the images and agree with the above interpretation. Thank you for allowing us to participate in the care of CLEMENT EUBANKS. Please do not hesitate to call if you have any questions. Orlando Cruz MD Electronically Signed Final Report 08/24/2012 10:23 am Orlando Cruz MD IMG US PELV IC ORDERABLES documented in this encounter Visit Diagnoses Diagnosis Unspecified procreative management documented in this encounter Care Teams Maintenance Carpenter Relationship Specialty Start Date End Date None None PCP - General 07/23/11 documented as of this encounter
--- OUTSIDE RECORDS SUMMARY | 2024-04-16 14:09 | XMS_ITS | Encounter Summary ---
Author Organization [facility] [place] [address] Care Team Providers Care Parcel Wrapper Name Role Phone None Primary Care Provider Unavailabl e Reason for Visit * Reason Comments Infertility Encounter Details Date Type Department Care Team (Late st Contact Info) Description 11/10/2012 11:30 AM EDT Office Visit Obstetrics [place] [phone] CLINIC, Vivienne Maciel MD [facility] OBSTETRICS & [place] [address] Infertility of tubal origin (Primary Dx) Discharge Disposition: Home Social History [...] as of this encounter Progress Notes * Vivienne Yoo MD - 11/10/2012 12:02 PM EDT EMBRYO TRANSFER PROCEDURE NOTE REPRODUCTIVE MEDICINE & INFERTILITY TREATMENT [place], [place] Blayne Quiles MD Professor and Chair Department of [employer] Preeti Cruz MD IVF/ART Digester Hand MD Gia Tripp ARNP The patient, Flaca Eubanks was brought [...] embryo culture media. #2 pre-embryo(s) was/were transferred The remaining embryos were discarded A 23 cm soft Campos catheter was utilized with a stylet. The transfer was performed under ultrasound guidance [...] drawn on days indicated on laboratory requisitions 4.) D/C to home per RE/I protocol documented in this encounter Miscellaneous Notes * Addendum Note - Annia Cuello RN - 11/10/2012 1:17 PM EDTAddended by: ANNIA CUELLO on: 11/10/2012 01:17 PM Modules accepted: Orders documented in this encounter Plan of Treatment Not on file documented as of this encounter Visit Diagnoses Diagnosis Infertility of tubal origin- Primary Female infertility of tubal origin documented in this encounter Administered Medications Inactive Administered Medications - up to 3 most recent administrations Medication Order MAR Action Action Date Dose Rate Site progesterone injection 100 mg 100 mg, Intramuscular, ONCE, 1 dose, On Tue11/10/12 at 1345, Routine Given 11/10/2012 11:20 AM EDT 100 mg Right Gluteal documented in this encounter Care Teams Parcel Wrapper Relationship Specialty Start Date End Date None None PCP - General 07/23/11 documented as of this encounter
--- OUTSIDE RECORDS SUMMARY | 2024-04-16 14:10 | XMS_ITS | Encounter Summary ---
Author Organization [facility] [address] Care Team Providers Care Coremaker Machine Name Role Phone None Primary Care Provider Unavailabl e Reason for Visit * Reason Comments Infertility Encounter Details Date Type Department Care Team (Late st Contact Info) Description 07/17/2012 10:00 AM EDT Follow-Up Obstetrics [place] [phone] Preeti Perez MD 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); Ovarian endometriosis Discharge Disposition: Home Social History Tobacco Use [...] Sign Reading Time Taken Comments Blood Pressure 96/66 07/17/2012 10:01 AM EDT Pulse - - Temperature - - Respiratory Rate - - Oxygen Saturation - - Inhaled Oxygen Concentration - - Weight 59.8 kg (131 lb 14.4 oz) 013 10:01 AM EDT Height - - Body Mass Index 22.64 05/31/2012 9:02 AM EDT documented in this encounter Progress Notes * Preeti Perez MD - 07/17/2012 10:29 AM EDT I had a 60 minute visit with this patient, 100% spent counseling this couple in detail with regardsto the standard IVF workup, the standard medications used with IVF and the monitoring of controlledovarian hyperstimulation, standard events surrounding IVF oocyte harvest, and embryo transfer. We discussed complications of IVF to include, but not be limited to, baseline ovarian cyst formation, failure to suppress on the medication, failure to obtained any oocytes and an approximate 1/500 risk of major complication of the oocyte harvest, failed fertilization, failure to achieve a , multiple gestations, potential for multi reduction, cycle cancellation, ectopic risk, risk of OHSS and the potential for resulting disability. We discussed the potential physical and emotional discomforts of use of ovulation induction agents,undergoing an IVF oocyte harvest and embryo transfer. We discussed costs in general and they were referred to patient financial services. Additionally we discussed our rates and national rates and the risk of loss. We reviewed the risk of having a baby with a congenital anomaly, and that this risk is mildly elevated with IVF. We reviewed the potential increased risk for miscarriage, , intrauterine growth restriction and small for gestational age infants. We discussed the risk of miscarriage, and the risk of aneuploidy or chromosomal abnormalities. Cha was advised to take a daily vitamin with folic acid (at least 400 mg). The couple were given a copy of the ASRM booklet on IVF and asked to read it. They desire to have all oocytes inseminated. They prefer to maximize their chance for and are willing to discard embryos. They are anticipating a day 3 or 5 transfer of up to 1-2 embryos. They are willing to consider a single embryo transfer. They would choose to cryopreserve embryos at day 1 ,3 or day 5. documented in this encounter Plan of Treatment Not on file documented as of this encounter Visit Diagnoses Diagnosis Female infertility of tubal origin- Primary Ovarian endometriosis Endometriosis of ovary documented in this encounter Care Teams Coremaker Machine Relationship Specialty Start Date End Date None None PCP - General 07/23/11 documented as of this encounter
--- OUTSIDE RECORDS SUMMARY | 2024-04-16 14:10 | XMS_ITS | Encounter Summary ---
Author Organization [facility] [place] [address] Care Team Providers Care Fish Frog Or Oyster Farmer Name Role Phone None Primary Care Provider Unavailabl e Encounter Details Date Type Department Care Team (Latest Contact Info) Description 08/16/2012 8:37 AM EDT - 08/16/2012 11:59 PM EDT [place] [address] Preeti Perez MD [facility] OBSTETRICS & [place] [address] Unspecified procreative management Discharge Disposition: Home Social [...] Priority Date/Time Associated Diagnosis Comments ESTRADIOL Routine 08/16/2012 8:48 AM EDT Unspecified procreative management documented in this encounter Results * Estradiol (08/16/2012 8:48 AM EDT) [facility] Estradiol 22 pg/mL [facility] Comment: rechecked-[facility] Reference ranges: Males: ?? 1-10 years: <5 to 20 pg/mL ?? Adult: ? 0 to 45 pg/mL Females: ?? 1-10 years ??6 to 27 pg/mL Non- females: ?Follicular: ??0-178 pg/mL ?Ovulation: ??48-388 pg/mL ?Luteal: ??31-247 pg/mL ?Postmenopausal: ??0-46 pg/mL females: ?1st trimester: ??38-3175 pg/mL ?2nd trimester: ??678-71568 pg/mL ?3rd trimester: ??43-32874 pg/mL Blood specimen (specimen) 08/16/2012 8:48 AM EDT 08/16/2012 8:53 AM EDT Narrative Resulting Agency Comment Spec In Lab Preeti Cruz MD [facility]AB[facility] documented in this encounter Visit Diagnoses Diagnosis Unspecified procreative management documented in this encounter Care Teams Fish Frog Or Oyster Farmer Relationship Specialty Start Date End Date None None PCP - General 07/23/11 documented as of this encounter
--- OUTSIDE RECORDS SUMMARY | 2024-04-16 14:10 | XMS_ITS | Encounter Summary ---
Author Organization [facility] [place] [address] Care Team Providers Care Jumpbasting Facing Baster Name Role Phone None Primary Care Provider Unavailabl e Reason for Visit * Reason Comments Infertility Encounter Details Date Type Department Care Team (Late st Contact Info) Description 08/10/2012 9:30 AM EDT Office Visit Obstetrics [place] [address] Orlando Perez MD [facility] DR OBSTETRICS & [place] [address] Female infertility (Primary Dx) Discharge Disposition: Home [...] as of this encounter Progress Notes * Orlando Perez MD - 08/10/2012 9:36 AM EDT REPRODUCTIVE MEDICINE MOCK EMBRYO TRANSFER PROCEDURE NOTE Reason for Procedures: Infertility preparing for IVF SUBJECTIVE: Flaca Eubanks is a 27 y.o. female presents for a mock transfer. OBJECTIVE: MOCK EMBRYO TRANSFER PROCEDURE NOTE A Verbal consent obtained from Ms. Eubanks. The procedures and possible complications, including but not limited to, bleeding, hemorrhage, infection, sterility, injury to otherorgans,fainting, and pain,were discussed with the patient and she elected to proceed with the Mock transfer. The ehsan speculum was placed without difficulty. Betadine prep was utilized.Under T/V US guidance the uterine cavity was thoroughly inspected in a three dimensional fashion with 2 D caba ultrasound and a 3 D US rendering of the uterine cavity was obtained. The 23 cm Campos Mock Transfer catheter without the stylet was then passed into the endocervical canal under continued guidance and passed without difficulty under ultrasound guidance. The path of transfer was in a straight direction. The cavity measured 6.5 cm from the fundus to the external cervical os. Ms. Eubanks tolerated the procedure well. The estimated blood loss was minimal. REPRODUCTIVE MEDICINE SALINE INFUSION SONOGRAPHY PROCEDURE NOTE CHIEF COMPLAINT: Patient Active Problem List Diagnoses Code ??? Hydrosalpinx 614.1 ??? Ovarian cystic mass 620.2 ??? 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 Ovarian endometriosis 617.1 SUBJECTIVE: Flaca Eubanks is a 27 y.o. female presents for sonohysterography. OBJECTIVE: SALINE INFUSION SONOGRAPHY PROCEDURE NOTE A Verbal consent obtained from Ms. Eubanks. A formal time out procedure was performed with the attending pushcart peddler and myself and negative Ms. Eubanks confirmed her name and date of . The procedure to be performed and the possible common complications, including but not limited to, bleeding, hemorrhage, infection, sterility, injury to other organs, fainting, and pain,were discussed with the patient and she elected to proceed with the SIS. A ehsan speculum placed without difficulty. The patients cervix and upper vagina was prepared with betadine prep. A 5mm H/S catheter placed without difficulty under direct visualization. Under T/V US guidance saline was injected into the uterine cavity and the uterine cavity was thoroughly inspected in a three dimensional fashion with 2 D caba ultrasound and a 3 D US rendering of theuterine cavity was obtained. The patient tolerated the procedure well. Ms. Eubanks tolerated the procedure well. The estimated blood loss was minimal. See US report-Normal cavity ASSESSMENT: Normal Uterine Cavity I briefly discussed the findings with the patient. She is to follow up with her primary rubber vulcanizing machine operator to establish a treatment plan. RECOMMENDATIONS: ART as planned ORLANDO GARCIA MD documented in this encounter Plan of Treatment Not on file documented as of this encounter Visit Diagnoses Diagnosis Female infertility- Primary Female infertility of unspecified origin documented in this encounter Care Teams Jumpbasting Facing Baster Relationship Specialty Start Date End Date None None PCP - General 07/23/11 documented as of this encounter
--- OUTSIDE RECORDS SUMMARY | 2024-04-16 14:10 | XMS_ITS | Encounter Summary ---
Author Organization [facility] [place] [address] Care Team Providers Care Sandblaster Stone Name Role Phone None Primary Care Provider Unavailabl e Reason for Visit * Reason Onset Date Comments Medication Refill 07/08/2012 Encounter Details Date Type Department Care Team (Late st Contact Info) Description 07/08/2012 Refill Obstetrics [place] [address] Preeti Perez MD [facility] OBSTETRICS & [place] [address] Social History Tobacco Use Types Packs/Day Years [...] on filedocumented in this encounter Care Teams Sandblaster Stone Relationship Specialty Start Date End Date None None PCP - General 07/23/11 documented as of this encounter
--- OUTSIDE RECORDS SUMMARY | 2024-04-16 14:10 | XMS_ITS | Encounter Summary ---
Author Organization [facility] [place] [address] Care Team Providers Care Crinkling Machine Operator Name Role Phone None Primary Care Provider Unavailabl e Encounter Details Date Type Department Care Team (Late st Contact Info) Description 08/10/2012 8:45 AM EDT - 08/10/2012 9:23 AM EDT Hospital Encounter [place] [phone] Social History Tobacco Use Types Packs/Day Years [...] Associated Diagnosis Comments US OVULATION INDUCTION Routine 08/10/2012 10:01 AM EDT documented in this encounter Results * US ovulation induction (08/10/2012 10:01 AM EDT) Anatomical Region Laterality Modality Abdomen, Pelvis Ultrasound 08/10/2012 10:0 1 AM EDT Narrative 08/10/2012 10:22 AM EDT ? Follicles Report ? (Signed Final 08/10/2012 10:21 am) Patient Info ID: ? [id number] ? : ??[birth year] (27 yrs) Name: ? CLEMENT A CHELSYWILLARDRAFAEL ? Visit Date: 08/10/2012 09:59 am Performed By Performed By: ?Beulah Rubio RDMS Attending: ? Fco Cruz MD, Orlando Referred By: ? ORLANDO FCO CRUZ MD Service(s) Provided UOI - Ovulation Induction - [id number] ? [id number] Indications Baseline for IVF, NEEDS MOCK TRANSFER Right Ovary Size(cm): ?5.85 ? x ??4.27 ? x ?? 3.3 ?Vol(ml): ?? 43.2 Right Ovary Follicles Follicle # ?? Length(mm) ? Width(mm) ?Height(mm) ? Avg(mm) 1 ?41.5 ? 32.3 ? 20.5 ? 31.4 2 ?32.4 ? 26.2 ? 22.1 ? 26.9 Follicle # ?? Volume(cc) ? Comments 1 ?14.4 2 ?9.8 Left Ovary Size(cm): ?2.68 ? x ??2.68 ? x ?? 1.53 ? Vol(ml): ?? 5.8 Left Ovary Follicles Follicle # ?? Length(mm) ? Width(mm) ?Height(mm) ? Avg(mm) 1 ?4.6 ?3.8 ?1.9 ?3.4 2 ?4.2 ?2.4 ?1.3 ?2.6 3 ?3.1 ?2.2 ?1.4 ?2.2 4 ?1.8 ?1.3 ?0.6 ?1.2 5 ?1.3 ?1.2 ?0.9 ?1.1 Follicle # ?? Volume(cc) ? Comments 1 ?0 2 ?0 3 ?0 4 ?0 5 ?0 Endometrium Thickness (mm): ?1.91 ------ Uterus ------ Size (cm) ?L: ??6.46 ?W: ?? 4.1 ?H: ??3.56 Vol(cc): ? 49.4 Description: ?? No fluid in cul-de-sac Impression Ultrasound - Follicular Monitoring - Summary This transvaginal study was performed for follicular monitoring. The endometrial stripe measures 1.91 mm. The individual ovarian follicles are measured in the images obtained and are recorded above. No fluid in cul-de-sac. I ??viewed the images and agree with the above interpretation. Thank you for allowing us to participate in the care of CLEMENT EUBAKNS. Please do not hesitate to call if you have any questions. ?Orlando Cruz MD Electronically Signed Final Report ?? 08/10/2012 10:21 am Procedure Note Orlando Perez MD - 08/10/2012 Follicles Report (Signed Final 08/10/2012 10:21 am) Patient Info ID: [id number] : [birth year] (27 yrs) Name: CLEMENT EUBANKS Visit Date: 08/10/2012 09:59 am Performed By Performed By: Beulah Rubio [facility] Attending: Orlando Perez MD Referred By: ORLANDO CRUZ MD Service(s) Provided UOI - Ovulation Induction - [id number] Indications Baseline for IVF, NEEDS MOCK TRANSFER Right Ovary Size(cm): 5.85 x 4.27 x 3.3 Vol(ml): 43.2 Right Ovary Follicles Follicle # Length(mm) Width(mm) Height(mm) Avg(mm) 1 41.5 32.3 20.5 31.4 2 32.4 26.2 22.1 26.9 Follicle # Volume(cc) Comments 1 14.4 2 9.8 Left Ovary Size(cm): 2.68 x 2.68 x 1.53 Vol(ml): 5.8 Left Ovary Follicles Follicle # Length(mm) Width(mm) Height(mm) Avg(mm) 1 4.6 3.8 1.9 3.4 2 4.2 2.4 1.3 2.6 3 3.1 2.2 1.4 2.2 4 1.8 1.3 0.6 1.2 5 1.3 1.2 0.9 1.1 Follicle # Volume(cc) Comments 1 0 2 0 3 0 4 0 5 0 Endometrium Thickness (mm): 1.91 ------ Uterus ------ Size (cm) L: 6.46 W: 4.1 H: 3.56 Vol(cc): 49.4 Description: No fluid in cul-de-sac Impression Ultrasound - Follicular Monitoring - Summary This transvaginal study was performed for follicular monitoring. The endometrial stripe measures 1.91 mm. The individual ovarian follicles are measured in the images obtained and are recorded above. No fluid in cul-de-sac. I viewed the images and agree with the above interpretation. Thank you for allowing us to participate in the care of CLEMENT Guerrero [facility]. Please do not hesitate to call if you have any questions. Orlando Cruz MD Electronically Signed Final Report 08/10/2012 10:21 am Orlando Cruz MD IMG US PELV IC ORDERABLES documented in this encounter Visit Diagnoses Not on filedocumented in this encounter Care Teams Crinkling Machine Operator Relationship Specialty Start Date End Date None None PCP - General 07/23/11 documented as of this encounter
--- OUTSIDE RECORDS SUMMARY | 2024-04-16 14:10 | XMS_ITS | Encounter Summary ---
Author Organization [facility] [place] [address] Care Team Providers Care Pot Filler Name Role Phone None Primary Care Provider Unavailabl e Reason for Visit * Reason Comments Follow-up Encounter Details Date Type Department Care Team (Late st Contact Info) Description 08/18/2012 9:00 AM EDT Office Visit Obstetrics [place] [phone] CLINIC, Gia Ragland, [facility] [place] [address] Infertility management (Primary Dx) Discharge Disposition: Home [...] Progress Notes * Gia Barry APRN - 08/18/2012 9:30 AM EDT Chief Complaint: Ovulation induction monitoring. SUBJECTIVE: 27 y.o. year old with a history of Desire to conceive. She is cycle day 7. She has had a transvaginal ultrasound to evaluate ovarian activity and her estradiol level is pending. OBJECTIVE: Transvaginal US results were reviewed with the patient. Please see her infertility chartfor details of her scan results today. ASSESSMENT: Ovulation induction monitoring two cysts right ovary >2cm, remaining follicles <10mm I spent all of this 15 minute [...] ongoing treatment plan 5.) Plan likely : Await E2 for plan, probable see back on OM 10. documented in this encounter Plan of Treatment Not on file documented as of this encounter Visit Diagnoses Diagnosis Infertility management- Primary Unspecified procreative management documented in this encounter Care Teams Pot Filler Relationship Specialty Start Date End Date None None PCP - General 07/23/11 documented as of this encounter
--- OUTSIDE RECORDS SUMMARY | 2024-04-16 14:10 | XMS_ITS | Encounter Summary ---
Author Organization [facility] [place] [address] Care Team Providers Care Leg Breaker Name Role Phone None Primary Care Provider Unavailabl e Encounter Details Date Type Department Care Team (Late st Contact Info) Description 06/19/2012 Orders Only Obstetrics [place] [address] Preeti Perez MD [facility] OBSTETRICS & [place] [address] Contraception (Primary Dx) Social History Tobacco Use Types [...] as of this encounter Visit Diagnoses Diagnosis Contraception- Primary Unspecified contraceptive management documented in this encounter Care Teams Leg Breaker Relationship Specialty Start Date End Date None None PCP - General 07/23/11 documented as of this encounter
--- OUTSIDE RECORDS SUMMARY | 2024-04-16 14:10 | XMS_ITS | Encounter Summary ---
Author Organization [facility] Address [facility] [place] [address] Care Team Providers Care Shaping Machine Tender Name Role Phone None Primary Care Provider Unavailabl e Encounter Details Date Type Department Care Team (Latest Contact Info) Description 08/18/2012 8:18 AM EDT - 08/18/2012 11:59 PM EDT Hospital [place] [address] Preeti Perez MD [facility] OBSTETRICS & [place] [address] Unspecified procreative management Discharge Disposition: Home Social [...] Priority Date/Time Associated Diagnosis Comments ESTRADIOL Routine 08/18/2012 8:27 AM EDT Unspecified procreative management documented in this encounter Results * Estradiol (08/18/2012 8:27 AM EDT) [facility] Estradiol 129 pg/mL [facility] Comment: [facility] Reference ranges: Males: ?? 1-10 years: <5 to 20 pg/mL ?? Adult: ? 0 to 45 pg/mL Females: ?? 1-10 years ??6 to 27 pg/mL Non- females: ?Follicular: ??0-178 pg/mL ?Ovulation: ??48-388 pg/mL ?Luteal: ??31-247 pg/mL ?Postmenopausal: ??0-46 pg/mL females: ?1st trimester: ??38-3175 pg/mL ?2nd trimester: ??678-23987 pg/mL ?3rd trimester: ??43-82907 pg/mL Blood specimen (specimen) 08/18/2012 8:27 AM EDT 08/18/2012 8:32 AM EDT Narrative Resulting Agency Comment Spec In Lab Preeti Cruz MD CHEMISTRY O RDERABLES [facility] documented in this encounter Visit Diagnoses Diagnosis Unspecified procreative management documented in this encounter Care Teams Shaping Machine Tender Relationship Specialty Start Date End Date None None PCP - General 07/23/11 documented as of this encounter
--- OUTSIDE RECORDS SUMMARY | 2024-04-16 14:10 | XMS_ITS | Encounter Summary ---
Author Organization [facility] [place] [address] Care Team Providers Care Freezing Machine Operator Name Role Phone None Primary Care Provider Unavailabl e Encounter Details Date Type Department Care Team (Latest Contact Info) Description 08/21/2012 8:26 AM EDT - 08/21/2012 11:59 PM EDT Hospital [place] [address] Preeti Perez MD [facility] OBSTETRICS & [place] [address] Unspecified procreative management Discharge Disposition: Home Social [...] Priority Date/Time Associated Diagnosis Comments ESTRADIOL Routine 08/21/2012 8:33 AM EDT Unspecified procreative management documented in this encounter Results * Estradiol (08/21/2012 8:33 AM EDT) Estradiol 530 pg/mL [facility] Comment: Result rechecked. Reference ranges: Males: ?? 1-10 years: <5 to 20 pg/mL ?? Adult: ? 0 to 45 pg/mL Females: ?? 1-10 years ??6 to 27 pg/mL Non- females: ?Follicular: ??0-178 pg/mL ?Ovulation: ??48-388 pg/mL ?Luteal: ??31-247 pg/mL ?Postmenopausal: ??0-46 pg/mL females: ?1st trimester: ??38-3175 pg/mL ?2nd trimester: ??678-86834 pg/mL ?3rd trimester: ??43-28550 pg/mL Blood specimen (specimen) 08/21/2012 8:33 AM EDT 08/21/2012 8:37 AM EDT Narrative Resulting Agency Comment Spec In Lab Preeti Cruz MD CHEMISTRY O RDERABLES [facility] documented in this encounter Visit Diagnoses Diagnosis Unspecified procreative management documented in this encounter Care Teams Freezing Machine Operator Relationship Specialty Start Date End Date None None PCP - General 07/23/11 documented as of this encounter
--- OUTSIDE RECORDS SUMMARY | 2024-04-16 14:10 | XMS_ITS | Encounter Summary ---
Author Organization [facility] [place] [address] Care Team Providers Care Braid Cutter Name Role Phone None Primary Care Provider Unavailabl e Encounter Details Date Type Department Care Team (Latest Contact Info) Description 08/21/2012 8:39 AM EDT - 08/21/2012 11:59 PM EDT Hospital Encounter [place] [phone] Unspecified procreative management Social History Tobacco Use [...] Associated Diagnosis Comments US OVULATION INDUCTION Routine 08/21/2012 9:39 AM EDT Unspecified procreative management documented in this encounter Results * US ovulation induction (08/21/2012 9:39 AM EDT) Anatomical Region Laterality Modality Abdomen, Pelvis Ultrasound 08/21/2012 9:39 AM EDT Narrative 08/21/2012 1:57 PM EDT ? Follicles Report ? (Signed Final 08/21/2012 01:56 pm) Patient Info ID: ? [id number] ? : ??[birth year] (27 yrs) Name: ? CLEMENT EUBANKS ? Visit Date: 08/21/2012 09:38 am Performed By Performed By: ?Yessi Simons RDMS Attending: ? Fco Cruz MD, Orlando Referred By: ? ORLANDO FCO CRUZ MD Service(s) Provided UOI - Ovulation Induction - [id number] ? [id number] Indications OM 10 ------- History ------- Determined by: ?? First Stimulation ?? First Stimul.Day: ??08/12/12 ?Day Of Cycle: ?10 Right Ovary Follicles Follicle # ?? Length(mm) ? Width(mm) ?Height(mm) ? Avg(mm) 1 ?46.2 ? 35.1 ? 18.6 ? 33.3 2 ?38.7 ? 27.4 ? 23.9 ? 30 3 ?17.9 ? 13.4 ? 8.4 ?13.2 4 ?21.4 ? 11.9 ? 6.4 ?13.2 5 ?14.1 ? 13.4 ? 8 ?11.8 6 ?13.9 ? 12 ? 8.5 ?11.5 7 ?10.4 ? 9.9 ?6.3 ?8.9 8 ?10.4 ? 6.8 ?6 ?7.7 9 ?6.1 ?4.1 ?3 ?4.4 10 ? 6 ?3.2 ?2 ?3.7 11 ? 3.5 ?3 ?2.3 ?2.9 Follicle # ?? Volume(cc) ? Comments 1 ?15.8 2 ?13.3 3 ?1.1 4 ?0.9 5 ?0.8 6 ?0.7 7 ?0.3 8 ?0.2 9 ?0 10 ? 0 11 ? 0 Left Ovary Follicles Follicle # ?? Length(mm) ? Width(mm) ?Height(mm) ? Avg(mm) 1 ?23.8 ? 11.9 ? 9.6 ?15.1 2 ?12.6 ? 11.1 ? 8.6 ?10.8 3 ?10.4 ? 8.4 ?5.9 ?8.2 4 ?7.1 ?5.1 ?3.2 ?5.1 5 ?5.6 ?3.2 ?2.2 ?3.7 6 ?4 ?3.2 ?2.1 ?3.1 Follicle # ?? Volume(cc) ? Comments 1 ?1.4 2 ?0.6 3 ?0.3 4 ?0.1 5 ?0 6 ?0 Endometrium Endometrium: ? Normal appearance Thickness (mm): ?8.22 ------ Uterus ------ Description: ?? Trace amount of fluid in cul-de-sac Impression Ultrasound - Follicular Monitoring - Summary This transvaginal study was performed for follicular monitoring. The endometrial stripe measures 8.22 mm. The individual ovarian follicles are measured in the images obtained and are recorded above. Trace amount of fluid in cul-de-sac. I ??viewed the images and agree with the above interpretation. Thank you for allowing us to participate in the care of CLEMENT EUBANKS. Please do not hesitate to call if you have any questions. ?Orlando Cruz MD Electronically Signed Final Report ?? 08/21/2012 01:56 pm Procedure Note Orlando Perez MD - 08/21/2012 Follicles Report (Signed Final 08/21/2012 01:56 pm) Patient Info ID: [id number] : [birth year] (27 yrs) Name: CLEMENT EUBANKS Visit Date: 08/21/2012 09:38 am Performed By Performed By: Yessi Simons RDMS Attending: Orlando Perez MD Referred By: ORLANDO CRUZ MD Service(s) Provided UOI - Ovulation Induction - [id number] Indications OM 10 ------- History ------- Determined by: First Stimulation First Stimul.Day: 08/12/12 Day Of Cycle: 10 Right Ovary Follicles Follicle # Length(mm) Width(mm) Height(mm) Avg(mm) 1 46.2 35.1 18.6 33.3 2 38.7 27.4 23.9 30 3 17.9 13.4 8.4 13.2 4 21.4 11.9 6.4 13.2 5 14.1 13.4 8 11.8 6 13.9 12 8.5 11.5 7 10.4 9.9 6.3 8.9 8 10.4 6.8 6 7.7 9 6.1 4.1 3 4.4 10 6 3.2 2 3.7 11 3.5 3 2.3 2.9 Follicle # Volume(cc) Comments 1 15.8 2 13.3 3 1.1 4 0.9 5 0.8 6 0.7 7 0.3 8 0.2 9 0 10 0 11 0 Left Ovary Follicles Follicle # Length(mm) Width(mm) Height(mm) Avg(mm) 1 23.8 11.9 9.6 15.1 2 12.6 11.1 8.6 10.8 3 10.4 8.4 5.9 8.2 4 7.1 5.1 3.2 5.1 5 5.6 3.2 2.2 3.7 6 4 3.2 2.1 3.1 Follicle # Volume(cc) Comments 1 1.4 2 0.6 3 0.3 4 0.1 5 0 6 0 Endometrium Endometrium: Normal appearance Thickness (mm): 8.22 ------ Uterus ------ Description: Trace amount of fluid in cul-de-sac Impression Ultrasound - Follicular Monitoring - Summary This transvaginal study was performed for follicular monitoring. The endometrial stripe measures 8.22 mm. The individual ovarian follicles are measured in the images obtained and are recorded above. Trace amount of fluid in cul-de-sac. I viewed the images and agree with the above interpretation. Thank you for allowing us to participate in the care of CLEMENT EUBANKS. Please do not hesitate to call if you have any questions. Orlando Cruz MD Electronically Signed Final Report 08/21/2012 01:56 pm Orlando Cruz MD IMG US PELV IC ORDERABLES documented in this encounter Visit Diagnoses Diagnosis Unspecified procreative management documented in this encounter Care Teams Braid Cutter Relationship Specialty Start Date End Date None None PCP - General 07/23/11 documented as of this encounter
--- OUTSIDE RECORDS SUMMARY | 2024-04-16 14:10 | XMS_ITS | Encounter Summary ---
Author Organization [facility] [place] [address] Care Team Providers Care Credentialing Assistant Name Role Phone None Primary Care Provider Unavailabl e Encounter Details Date Type Department Care Team (Latest Contact Info) Description 08/01/2012 11:29 AM EDT - 08/01/2012 11:59 PM EDT Hospital Encounter Obstetrics [place] [address] Preeti Perez MD [facility] OBSTETRICS & [place] [address] Discharge Disposition: Home Social History Tobacco Use [...] Sig Dispensed Refills Start Date End Date norgestimate-ethinyl estradiol (ORTHO-CYCLEN, 28,) 0.25-35 mg-mcg per tabletIndications:Contra ception Take 1 tablet by mouth daily. 30 tablet 3 06/19/2012 08/10/2012 documented as of this encounter Plan of Treatment Not on file documented as of this encounter Visit Diagnoses Not on filedocumented in this encounter Care Teams Credentialing Assistant Relationship Specialty Start Date End Date None None PCP - General 07/23/11 documented as of this encounter
--- OUTSIDE RECORDS SUMMARY | 2024-04-16 14:10 | XMS_ITS | Encounter Summary ---
Author Organization [facility] Address [facility] [place] [address] Care Team Providers Care Picker / Packer Name Role Phone None Primary Care Provider Unavailabl e Encounter Details Date Type Department Care Team (Late st Contact Info) Description 07/11/2012 Orders Only Obstetrics [place] [address] Orlando Perez MD [facility] [address] OBSTETRICS & [place] [address] Unspecified procreative management (Primary Dx) Social History [...] Type Priority Associated Diagnoses Orde r Schedule OCCYTE HARVEST W/ ULTRASOUND OB Routine Unspecified procreative management Expected: 08/21/2012 (Approximate), Expires: 07/12/2013 documented as of this encounter Results * US embryo PLCMT-T abdomen (08/29/2012 11:17 AM EDT) Anatomical Region Laterality Modality Abdomen Ultrasound 08/29/2012 11:1 7 AM EDT Narrative 08/29/2012 1:38 PM EDT ?Gynecological Report ? (Signed Final 08/29/2012 01:37 pm) Patient Info ID: ? [id number] ? : ??[birth year] (27 yrs) Name: ? CLEMENT EUBANKS ? Visit Date: 08/29/2012 11:14 am Performed By Performed By: ?Mayuri Domingo [facility] Attending: ? Sergey Cruz MD, Orlando Referred By: ? ORLANDO CRUZ MD Service(s) Provided UEMBRY - Ultrasound - Embryo Transfer - ? [id number] Indications IVF embryo transfer ------- History ------- [...] to participate in the care of CLEMENT Yolanda EUBANKS. Please do not hesitate to call if you have any questions. ?Orlando Cruz MD Electronically Signed Final Report ?? 08/29/2012 01:37 pm Procedure Note Orlando Perez MD - 08/29/2012 Gynecological Report (Signed Final 08/29/2012 01:37 pm) Patient Info ID: [id number] : [birth year] (27 yrs) Name: CLEMENT EUBANKS Visit Date: 08/29/2012 11:14 am Performed By Performed By: Mayuri Domingo [facility] Attending: Orlando Perez MD Referred By: ORLANDO CRUZ MD Service(s) Provided UEMBRY - Ultrasound - Embryo Transfer - [id number] Indications IVF embryo transfer ------- History ------- [...] Signed Final Report 08/29/2012 01:37 pm Orlando M Sergey Cruz MD IMG US PELV IC ORDERABLES * US IVF transvaginal (08/26/2012 9:15 AM EDT) Anatomical Region Laterality Modality Abdomen, Pelvis Ultrasound 08/26/2012 9:15 AM EDT Narrative 08/30/2012 11:05 AM EDT ?Gynecological Report ? (Signed Final 08/30/2012 09:18 am) Patient Info ID: ?[id number] ?: ??[birth year] (27 yrs) Name: ?CLEMENT EUBANKS ?Visit Date: 08/26/2012 09:00 am Performed By Performed By: ?Keith Steele Attending: ? Sergey Cruz MD, Orlando Referred By: ? ORLANDO CRUZ MD Service(s) Provided UIVFTV - Ultrasound - IVF Transvaginal ?[id number] Procedure - [id number] Indications IVF Retrieval ------- History ------- Age: ?? 27 ------ Uterus ------ Position: ?? Anteverted Endometrium Cul-De-Sac A small amount of fluid was noted. Right Ovary Status: ??Visualized Left Ovary Status: ??Visualized Impression Ultrasound - IVF Procedure - Summary Real time transvaginal ultrasound was performed during the course of an IVF oocyte harvest. The double layer endometrial echo thickness was ??mm. Intellectual Property Manager images were obtained documenting the appearance of [...] Final 08/30/2012 09:18 am) Patient Info ID: [id number] : [birth year] (27 yrs) Name: CLEMENT EUBANKS Visit Date: 08/26/2012 09:00 am Performed By Performed By: Keith Steele Attending: Orlando Perez MD Referred By: ORLANDO CRUZ MD Service(s) Provided UIVFTV - Ultrasound - IVF Transvaginal [id number] Procedure - [id number] Indications IVF Retrieval ------- History ------- Age: 27 ------ Uterus ------ Position: Anteverted Endometrium Cul-De-Sac A small amount of fluid was noted. Right Ovary Status: Visualized Left Ovary Status: Visualized Impression Ultrasound - IVF Procedure - Summary Real time transvaginal ultrasound was performed during the course of an IVF oocyte harvest. The double layer endometrial echo thickness was mm. Intellectual Property Manager images were obtained documenting the appearance of [...] PELV IC ORDERABLES * US ovulation induction (08/24/2012 9:37 AM EDT) Anatomical Region Laterality Modality Abdomen, Pelvis Ultrasound 08/24/2012 9:37 AM EDT Narrative 08/24/2012 10:24 AM EDT ? Follicles Report ? (Signed Final 08/24/2012 10:23 am) Patient Info ID: ? [id number] ? : ??[birth year] (27 yrs) Name: ? CLEMENT A SHANE ? Visit Date: 08/24/2012 09:05 am Performed By Performed By: ?Mayuri Domingo RDMS Attending: ? Sergey Cruz MD, Orlando Referred By: ? ORLANDOArminda CRUZ MD Service(s) Provided UOI - Ovulation Induction - [id number] ? [id number] Indications OM 13 ------- History ------- Determined [...] Final 08/24/2012 10:23 am) Patient Info ID: [id number] : [birth year] (27 yrs) Name: CLEMENT A SHANE Visit Date: 08/24/2012 09:05 am Performed By Performed By: Mayuri Domingo RDMS Attending: Orlando Perez MD Referred By: ORLANDO CRUZ MD Service(s) Provided UOI - Ovulation Induction - [id number] Indications OM 13 ------- History ------- Determined [...] PELV IC ORDERABLES * US ovulation induction (08/21/2012 9:39 AM EDT) Anatomical Region Laterality Modality Abdomen, Pelvis Ultrasound 08/21/2012 9:39 AM EDT Narrative 08/21/2012 1:57 PM EDT ? Follicles Report ? (Signed Final 08/21/2012 01:56 pm) Patient Info ID: ? [id number] ? : ??[birth year] (27 yrs) Name: ? CLEMENT EUBANKS ? Visit Date: 08/21/2012 09:38 am Performed By Performed By: ?Yessi Simons RDMS Attending: ? Orlando Perez MD Referred By: ? ORLANDO CRUZ MD Service(s) Provided UOI - Ovulation Induction - [id number] ? [id number] Indications OM 10 ------- History ------- Determined [...] Final 08/21/2012 01:56 pm) Patient Info ID: [id number] : [birth year] (27 yrs) Name: CLEMENT EUBANKS Visit Date: 08/21/2012 09:38 am Performed By Performed By: Yessi Simons RDMS Attending: Orlando Perez MD Referred By: ORLANDO CRUZ MD Service(s) Provided UOI - Ovulation Induction - [id number] Indications OM 10 ------- History ------- Determined [...] PELV IC ORDERABLES * US ovulation induction (08/18/2012 9:05 AM EDT) Anatomical Region Laterality Modality Abdomen, Pelvis Ultrasound 08/18/2012 9:05 AM EDT Narrative 08/18/2012 12:06 PM EDT ? Follicles Report ? (Signed Final 08/18/2012 12:06 pm) Patient Info ID: ?[id number] ?: ??[birth year] (27 yrs) Name: ?CLEMENT EUBANKS ?Visit Date: 08/18/2012 08:53 am Performed By Performed By: ?Abiodun DAILY, ??Emy Attending: ? Sergey Cruz MD, Orlando Referred By: ? ORLANDO CRUZ MD Service(s) Provided UOI - Ovulation Induction - [id number] ? 17936 Indications OM 7 ------- History ------- Determined by: ?? First Stimulation ?? First Stimul.Day: ??08/12/12 ?Day Of Cycle: ?7 Right Ovary Follicles Follicle # ?? Length(mm) ? Width(mm) ?Height(mm) ?Avg(mm) 1 ?29.8 ? 23.5 ? 32.5 ?28.6 2 ?38.2 ? 17.4 ? 31 ?28.9 3 ?10.1 ? 5.8 ?10.4 ?8.8 4 ?14.1 ? 4.1 ?8.7 ? 9 5 ?6.3 ?2.7 ?5.4 ? 4.8 Follicle # ?? Volume(cc) ? Comments 1 ?11.9 2 ?10.8 3 ?0.3 4 ?0.3 5 ?0 Left Ovary Follicles Follicle # ?? Length(mm) ? Width(mm) ?Height(mm) ?Avg(mm) 1 ?8.2 ?7.7 ?5.9 ? 7.3 2 ?7.9 ?5.9 ?8.3 ? 7.4 3 ?4.6 ?3.9 ?4.4 ? 4.3 Follicle # ?? Volume(cc) ? Comments 1 ?0.2 2 ?0.2 3 ?0 Endometrium Thickness (mm): ? 3.47 ------ Uterus ------ Description: ??No fluid in cul-de-sac Impression Ultrasound - Follicular Monitoring - Summary This transvaginal study was performed for follicular monitoring. The endometrial stripe measures 3.47 mm. The individual ovarian follicles are measured in the images obtained and are recorded above. No fluid in cul-de-sac. I ??viewed the images and agree with the above interpretation. Thank you for allowing us to participate in the care of CLEMENT EUBANKS. Please do not hesitate to call if you have any questions. ? Orlando Cruz MD Electronically Signed Final Report ?? 08/18/2012 12:06 pm Procedure Note Orlando Perez MD - 08/18/2012 Follicles Report (Signed Final 08/18/2012 12:06 pm) Patient Info ID: [id number] : [birth year] (27 yrs) Name: CLEMENT EUBANKS Visit Date: 08/18/2012 08:53 am Performed By Performed By: Emy Rascon RDMS Attending: Orlando Perez MD Referred By: ORLANDO CRUZ MD Service(s) Provided UOI - Ovulation Induction - [id number] Indications OM 7 ------- History ------- Determined by: First Stimulation First Stimul.Day: 08/12/12 Day Of Cycle: 7 Right Ovary Follicles Follicle # Length(mm) Width(mm) Height(mm) Avg(mm) 1 29.8 23.5 32.5 28.6 2 38.2 17.4 31 28.9 3 10.1 5.8 10.4 8.8 4 14.1 4.1 8.7 9 5 6.3 2.7 5.4 4.8 Follicle # Volume(cc) Comments 1 11.9 2 10.8 3 0.3 4 0.3 5 0 Left Ovary Follicles Follicle # Length(mm) Width(mm) Height(mm) Avg(mm) 1 8.2 7.7 5.9 7.3 2 7.9 5.9 8.3 7.4 3 4.6 3.9 4.4 4.3 Follicle # Volume(cc) Comments 1 0.2 2 0.2 3 0 Endometrium Thickness (mm): 3.47 ------ Uterus ------ Description: No fluid in cul-de-sac Impression Ultrasound - Follicular Monitoring - Summary This transvaginal study was performed for follicular monitoring. The endometrial stripe measures 3.47 mm. The individual ovarian follicles are measured in the images obtained and are recorded above. No fluid in cul-de-sac. I viewed the images and agree with the above interpretation. Thank you for allowing us to participate in the care of CLEMENT EUBANKS. Please do not hesitate to call if you have any questions. Orlando Cruz MD Electronically Signed Final Report 08/18/2012 12:06 pm Orlando Cruz MD IMG US PELV IC ORDERABLES documented in this encounter Visit Diagnoses Diagnosis Unspecified procreative management- Primary Unspecified procreative management Unspecified procreative management Unspecified procreative management Unspecified procreative management Unspecified procreative management documented in this encounter Care Teams Picker / Packer Relationship Specialty Start Date End Date None None PCP - General 07/23/11 documented as of this encounter
--- OUTSIDE RECORDS SUMMARY | 2024-04-16 14:10 | XMS_ITS | Encounter Summary ---
Author Organization [facility] [place] [address] Care Team Providers Care Industrial Radiographer Name Role Phone None Primary Care Provider Unavailabl e Encounter Details Date Type Department Care Team (Late st Contact Info) Description 07/17/2012 11:00 AM EDT Office Visit Obstetrics [place] [address] Nurse, Franny RAMIREZ, RN Social History Tobacco Use Types Packs/Day [...] on filedocumented in this encounter Care Teams Industrial Radiographer Relationship Specialty Start Date End Date None None PCP - General 07/23/11 documented as of this encounter
--- OUTSIDE RECORDS SUMMARY | 2024-04-16 14:10 | XMS_ITS | Encounter Summary ---
Author Organization [facility] [place] [address] Care Team Providers Care Flotation Operator Name Role Phone None Primary Care Provider Unavailabl e Reason for Visit * Reason Comments Follow-up Encounter Details Date Type Department Care Team (Late st Contact Info) Description 08/21/2012 9:30 AM EDT Office Visit Obstetrics [place] [address] Gia Barry APRN [facility] [place] [address] Infertility management (Primary Dx) Discharge Disposition: Home [...] Progress Notes * Gia Barry APRN - 08/21/2012 10:15 AM EDT Chief Complaint: Ovulation induction monitoring. SUBJECTIVE: 27 y.o. year old with a history of Desire to conceive. She is cycle day 10. She has hada transvaginal ultrasound to evaluate ovarian activity and her estradiol level is pending. OBJECTIVE: Transvaginal US results were reviewed with the patient. Please see her infertility chartfor details of her scan results today. ASSESSMENT: Ovulation induction monitoring Total 4-6 moving forward, 2 simple cysts >2.5mm on right ovary I spent all of this 15 minute [...] plan 5.) Plan likely : See back Wed, discuss with Dr. Cruz documented in this encounter Plan of Treatment Not on file documented as of this encounter Visit Diagnoses Diagnosis Infertility management- Primary Unspecified procreative management documented in this encounter Care Teams Flotation Operator Relationship Specialty Start Date End Date None None PCP - General 07/23/11 documented as of this encounter
--- OUTSIDE RECORDS SUMMARY | 2024-04-16 14:10 | XMS_ITS | Encounter Summary ---
Author Organization [facility] Address [facility] [place] [address] Care Team Providers Care Emergency Department Rn Name Role Phone None Primary Care Provider Unavailabl e Encounter Details Date Type Department Care Team (Latest Contact Info) Description 08/18/2012 8:30 AM EDT - 08/18/2012 11:59 PM EDT Hospital Encounter XRay at [address] [place] [address] Unspecified procreative management Social History Tobacco Use [...] Associated Diagnosis Comments US OVULATION INDUCTION Routine 08/18/2012 9:05 AM EDT Unspecified procreative management documented in this encounter Results * US ovulation induction (08/18/2012 9:05 AM EDT) Anatomical Region Laterality Modality Abdomen, Pelvis Ultrasound 08/18/2012 9:05 AM EDT Narrative 08/18/2012 12:06 PM EDT ? Follicles Report ? (Signed Final 08/18/2012 12:06 pm) Patient Info ID: ?[id number] ?: ??[birth year] (27 yrs) Name: ?CLEMENT EUBANKS ?Visit Date: 08/18/2012 08:53 am Performed By Performed By: ?Abiodun DAILY, ??Emy Attending: ? Fco Cruz MD, Orlando Referred By: ? ORLANDO FCO CRUZ MD Service(s) Provided UOI - Ovulation Induction - [id number] ? [id number] Indications OM 7 ------- History ------- Determined [...] Final 08/18/2012 12:06 pm) Patient Info ID: [id number] : [birth year] (27 yrs) Name: CLEMENT EUBANKS Visit Date: 08/18/2012 08:53 am Performed By Performed By: Emy Rascon RDMS Attending: Orlando Perez MD Referred By: ORLANDO CRUZ MD Service(s) Provided UOI - Ovulation Induction - [id number] Indications OM 7 ------- History ------- Determined [...] management documented in this encounter Care Teams Emergency Department Rn Relationship Specialty Start Date End Date None None PCP - General 07/23/11 documented as of this encounter
--- OUTSIDE RECORDS SUMMARY | 2024-04-16 14:10 | XMS_ITS | Encounter Summary ---
Author Organization [facility] [place] [address] Care Team Providers Care Fashion Buying Internship Name Role Phone None Primary Care Provider Unavailabl e Encounter Details Date Type Department Care Team (Latest Contact Info) Description 08/10/2012 9:24 AM EDT - 08/10/2012 10:20 AM EDT Hospital [place] [phone] Unspecified procreative management Social History Tobacco Use [...] Name Priority Date/Time Associated Diagnosis Comments US SONOHYSTEROGRAM Routine 08/10/2012 10 :01 AM EDT Unspecified procreative management documented in this encounter Results * US sonohystogram (08/10/2012 10:01 AM EDT) Anatomical Region Laterality Modality Ultrasound 08/10/2012 10:0 1 AM EDT Narrative 08/10/2012 10:22 AM EDT ?Gynecological Report ? (Signed Final 08/10/2012 10:22 am) Patient Info ID: ? [id number] ? : ??[birth year] (27 yrs) Name: ? CLEMENT EUBANKS ? Visit Date: 08/10/2012 10:00 am Performed By Performed By: ?Beulah Rubio RDMS Attending: ? Fco Cruz MD, Orlando Referred By: ? ORLANDO FCO CRUZ MD Service(s) Provided [facility] - Ultrasound - Sonohysterogram ??- ?[id number] [facility] - Ultrasound - Mock Transfer - [id number] ? [id number] Indications sono/mock for IVF ------- History ------- Age: ?? 27 ------ Uterus ------ Uterus: ? Visualized Position: ?? Anteverted Size (cm) ?L: ??6.46 ?W: ?? 4.1 ?H: ??3.56 Vol (ml): ?49.4 Endometrium Endometrium: ?Normal appearance Thickness(mm): ?1.91 Right Ovary Status: ?? Visualized Size (cm) ?L: ??5.85 ?W: ?? 4.27 ? H: ??3.3 Vol (ml): ?43.2 Morphology: ?Normal appearance Left Ovary Status: ?? Visualized Size (cm) ?L: ??2.68 ?W: ?? 2.68 ? H: ??1.53 Vol (ml): ?5.8 Morphology: ?Normal appearance Impression Ultrasound - Mock Transfer - Summary Real time transabdominal ultrasound of the pelvis was performed during the course of a mock or trial embryo transfer. ??Under ultrasound guidance the trial embryo transfer catheter was advanced into the uterine cavity and measurements were obtained of the cervical and intracavitary length. Ultrasound - Sonohysterogram ( SHG) - Summary SUBJECTIVE: The patient presents for sonohysterography. ??Speculum placed without difficulty. ??Betadine prep. ??A 5mm H/S catheter placed without difficulty under direct visualization. ??Under T/V US guidance saline was injected into the uterine cavity and the uterine cavity was thoroughly inspected in a three dimensional fashion. ??Patient tolerated the procedure well. Summary: ??Normal uterine cavity. I ??viewed the images and agree with the above interpretation. Thank you for allowing us to participate in the care of CLEMENT EUBANKS. Please do not hesitate to call if you have any questions. ?Orlando Cruz MD Electronically Signed Final Report ?? 08/10/2012 10:22 am Procedure Note Orlando Perez MD - 08/10/2012 Gynecological Report (Signed Final 08/10/2012 10:22 am) Patient Info ID: [id number] : [birth year] (27 yrs) Name: CLEMENT EUBANKS Visit Date: 08/10/2012 10:00 am Performed By Performed By: Beulah Rubio [facility] Attending: Orlando Perez MD Referred By: ORLANDO CRUZ MD Service(s) Provided US - Ultrasound - Sonohysterogram - [id number] [facility] - Ultrasound - Mock Transfer - [id number] Indications sono/mock for IVF ------- History ------- Age: 27 ------ Uterus ------ Uterus: Visualized Position: Anteverted Size (cm) L: 6.46 W: 4.1 H: 3.56 Vol (ml): 49.4 Endometrium Endometrium: Normal appearance Thickness(mm): 1.91 Right Ovary Status: Visualized Size (cm) L: 5.85 W: 4.27 H: 3.3 Vol (ml): 43.2 Morphology: Normal appearance Left Ovary Status: Visualized Size (cm) L: 2.68 W: 2.68 H: 1.53 Vol (ml): 5.8 Morphology: Normal appearance Impression Ultrasound - Mock Transfer - Summary Real time transabdominal ultrasound of the pelvis was performed during the course of a mock or trial embryo transfer. Under ultrasound guidance the trial embryo transfer catheter was advanced into the uterine cavity and measurements were obtained of the cervical and intracavitary length. Ultrasound - Sonohysterogram ( SHG) - Summary SUBJECTIVE: The patient presents for sonohysterography. Speculum placed without difficulty. Betadine prep. A 5mm H/S catheter placed without difficulty under direct visualization. Under T/V US guidance saline was injected into the uterine cavity and the uterine cavity was thoroughly inspected in a three dimensional fashion. Patient tolerated the procedure well. Summary: Normal uterine cavity. I viewed the images and agree with the above interpretation. Thank you for allowing us to participate in the care of CLEMENT EUBANKS. Please do not hesitate to call if you have any questions. Orlando Cruz MD Electronically Signed Final Report 08/10/2012 10:22 am Orlando Cruz MD IMG US PELV IC ORDERABLES documented in this encounter Visit Diagnoses Diagnosis Unspecified procreative management documented in this encounter Care Teams Fashion Buying Internship Relationship Specialty Start Date End Date None None PCP - General 07/23/11 documented as of this encounter
--- OUTSIDE RECORDS SUMMARY | 2024-04-16 14:10 | XMS_ITS | Encounter Summary ---
Author Organization [facility] [place] [address] Care Team Providers Care Radius Grinder Name Role Phone None Primary Care Provider Unavailabl e Reason for Visit * Reason Comments Pre-op Exam Encounter Details Date Type Department Care Team (Late st Contact Info) Description 08/10/2012 10:00 AM EDT Follow-Up Obstetrics [place] [phone] Gia Barry APRN [facility] [place] [address] Other specified pre-operative examination (Primary Dx) Discharge Disposition: Home Social History [...] Sign Reading Time Taken Comments Blood Pressure 120/82 08/10/2012 9:55 AM EDT Pulse 70 08/10/2012 9:55 AM EDT Temperature 36.9 ??C (98.4 ??F) 08/10/2012 9:55 AM ED T Respiratory Rate 16 08/10/2012 9:55 AM EDT Oxygen Saturation - - Inhaled Oxygen Concentration - - Weight 60.1 kg (132 lb 6.4 oz) 08/10/2012 9:55 A M EDT Height 162.6 cm (5' 4) 08/10/2012 9:55 AM EDT Body Mass Index 22.73 08/10/2012 9:55 AM EDT documented in this encounter Progress Notes * Gia Barry APRN - 08/10/2012 11:43 AM EDT Flaca is 27 year old here for surgical H&P in conjunction with upcoming oocyte retrieval. 2 baseline cysts noted approx 2cm in size. Will send down for E2 level, discussed that we may need to hold cycle to allow for cyst resolution. We will be in contact this afternoon to discuss plan. documented in this encounter H&P Notes * Gia Barry APRN - 08/10/2012 11:45 AM EDT Date of Visit: 08/10/2012 Planned Procedure: Oocyte retrieval Indications/Pre-op Diagnosis: desire to conceive HISTORY OF PRESENT ILLNESS: Ms. Eubanks is a 27 y.o. para 0 woman who presents for her preoperative examination. Patient with history of desire to conceive Please see prior encounter notes for more detail. REVIEW OF SYMPTOMS/FUNCTIONAL STATUS: Review of Systems - negative Bleeding disorder (h/o nose bleeds, excessive bleeding following a surgical procedure?): no Personal or Family history of blood clots?: no Sexually active?: yes Last PAP smear: normal Past anesthesia problems?: no No past medical history on file. Past Surgical History Procedure Date ??? Dilation and curettage of uterus ??? Lap, fulgurate/excise lesions 10/26/2011 LAPAROSCOPY W/FULGURATION OR EXC LESION, OVARY, VISCERA OR PERITONEAL SURFACE performed by ORLANDO RODNEY at [facility] MAIN OR ??? Reopen fallopian tube, chromotubation 10/26/2011 CHROMOTUBATION, INCLUDING MATERIALS performed by ORLANDO RODNEY at [facility] MAIN OR ??? Lap, lysis of adhesions 10/26/2011 LAPAROSCOPY, LYSIS OF ADHESIONS, PELVIS performed by ORLANDO RODNEY at [facility] MAIN OR ??? Lap, oviduct/ovary, unlist proc 10/26/2011 HYSTEROSCOPY, GUIDEWIRE, FALLOPIAN,TUBAL CANNULATION performed by ORLANDO RODNEY at [facility] MAIN OR ??? Biopsy of ovary(s) 10/26/2011 BIOPSY OF OVARY, UNILATERAL OR BILATERAL performed by ORLANDO RODNEY at [facility] MAIN OR ??? Lap, fimbrioplasty 10/26/2011 LAPAROSCOPY W/ FIMBRIOPLASTY performed by ORLANDO RODNEY at [facility] MAIN OR History Social History ??? Marital Status: Spouse Name: N/A Number of Children: N/A ??? Years of Education: N/A Occupational History ??? Not on file. Social History Main Topics ??? Smoking status: Never Smoker ??? Smokeless tobacco: Never Used ??? Alcohol Use: No ??? Drug Use: No ??? Sexually Active: Other Topics Concern ??? Not on file Social History Narrative ??? No narrative on file No Known Allergies No outpatient prescriptions have been marked as taking for the 08/10/12 encounter (Follow-Up) with Gia Barry APRN. Blood pressure 120/82, pulse 70, temperature 36.9 ??C (98.4 ??F), temperature source Oral, resp. rate 16, height 162.6 cm (5' 4), weight 60.056 kg (132 lb 6.4 oz), last menstrual period 08/01/2012. EXAM: General: alert/oriented x 3, NAD, cooperative Neck: No lymphadenopathy, no thyromegaly Chest: CTA bilat COR: RRR, no murmur Abdomen: soft, NT Pelvic: defer Extremities: no calf tenderness, no swelling IMPRESSION: Flaca Eubanks is a 27 y.o. woman with desire to conceive PLAN: Oocyte retrieval Consent: signed GIA BARRY APRN documented in this encounter Miscellaneous Notes * Miscellaneous - Provider, Scanning - 08/15/2012 2:31 PM EDT documented in this encounter Plan of Treatment Not on file documented as of this encounter Visit Diagnoses Diagnosis Other specified pre-operative examination- Primary documented in this encounter Care Teams Radius Grinder Relationship Specialty Start Date End Date None None PCP - General 07/23/11 documented as of this encounter
--- OUTSIDE RECORDS SUMMARY | 2024-04-16 14:10 | XMS_ITS | Encounter Summary ---
Author Organization Formerly [facility] [place] [address] Care Team Providers Care Restaurant Associate Name Role Phone None Primary Care Provider Unavailabl e Encounter Details Date Type Department Care Team (Latest Contact Info) Description 08/10/2012 10:21 AM EDT - 08/10/2012 11:59 PM EDT [place] [address] Preeti Perez MD [facility] OBSTETRICS & [place] [address] Unspecified procreative management Discharge Disposition: Home Social [...] Priority Date/Time Associated Diagnosis Comments ESTRADIOL Routine 08/10/2012 10:30 AM EDT Unspecified procreative management documented in this encounter Results * Estradiol (08/10/2012 10:30 AM EDT) Pathologist [facility] Estradiol <10 pg/mL [facility] Comment: Reference ranges: Males: ?? 1-10 years: <5 to 20 pg/mL ?? Adult: ? 0 to 45 pg/mL Females: ?? 1-10 years ??6 to 27 pg/mL Non- females: ?Follicular: ??0-178 pg/mL ?Ovulation: ??48-388 pg/mL ?Luteal: ??31-247 pg/mL ?Postmenopausal: ??0-46 pg/mL females: ?1st trimester: ??38-3175 pg/mL ?2nd trimester: ??678-91036 pg/mL ?3rd trimester: ??43-56324 pg/mL Blood specimen (specimen) 08/10/2012 10:30 AM EDT 08/10/2012 10:35 AM EDT Narrative Resulting Agency Comment Spec In Lab Preeti Cruz MD CHEMISTRY O RDERABLES [facility] documented in this encounter Visit Diagnoses Diagnosis Unspecified procreative management documented in this encounter Care Teams Restaurant Associate Relationship Specialty Start Date End Date None None PCP - General 07/23/11 documented as of this encounter
--- OUTSIDE RECORDS SUMMARY | 2024-04-16 14:10 | XMS_ITS | Encounter Summary ---
Author Organization [facility] [place] [address] Care Team Providers Care Emr Specialist Name Role Phone None Primary Care Provider Unavailabl e Encounter Details Date Type Department Care Team (Late st Contact Info) Description 07/11/2012 Orders Only Obstetrics [place] [address] Preeti Perez MD [facility] OBSTETRICS & [place] [address] Unspecified procreative management (Primary Dx) Social History [...] Visit Diagnoses Diagnosis Unspecified procreative management- Primary documented in this encounter Care Teams Emr Specialist Relationship Specialty Start Date End Date None None PCP - General 07/23/11 documented as of this encounter
--- OUTSIDE RECORDS SUMMARY | 2024-04-16 14:10 | XMS_ITS | Encounter Summary ---
Author Organization Formerly [facility] [place] [address] Care Team Providers Care Zinc Plate Grainer Name Role Phone None Primary Care Provider Unavailabl e Encounter Details Date Type Department Care Team (Late st Contact Info) Description 07/08/2012 Telephone Obstetrics [place] [address] Juancarlos Arredondo MD [facility] OBSTETRICS & [place] [address] Social History Tobacco Use Types Packs/Day Years [...] encounter Miscellaneous Notes * Telephone Encounter - Juancarlos Arredondo - 07/08/2012 12:05 PM EDT Pt of Dr. Cruz. Wants to pick up attendant prescription, pharmacy saying they dont have it. I confirmed it was eprescribed to the pharmacy of interest. Directed patient to have pharmacist check again and call me if needed. documented in this encounter Plan of Treatment Not on file documented as of this encounter Visit Diagnoses Not on filedocumented in this encounter Care Teams Zinc Plate Grainer Relationship Specialty Start Date End Date None None PCP - General 07/23/11 documented as of this encounter
--- OUTSIDE RECORDS SUMMARY | 2024-04-16 14:10 | XMS_ITS | Encounter Summary ---
Author Organization [facility] [place] [address] Care Team Providers Care Film Sorter Name Role Phone None Primary Care Provider Unavailabl e Encounter Details Date Type Department Care Team (Latest Contact Info) Description 06/12/2012 11:30 AM EDT Clinical Support Obstetrics and Gynecology at [facility] [place] [address] CLINIC, Annia Charles, RN Nurse, Obgysultana II, RN Unspecified procreative management (Primary Dx) Discharge Disposition: Home Social [...] as of this encounter Progress Notes * Annia Trejo, RN - 06/12/2012 11:43 AM EDT REPRODUCTIVE MEDICINE OVULATION INDUCTION MONITORING Chief Complaint: Ovulation induction monitoring. SUBJECTIVE: 27 year old with a history of right salpingectomy with left tuboplasty and lysis of adhesions . She is cycle day baseline for an antral follicle count and ovarian volume study. She has had a transvaginal ultrasound to evaluate ovarian activity. OBJECTIVE: Transvaginal US results were reviewed with the patient. Please see her infertility chartfor details of her scan results today. ASSESSMENT: Ovulation induction monitorin resting follicles on the left ovary, ovarian volume @ 5.5.. On the RIGHT ovar: simple cyst, cyst with septations, hemorrhagic corpus luteum vs endometrioma + 6 resting follicles. Time spent with patient: 10 minutes, 100 % spent in face to face counseling with regards her recenttreatment plan and the potential ongoing treatment plan. PLAN: 1.) Doing CD 2 lab work with work up labs 2.) Continue folic acid supplementation 5.) Plan likely : Continue with work up for IVF. documented in this encounter Plan of Treatment Not on file documented as of this encounter Visit Diagnoses Diagnosis Unspecified procreative management- Primary documented in this encounter Care Teams Film Sorter Relationship Specialty Start Date End Date None None PCP - General 07/23/11 documented as of this encounter
--- OUTSIDE RECORDS SUMMARY | 2024-04-16 14:11 | XMS_ITS | Encounter Summary ---
Author Organization Formerly [facility] [place] [address] Care Team Providers Care Heel Cementer Machine Name Role Phone None Primary Care Provider Unavailabl e Reason for Visit * Reason Comments Post Op see 10/25 Op Note Encounter Details Date Type Department Care Team (Late st Contact Info) Description 11/29/2011 11:00 AM EDT Office Visit Obstetrics [place] [address] Preeti Perez MD [facility] OBSTETRICS & [place] [address] Infertility, tubal origin (Primary Dx); Post-operative state Discharge Disposition: Home Social History Tobacco Use [...] Sign Reading Time Taken Comments Blood Pressure 116/80 11/29/2011 11:04 AM EDT Pulse - - Temperature - - Respiratory Rate - - Oxygen Saturation - - Inhaled Oxygen Concentration - - Weight 59.6 kg (131 lb 8 oz) 11/29/2011 11:04 AM EDT Height - - Body Mass Index 22.57 10/25/2011 10:49 AM EDT documented in this encounter Progress Notes * Preeti Perez MD - 11/29/2011 11:59 AM EDT Chief Complaint: Postoperative evaluation. 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 She presents for a postoperative evaluation. She has had a small amount of skin separation in the right lower quadrant incision and she has had an allergic reaction to the adhesive but has otherwise done well. She notes no redness or current drainage from the incision. There is a narrow separation of the skin for which she is keeping a band aid on. She had shoulder pain following surgery, otherwise she reports she has returned to normal baseline activity without pain. She reports no problems with bowel or bladder function. She has returned to all normal activities. Findings at the time of surgery were reviewed. Her mother had breast cancer in her early 40s. She thinks if she becomes she would like to complete her child bearing within her early 30s. Objective: Review of her chart, review of operative report. Operative report findings reviewed with the patient. Assessment: 1. Tubal infertility, status post right salpingectomy, left tuboplasty. 2. Family history of breast cancer in early 40s in mom. I reviewed the options for care with this patient. We discussed a six month timed intercourse. Patient to call with missed menses, positive urine test for early increased surveillance. Risk of ectopic was reviewed as well as rates of intrauterine pregnancies. She asked about adding Clomid to her regimen, however, she is normal ovulatory. We discussed the advantage and disadvantage of such and the limited number of Clomid IUI cycles with ultrasound guided HCG for the patent side. I discussed moving straight to IVF-ET given her young age and diagnosis and she is somewhat reluctant to that at this point. Plan: 1. Early monitoring for increased ectopic risk. 2. Timed intercourse for 6-12 months. 3. Will consider Clomid, ultrasound, HCG timed IUI with left tube if the patient desires, otherwise would proceed directly to IVF. documented in this encounter Plan of Treatment Not on file documented as of this encounter Visit Diagnoses Diagnosis Infertility, tubal origin- Primary Female infertility of tubal origin Post-operative state Other postprocedural status documented in this encounter Care Teams Heel Cementer Machine Relationship Specialty Start Date End Date None None PCP - General 07/23/11 documented as of this encounter
--- OUTSIDE RECORDS SUMMARY | 2024-04-16 14:11 | XMS_ITS | Encounter Summary ---
Author Organization [facility] [place] [address] Care Team Providers Care Brand Advisor Name Role Phone None Primary Care Provider Unavailabl e Encounter Details Date Type Department Care Team (Late st Contact Info) Description 10/26/2011 1:28 PM EDT - 10/26/2011 4:56 PM EDT Surgery [place] [id number] Orlando Perez MD [facility] [place] [address] LAPAROSCOPY W/FULGURATION OR EXC LESION, OVARY, VISCERA OR PERITONEAL SURFACE (WRVU 12.15) Social History Tobacco Use Types Packs/Day Years [...] Sign Reading Time Taken Comments Blood Pressure 105/62 10/26/2011 4:32 PM EDT Pulse 78 10/26/2011 4:32 PM EDT Temperature 36.2 ??C (97.2 ??F) 10/26/2011 4:12 PM ED T Respiratory Rate 16 10/26/2011 4:32 PM EDT Oxygen Saturation 100% 10/26/2011 4:32 PM EDT Inhaled Oxygen Concentration - - Weight - - Height - - Body Mass Index - - documented in this encounter Discharge Instructions * Patient Instructions* Scar Arredondo - 10/26/2011 4:16 PM EDT PATIENT DISCHARGE INSTRUCTIONS You will be contacted with the date and time of your post-operative follow-up appointment. Call your doctor if you develop: ?? A fever over 101 degrees ?? Severe pain that does not get better after you take pain medicine. ?? Heavy vaginal bleeding (bright red bleeding that soaks 1 or more pads each hours x 2 or more hours or passing blood clots that are larger than a golf ball) ?? Vaginal discharge that smells bad ?? Increasing pain, redness, or discharge Activity level: ?? No heavy lifting, pushing or pulling for 6 weeks. No sexual intercourse, no tampons, nothing in the vagina for 6 weeks. ?? No lifting more than a gallon of milk until post-operative visit. No high intensity cardio activity. ?? You may have some light vaginal bleeding. Wear sanitary pads if needed. Do not douche or use tampons for 2 weeks or until your doctor says it is okay. Diet: ?? You can eat your normal diet. If your stomach is upset, try bland, low-fat foods like plain rice, broiled chicken, toast, and yogurt. ?? Drink plenty of fluids (unless your doctor tells you not to). ?? You may want to use a stool softener such as Colace twice daily and Metamucil or Citrucel once or twice daily to keep your bowel movements soft and regular. Medications: You have been given three types of medications. Please use Ibuprofen (the active ingredient in Motrin) every six hours with food around the clock for the next several days and then use it only as needed. This will help with inflammation and pain. Drink plenty of fluids while taking this medication. Please use 1-2 tabs of Percocet every 4-6 hours as needed for pain that breaks through the Ibuprofen. This medication can be taken with ibuprofen. Each percocet pill contains 325mg of acetaminophen (the active ingredient in Tylenol). Do not take more then a total of 4000mg of acetaminophen in 24 hours. Include all acetaminophen, from the percocet and any other acetaminophen you are taking, when considering this maximum dose. Colace or senna is a stool softener that should be used everyday to prevent constipation as the pain percocet can cause constipation. Driving: ?? Do not drive until you are off of all narcotic medications and you are not feeling pain. Shower/Bath: ?? Showering is fine. Follow-up care is a sanchez part of your treatment and safety. Be sure to make and go to all appointments, and call your doctor if you are having problems. It???s also a good idea to know your test results and keep a list of the medicines you take. documented in this encounter Medications at Time of Discharge Medication Sig Dispensed Refills Start Date End Date ibuprofen (ADVIL;MOTRIN) 600 mg tablet Take 1 tablet by mouth every 6 hours as needed for Pain. 30 tablet 1 10/26/2011 11/29/2011 OXYcodone-acetaminop hen (PERCOCET) 5-325 mg per tablet Take 1-2 tablets by mouth every 4 hours as needed for Pain. 25 tablet 0 10/26/2011 11/29/2011 docusate sodium (COLACE) 100 mg capsule Take 1 capsule by mouth 2 times daily. Take as long as you are taking percocet to help prevent constipation 14 capsule 1 10/26/2011 11/29/2011 documented as of this encounter Progress Notes * So Gaines RN - 10/26/2011 5:04 PM EDT at bedside documented in this encounter H&P Notes * Scar Arredondo - 10/26/2011 12:49 PM EDT Inpatient OFFICE MANAGER - Admission Interval Note I have reviewed the pre-procedure H&P completed by Dr. Lauren on 08/04/11 and 10/25/11. (X) Condition unchanged since H&P originally performed. OR () Condition changed since H&P originally performed. See interval note below. Interval Note: Serum bHCG <1 yesterday Clement Eubanks is a 26 y.o. female with h/o dysmenorrhea, irregular menses presents for surgical treatment of probably right hydrosalpinx and right complex cyst corpus luteum versus endometrioma. To OR for operative laparoscopy, possible ovarian cystectomy, possible oopherectomy, possible [place], possible tuboplasty, possible salpingectomy SCDs for VTE prophylaxis Cefazolin 1g IV en route to OR Pt and family had opportunity to ask questions and desire to proceed with procedure. Consent signedyesterday and confirmed today. A copy of this document will be sent to the patient's Primary Care Physician and/or Referring Physician. SCAR ARREDONDO MD 10/26/2011 documented in this encounter Procedure Notes * Orlando Perez MD - 10/26/2011 9:16 PM EDT Duplicate note documented in this encounter Miscellaneous Notes * Miscellaneous - Provider, Scanning - 10/27/2011 3:01 AM EDT * Op Note - Orlando Perez MD - 10/26/2011 4:56 PM EDT [facility] Operative Note Patient Name: Clement Eubanks : [id number] MR#: [id number] Case Date: 10/26/2011 Surgeon: Surgeon(s) and Role: * ORLANDO GARCIA MD - Primary * SCAR ARREDONDO MD - Resident-Surgeon Anil Preoperative diagnosis: PELVIC MASS/OVARIAN CYST Postoperative diagnosis: PELVIC MASS/OVARIAN CYST Procedure(s): LAPAROSCOPY W/FULGURATION OR EXC LESION, OVARY, VISCERA OR PERITONEAL SURFACE CHROMOTUBATION, INCLUDING MATERIALS LAPAROSCOPY, LYSIS OF ADHESIONS, PELVIS HYSTEROSCOPY, GUIDEWIRE, FALLOPIAN,TUBAL CANNULATION BIOPSY OF OVARY, UNILATERAL OR BILATERAL LAPAROSCOPY W/ FIMBRIOPLASTY Preoperative Diagnoses: 1. Hydrosalpinx. 2. Ovarian cyst. Postoperative Diagnoses: 1. Moderately severe pelvic adhesive disease. 2. Severe right hydrosalpinx. 3. Right ovarian cyst. 4. Proximal tubal occlusion, left fallopian tube. Procedures Performed: 1. Laparoscopic lysis of omental adhesions. 2. Laparoscopic right salpingectomy. 3. Laparoscopic lysis of periadnexal adhesions. 4. Laparoscopic left tuboplasty. 5. Chromopertubation. 6. Operative hysteroscopy with left proximal tubal guidewire and selective tubal catheterization. Surgeons: 1. Orlando Lauren M.D. 2. Scar Arredondo M.D. Anesthesia: General endotracheal. Specimens: Biopsy of right ovarian cyst wall, right fallopian tube. Indications for the Performed Surgery: The patient is a 26-year-old 1, para 0-0-1-0 with reported history of dysmenorrhea, a right hydrosalpinx diagnosed on ultrasound, and a possible right ovarian cyst. The patient had been attempting conception for a year and a half. The patient was counseled with regard to options for care and given the findings on ultrasound of a probable hydrosalpinx and accelerating dysmenorrhea elected a laparoscopic assessment and treatment. She was counseled extensively with regard to options for care prior to procedure and elected a procedure and to trust intraoperatively my surgical opinion with regard to removal, fixing, or retaining her fallopian tubes. Findings at the Time of Procedure: On exam under anesthesia, the patient was noted to have a normal external genitalia, vaginal mucosa, and cervix. On hysteroscopic exam, she was noted to have a normal uterine cavity contour and thickened endometrium over the left cornu. The left cornu tubal ostia could not be readily visualized. However, on catheterization the guidewire fed with mild resistance; and selected tubal catheterization was performed with chromopertubation under laparoscopic guidance. On laparoscopic evaluation, she was noted to have omental adhesions that were moderate to filmy extending over the anterior abdominal wall and anterior cul-de-sac. The uterus was deviated left. A large complex right adnexal mass was noted. Both ovaries were adherent with about approximately 50% to 60% of their surface to the ipsilateral pelvic sidewalls and moderately densely adhesions. The right fallopian tube was markedly dilated with no evidence for any preservation of the fimbria. It was tortuous around the surface of the ovary and the posterior aspect of the ovarian surface. This was also densely adherent to the right pelvic sidewall. The left fallopian tube had a normal diameter and excellent preservation of the fimbriated end. It was, however, [id number] densely adherent at the level of the fimbria to the pelvic sidewall. The left ovary was adherent with approximately 50% to 60% of its surface [id number] on the left pelvic sidewall. After hysteroscopic retrograde cannulization with a guidewire and chromopertubation, the left tube rapidly filled and spilled. Initially the left fallopian tube did not fill at all while the right tube filled but dilated and did not spill. There was moderately brownish-blue fluid that drained from the right fallopian tube. There was clear cystic fluid that drained from a probable corpus luteum at the medullary portion of the ovary and a second large cyst that was seen that appeared to be clear; unilocular; and a smooth cyst wall, which was biopsied. It appeared to be more physiologic in nature than pathologic. Upper abdominal survey was normal. Procedure Performed: The patient was taken to the Operating Room with an IV running. She underwent general endotracheal anesthesia and was placed in a modified dorsal lithotomy position with her full lower legs supported in Yellofins stirrups. Her arms were tucked at her side. Her arms were in a neurovascular correct position. A formal time-out procedure was performed. Intermittent Venodyne compression boots were utilized during the course of the procedure. She underwent exam under anesthesia. Her abdomen, perineum, and vagina were prepped sterilely; and she was draped in the usual sterile fashion. A Judge catheter was placed in her bladder and affixed to closed-bag drainage for the duration of the procedure. A weighted speculum was placed in the posterior aspect of the vagina, and a Kroner uterine elevator was pre-flushed with a dilute solution of indigo carmine and placed to 6.5 cm in the uterus. The uterus had sounded to approximately 7.5 cm. On laparoscopy, the umbilicus was inverted with the use of an Allis clamp; and following infiltration of 1 to 2 mL of 0.25% Sensorcaine into the subcutaneous space in the midline, a 0.5-cm-long incision was made sharply. A Veress needle was inserted into the umbilical incision directly into the peritoneal cavity without incident. A syringe of normal saline was utilized to instill and then aspirate, and utilizing a hanging-drop test the Veress needle appeared to be in the peritoneal cavity. A pneumoperitoneum was created with 2.5 L of CO2 gas for a maximum setting of 15 mm of pressure. An optical 5-mm Covidien trocar was utilized attached to its light and camera source. Under direct visualization, the trocar was placed in the incision directly into the peritoneal cavity without incident. The patient was placed in moderate Trendelenburg. Please see operative findings as dictated above. Two lower abdominal puncture sites were placed. After transilluminating the abdomen, a clear avascular place was identified lateral to the deep inferior epigastric vessels into each lower quadrant; and 1 to 2 mL of 0.25% plain Sensorcaine was used to infiltrate the skin. Sharp incisions were made through the skin. Blunt trocars, 5-mm Covidien, were placed under direct visualization to the peritoneal cavity. Utilizing atraumatic graspers and the Halo bipolar surgical instrument, the omental adhesions were all taken down proximal to the anterior abdomen but within the omental adhesions. No evidence for small-bowel or large-bowel loops was noted in these adhesions. Please see operative findings as above. A right salpingectomy was performed following mobilization of the right ovary and tube off the pelvic sidewall utilizing endoscopic nell and the suction horse breaker with blunt and hydrodissection. Courses of the ureters were noted on each pelvic sidewall prior to lysis of adhesions. All adhesions of the ovaries to their sidewalls were taken down under direct visualization, and dense adhesions were taken down sharply proximal to the ovary. The ovaries were mobilized off the pelvic sidewall. The patient underwent chromopertubation through the Kroner uterine elevator. The Halo was utilized to coagulate the right fallopian tube as it inserted into the uterus and sharply transected. A pedicle through the mesosalpinx was then created by coagulating proximal to the ovary in the level of the mesosalpinx and sharply transecting. The tube was so dilated at the end it was difficult to tell save for internalization of the fimbria of the exact extent of the dilating distal to, although care was taken to stay in the same plane between the ovary and the tube. The entire indurated dilated tube was removed by converting a right lower port site to a 12-mm Ethicon blunt trocar. Both ovaries were mobilized off the sidewall with blunt and sharp dissection as described above. On the left fallopian tube distal portion there was excellent preservation of the fimbria, but they were densely adherent to the left sidewall. Again, sharp dissection was utilized through direct visualization and attention paid to the course of the ureter. On second chromopertubation, the left fallopian tube still did not fill or spill. The patient underwent hysteroscopy. The Kroner uterine elevator was removed. A weighted speculum was placed in the posterior aspect of the vagina. A single-tooth tenaculum was applied to the anterior lip of the cervix and the uterus dilated without incident to a #21 Leon dilator. An operating hysteroscope was pre-flushed with saline and attached to its light and camera source. Under direct visualization, it was advanced through the endocervical canal into the uterine cavity. A Novy catheter was utilized to cannulate the proximal left tube. There was mild resistance towards placement of a guidewire through the proximal tube, and the guidewire was placed without difficulty. Under direct cannulization with a Novy catheter, the left tube was cannulized and rapidly filled and spilled. A Hulka tenaculum was placed back in the uterine cavity following evaluation. While the endometrium appeared to be quite lush, the cavity contour appeared to be normal. Following removal of the hysteroscope, the Hulka was placed. Attention was then turned back to the intraperitoneal portion. Gloves were changed. The occupational therapist's assistant had been watching with a laparoscope during the course of the hysteroscopy and chromopertubation. Mild oozing sites along each pelvic sidewall were directly coagulated with the Kleppinger forceps. Hemostasis was noted to be excellent. Half a sheet of Interceed was endoscopically placed between the sidewall and the ovary under remaining tube on the left side. Hemostasis was noted to be excellent. All operating instruments were removed from the patient's abdomen and pelvis. Pneumoperitoneum was released. Right lower quadrant puncture site fascia was identified and reapproximated with a single interrupted stitch of 0 Vicryl. A 4-0 Monocryl was used to re-approximate the skin in a subcuticular fashion, and Steri-Strips were applied. The patient was taken awake, alert, and extubated to Recovery Room in excellent condition. All counts that were performed were reported as correct. She received 1 L of lactated Ringer during the course of the procedure. Estimated blood loss was 50 mL, and she made 125 mL of concentrated but clear urine. * Brief Op Note - Orlando Perez MD - 10/26/2011 3:57 PM EDT Brief Operative Note Patient Name: Clement Eubanks : [id number] MR#: [id number] Case Date: 10/26/2011 Surgeon: Surgeon(s) and Role: * ORLANDO GARCIA MD - Primary * SCAR ARREDONDO MD - Resident-Surgeon Anil Preoperative diagnosis: PELVIC MASS/OVARIAN CYST Postoperative diagnosis: PELVIC MASS/OVARIAN CYST Procedure(s): LAPAROSCOPY W/FULGURATION OR EXC LESION, OVARY, VISCERA OR PERITONEAL SURFACE, Right salpingectomy, CHROMOTUBATION, INCLUDING MATERIALS LAPAROSCOPY, LYSIS OF ADHESIONS, PELVIS HYSTEROSCOPY, GUIDEWIRE, FALLOPIAN,TUBAL CANNULATION Anesthesia: General Findings: Severe right hydrosalpinx, omental adhesions to anterior abdominal wall, hemorrhagic CL right ovary, adhesions both ovaries and tubes bilateral pelvic side coker, left preserved fimbri but left tube adhesion to left side wall as was left ovary, left proximal tube occlusion but patent on ch romopertubation Complications: None apparent Fluids:1000 cc Estimated Blood Loss: 50 cc Drains: judge 150 cc Disposition: awakened from anesthesia, extubated and taken to the recovery room in a stable condition, having suffered no apparent untoward event. Condition: doing well without problems (Please see the Surgical Encounter Summary for any Implant and Specimen details pertinent to this patient.) * OR Attestation - Orlando Perez MD - 10/26/2011 3:57 PM EDT Attestation: Case Date: 10/26/2011 I was present and I participated during the entire procedure (does not need to include opening and closing). ORLANDO GARCIA MD 10/26/2011 * Miscellaneous - Provider, Scanning - 10/26/2011 12:33 PM EDT documented in this encounter Plan of Treatment Not on file documented as of this encounter Procedures Procedure Name Priority Date/Time Associated Diagnosis Comments SURGICAL PATHOLOGY REPORT Routine 10/26/2011 4:23 PM EDT SPECIMEN TO PATHOLOGY Routine 10/26/2011 3:10 PM EDT SPECIMEN TO PATHOLOGY Routine 10/26/2011 2:49 PM EDT LAPAROSCOPY W/ FIMBRIOPLASTY (WRVU 12.91) 10/26/2011 1:04 PM EDT PELVIC MASS/OVARIAN CYST BIOPSY OF OVARY, UNILATERAL OR BILATERAL (WRVU 6.59) 10/26/2011 1:04 PM EDT PELVIC MASS/OVARIAN CYST HYSTEROSCOPY, GUIDEWIRE, FALLOPIAN,TUBAL CANNULATION (WRVU 16.96) 10/26/2011 1:04 PM EDT PELVIC MASS/OVARIAN CYST LAPAROSCOPY, LYSIS OF ADHESIONS, PELVIS (WRVU 11.59) 10/26/2011 1:04 PM EDT PELVIC MASS/OVARIAN CYST CHROMOTUBATION, INCLUDING MATERIALS (WRVU 1.06) 10/26/2011 1:04 PM EDT PELVIC MASS/OVARIAN CYST LAPAROSCOPY W/FULGURATION OR EXC LESION, OVARY, VISCERA OR PERITONEAL SURFACE (WRVU 12.15) 10/26/2011 1:04 PM EDT PELVIC MASS/OVARIAN CYST documented in this encounter Results * SURGICAL PATHOLOGY REPORT (10/26/2011 4:23 PM EDT) Surgical Pathology Report ? [facility] ? Provider: ?? FCO GARCIA, ??Pt. Name: ?? AJ EUBANKSE Yolanda ?ORLANDO ? Acc #: ?[id number] ?Pt. ? Col Date: ?? 10/26/2011 ? /Sex: ?1985,(26 years),Female ? Rec Date: ?? 10/26/2011 ? LOC: ?SDP ? SURGICAL PATHOLOGY ? ---Pathologic Diagnosis--- ? A - Right fallopian tube, excision: ? Two portions of fallopian tube. ? B - Ovarian cyst wall, biopsy: ? Portion of benign cyst (see Comment). ? CR-0 ? 10/27/11 ? ARS ? 10/27/11 Verified by: ? Alexander DAVID, Rubén Medel ? Pathologist ? (Electronic Signature) ? The attending pathologist whose signature appears on this report has ? reviewed all diagnostic slides and has edited the gross and/or ? microscopic portion of the report in rendering the final pathologic ? diagnosis. ? ---Comment--- ? There is no cyst lining attached to the wall. ??The adjacent ovarian stromal ? tissue is unremarkable. ??The cyst could be compatible with a benign ? inclusion cyst. ??There is no evidence of malignancy. ? ---Microscopic Description--- ? Slides reviewed, microscopic description not recorded. ? ---Gross Description--- ? A - Labeled/Fixative: Right fallopian tube, formalin. ? Qty/Size/Weight: ?Two, 1.8 x 1.0 x 0.4 cm and 8.5 x 0.8 x 0.5 cm. ? Tissue Description: ?? Cylindrical portions of carias-pink soft tissue. ??On ? section the larger tissue reveals a small, central ? fallopian tube lumen. ? Sections/Processin g: ??(R1) ? B - Labeled/Fixative: Ovarian cyst wall biopsy, fresh. ? Qty/Size/Weight: ?Single, 0.6 x 0.6 x 0.2 cm. ? Tissue Description: ?? Portion of carias-pink fibromembranous tissue. ? Sections/Processin g: ??(T1) ??aje/PPS ? ---Clinical Information--- ? Specimen Submitted: ? [facility] ? Provider: ?? FCO GARCIA, ??Pt. Name: ?? CLEMENT EUBANKS ?ORLANDO ? Acc #: ?[id number] ?Pt. ? Col Date: ?? 10/26/2011 ? /Sex: ?1985,(26 years),Female ? Rec Date: ?? 10/26/2011 ? LOC: ?SDP ? A - Right fallopian tube ? SURGICAL PATHOLOGY ? B - Right ovarian cyst biopsy ? Clinical History/Diagnosis: ? Pelvic mass ovarian cyst BENI PAULINO 10/26/2011 4:23 PM EDT Orlando Garcia MD PATHOLOGY/C YTOLOGY ORDERABLES BENI PAULINO * Specimen to Pathology (surgical or derm) (10/26/2011 3:10 PM EDT) AP Specimen 10/26/2011 3:10 PM EDT 10/26/2011 3:10 PM EDT Narrative BENI PAULINO - 10/26/2011 3:10 PM EDT Specimen requisition ordered. ??Separate Pathology report to follow Orlando Garcia MD PATHOLOGY/C YTOLOGY ORDERABLES Performing Organization Address [facility] de Phone Number BENI PAULINO * Specimen to Pathology (surgical or derm) (10/26/2011 2:49 PM EDT) AP Specimen 10/26/2011 2:49 PM EDT 10/26/2011 2:49 PM EDT Narrative BENI PAULINO - 10/26/2011 2:49 PM EDT Specimen requisition ordered. ??Separate Pathology report to follow Orlando Garcia MD PATHOLOGY/C YTOLOGY ORDERABLES Performing Organization Address [facility] Phone Number BENI PAULINO documented in this encounter Visit Diagnoses Not on filedocumented in this encounter Administered Medications Inactive Administered Medications - up to 3 most recent administrations Medication Order MAR Action Action Date Dose Rate Site BUpivacaine (PF) (MARCAINE) 0.25 % (2.5 mg/mL) injection ONCE PRN, Starting on Tue10/26/11 at 1350, Until Tue10/26/11 at 2246, Intra-Operative (Intra-Procedure), Routine Given 10/26/2011 1:50 PM EDT 17.5 mg 19- Surgical Site ceFAZolin (ANCEF) 1g in dextrose 5% 50mL 1,000 mg (1 g), Intravenous, ONCE, 1 dose, On Tue10/26/11 at 1245, Administer over 30 Minutes, Redose after 4 hours., Day of Surgery (Day of Procedure), Indication for (Active or Suspected): Prophylaxis Given 10/26/2011 1:20 PM EDT 1 g indigotindisulfonate sodium injection ONCE PRN, Starting on Tue10/26/11 at 1400, Until Tue10/26/11 at 2246, Intra-Operative (Intra-Procedure), Routine Given 10/26/2011 2:00 PM EDT 5 mLs 19- Surgical Site documented in this encounter Active and Recently Administered Medications Times are shown in EDT. Scheduled Medication Order 10/24/2011 10/25/2011 10/26/2011 ceFAZolin (ANCEF) 1g in dextrose 5% 50mL (COMPLETED) 1,000 mg (1 g), Intravenous, ONCE, 1 dose, On Tue10/26/11 at 1245, Administer over 30 Minutes, Redose after 4 hours., Day of Surgery (Day of Procedure), Indication for (Active or Suspected): Prophylaxis 1245 (Due)1320 (Give n - Provider: Gita Madera CRNA) PRN Medication Order 10/24/2011 10/25/2011 10/26/2011 BUpivacaine (PF) (MARCAINE) 0.25 % (2.5 mg/mL) injection (CANCELED) ONCE PRN, Starting on Tue10/26/11 at 1350, Until Tue10/26/11 at 2246, Intra-Operative (Intra-Procedure), Routine 1350 (Given - Provid er: Orlando Garcia MD) indigotindisulfonate sodium injection (CANCELED) ONCE PRN, Starting on Tue10/26/11 at 1400, Until Tue10/26/11 at 2246, Intra-Operative (Intra-Procedure), Routine 1400 (Given - Provid er: Orlando Garcia MD - Comment: mixed with 100 ml of NaClo) documented in this encounter Care Teams Brand Advisor Relationship Specialty Start Date End Date None None PCP - General 07/23/11 documented as of this encounter
--- OUTSIDE RECORDS SUMMARY | 2024-04-16 14:11 | XMS_ITS | Encounter Summary ---
Author Organization [facility] Address [address] [place] [address] Care Team Providers Care Petroleum Engineering Professor Name Role Phone Unavailable Primary Care Provider Unavailabl e Encounter Details Date Type Department Care Team (Late st Contact Info) Description 01/20/2007 Results Only [facility] - [facility] [address] [place] [address] Zan Dyer MD [address] [place] [address] [id number] Social History Tobacco Use Types Packs/Day Years Used Date Smoking Tobacco: Never Assessed Comments Unknown Sex and Gender Information Value Date Recorded Sex Assigned at Not on file Legal Sex Female 17:52 EST Gender Identity Not on file Sexual Orientation Not on file documented as of this encounter Plan of Treatment Not on file documented as of this encounter Procedures Procedure Name Priority Date/Time Associated Diagnosis Comments CYTOPATHOLOGY Routine 01/20/2007 0:00 EST documented in this encounter Results * CYTOPATHOLOGY (01/20/2007 0:00 EST) Pathology Report: CYTOPATHOLOGY REPORT Reports generated via electronic interface contain original data; however they are lacking the format of the original report. Caution should be taken when reading/interpreti ng unformatted reports. Name: ? CLEMENT NICHOLS ? Accession #: ? [id number] : ? 1985 (Age: 21) ??F ?Collect Date: ? 01/20/2007 Location: ? [facility] ? Receive Date: ? 01/24/2007 Provider: ?ZAN DYER MD Copy to: ? Specimen/Source: ?ThinPrep Pap Test, Vagina/Cervix, processed on MicroblrPrep Imaging System, with manual evaluation Last Menstrual Period: ? 01/02/07 ? SPECIMEN ADEQUACY ? Satisfactory for Evaluation - transformation zone component absent GENERAL CATEGORIZATION ? Negative for Intraepithelial Lesion or Malignancy ? Document reviewed and electronically signed by: ? TRISHA Wheat(ASCP) ? Report Date: ??01/26/2007 15:57 End of Report [facility] 01/20/2007 01/24/2007 us Zan Dyer MD PATHOLOGY ORDERABLES Fin al Result [facility] [address] [place] [address] documented in this encounter Visit Diagnoses Not on filedocumented in this encounter
--- OUTSIDE RECORDS SUMMARY | 2024-04-16 14:11 | XMS_ITS | Encounter Summary ---
Author Organization [facility] [place] [address] Care Team Providers Care Proposal Rep Name Role Phone None Primary Care Provider Unavailabl e Encounter Details Date Type Department Care Team (Late st Contact Info) Description 06/06/2012 Orders Only Obstetrics [place] [address] Preeti Perez MD [facility] DR OBSTETRICS & [place] [address] Screening (Primary Dx) Social History Tobacco Use [...] documented as of this encounter Results * Varicella zoster Antibody, IgG (06/12/2012 11:58 AM EDT) Varicella Zoster Antibody IgG Pos [facility] Blood specimen (specimen) 06/12/2012 11:58 AM EDT 06/12/2012 3:37 PM EDT Narrative Resulting Agency Comment Spec In Lab Preeti Cruz MD IMMUNOLOGY ORDERABLES [facility] * TSH (06/12/2012 11:58 AM EDT) Thyroid Stimulating Hormone 2.39 0.27 - 4.20 mcIU/mL [facility] Blood specimen (specimen) 06/12/2012 11:58 AM EDT 06/12/2012 12:04 PM EDT Narrative Resulting Agency Comment Spec In Lab Preeti Cruz MD CHEMISTRY O RDERABLES Performing Organization Address [facility] Co de Phone Number [facility] * Syphilis Antibody, IgG (06/12/2012 11:58 AM EDT) Syphilis IgG Neg Neg [facility] Blood specimen (specimen) 06/12/2012 11:58 AM EDT 06/12/2012 3:37 PM EDT Narrative Resulting Agency Comment Spec In Lab Preeti Cruz MD CHEMISTRY O RDERABLES Performing Organization Address [facility] de Phone Number [facility] * Rubella Antibody, IgG (06/12/2012 11:58 AM EDT) Rubella Antibody IgG Positive Positive [facility] Comment: Please note: ??A positive result for this assay indicates that antibody levels are >or= 10.0 IU/mL and is considered to be an indicator of positive immune status. Blood specimen (specimen) 06/12/2012 11:58 AM EDT 06/12/2012 12:04 PM EDT Narrative Resulting Agency Comment Spec In Lab Preeti Cruz MD CHEMISTRY O RDERABLES Performing Organization Address [facility] Co de Phone Number [facility] * HIV (06/12/2012 11:58 AM EDT) HIV 1/2 Ab Negative [facility] Blood specimen (specimen) 06/12/2012 11:58 AM EDT 06/12/2012 12:04 PM EDT Narrative Resulting Agency Comment Spec In Lab Preeti Cruz MD CHEMISTRY O RDERABLES Performing Organization Address [facility] Co de Phone Number [facility] * Hepatitis C Antibody (06/12/2012 11:58 AM EDT) Hepatitis C Antibody Negative Negative [facility] Blood specimen (specimen) 06/12/2012 11:58 AM EDT 06/12/2012 12:04 PM EDT Narrative Resulting Agency Comment Spec In Lab Preeti Cruz MD CHEMISTRY O RDERABLES Performing Organization Address [facility] Co de Phone Number [facility] * Hepatitis B Surface Antigen (06/12/2012 11:58 AM EDT) Hepatitis B Surface Antigen Negative Negative [facility] Blood specimen (specimen) 06/12/2012 11:58 AM EDT 06/12/2012 12:04 PM EDT Narrative Resulting Agency Comment Spec In Lab Preeti Cruz MD CHEMISTRY O RDERABLES Performing Organization Address [facility] Co de Phone Number [facility] * Follicle Stimulating Hormone (06/12/2012 11:58 AM EDT) Follicle Stimulating Hormone 9.7 mlU/ML [facility] Comment: Reference Ranges: Females: Follicular: ? 3.5-12.5 mIU/mL Ovulation: ?4.7-21.5 mIU/mL Luteal: ? 1.7-7.7 mIU/mL Postmenopausal: 25.8-134.8 mIU/mL Blood specimen (specimen) 06/12/2012 11:58 AM EDT 06/12/2012 12:04 PM EDT Narrative Resulting Agency Comment Spec In Lab Preeti Cruz MD CHEMISTRY O RDERABLES Performing Organization Address [facility] Co de Phone Number [facility] * Estradiol (06/12/2012 11:58 AM EDT) Estradiol 28 pg/mL [facility] Comment: Reference ranges: Males: ?? 1-10 years: <5 to 20 pg/mL ?? Adult: ? 0 to 45 pg/mL Females: ?? 1-10 years ??6 to 27 pg/mL Non- females: ?Follicular: ??0-178 pg/mL ?Ovulation: ??48-388 pg/mL ?Luteal: ??31-247 pg/mL ?Postmenopausal: ??0-46 pg/mL females: ?1st trimester: ??38-3175 pg/mL ?2nd trimester: ??678-91637 pg/mL ?3rd trimester: ??43-59190 pg/mL Blood specimen (specimen) 06/12/2012 11:58 AM EDT 06/12/2012 12:04 PM EDT Narrative Resulting Agency Comment Spec In Lab Preeti Cruz MD CHEMISTRY O RDERABLES [facility] * CBC (with Diff) (06/12/2012 11:58 AM EDT) White Blood Cell 4.8 4.0 - 10.0 x10(3)/mcL [facility] Red Blood Cell 4.09 3.93 - 5.22 x10(6)/mcL [facility] Hemoglobin 12.6 11.2 - 15.7 gm/dL [facility] Hematocrit 36.7 34.0 - 45.0 % [facility] Mean Cell Volume 89.7 79.0 - 94.[address] [facility] Mean Cell Hemoglobin 30.8 26.6 - 32.2 pg [facility] Mean Cell Hemoglobin Concentration 34.3 32.0 - 36.5 gm/dL [facility] Platelet 145 145 - 370 x10(3)/mcL [facility] RDW Standard Deviation 41.2 35.0 - 46.0 fL [facility] RDW coefficient of variation 12.8 10.9 - 14.4 % [facility] Mean Platelet Volume 11.5 9.0 - 12.0 fL [facility] Blood specimen (specimen) 06/12/2012 11:58 AM EDT 06/12/2012 12:04 PM EDT Narrative Resulting Agency Comment Spec In Lab Preeti Cruz MD HEMATOLOGY ORDERABLES [facility] documented in this encounter Visit Diagnoses Diagnosis Screening- Primary Screening for unspecified condition documented in this encounter Care Teams Proposal Rep Relationship Specialty Start Date End Date None None PCP - General 07/23/11 documented as of this encounter
--- OUTSIDE RECORDS SUMMARY | 2024-04-16 14:11 | XMS_ITS | Encounter Summary ---
Author Organization [facility] [place] [address] Care Team Providers Care Customs Port Director Name Role Phone None Primary Care Provider Unavailabl e Encounter Details Date Type Department Care Team (Late st Contact Info) Description 06/07/2011 Orders Only Obstetrics [place] [address] Fela Sharif MD [facility] DR OBSTETRICS [place] [address] Social History Tobacco Use Types Packs/Day Years Used Date Smoking Tobacco: Never Assessed Sex and Gender Information Value Date Recorded Sex Assigned at Not on file Gender Identity Not on file Sexual Orientation Not on file documented as of this encounter Plan of Treatment Pending Results Name Type Priority Associated Diagnoses Date /Time Film Library- Storage only Ultrasound Study Imaging Routine 06/07/2011 11:24 AM EDT documented as of this encounter Visit Diagnoses Not on filedocumented in this encounter Care Teams Customs Port Director Relationship Specialty Start Date End Date None None PCP - General 07/23/11 documented as of this encounter
--- OUTSIDE RECORDS SUMMARY | 2024-04-16 14:11 | XMS_ITS | Encounter Summary ---
Author Organization [facility] Address [address] [place] [address] Care Team Providers Care Statistical Machine Servicer Name Role Phone Yong Flores MD Primary Care Provider + Encounter Details Date Type Department Care Team (Late st Contact Info) Description 06/10/2011 Results Only [facility] [phone] Oskar Limon MD [address] [place] [address] Social History Tobacco Use Types Packs/Day Years [...] Procedure Name Priority Date/Time Associated Diagnosis Comments CYTOGENETICS Routine 06/10/2011 0:00 EDT documented in this encounter Results * CYTOGENETICS (06/10/2011 0:00 EDT) Pathology Report: CYTOGENETICS REPORT Reports generated via electronic interface contain original data; however they are lacking the format of the original report. Caution should be taken when reading/interpreti ng unformatted reports. Name: ? CLEMENT EUBANKS ? Accession #: ? [id number] : ? 1985 (Age: 26) ??F ?Collect Date: ? 06/10/2011 Location: ? [facility] ? Receive Date: ? 06/11/2011 Provider: ? OSKAR LIMON MD Copy to: ?SAGRARIO MINER MD ? INTERPRETATION: ? Normal female karyotype ? Document reviewed and electronically signed by: ? SAGRARIO MINER MD ? Report Date: ??07/01/2011 15:14 CLINICAL HISTORY: ? Infertility SPECIMEN: ? Peripheral Blood ?? TEST PERFORMED: ? G-banded Karyotype REPORT: ? No. Cells Counted: ??20 No. Cells Analyzed: ??5 No. Cells Karyotyped: ??5 Band Resolution: ??700-800 KARYOTYPE: ? 46,XX End of Report [facility] 06/10/2011 06/11/2011 14: 51 EDT us Oskar Limon MD PATHOLOGY ORDERABLES Final Resu lt [facility] [address] [place] [address] documented in this encounter Visit Diagnoses Not on filedocumented in this encounter Care Teams Statistical Machine Servicer Relationship Specialty Start Date End Date Yong Flores MD [address] [place] [address] PCP - General 06/11/11 06/13/11 documented as of this encounter
--- OUTSIDE RECORDS SUMMARY | 2024-04-16 14:11 | XMS_ITS | Encounter Summary ---
Author Organization [facility] [place] [address] Care Team Providers Care Bankruptcy Paralegal Name Role Phone None Primary Care Provider Unavailabl e Encounter Details Date Type Department Care Team (Latest Contact Info) Description 06/12/2012 11:23 AM EDT - 06/12/2012 11:59 PM EDT Hospital En[place] [address] CLINIC, Orlando More MD [facility] [place] [address] Unspecified procreative management; Screening Discharge Disposition: Home Social History Tobacco [...] Procedure Name Priority Date/Time Associated Diagnosis Comments DIFFERENTIAL, AUTOMATED Routine 06/12/2012 11:58 AM EDT HEPATITIS C ANTIBODY Routine 06/12/2012 11:58 AM EDT Screening SYPHILIS ANTIBODY SCREEN WITH REFLEX Routine 06/12/2012 11:58 AM EDT Screening ABO/RH TYPING Routine 06/12/2012 11:58 AM EDT Screening ESTRADIOL Routine 06/12/2012 11:58 AM EDT Screening RUBELLA ANTIBODY, IGG Routine 06/12/2012 11:58 AM EDT Screening HIV SCREEN, 4TH GENERATION ([facility]/CGP/APD/NLH)PER FORMABLE Routine 06/12/2012 11:58 AM EDT Screening HEPATITIS B SURFACE ANTIGEN Routine 06/12/2012 11:58 AM EDT Screening CBC (WITH DIFF) Routine 06/12/2012 11:58 AM EDT Screening ANTIBODY SCREEN Routine 06/12/2012 11:58 AM EDT Screening TYPE AND SCREEN ([facility] [place]/TOBI) Routine 06/12/2012 11:58 AM EDT Screening VARICELLA ZOSTER ANTIBODY, IGG Routine 06/12/2012 11:58 AM EDT Screening TSH Routine 06/12/2012 11:58 AM EDT Screening FOLLICLE STIMULATING HORMONE Routine 06/12/2012 11:58 AM EDT Screening US TRANSVAGINAL NON OB Routine 06/12/2012 11:25 AM EDT documented in this encounter Results * Differential, Automated (06/12/2012 11:58 AM EDT) Neutrophil % 63.1 34.0 - 71.0 % CERNER MILLENNIUM Neutrophil Absolute 3.02 1.50 - 6.30 x10(3)/mcL CERNER MILLENNIUM Lymph % 29.1 19.0 - 53.0 % CERNER MILLENNIUM Lymphocytes Abs 1.4 1.0 - 3.6 x10(3)/mcL CERNER MILLENNIUM Monocyte % 6.1 4.0 - 13.0 % CERNER MILLENNIUM Monocyte Abs 0.3 0.2 - 1.0 x10(3)/mcL CERNER MILLENNIUM Eos % 1.5 0.0 - 7.0 % CERNER MILLENNIUM Eosinophils Abs 0.1 0.0 - 0.5 x10(3)/mcL CERNER MILLENNIUM Basophil % 0.2 0.0 - 2.0 % CERAMANDA NUNESENNIUM Baso Absolute 0.0 0.0 - 0.2 x10(3)/mcL BENI NUNESENNIUM Immature Gran % 0.00 0.00 - 0.66 % BENI UNNESENNIUM Comment: Immature granulocytes(IG's)percentage and absolute count will include metamyelocytes, myelocytes, and promyelocytes. Blood smears from CBCs yielding IG's will be scanned manually for concordance. If this scan disagrees with the automated IG or if promyelocytes are noted, a manual differential will be performed. Immature Gran Absolute 0.00 0.00 - 0.05 x10(3)/mcL BENI VALDIVIAIUM Blood specimen (specimen) 06/12/2012 11:58 AM EDT 06/12/2012 12:04 PM EDT Orlando Cruz MD HEMATOLOGY ORDERABLES Performing Organization Address City/[facility]/ZIP Co de Phone Number BENI VALDIVIAIUM * Antibody screen (06/12/2012 11:58 AM EDT) Ab Screen Interp Negative BENI VALDIVIAIUM Expires at [id number] on: [id number] BENI VALDIVIAIUM Blood specimen (specimen) 06/12/2012 11:58 AM EDT 06/12/2012 12:02 PM EDT Narrative Resulting Agency Comment Spec In Lab Orlando Cruz MD BLOOD BANK LAB ORDERABLES BENI VALDIVIAIUM * ABO/Rh Typing (06/12/2012 11:58 AM EDT) ABORH Type O Neg BENI VALDIVIAIUM Blood specimen (specimen) 06/12/2012 11:58 AM EDT 06/12/2012 12:02 PM EDT Narrative Resulting Agency Comment Spec In Lab Orlando Cruz MD BLOOD BANK LAB ORDERABLES Performing Organization Address [facility]/ZIP Co de Phone Number [facility] * Varicella zoster Antibody, IgG (06/12/2012 11:58 AM EDT) Varicella Zoster Antibody IgG Pos [facility] Blood specimen (specimen) 06/12/2012 11:58 AM EDT 06/12/2012 3:37 PM EDT Narrative Resulting Agency Comment Spec In Lab Orlando Cruz MD IMMUNOLOGY ORDERABLES Performing Organization Address [facility]/ZIP Co de Phone Number [facility] * TSH (06/12/2012 11:58 AM EDT) Thyroid Stimulating Hormone 2.39 0.27 - 4.20 mcIU/mL [facility] Blood specimen (specimen) 06/12/2012 11:58 AM EDT 06/12/2012 12:04 PM EDT Narrative Resulting Agency Comment Spec In Lab Orlando Cruz MD CHEMISTRY O RDERABLES Performing Organization Address [facility] Co de Phone Number [facility] * Syphilis Antibody, IgG (06/12/2012 11:58 AM EDT) Syphilis IgG Neg Neg [facility] Blood specimen (specimen) 06/12/2012 11:58 AM EDT 06/12/2012 3:37 PM EDT Narrative Resulting Agency Comment Spec In Lab Orlanod Cruz MD CHEMISTRY O RDERABLES Performing Organization Address [facility]/ZIP Co de Phone Number [facility] * Rubella Antibody, IgG (06/12/2012 11:58 AM EDT) Rubella Antibody IgG Positive Positive [facility] Comment: Please note: ??A positive result for this assay indicates that antibody levels are >or= 10.0 IU/mL and is considered to be an indicator of positive immune status. Blood specimen (specimen) 06/12/2012 11:58 AM EDT 06/12/2012 12:04 PM EDT Narrative Resulting Agency Comment Spec In Lab Orlando Cruz MD CHEMISTRY O RDERABLES Performing Organization Address [facility] Co de Phone Number [facility] * HIV (06/12/2012 11:58 AM EDT) HIV 1/2 Ab Negative [facility] Blood specimen (specimen) 06/12/2012 11:58 AM EDT 06/12/2012 12:04 PM EDT Narrative Resulting Agency Comment Spec In Lab Orlando Cruz MD CHEMISTRY O RDERABLES Performing Organization Address [facility] Co de Phone Number [facility] * Hepatitis C Antibody (06/12/2012 11:58 AM EDT) Hepatitis C Antibody Negative Negative [facility] Blood specimen (specimen) 06/12/2012 11:58 AM EDT 06/12/2012 12:04 PM EDT Narrative Resulting Agency Comment Spec In Lab Orlando Cruz MD CHEMISTRY O RDERABLES Performing Organization Address [facility] Co de Phone Number [facility] * Hepatitis B Surface Antigen (06/12/2012 11:58 AM EDT) Hepatitis B Surface Antigen Negative Negative [facility] Blood specimen (specimen) 06/12/2012 11:58 AM EDT 06/12/2012 12:04 PM EDT Narrative Resulting Agency Comment Spec In Lab Orlando Cruz MD CHEMISTRY O RDERABLES Performing Organization Address [facility] Co de Phone Number [facility] * Follicle Stimulating Hormone (06/12/2012 11:58 AM EDT) Follicle Stimulating Hormone 9.7 mlU/ML [facility] Comment: Reference Ranges: Females: Follicular: ? 3.5-12.5 mIU/mL Ovulation: ?4.7-21.5 mIU/mL Luteal: ? 1.7-7.7 mIU/mL Postmenopausal: 25.8-134.8 mIU/mL Blood specimen (specimen) 06/12/2012 11:58 AM EDT 06/12/2012 12:04 PM EDT Narrative Resulting Agency Comment Spec In Lab Orlando Cruz MD CHEMISTRY O 12BisJANES Performing Organization Address [facility] Co de Phone Number [facility] * Estradiol (06/12/2012 11:58 AM EDT) Pathologist [facility] Estradiol 28 pg/mL [facility] Comment: Reference ranges: Males: ?? 1-10 years: <5 to 20 pg/mL ?? Adult: ? 0 to 45 pg/mL Females: ?? 1-10 years ??6 to 27 pg/mL Non- females: ?Follicular: ??0-178 pg/mL ?Ovulation: ??48-388 pg/mL ?Luteal: ??31-247 pg/mL ?Postmenopausal: ??0-46 pg/mL females: ?1st trimester: ??38-3175 pg/mL ?2nd trimester: ??678-58424 pg/mL ?3rd trimester: ??43-73581 pg/mL Blood specimen (specimen) 06/12/2012 11:58 AM EDT 06/12/2012 12:04 PM EDT Narrative Resulting Agency Comment Spec In Lab Orlando Cruz MD CHEMISTRY O RDERABLES Performing Organization Address [facility] Co de Phone Number BENI PAULINO * CBC (with Diff) (06/12/2012 11:58 AM EDT) White Blood Cell 4.8 4.0 - 10.0 x10(3)/mcL CERNER MILLENNIUM Red Blood Cell 4.09 3.93 - 5.22 x10(6)/mcL CERNER MILLENNIUM Hemoglobin 12.6 11.2 - 15.7 gm/dL CERNER MILLENNIUM Hematocrit 36.7 34.0 - 45.0 % CERNER MILLENNIUM Mean Cell Volume 89.7 79.0 - 94.0 fL CERNER MILLENNIUM Mean Cell Hemoglobin 30.8 26.6 - 32.2 pg CERNER MILLENNIUM Mean Cell Hemoglobin Concentration 34.3 32.0 - 36.5 gm/dL CERNER MILLENNIUM Platelet 145 145 - 370 x10(3)/mcL CERNER MILLENNIUM RDW Standard Deviation 41.2 35.0 - 46.0 fL CERNER MILLENNIUM RDW coefficient of variation 12.8 10.9 - 14.4 % CERNER MILLENNIUM Mean Platelet Volume 11.5 9.0 - 12.0 fL CERNER MILLENNIUM Blood specimen (specimen) 06/12/2012 11:58 AM EDT 06/12/2012 12:04 PM EDT Narrative Resulting Agency Comment Spec In Lab Orlando Cruz MD HEMATOLOGY ORDERABLES Performing Organization Address [facility] Co de Phone Number BENI PAULINO * US Transvaginal non OB (06/12/2012 11:25 AM EDT) Anatomical Region Laterality Modality Ultrasound 06/12/2012 11:2 5 AM EDT Narrative 06/12/2012 3:13 PM EDT ? Follicles Report ? (Signed Final 06/12/2012 03:13 pm) Patient Info ID: ? [id number] ? : ??[birth year] (27 yrs) Name: ? CLEMENT EUBANKS ? Visit Date: 06/12/2012 10:47 am Performed By Performed By: ?Mayuri Domingo RDMS Attending: ? Fco Cruz MD, Orlando Referred By: ? ORLANDO FCO CRUZ MD Service(s) Provided UTV - Ultrasound Transvaginal - [id number] ? [id number] Indications Antral follicle count & ovarian volume ------- History ------- L.M.P.: ?06/11/12 Determined by: ?? Baseline Right Ovary Size(cm): ?4.9 ?x ??5.3 ?x ?? 4 ?Vol(ml): ?? 54.4 ------- Lesions ------- # ?Date ? Description ? L(cm) ? AP(cm) ?? TV(cm) 1 ?06/12/12 ?? Simple Cyst ? 4.6 ? 2.2 ?4.1 2 ?06/12/12 ?? Cyst with septations ?2.7 ? 2 ?1.8 3 ?06/12/12 ?? Resolving hemorrhagic ? 1.5 ? 1.4 ?1 ? cyst vs. endometrioma Comment: ?Antral follicle count = 6 follicles < 1.0 cm. Left Ovary Size(cm): ?2.6 ?x ??2.7 ?x ?? 1.5 ?Vol(ml): ?? 5.5 Comment: ?Antral follicle count = 18 follicles < 1.0 cm. Left Ovary Follicles Follicle # ?? Length(mm) ? Width(mm) ?Height(mm) ? Avg(mm) 1 ?8.3 ?5 ?3.9 ?5.7 2 ?6.5 ?5.6 ?3.9 ?5.3 3 ?5.8 ?5.1 ?3.6 ?4.8 4 ?6.3 ?5.4 ?4.3 ?5.3 5 ?8.4 ?4.2 ?2.8 ?5.1 6 ?5.2 ?4.6 ?3.8 ?4.5 7 ?9.4 ?4.8 ?1.8 ?5.3 8 ?7.6 ?4.5 ?2 ?4.7 9 ?6.5 ?3.9 ?2.6 ?4.3 10 ? 5.4 ?3.9 ?2.7 ?4 11 ? 4.6 ?3.6 ?1.9 ?3.4 12 ? 3.6 ?3.2 ?2.7 ?3.2 13 ? 4.3 ?3.3 ?2.3 ?3.3 14 ? 4.1 ?2.8 ?1.8 ?2.9 15 ? 3.9 ?2.9 ?1.4 ?2.7 16 ? 3 ?2.6 ?1.7 ?2.4 17 ? 3.4 ?2.4 ?1.5 ?2.4 18 ? 2.2 ?2 ?1.5 ?1.9 Follicle # ?? Volume(cc) ? Comments 1 ?0.1 2 ?0.1 3 ?0.1 4 ?0.1 5 ?0.1 6 ?0 7 ?0 8 ?0 9 ?0 10 ? 0 11 ? 0 12 ? 0 13 ? 0 14 ? 0 15 ? 0 16 ? 0 17 ? 0 18 ? 0 Endometrium Endometrium: ? Normal appearance Thickness (mm): ?3.1 ------ Uterus ------ Uterus: ? Visualized Position: ?? Anteverted Size (cm) ?L: ??7.5 ? W: ?? 3.8 ?H: ??3.8 Vol(cc): ? 56.7 Description: ?? Trace amount of fluid in cul-de-sac. Impression Ultrasound - Baseline Pelvic Morphology & Follicular Monitoring - Summary A real time transvaginal ultrasound was performed. Uterus and ovaries are normal. Endometrium: 3.1 mm There is no significant free fluid in the cul-de-sac. I ??viewed the images and agree with the above interpretation. Thank you for allowing us to participate in the care of CLEMENT EUBANKS. Please do not hesitate to call if you have any questions. ?Orlando Cruz MD Electronically Signed Final Report ?? 06/12/2012 03:13 pm Procedure Note Orlando Perez MD - 06/12/2012 Follicles Report (Signed Final 06/12/2012 03:13 pm) Patient Info ID: [id number] : [birth year] (27 yrs) Name: CLEMENT EUBANKS Visit Date: 06/12/2012 10:47 am Performed By Performed By: Mayuri Domingo RDMS Attending: Orlando Perez MD Referred By: ORLANDO CRUZ MD Service(s) Provided UTV - Ultrasound Transvaginal - [id number] Indications Antral follicle count & ovarian volume ------- History ------- L.M.P.: 06/11/12 Determined by: Baseline Right Ovary Size(cm): 4.9 x 5.3 x 4 Vol(ml): 54.4 ------- Lesions ------- # Date Description L(cm) AP(cm) TV(cm) 1 06/12/12 Simple Cyst 4.6 2.2 4.1 2 06/12/12 Cyst with septations 2.7 2 1.8 3 06/12/12 Resolving hemorrhagic 1.5 1.4 1 cyst vs. endometrioma Comment: Antral follicle count = 6 follicles < 1.0 cm. Left Ovary Size(cm): 2.6 x 2.7 x 1.5 Vol(ml): 5.5 Comment: Antral follicle count = 18 follicles < 1.0 cm. Left Ovary Follicles Follicle # Length(mm) Width(mm) Height(mm) Avg(mm) 1 8.3 5 3.9 5.7 2 6.5 5.6 3.9 5.3 3 5.8 5.1 3.6 4.8 4 6.3 5.4 4.3 5.3 5 8.4 4.2 2.8 5.1 6 5.2 4.6 3.8 4.5 7 9.4 4.8 1.8 5.3 8 7.6 4.5 2 4.7 9 6.5 3.9 2.6 4.3 10 5.4 3.9 2.7 4 11 4.6 3.6 1.9 3.4 12 3.6 3.2 2.7 3.2 13 4.3 3.3 2.3 3.3 14 4.1 2.8 1.8 2.9 15 3.9 2.9 1.4 2.7 16 3 2.6 1.7 2.4 17 3.4 2.4 1.5 2.4 18 2.2 2 1.5 1.9 Follicle # Volume(cc) Comments 1 0.1 2 0.1 3 0.1 4 0.1 5 0.1 6 0 7 0 8 0 9 0 10 0 11 0 12 0 13 0 14 0 15 0 16 0 17 0 18 0 Endometrium Endometrium: Normal appearance Thickness (mm): 3.1 ------ Uterus ------ Uterus: Visualized Position: Anteverted Size (cm) L: 7.5 W: 3.8 H: 3.8 Vol(cc): 56.7 Description: Trace amount of fluid in cul-de-sac. Impression Ultrasound - Baseline Pelvic Morphology & Follicular Monitoring - Summary A real time transvaginal ultrasound was performed. Uterus and ovaries are normal. Endometrium: 3.1 mm There is no significant free fluid in the cul-de-sac. I viewed the images and agree with the above interpretation. Thank you for allowing us to participate in the care of CLEMENT EUBANKS. Please do not hesitate to call if you have any questions. Orlando Cruz MD Electronically Signed Final Report 06/12/2012 03:13 pm Orlando [facility] MD [facility] documented in this encounter Visit Diagnoses Diagnosis Unspecified procreative management Screening Screening for unspecified condition documented in this encounter Care Teams Bankruptcy Paralegal Relationship Specialty Start Date End Date None None PCP - General 07/23/11 documented as of this encounter
--- OUTSIDE RECORDS SUMMARY | 2024-04-16 14:11 | XMS_ITS | Encounter Summary ---
Author Organization [facility] [place] [address] Care Team Providers Care Bread Molder Name Role Phone None Primary Care Provider Unavailabl e Reason for Visit * Reason Comments Establish Care Encounter Details Date Type Department Care Team (Late st Contact Info) Description 07/28/2011 9:00 AM EDT Office Visit Obstetrics [place] [address] Preeti Perez MD [facility] [address] OBSTETRICS [place] [address] Irregular menses; Dysmenorrhea; Hydrosalpinx Discharge Disposition: Home Social History Tobacco Use Types Packs/Day Years Used Date Smoking Tobacco: Never Smokeless Tobacco: Never Sex and Gender Information Value Date Recorded Sex Assigned at Not on file Gender Identity Not on file Sexual Orientation Not on file documented as of this encounter Last Filed Vital Signs Vital Sign Reading Time Taken Comments Blood Pressure 108/76 07/28/2011 8:41 AM EDT Pulse - - Temperature - - Respiratory Rate - - Oxygen Saturation - - Inhaled Oxygen Concentration - - Weight 59.2 kg (130 lb 9.6 oz) 07/28/2011 8:41 A M EDT Height 162.6 cm (5' 4) 07/28/2011 8:41 AM EDT Body Mass Index 22.42 07/28/2011 8:41 AM EDT documented in this encounter Progress Notes * Preeti Perez MD - 07/28/2011 12:58 PM EDT Chief Complaint: 1. Possible hydrosalpinx. 2. Possible ovarian cyst. 3. Dysmenorrhea. Subjective: The patient is a 26-year-old 1 para 0-0-1-0, TAB x 1 at the age of 18 who presents at the request of Dr. Yaquelin Limon at [facility] with regards to a history of dysmenorrhea, a right hydrosalpinx diagnosed on ultrasound, and a possibility of an ovarian cyst. The patient has been attempting conception for approximately a year and a half. She notices accelerating dysmenorrhea. She reports cycles that are approximately six to eight times out of the year. She has had positive LH surge and has had moliminal symptoms, but does note that she skips cycles during the course of the year. She reports her had a semen analysis, which was normal, on the outside completed by his primary care provider, but I do not have record of that. She reports her dysmenorrhea is bad the first two days of her cycle. She reports she cannot sleep at night. She is taking minimal amounts of ibuprofen in response to her dysmenorrhea. She reports utilizing topical methods only, such as heating packs. She also reports that on ultrasound she was found to have a right sided massed. I reviewed those ultrasound images and there does appear to be a large right hydrosalpinx. Two sets of images were obtained, one at the end of May, and one in early July. At the beginning there is a small corpus luteum and second there is a possible endometrioma versus corpus luteum of approximately 2 to 3 cm on the same side, which is the right side. The patient gives no history of PID, STD, DS exposure, or prior pelvic surgery. The complex cystic nature could potentially be endometrioma or corpus luteum. She denies dyspareunia or abnormal Pap test. She does not know when her last Pap was. A basic set of labs were obtained by her primary infertility provider. CBC was normal. A TSH was 3. Rubella titer was immune. FSH was 6.4 and LH 4.4. A prolactin level was not done. HIV is negative. DHES within the normal range, as was a 17-OHP normal. Total testosterone level was low. She has no history of hirsutism. She had a karyotype that was normal. Her past medical history is noncontributory. Past surgical history includes ear surgery at the age of 6. Admissions Specialist history includes a history of irregular cycles. She has been on OCP and Depo-Provera in the past for contraception. 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 Her was not available today, but her mother was present for the discussion today. She denies tobacco use or illicit drugs. She exercises regularly, but not excessively. She has no history of eating disorder. Objective: Review of the ultrasound images revealed a probable right hydrosalpinx, normal uterus, complex right ovarian cyst. On pelvic examination she has normal external genitalia, normal vaginal mucosa, and cervix. The uterus is small and anteverted. There is a smooth fullness on the right side. There is no cul-de-sac nodularity. Assessment: 1. History of dysmenorrhea. 2. Probable right hydrosalpinx. 3. Right complex cyst, question corpus luteus verus endometrioma. 4. TSH of 3. 5. History of irregular menses. I had a 45-minute [id number] conversation and discussion with this patient and her mother with 43 minutes spent in [id number] conversation and discussion with regards to options for care. We discussed the option of further evaluation of the hydrosalpinx and ovarian cyst, the differential diagnoses, the potential for further evaluation with HSG, which I did not recommend given the presence of the hydrosalpinx and risk for recurrent PID. I discussed the potential of laparoscopic evaluation intervention, salpingectomy, chromotubation, possible fulguration. We discussed the option of proceeding directly to IVF ART. Given her dysmenorrhea and complex ovarian cyst, we discussed the diagnosis of potential endometriosis in detail and potential evaluation with surgery for her ongoing symptoms. To that end I have suggested repeat ultrasound for evaluation of complex ovarian cyst and or essentially going straight forward to laparoscopy. The patient wanted to given some consideration to options for care and recommendations. 1. Consideration to laparoscopy versus repeat ultrasound. 2. Consider repeating TSH. documented in this encounter Plan of Treatment Not on file documented as of this encounter Procedures Procedure Name Priority Date/Time Associated Diagnosis Comments PROLACTIN Routine 07/28/2011 10:21 AM EDT Irregular menses documented in this encounter Results * Prolactin (07/28/2011 10:21 AM EDT) Prolactin 6.0 4.8 - 23.3 ng/mL BENI MANJUENNIUM Blood specimen (specimen) 07/28/2011 10:21 AM EDT 07/28/2011 10:28 AM EDT Narrative Resulting Agency Comment Spec In Lab Preeti Cruz MD CHEMISTRY O RDERABLES BENI PAULINO documented in this encounter Visit Diagnoses Diagnosis Irregular menses Irregular menstrual cycle Dysmenorrhea Hydrosalpinx Chronic salpingitis and oophoritis documented in this encounter Care Teams Bread Molder Relationship Specialty Start Date End Date None None PCP - General 07/23/11 documented as of this encounter
--- OUTSIDE RECORDS SUMMARY | 2024-04-16 14:11 | XMS_ITS | Encounter Summary ---
Author Organization [facility] [place] [address] Care Team Providers Care Supervisor Seaming Name Role Phone None Primary Care Provider Unavailabl e Reason for Visit * Reason Comments Follow-up Infertility Encounter Details Date Type Department Care Team (Late st Contact Info) Description 05/31/2012 9:00 AM EDT Follow-Up Obstetrics [place] [address] Preeti Perez MD [facility] OBSTETRICS & [place] [address] Infertility, tubal origin (Primary Dx) Discharge Disposition: Home [...] Sign Reading Time Taken Comments Blood Pressure 126/78 05/31/2012 9:02 AM EDT Pulse - - Temperature - - Respiratory Rate - - Oxygen Saturation - - Inhaled Oxygen Concentration - - Weight 58.5 kg (129 lb) 05/31/2012 9:02 AM EDT Height 162.6 cm (5' 4) 05/31/2012 9:02 AM EDT Body Mass Index 22.14 05/31/2012 9:02 AM EDT documented in this encounter Progress Notes * Preeti Perez MD - 06/02/2012 2:14 PM EDT Chief Complaint: Non-conception following laparoscopic salpingectomy, lysis of adhesions, and guidewire fallopian tube. Subjective: Patient is a 27-year-old with known significant tubal peritoneal disease who presents after non-conception of five months of well-timed unprotected intercourse. She has significant known, significant pelvic peritoneal adhesions. The couple presented to discuss ongoing options for care. Objective: Review of the operative report. Assessment: Myiomz-boqvj-xfjv-old with significant tubal peritoneal disease. I reviewed the options for care with the couple of trying longer for attempts at , an HSG to document whether her remaining tube is patent versus moving straight to IVF. We discussed ectopic risk. Their desire at this point is to proceed directly straight to IVF ART. I had an extensive discussion with them with regards to the option of IVF ART, medications utilized, potential complications with the procedure and of IVF. They were asked to read and review the consents in detail and we will have a further extensive discussion. We discussed cycle monitoring, oocyte harvest, fertilization, and early embryo growth and number of embryos to transfer. We will discuss this more in detail in the future. Plan: Probable IVF ART for significant tubal peritoneal disease. This was a 25-minute adcp-ba-lvzb conversation and discussion. 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
--- OUTSIDE RECORDS SUMMARY | 2024-04-16 14:11 | XMS_ITS | Referral Summary ---
Author Organization [facility] Address [address] [place] [address] Care Team Providers Care Training Technician Name Role Phone Milli Christiansen ELECTRONIC ASSEMBLER GROUP LEADER Primary Care Provider [phone] Social History Tobacco Use Types Packs/Day Years Used Date Smoking Tobacco: Never Assessed Comments Unknown Sex and Gender Information Value Date Recorded Sex Assigned at Not on file Legal Sex Female 17:52 EST Gender Identity Not on file Sexual Orientation Not on file Plan of Treatment Not on file Care Teams Training Technician Relationship Specialty Start Date End Date [place] [address] PCP - General 06/14/11
--- OUTSIDE RECORDS SUMMARY | 2024-04-16 14:11 | XMS_ITS | Encounter Summary ---
Author Organization [facility] [place] [address] Care Team Providers Care Wheel Tuner Name Role Phone None Primary Care Provider Unavailabl e Encounter Details Date Type Department Care Team (Late st Contact Info) Description 06/06/2012 Orders Only Obstetrics [place] [address] Preeti Perez MD [facility] OBSTETRICS & [place] [address] Social History Tobacco Use Types Packs/Day Years [...] on filedocumented in this encounter Care Teams Wheel Tuner Relationship Specialty Start Date End Date None None PCP - General 07/23/11 documented as of this encounter
--- OUTSIDE RECORDS SUMMARY | 2024-04-16 14:11 | XMS_ITS | Encounter Summary ---
Author Organization [facility] [place] [address] Care Team Providers Care Sample Room Supervisor Name Role Phone None Primary Care Provider Unavailabl e Reason for Visit * Reason Onset Date Comments Post Procedure Call 10/27/2011 Encounter Details Date Type Department Care Team (Late st Contact Info) Description 10/27/2011 Telephone Obstetrics [place] [phone] Vika Lou RN Post Procedure Call Social History Tobacco Use Types Packs/Day Years [...] encounter Miscellaneous Notes * Telephone Encounter - Vika Luo RN - 10/27/2011 11:58 AM EDT REPRODUCTIVE MEDICINE AND GYNECOLOGY POST-OP TELEPHONE UPDATE Date of Surgery: October 25 Overall well-being: Doing well Pain?: 2-06/21 Pain medication working(Y/N)?: yes Location of pain: Lower abd Bladder function: No problem Bowel function: Passing flatus, no BM as yet Ambulating: ambulating around house. Plans outing in neighborhood later today. Tolerating solids / liquids: Eating and drinking well. Dressings: Instructed to remove gauze dressings and leave steri strips in place. OK to shower without rubbing steristrips. Incisions: Dressings dry and intact with call. Vaginal bleeding: Very light flow Fever: no fever or chills Instructions: We reviewed phone contacts. The patient will call triage at during daytime hours or during the evening or weekends and ask for the community relations assistant salesperson furs if she is having problems. VIKA LOU, RN Nurse coordinator of Reproductive Medicine and Gynecology documented in this encounter Plan of Treatment Not on file documented as of this encounter Visit Diagnoses Not on filedocumented in this encounter Care Teams Sample Room Supervisor Relationship Specialty Start Date End Date None None PCP - General 07/23/11 documented as of this encounter
--- OUTSIDE RECORDS SUMMARY | 2024-04-16 14:11 | XMS_ITS | Clinical Summary ---
Author Organization [facility] Address [address] [place] [address] Care Team Providers Care Associate Biological Sales Name Role Phone Milli Christiansen CARD CLOTHIER Primary Care Provider [phone] Social History Tobacco Use Types Packs/Day Years Used Date Smoking Tobacco: Never Assessed Comments Unknown Sex and Gender Information Value Date Recorded Sex Assigned at Not on file Legal Sex Female 17:52 EST Gender Identity Not on file Sexual Orientation Not on file Plan of Treatment Health Maintenance Due Date Last Done Comments Hepatitis C Screen 1985 Hepatitis B Vaccine (1 of 3 - 19+ 3-dose series) 03/26 COVID-19 Vaccine ( season) 2023 Care Teams Associate Biological Sales Relationship Specialty Start Date End Date Milli Christiansen NP [address] [place] [address] PCP - General 06/14/11
--- OUTSIDE RECORDS SUMMARY | 2024-04-16 14:11 | XMS_ITS | Encounter Summary ---
Author Organization [facility] [place] [address] Care Team Providers Care Propellant Charge Zone Assembler Name Role Phone None Primary Care Provider Unavailabl e Encounter Details Date Type Department Care Team (Latest Contact Info) Description 10/26/2011 12:03 PM EDT - 10/26/2011 6:40 PM EDT Hospital Encounter [place] [address] Orlando Perez MD [facility] OBSTETRICS [place] [address] Discharge Disposition: Home Social History Tobacco Use [...] Sign Reading Time Taken Comments Blood Pressure 95/49 10/26/2011 5:03 PM EDT Pulse 74 10/26/2011 5:03 PM EDT Temperature 36.2 ??C (97.2 ??F) 10/26/2011 4:12 PM ED T Respiratory Rate 16 10/26/2011 5:03 PM EDT Oxygen Saturation 100% 10/26/2011 5:03 PM EDT Inhaled Oxygen Concentration - - [...] of this encounter Progress Notes * So Gaines, RN - 10/26/2011 5:04 PM EDT at bedside documented in this encounter H&P Notes * Scar Arredondo - 10/26/2011 12:49 PM EDT Inpatient COMMERCIAL REAL ESTATE ASSISTANT - Admission Interval Note I have reviewed [...] Perez MD - 10/26/2011 4:56 PM EDT [facility] [place] Patient Name: Clement Eubanks : [id number] MR#: [id number] Case Date: 10/26/2011 Surgeon: Surgeon(s) and Role: [...] and selective tubal catheterization. Surgeons: 1. Orlando aLuren M.D. 2. Scar Arredondo M.D. Anesthesia: General [...] of the fimbriated end. It was, however, jfao-sv-eyjlpkxwcq densely adherent at the level of the fimbria to the pelvic sidewall. The left ovary was adherent with approximately 50% to 60% of its surface ktlb-ta-ncchjdbzfy on the left pelvic sidewall. After hysteroscopic [...] sidewall utilizing endoscopic nell and the suction global expansion sales director with blunt and hydrodissection. Courses of the [...] the intraperitoneal portion. Gloves were changed. The junior assistant manager had been watching with a laparoscope during [...] Operative Note Patient Name: Clement Eubanks : [id number] MR#: [id number] Case Date: 10/26/2011 Surgeon: Surgeon(s) and Role: [...] 4:23 PM EDT) Surgical Pathology Report ? [facility] ? Provider: ?? FCO GARCIA, ??Pt. Name: ?? CLEMENT UEBANKS ?[place] ? Acc #: ?[id number] ?Pt. ? Col Date: ?? 10/26/2011 ? [...] ? ---Clinical Information--- ? Specimen Submitted: ? [facility] ? Provider: ?? FCO GARCIA, ??Pt. Name: ?? CLEMENT EUBANKS ?[place] ? Acc #: ?[id number] ?Pt. ? Col Date: ?? 10/26/2011 ? [...] MD PATHOLOGY/C YTOLOGY ORDERABLES Performing Organization Address [facility] Co de Phone Number BENI PAULINO * Specimen to Pathology (surgical or derm) (10/26/2011 2:49 PM EDT) AP Specimen 10/26/2011 2:49 PM EDT 10/26/2011 2:49 PM EDT Narrative BENI PAULINO - 10/26/2011 2:49 PM EDT Specimen requisition ordered. ??Separate Pathology report to follow Orlando Garcia MD PATHOLOGY/C YTOLOGY ORDERABLES Performing Organization Address [facility] de Phone Number BENI PAULINO documented in this encounter Visit Diagnoses Not on filedocumented in this encounter Active and Recently Administered Medications Times are shown in EDT. Scheduled Medication Order 10/24/2011 10/25/2011 10/26/2011 ceFAZolin (ANCEF) 1g in dextrose 5% 50mL (COMPLETED) 1,000 mg (1 g), Intravenous, ONCE, 1 dose, On 10/26/11 at 1245, Administer over 30 Minutes, Redose after 4 hours., Day of Surgery (Day of Procedure), Indication for (Active or Suspected): Prophylaxis 1245 (Due)1320 (Give n - Provider: Gita Madera CRNA) PRN Medication Order 10/24/2011 10/25/2011 10/26/2011 BUpivacaine (PF) (MARCAINE) 0.25 % (2.5 mg/mL) injection (CANCELED) ONCE PRN, Starting on 10/26/11 at 1350, Until 10/26/11 at 2246, Intra-Operative (Intra-Procedure), Routine 1350 (Given - Provid er: Orlando Garcia MD) indigotindisulfonate sodium injection (CANCELED) ONCE PRN, Starting on Tue10/26/11 at 1400, Until Tue10/26/11 at 2246, Intra-Operative (Intra-Procedure), Routine 1400 (Given - Provid er: Orlando Garcia MD - Comment: mixed with 100 ml of NaClo) documented in this encounter Care Teams Propellant Charge Zone Assembler Relationship Specialty Start Date End Date None None PCP - General 07/23/11 documented as of this encounter
--- OUTSIDE RECORDS SUMMARY | 2024-04-16 14:11 | XMS_ITS | Encounter Summary ---
Author Organization [facility] [place] [address] Care Team Providers Care Coil Wrapper Name Role Phone None Primary Care Provider Unavailabl e Encounter Details Date Type Department Care Team (Late st Contact Info) Description 07/28/2011 Orders Only Obstetrics [place] [address] Preeti Perez MD [facility] OBSTETRICS & [place] [address] Dysmenorrhea (Primary Dx) Social History Tobacco Use Types Packs/Day Years Used Date Smoking Tobacco: Never Smokeless Tobacco: Never Sex and Gender Information Value Date Recorded Sex Assigned at Not on file Gender Identity Not on file Sexual Orientation Not on file documented as of this encounter Plan of Treatment Not on file documented as of this encounter Visit Diagnoses Diagnosis Dysmenorrhea- Primary documented in this encounter Care Teams Coil Wrapper Relationship Specialty Start Date End Date None None PCP - General 07/23/11 documented as of this encounter
--- OUTSIDE RECORDS SUMMARY | 2024-04-16 14:11 | XMS_ITS | Encounter Summary ---
Author Organization [facility] [place] [address] Care Team Providers Care Blind Installer Name Role Phone None Primary Care Provider Unavailabl e Reason for Visit * Reason Onset Date Comments Follow-up 08/05/2011 Encounter Details Date Type Department Care Team (Late st Contact Info) Description 08/05/2011 Telephone Obstetrics [place] [phone] Annia Trejo, RN Follow-up Social History Tobacco Use Types Packs/Day Years Used Date Smoking Tobacco: Never Smokeless Tobacco: Never Sex and Gender Information Value Date Recorded Sex Assigned at Not on file Gender Identity Not on file Sexual Orientation Not on file documented as of this encounter Miscellaneous Notes * Telephone Encounter - Annia Trejo, RN - 08/05/2011 8:23 AM EDT TELEPHONE NOTE Date of call: 08/05/11. Time of call: 8:20 Caller: Flaca Eubanks. Reason for call: Decided that she would like to proceed with surgery for evaluation of her tubal status and complex ovarian cyst. As she is paying out of pocket for some of it, would like to get an idea of the cost involved. Plan/Instructions: Notify Dr. Cruz of her intent, send message to Vangie Veloz OR spares scheduler. documented in this encounter Plan of Treatment Not on file documented as of this encounter Visit Diagnoses Not on filedocumented in this encounter Care Teams Blind Installer Relationship Specialty Start Date End Date None None PCP - General 07/23/11 documented as of this encounter
--- OUTSIDE RECORDS SUMMARY | 2024-04-16 14:11 | XMS_ITS | Encounter Summary ---
Author Organization [facility] [place] [address] Care Team Providers Care Ticket Agent Name Role Phone None Primary Care Provider Unavailabl e Encounter Details Date Type Department Care Team (Late st Contact Info) Description 06/06/2012 Orders Only Obstetrics [place] [address] Preeti Perez MD [facility] OBSTETRICS & [place] [address] Unspecified procreative management (Primary Dx) Social History [...] Primary documented in this encounter Care Teams Ticket Agent Relationship Specialty Start Date End Date None None PCP - General 07/23/11 documented as of this encounter
--- OUTSIDE RECORDS SUMMARY | 2024-04-16 14:11 | XMS_ITS | Encounter Summary ---
Author Organization [facility] [place] [address] Care Team Providers Care Construction Project Coordinator Name Role Phone None Primary Care Provider Unavailabl e Encounter Details Date Type Department Care Team (Late st Contact Info) Description 07/28/2011 Orders Only Obstetrics [place] [address] Preeti Perez MD [facility] [address] OBSTETRICS & [place] [address] Irregular menses (Primary Dx) Social History Tobacco Use Types Packs/Day Years Used Date Smoking Tobacco: Never Smokeless Tobacco: Never Sex and Gender Information Value Date Recorded Sex Assigned at Not on file Gender Identity Not on file Sexual Orientation Not on file documented as of this encounter Plan of Treatment Not on file documented as of this encounter Results * Prolactin (07/28/2011 10:21 AM EDT) Prolactin 6.0 4.8 - 23.3 ng/mL CERNER MILLJAVONIUM Blood specimen (specimen) 07/28/2011 10:21 AM EDT 07/28/2011 10:28 AM EDT Narrative Resulting Agency Comment Spec In Lab Preeti Cruz MD CHEMISTRY O RDERABLES [employer]BE[employer] documented in this encounter Visit Diagnoses Diagnosis Irregular menses- Primary Irregular menstrual cycle documented in this encounter Care Teams Construction Project Coordinator Relationship Specialty Start Date End Date None None PCP - General 07/23/11 documented as of this encounter
--- OUTSIDE RECORDS SUMMARY | 2024-04-16 14:11 | XMS_ITS | Encounter Summary ---
Author Organization [facility] Address [address] [place] [address] Care Team Providers Care Lamp Shade Sewer Name Role Phone Unavailable Primary Care Provider Unavailabl e Encounter Details Date Type Department Care Team (Late st Contact Info) Description 10/15/2009 Results Only [facility] [phone] Milli Christiansen, SAHRA [facility] [place] [address] [address] Social History Tobacco Use Types Packs/Day Years [...] Priority Date/Time Associated Diagnosis Comments CYTOPATHOLOGY Routine 10/15/2009 0:00 EDT documented in this encounter Results * CYTOPATHOLOGY (10/15/2009 0:00 EDT) Pathology Report: CYTOPATHOLOGY REPORT ? Reports generated via electronic interface contain original data; ? however they are lacking the format of the original report. ? Caution should be taken when reading/interpreti ng unformatted reports. ? Name: ? CLEMENT NICHOLS ? Accession #: ? [id number] ? : ? 1985 (Age: 24) ??F ?Collect Date: ? 10/15/2009 ? Location: ? [facility] ? Receive Date: ? 10/16/2009 ? Provider: ?MILLI CHRISTIANSEN NP ? Copy to: ? Specimen/Source: ?Pap Test, Cervix/Endocervix, ThinPrep Imaging System ? with manual evaluation ? Last Menstrual Period: ? 7/13/10 ? Hormonal/Contracep tive Status: ? Yes: Hx of OC use ? Other: ? HPVA - HPV testing requested if ASC-US on the current ThinPrep Pap test. ? SPECIMEN ADEQUACY ? Satisfactory for Evaluation ? - transformation zone component present ? GENERAL CATEGORIZATION ? Negative for Intraepithelial Lesion or Malignancy ? Document reviewed and electronically signed by: ? Eva [place], [place](ASCP) ? Report Date: ??10/20/2009 10:53 ? End of Report ? [facility] 10/15/2009 10/16/2009 us Milli Christiansen COLOR SHOP HELPER PATHOLOGY ORDERABLES Final Res ult [facility] [address] [place] [address] documented in this encounter Visit Diagnoses Not on filedocumented in this encounter
--- OUTSIDE RECORDS SUMMARY | 2024-04-16 14:11 | XMS_ITS | Encounter Summary ---
Author Organization [facility] Address [address] [place] [address] Care Team Providers Care Screening Nurse Name Role Phone Unavailable Primary Care Provider Unavailabl e Encounter Details Date Type Department Care Team (Late st Contact Info) Description 09/30/2008 Orders Only [facility] Services - [facility] [place] [place] [address] [place], [place] [address] Abel Toscano MD [address] [facility] [address] [place] [address] Social History Tobacco Use Types Packs/Day Years [...] Priority Date/Time Associated Diagnosis Comments CYTOPATHOLOGY Routine 09/30/2008 0:00 EDT documented in this encounter Results * CYTOPATHOLOGY (09/30/2008 0:00 EDT) Pathology Report: CYTOPATHOLOGY REPORT ? Reports generated via electronic interface contain original data; ? however they are lacking the format of the original report. ? Caution should be taken when reading/interpreti ng unformatted reports. ? Name: ? CLEMENT NICHOLS ? Accession #: ? [id number] ? : ? 1985 (Age: 23) ??F ?Collect Date: ? 09/30/2008 ? Location: ? [facility] ? Receive Date: ? 10/02/2008 ? Provider: ?ABEL TOSCANO MD ? Copy to: ? Specimen/Source: ?Pap Test, Cervix/Endocervix, ThinPrep Imaging System ? with manual evaluation ? Last Menstrual Period: ? 6/23/09 ? Other: ? HPVA - HPV testing requested if ASC-US on the current ThinPrep Pap test. ? SPECIMEN ADEQUACY ? Unsatisfactory for Evaluation, ? - insufficient numbers of squamous epithelial cells (less than 10% of expected ?? cellularity) ? GENERAL CATEGORIZATION ? Specimen processed and examined, but unsatisfactory for evaluation of ? epithelial abnormality. ? Recommend repeat Pap test or further follow up, as clinically indicated. ? Document reviewed and electronically signed by: ? Viral Dotson, [place](ASCP) ? Report Date: ??10/07/2008 07:52 ? End of Report ? [facility] 09/30/2008 10/02/2008 us Abel Toscano MD PATHOLOGY ORDERABLES Final Resu lt [facility] [address] [place] [address] documented in this encounter Visit Diagnoses Not on filedocumented in this encounter
--- OUTSIDE RECORDS SUMMARY | 2024-04-16 14:11 | XMS_ITS | Encounter Summary ---
[place] [address] Care Team Providers Care Boat Joiner Name Role Phone None Primary Care Provider Unavailabl e Encounter Details Date Type Department Care Team (Late st Contact Info) Description 10/26/2011 1:10 PM EDT Anesthesia Event [place] [id number] Marek Abrams MD Rubenberg, Lisa A, [facility] [place] [address] Anesthesia Record Procedure Summary Procedure Name Responsible Anesthesiologist Anesthesia Start Time Anesthesia Stop Time LAPAROSCOPY W/FULGURATION OR EXC LESION, OVARY, VISCERA OR PERITONEAL SURFACE (WRVU 12.15) (Right: Pelvis) Marek Abrams MD 10/26/11 1310 10/26/11 1614 Events Date Time Event Comment 10/26/2011 1232 1310 Start 1614 Stop Meds * Agents No agents on file. * Blood No blood administrations on file. Lines, Drains, and Airways Type Details Placement Removal (RETIRED) Peripheral IV Line - Single Lumen 10/26/11 (placed by So Gaines RN); 1231; 10/26/11; 1839 10/26/11 1231 by Yaquelin Parker RN 10/26/11 1839 by So Gaines, RN Urethral Catheter 10/26/11; 1341; indwelling double lumen catheter; latex; 16; inserted; 1; drainage bag to dependent drainage; 10/26/11; 1553 10/26/11 1341 by Eder Wyatt, RN 10/26/11 1553 by Eder Wyatt, RN Incision 10/26/11; 1345; abdomen (port sites); 11/09/21 (LDA cleanup utility RA#[id number]); 1715 (LDA cleanup utility RA#[id number]) 10/26/11 1345 by Eder Wyatt, RN 11/09/21 1715 by Angela Castle documented [...] OR Notes * Anesthesia Postprocedure Evaluation - Marek Abrams MD - 10/27/2011 8:07 PM EDT Patient: Flaca Eubanks Procedure(s) Performed: Procedure(s): LAPAROSCOPY W/FULGURATION OR EXC LESION, OVARY, VISCERA OR PERITONEAL SURFACE CHROMOTUBATION, INCLUDING MATERIALS LAPAROSCOPY, LYSIS OF ADHESIONS, PELVIS HYSTEROSCOPY, GUIDEWIRE, FALLOPIAN,TUBAL CANNULATION BIOPSY OF OVARY, UNILATERAL OR BILATERAL LAPAROSCOPY W/ FIMBRIOPLASTY Patient location: PACU Post-op pain: Adequate analgesia Post-op nausea: no nausea or vomiting Last Vitals: Filed Vitals: 10/26/11 1703 BP: 95/49 Pulse: 74 Temp: Resp: 16 Post-op cardiovascular and respiratory status: is stable Level of consciousness: awake Complications: no apparent complications Fluid Status: normal * Anesthesia Preprocedure Evaluation - Marek Abrams MD - 10/26/2011 12:30 PM EDT Anesthesia Evaluation Patient summary reviewed and Nursing notes reviewed No hx of anesthetic complications Airway Mallampati: I TM distance: <3 FB Neck ROM: full Dental Pulmonary - negative ROS and normal exam Cardiovascular - negative ROS and normal exam Neuro/Psych - negative ROS GI/Hepatic/Renal - negative ROS Endo/Other - negative ROS Abdominal - normal exam Anesthesia Plan ASA 1 General with intravenous induction For laparoscopy, possible [place], possible cyst excision ovarian, and chromopertubation. The patient is a 26-year-old 1 para 0-0-1-0, a right hydrosalpinx diagnosed on ultrasound, and a possibility of an ovarian cyst. healthy The patient has been attempting conception for approximately a year and a half. Anesthetic plan and risks discussed with patient. Plan discussed with BOTTLE CARRIER. documented in this encounter Plan of Treatment Not on file documented as of this encounter Visit Diagnoses Not on filedocumented in this encounter Care Teams Boat Joiner Relationship Specialty Start Date End Date None None PCP - General 07/23/11 documented as of this encounter
--- OUTSIDE RECORDS SUMMARY | 2024-04-16 14:11 | XMS_ITS | Encounter Summary ---
Author Organization [facility] Address [address] [place] [address] Care Team Providers Care Ornamenter Hand Name Role Phone Unavailable Primary Care Provider Unavailabl e Encounter Details Date Type Department Care Team (Late st Contact Info) Description 12/29/2004 Before PRISM Converted Visit (Maple) [facility] - Maple conversion [address] [place] [address] [place] [id number] [place] [id number] Social History Tobacco Use Types Packs/Day Years Used Date Smoking Tobacco: Never Assessed Comments Unknown Sex and Gender Information Value Date Recorded Sex Assigned at Not on file Legal Sex Female 17:52 EST Gender Identity Not on file Sexual Orientation Not on file documented as of this encounter Plan of Treatment Not on file documented as of this encounter Visit Diagnoses * Evaluation - Velia Selby MD - 05/15/2009 111 EST DIVISION OF HEMATOLOGY / ONCOLOGY NEW PATIENT EVALUATION - 12/29/2004 Flaca Mart is a 19-year-old female here to discuss her risk for cancer based on her family history. HISTORY OF PRESENT ILLNESS: She is currently in college and doing well, and has no medical issuesShe does report some fatigue, but likely related to her schedule of sports, school, and work. She offers no other new constitutional, cardiovascular, pulmonary, GI, , musculoskeletal, psychiatric, neurologic, or endocrine complaints. CURRENT SCREENING: She does have a yearly Pap smear and a yearly breast exam, but does not perform breast self-examination, and has had no mammograms. PAST MEDICAL HISTORY: Negative. CURRENT MEDICATIONS: Depo-Provera and Viactiv. MENSTRUAL HISTORY: She experienced menarche at age 12. . She has been on oral contraceptives since about age 14. 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 She does not smoke and rarely consumes alcohol. FAMILY HISTORY: A four-generation pedigree was constructed. Flaca has two siblings who are alive and well. Her mother was diagnosed with breast cancer at 42 is alive and well at 46. Her mother has two siblings and three nieces and nephews, all of whom arealive and well. The maternal grandmother was diagnosed with a renal cell carcinoma in her 50s, and is currently in her 70s. There are no other cases of cancer. This side of the family is [place] and . On the patients fathers side of the family, there are no cases of cancer. This side of the family is [place]. IMPRESSION: This is a 19-year-old female who is in good health and has a mother with early-onset breast cancer and a maternal grandmother with a renal cell carcinoma. We discussed the genetics of cancer as well as the likelihood of a cancer family syndrome. The patients mother has an approximately 1likelihood of carrying a genetic alteration in BRCA1 or BRCA2. We reviewed the risks, benefits, andlimitations of genetic testingwith Flaca and her mother who was here for this visit. The mother tracy much better candidate for genetic testing than Noe, and she will consider pursuing genetic testing so as to help her children and siblings assess their cancer risk. Flaca should be considered at above average risk for breast cancer. At this point in time, she should be encouraged to perform monthly breast self-exam, have twice yearly clinical breaexams, but nothave mammography until at least age 24 or 30. We do not recommend ovarian cancer screening. The results of genetic testing for the patients mother may change this recommendation. PLAN: 1. The patients mother will consider genetic testing. 2. The patient should be considered at above average risk for breast cancer with screening options as outlined above. 3. She should be considered at average risk for ovarian cancer. 4. The patient was seen for one hour and counseled for 50% of that time. Signed by Velia Selby MD 12/31/2004 20:43 Heather Selby MDHematology / Oncology AttendingVelia Selby MD Velia Selby MD Hematology / Oncology Attending - Velia Selby MD P - lg Job ID: [id number] Document ID: [id number] cc: MD [address], [place] documented in this encounter
--- OUTSIDE RECORDS SUMMARY | 2024-04-16 14:11 | XMS_ITS | Encounter Summary ---
Author Organization [facility] [place] [address] Care Team Providers Care Warp Placer Name Role Phone None Primary Care Provider Unavailabl e Reason for Visit * Reason Comments Pre-op Exam Encounter Details Date Type Department Care Team (Late st Contact Info) Description 10/25/2011 11:00 AM EDT Office Visit Obstetrics [place] [address] Preeti Perez MD [facility] OBSTETRICS & [place] [address] Missed menses (Primary Dx) Discharge Disposition: Home Social History [...] Sign Reading Time Taken Comments Blood Pressure 104/80 10/25/2011 10:49 AM EDT Pulse 62 10/25/2011 10:49 AM EDT Temperature 36.6 ??C (97.9 ??F) 10/25/2011 1 0:49 AM EDT Respiratory Rate 16 10/25/2011 10:4 9 AM EDT Oxygen Saturation - - Inhaled Oxygen Concentration - - Weight 58.4 kg (128 lb 12.8 oz) 012 10:49 AM EDT Height 162.6 cm (5' 4) 10/25/2011 10:4 9 AM EDT Body Mass Index 22.11 10/25/2011 10:49 AM EDT documented in this encounter Progress Notes * Preeti Perez MD - 10/25/2011 11:21 AM EDT H+P complete see chart S: The patient presents with her partner for a pre-op discussion. H+P complete and on chart. 5 days late for LMP-no pelvic pain. UPT negative this morning. I had a 25 minute face to face conversation with the patient with regards to the nature and purposeof the proposed surgery, alternative treatment options, and the hoped for benefits. We discussed and reviewed the 1-06/999 risk of laparoscopy for injury to,but not limited to, the bowel, bladder, ureter, major blood vessel, or nerve, and infection and infertility. We discussed the risk of re-operation, delayed recognition of injury, prolonged disability and prolonged hospitalization, and the rare complication of . We discussed the possibility of blood transfusion, and complications associated with blood transfusion both infectious and noninfectious. We discussed possible surgery to be performed tuboplasty, salpingectomy, ovarian cystectomy, oophorectomy, bilateral salpingectomy, chromopertubation, IVF. She prefers to leave it to my discretion intraop. The patient was given an opportunity to ask questions, and her questions were answered to her satisfaction. She signed a surgical consent. documented in this encounter Plan of Treatment Not on file documented as of this encounter Procedures Procedure Name Priority Date/Time Associated Diagnosis Comments BETA HCG, QUANTITATIVE Routine 10/25/2011 12:30 PM EDT Missed menses documented in this encounter Results * Beta HCG, quantitative (10/25/2011 12:30 PM EDT) Beta Human Chorionic Gonadotropin, Quantitative <1 mlU/ML [facility] Comment: REFERENCE RANGES NON- FEMALE: ??Less than 5 mIU/mL POSTMENOPAUSAL FEMALE: ??Less than 8 mIU/mL ? -- FEMALES -- Weeks of ? HCG range ??(mIU/mL) ? 3 weeks ? 5.8 - 71.2 ? 4 weeks ? 9.5 - 750 ? 5 weeks ? 217 - 7,138 ? 6 weeks ? 158 - 31,795 ? 7 weeks ? 3,697 - 163,563 ? 8 weeks ? 32,065 - 149,571 ? 9 weeks ? 63,803 - 151,410 ?10 weeks ? 46,509 - 186,977 ?12 weeks ? 27,832 - 210,612 ?14 weeks ? 13,950 - 62,530 ?15 weeks ? 12,039 - 70,971 ?16 weeks ? 9,040 - 56,451 ?17 weeks ? 8,175 - 73,868 ?18 weeks ? 8,099 - 79,176 Blood specimen (specimen) 10/25/2011 12:30 PM EDT 10/25/2011 12:39 PM EDT Narrative Resulting Agency Comment Spec In Lab Preeti Cruz MD CHEMISTRY O RDERABLES Performing Organization Address City/State/[facility] Co ms Phone Number [facility] documented in this encounter Visit Diagnoses Diagnosis Missed menses- Primary Absence of menstruation documented in this encounter Care Teams Warp Placer Relationship Specialty Start Date End Date None None PCP - General 07/23/11 documented as of this encounter
--- OUTSIDE RECORDS SUMMARY | 2024-04-16 14:11 | XMS_ITS | Encounter Summary ---
Author Organization [facility] [place] [address] Care Team Providers Care Bowling Ball Patcher Name Role Phone None Primary Care Provider Unavailabl e Encounter Details Date Type Department Care Team (Late st Contact Info) Description 07/16/2011 Orders Only Obstetrics [place] [address] Fela Sharif MD [facility] DR OBSTETRICS [place] [address] Social History Tobacco Use Types Packs/Day Years Used Date Smoking Tobacco: Never Assessed Sex and Gender Information Value Date Recorded Sex Assigned at Not on file Gender Identity Not on file Sexual Orientation Not on file documented as of this encounter Plan of Treatment Pending Results Name Type Priority Associated Diagnoses Date /Time Film Library- Storage only Ultrasound Study Imaging Routine 07/16/2011 11:23 AM EDT documented as of this encounter Visit Diagnoses Not on filedocumented in this encounter Care Teams Bowling Ball Patcher Relationship Specialty Start Date End Date None None PCP - General 07/23/11 documented as of this encounter
--- OUTSIDE RECORDS SUMMARY | 2024-04-16 14:12 | XMS_ITS | Encounter Summary ---
Author Organization [facility] Address [address] [place] [address] Care Team Providers Care Payroll Manager Name Role Phone Unavailable Primary Care Provider Unavailabl e Encounter Details Date Type Department Care Team (Late st Contact Info) Description 06/20/2001 Results Only [facility] [place] conversion [address] [place] [address] Calvin Flores MD [address] [place], [place] [id number] Social History Tobacco Use Types Packs/Day Years [...] Priority Date/Time Associated Diagnosis Comments CYTOPATHOLOGY Routine 06/20/2001 0:00 EDT documented in this encounter Results * CYTOPATHOLOGY (06/20/2001 0:00 EDT) Pathology Report: CYTOPATHOLOGY REPORT Reports generated via electronic interface contain original data; however they are lacking the format of the original report. Caution should be taken when reading/interpreti ng unformatted reports. Name: ? CLEMENT NICHOLS ? Accession #: ? [id number] : ? 1985 (Age: 16) ??F ?Collect Date: ? 06/20/2001 Location: ? [facility] ? Receive Date: ? 06/22/2001 Provider: ?CALVIN FLORES MD Copy to: ? Specimen/Source: ?ThinPrep Pap Test, Cervix Last Menstrual Period: ? 05/21/01 Hormonal/Contracep tive Status: ? Yes: Triphasil Other: ? Client ID#: [id number] ? SPECIMEN ADEQUACY ? Satisfactory for Evaluation - transformation zone component present GENERAL CATEGORIZATION ? Negative for Intraepithelial Lesion or Malignancy INTERPRETATION ? Fungal organisms present morphologically consistent with Amelia species. ? Document reviewed and electronically signed by: ? Марина [place], [place](ASCP)(IAC) ? Report Date: ??06/28/2001 16:33 End of Report [facility] 06/20/2001 06/22/2001 us Calvin Flores MD PATHOLOGY ORDERABLES Fin al Result Performing Organization Address City/State/[facility] Co de Phone Number [facility] [address] [place] [address] documented in this encounter Visit Diagnoses Not on filedocumented in this encounter
--- NOTE | 2024-04-18 08:10 | DI.MAMMO_ITS ---
Exam(s) MAMMO SCREENING EXAM: MAMMO SCREENING CLINICAL HISTORY: screening,z12.39 TECHNIQUE: Mammograms were interpreted according to the usual protocol including computer analysis w [employer] CAD system, tomosynthesis and C-view imaging. COMPARISON: None. Baseline examination. FINDINGS: The breasts are composed of heterogeneously dense fibroglandular densities, Breast Density category C . No suspicious masses or suspicious microcalcifications are seen. There is a question areas of nodula rity in the anterior tissue of the left breast versus overlying dense tissue. Spot compression views and ultrasound requested for further evaluation. No skin thickening or abnormal axillary lymph nodes are seen. IMPRESSION: BI-RADS Category 0 - Incomplete: Need additional imaging evaluation. Spot compression views and ult rasound are requested of the left breast. Breast Density Category C, heterogeneously Dense. The mammogram demonstrates the patient's breast tissue is dense. Dense breast tissue is very common a nd is not abnormal but dense breast tissue can make it harder to find cancer on a mammogram. Also, de nse breast tissue may increase breast cancer risk. This information about the result of the mammogram report was provided to the patient to raise their awareness. Use this report when you speak with the patient about their risks for breast cancer, which includes their family history. At that time, you may recommend additional screening tests (Ultrasound or MRI) as they might be useful based on their r isk. A negative radiographic report should not delay biopsy if a dominant or clinically suspicious mass is present. Up to ten percent of cancers are not identified on mammography. A negative report may reinforce clinical impression. Adenosis and dense breasts may obscure an underlying neoplasm. False positive reports average 6 to 10%.
== END 2024-04-18 00:28 ==
LOC: DI 00:08
PROVIDERS: PCP Nurse Practitioner Family; Visit Provider Nurse Practitioner Family
DX: Z12.31 Encounter for screening mammogram for malignant neoplasm of breast (principal); R92.333 Mammographic heterogeneous density, bilateral breasts
CPT/HCPCS: 77063; 77067

== ENCOUNTER 2024-04-27 00:28 | Outpatient (CLI) | payer BC, SELFPAY ==
--- NOTE | 2024-04-27 | DI.MAMMO_ITS ---
Exam(s) MG MAMMO SCREEN CALL BACK UNI US BREAST LT COMPLETE EXAM: MG MAMMO SCREEN CALL BACK UNI LEFT AND COMPLETE LEFT BREAST ULTRASOUND CLINICAL HISTORY: Question areas of nodularity in anterior tissue, lt breast, vs overlying. TECHNIQUE: Unilateral LEFT BREAST spot mammographic images obtained with 3D tomosynthesisand [employer] ng computer aided detection (CAD). . Complete LEFT breast Ultrasound was also performed, including all 4 quadrants, the retroareolar regio n, and the ipsilateral axilla. COMPARISON: Prior mammograms were reviewed. This additional imaging was performed due to findings described on the recent screening mammogram of 04/18/2024. FINDINGS: DIAGNOSTIC MAMMOGRAM: Additional mammographic views performed todayis somewhat equivocal for the presence of possible nodul es. We proceeded with ultrasound COMPLETE LEFT BREAST ULTRASOUND: Ultrasound performed today reveals 4 benign cysts. The largest of these is at the 12 o'clock positio n and measures 10 x 5 mm. At the 1 o'clock position there is another benign cyst measuring 8 x 3 mm. At the 2 o'clock position there is a 6 x 5 mm microcyst also evident. At the 10 o'clock position t here is a 4 millimeter benign microcyst. Most importantly, there no solid lesions seen in all 4 quadrants of the left breast. Scanning of the ipsilateral axilla reveals no significant adenopathy. IMPRESSION: 1. Benign findings. There are 4 small cysts in the left breast. No solid lesions. Appropriate follow-up is to keep this patient on a yearly mammogram schedule, with earlier imaging i f a self detected breast change is noted.. The patient was informed of these findings and recommendations by myself prior to leaving the [facility] today. BI-RADS Category 2 - Benign Findings Breast Density - Category C - Heterogeneously dense Breast density Category C or D implies that the patient has dense breast tissue. Dense breast tissue can make it harder to find cancer on a mammogram. Dense breast tissue is also associated with an incr eased risk of breast cancer. This information about the result of the mammogram report was provided to the patient to raise their awareness. Use this report when you speak with the patient about their risks for breast cancer, which includes their family history. At that time, you may recommend additional screening tests (Ultrasoun d or MRI) as these tests may add significant information. A negative radiographic report should not delay biopsy if a dominant or clinically suspicious mass is present. Up to ten percent of cancers are not identified on mammography. A negative report may reinforce clinical impression. Adenosis and dense breasts may obscure an underlying neoplasm. False positive reports average 6 to 10%. Patient will receive a letter notifying them of these results.
== END 2024-04-27 00:48 ==
LOC: DI 00:28
PROVIDERS: PCP Nurse Practitioner Family; Visit Provider Nurse Practitioner Family
DX: Z12.31 Encounter for screening mammogram for malignant neoplasm of breast (principal); R92.333 Mammographic heterogeneous density, bilateral breasts; D24.2 Benign neoplasm of left breast
CPT/HCPCS: 76642; 77063; 77067

== ENCOUNTER 2024-06-25 18:00 | Emergency (ER) | payer BC, SELFPAY ==
--- NOTE | 2024-06-25 18:00 | DI.RAD_ITS ---
Exam(s) XR HAND LT COMPLETE EXAM: XR HAND LT COMPLETE CLINICAL HISTORY: L hand fracture/disloc. TECHNIQUE: 2D digital imaging was performed. Three views. COMPARISON: No exams were available for comparison FINDINGS: BONES: No acute fracture is present. No bony destructive lesion is seen. JOINTS: There is dislocation at the PIP joint of the 5th finger. The middle phalanx is displaced med ially and posteriorly with respect to the proximal phalanx. SOFT TISSUE: Normal. IMPRESSION: Posteromedial dislocation at the 5th PIP joint. No fracture visible. DATA REPOSITORY: RADIATION DOSE DELIVERED:
[2024-06-25 18:26] VITALS: BP 120/82; PULSE 68; RESP 20; TEMP 36.9; O2SAT 98
[2024-06-25] MEDS: Ketorolac 30 MG/ML VIAL IM (18:57)
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
[2024-06-25] MEDS: Acetaminophen 500 MG TAB 1000 MG PO (18:58)
[2024-06-25] MEDS: oxyCODONE 5 MG TAB PO (18:58)
--- NOTE | 2024-06-25 19:00 | DI.RAD_ITS ---
Exam(s) XR FINGER LT LITTLE EXAM: XR FINGER LT LITTLE CLINICAL HISTORY: post-reduction. TECHNIQUE: 2D digital imaging was performed. Three views. COMPARISON: None. FINDINGS: BONES: Tiny chip fracture at the volar aspect of the head of the proximal phalanx. No bony destructiv e lesion is seen. JOINTS: Reduction of previously noted dislocation. SOFT TISSUE: Normal. IMPRESSION: S/Preduction of dislocation. Tiny chip fracture. DATA REPOSITORY: RADIATION DOSE DELIVERED:
[2024-06-25 19:20] VITALS: BP 128/47; PULSE 65; RESP 14; RESP 15; O2SAT 100
--- NOTE | 2024-06-25 20:28 | DI.VRAD_ITS ---
PROCEDURE INFORMATION: Exam: XR Left Finger(s) Exam date and time: 06/25/2024 7:09 PM Age: 39 years old Clinical indication: Other: Post-reduction TECHNIQUE: Imaging protocol: Radiologic exam of the left fingers. Views: Minimum 2 views. COMPARISON: CR XR HAND LT COMPLETE 06/25/2024 6:40 PM FINDINGS: Bones/joints: When compared to the prior examination there has been appropriate reduction of the PIP dislocation of the 5th finger seen previously. A very tiny chip fracture is noted adjacent to the distal portion of the proximal phalanx of the 5th finger. Soft tissues: Soft tissue edema surrounding the PIP joint. IMPRESSION: 1. Reduction of the previously noted dislocation of the PIP joint of the 5th finger. 2. Tiny chip fracture noted adjacent to the distal portion of the proximal phalanx of the 5th finger. 3. Soft tissue edema. Dictated and Authenticated by: Dereck Raymundo MD. Orderin Sapna King MD
== END 2024-06-25 19:23 | disposition home or self-care (01) ==
PROVIDERS: Emergency Provider Physician Assistant; PCP Nurse Practitioner Family
DX: S63.287A Dislocation of proximal interphalangeal joint of left little finger, initial encounter (principal); W21.05XA Struck by basketball, initial encounter; Y93.67 Activity, basketball; Y92.310 Basketball court as the place of occurrence of the external cause
CPT/HCPCS: 26770; 99283; 73130; 73140; J1885